=== PATIENT | female | born 1970 | race Caucasian/White ===

== ENCOUNTER 2016-09-21 16:37 | Observation (INO) ==
--- NOTE | 2016-09-21 17:10 | Emergency Department Note ---
Disposition Clinical Impression: UTI (urinary tract infection), Bilateral leg paresthesia Disposition: Admitted As Inpatient Condition: Good General Adult HPI - General Chief complaint: ED Neuro Symptoms/Deficit Stated complaint: numbness Time Seen by Provider: 09/21/16 16:40 Nursing Notes Reviewed: Yes Vital Signs Reviewed: Yes - History of Present Illness Pain Scale: 6 - Related Data Home Medications Medication Instructions Recorded Confirmed Duloxetine HCl [Cymbalta] 60 mg PO DAILY 10/15/15 09/21/16 Ergocalciferol (VITAMIN D2) 50,000 unit PO WE 10/15/15 09/21/16 [Vitamin D2 (50,000 UNIT)] Levothyroxine [Synthroid] 75 mcg PO DAILY 10/15/15 09/21/16 Oxycodone HCl [Oxaydo] 5 mg PO Q6H PRN 10/15/15 09/21/16 Apixaban [Eliquis] 5 mg PO BID 09/21/16 09/21/16 Phenol/Sodium Phenolate [[facility]vs Sore 5 spray PO Q4H PRN 09/21/16 09/21/16 Throat [place]] Pregabalin [Lyrica] 300 mg PO BID 09/21/16 09/21/16 Promethazine [Phenergan] 25 mg RC TID PRN 09/21/16 09/21/16 Previous Rx's Medication Instructions Recorded Cetirizine HCl [Zyrtec] 10 mg PO DAILY PRN #7 capsule 07/17/16 Allergies Allergy/AdvReac Type Severity Reaction Status Date / Time Erythromycin Base AdvReac Vomiting Verified 09/18/16 23:41 naproxen AdvReac Vomiting Verified 09/18/16 23:41 tramadol AdvReac Vomiting Verified 09/18/16 23:41 Past Medical History - Past Medical History Medical history: Reports: arthritis, fibromyalgia, pulmonary embolus, other Surgical history: Reports: cholecystectomy, other (The patient underwent bariatric surgery several weeks ago. 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, other - Social History Smoking Status: Current every day smoker Smokeless Tobacco Status: No Alcohol use: Reports: none Drug use: Reports: none Course Vital Signs Temperature 98.1 F 09/21/16 16:40 Pulse Rate 77 09/21/16 16:40 Respiratory Rate 16 09/21/16 16:40 Blood Pressure 130/83 09/21/16 16:40 O2 Sat by Pulse Oximetry 98 09/21/16 16:40 Temperature 98.1 F 09/21/16 20:26 Pulse Rate 76 09/21/16 19:35 Respiratory Rate 18 09/21/16 20:26 Blood Pressure 134/80 09/21/16 20:26 O2 Sat by Pulse Oximetry 99 09/21/16 19:35 Oxygen Delivery Oxygen Delivery Room Air Medical Decision Making - MDM Narrative Medical decision making narrative: I examined this patient and my medical decision-making was reviewed with the MANAGER LANGUAGE/PA/Advanced Practice Nurse/Resident Physician. I agree with the documented findings, disposition and treatment plan as described except to the extent set forth below. Evaluate this patient with Dr. Mcpherson, agree with her evaluation treatment plan suprascapular the patient's stay. Patient comes in today complaining of numbness from her breast area down to her legs. No focal deficits. Reviewed her chart when she was here before they would admit her for this they thought it was due to her medications which is Lyrica which she still on. She has no signs of serotonin syndrome perished in a normal neuro exam. We look at her evaluation here last time she has 2 urine cultures from the same day 1 showing bacteria which was sensitive to everything and the other showing clean and a repeat that. Then reassess her and determine if we need to do any further management. No other lab tests were abnormal site do not think we need to repeat that I do not think she needs any imaging done at this point. Also wanting to talk with her family who just arrived also. 1750 hrs.: She does have a UTI. We will check labs on her and started on antibiotics and most likely admit. - Lab Data Result diagrams: 09/21/16 17:51 09/21/16 17:51 Lab Results 09/21/16 09/21/16 09/21/16 Range/Units 17:13 17:51 17:51 WBC 3.7 L D (4.3-11.1) K/mcL RBC 4.30 (3.82-4.97) M/mcL Hgb 11.2 L (11.5-15.4) g/dL Hct 35.8 (35.3-44.9) % MCV 83.3 (83.0-100.0) fL MCH 26.0 L (28.0-33.3) pg MCHC 31.3 L (31.6-35.5) g/dL RDW 17.6 H (11.5-14.5) % Plt Count 301 (140-400) K/mcL MPV 10.4 (9.4-12.4) fL Immature Gran % 0.3 (0-4) % Seg Neutrophils % 47.8 % Lymphocytes % 34.9 % Monocytes % 12.1 % Eosinophils % 3.8 % Basophils % 1.1 % Neutrophils # 1.8 (1.6-8.9) K/mcL Lymphocytes # 1.3 (0.6-4.6) K/mcL Monocytes # 0.5 (0.0-1.3) K/mcL Eosinophils # 0.1 (0.0-0.6) K/mcL Basophils # 0.0 (0.0-0.2) K/mcL Sodium 139 (136-145) mEq/L Potassium 3.0 L (3.5-4.5) mEq/L Chloride 106 (98-109) mEq/L Carbon Dioxide 24 (19-29) mEq/L BUN 8 (7-20) mg/dL Creatinine 0.64 (0.57-1.11) mg/dL Est GFR ( Amer) > 60 (> 60) Est GFR (Non-Af Amer) > 60 (> 60) BUN/Creatinine Ratio 13 (6-26) Glucose 111 H (70-99) mg/dL Calculated Osmolality 287 (280-300) Calcium 8.5 L (8.6-10.8) mg/dL Serum , Qual (Negative) Urine Color Dark Yellow (Yellow) Urine Clarity Turbid A (Clear) Urine pH 6.0 (5.0-8.0) pH Units Ur Specific [place] 1.024 (1.010-1.025) Urine Protein 30 H (Neg-Trace) mg/dL Urine Glucose (UA) Normal (Normal) mg/dL Urine Ketones Negative (Negative) mg/dL Urine Blood Large H (Negative) Urine Nitrite Positive A (Negative) Urine Bilirubin Small H (Negative) Urine Urobilinogen Normal (Normal) mg/dL Ur Leukocyte Esterase Small H (Negative) Urine Microscopic RBC 5-15 H (0-3) per hpf Urine Microscopic WBC 50-100 H (0-3) per hpf Ur Squamous Epith Cells Many H (None-Few) per lpf Urine Bacteria Many H (None-Few) per hpf Hyaline Casts None Seen (None-Few) per lpf Urine Yeast Test Not Performed Ur Culture Indicated? YES A (NO) 09/21/16 Range/Units 17:51 WBC (4.3-11.1) K/mcL RBC (3.82-4.97) M/mcL Hgb (11.5-15.4) g/dL Hct (35.3-44.9) % MCV (83.0-100.0) fL MCH (28.0-33.3) pg MCHC (31.6-35.5) g/dL RDW (11.5-14.5) % Plt Count (140-400) K/mcL MPV (9.4-12.4) fL Immature Gran % (0-4) % Seg Neutrophils % % Lymphocytes % % Monocytes % % Eosinophils % % Basophils % % Neutrophils # (1.6-8.9) K/mcL Lymphocytes # (0.6-4.6) K/mcL Monocytes # (0.0-1.3) K/mcL Eosinophils # (0.0-0.6) K/mcL Basophils # (0.0-0.2) K/mcL Sodium (136-145) mEq/L Potassium (3.5-4.5) mEq/L Chloride (98-109) mEq/L Carbon Dioxide (19-29) mEq/L BUN (7-20) mg/dL Creatinine (0.57-1.11) mg/dL Est GFR ( Amer) (> 60) Est GFR (Non-Af Amer) (> 60) BUN/Creatinine Ratio (6-26) Glucose (70-99) mg/dL Calculated Osmolality (280-300) Calcium (8.6-10.8) mg/dL Serum , Qual Negative (Negative) Urine Color (Yellow) Urine Clarity (Clear) Urine pH (5.0-8.0) pH Units Ur Specific [place] (1.010-1.025) Urine Protein (Neg-Trace) mg/dL Urine Glucose (UA) (Normal) mg/dL Urine Ketones (Negative) mg/dL Urine Blood (Negative) Urine Nitrite (Negative) Urine Bilirubin (Negative) Urine Urobilinogen (Normal) mg/dL Ur Leukocyte Esterase (Negative) Urine Microscopic RBC (0-3) per hpf Urine Microscopic WBC (0-3) per hpf Ur Squamous Epith Cells (None-Few) per lpf Urine Bacteria (None-Few) per hpf Hyaline Casts (None-Few) per lpf Urine Yeast Ur Culture Indicated? (NO)
[2016-09-21 17:24] LABS: Bilirubin,Urine Small (Negative); Blood,Urine Large (Negative); Clarity,Urine Turbid (Clear); Color,Urine Dark Yellow (Yellow); Glucose,Urine (UA) Normal (Normal); Ketones,Urine Negative (Negative); Leukocyte Esterase,Urine Small (Negative); Nitrite,Urine Positive (Negative); Protein,Urine 30 mg/dL (Neg-Trace); Specific Gravity,Urine 1.024 (1.010-1.025); Urobilinogen,Urine Normal (Normal)
[2016-09-21 17:26] LABS: Bacteria,Urine Many per hpf (None-Few); Squamous Epithelial Cell,Urine Many per lpf (None-Few); WBC,Urine 50-100 per hpf (0-3)
[2016-09-21 17:39] LABS: Hyaline Casts,Urine None Seen per lpf (None-Few)
--- NOTE | 2016-09-21 17:59 | Emergency Department Note ---
Disposition Clinical Impression: Bilateral leg paresthesia UTI (urinary tract infection) Qualifiers: Urinary tract infection type: acute cystitis Hematuria presence: without hematuria Qualified Code(s): N30.00 - Acute cystitis without hematuria Disposition: Admitted As Inpatient Condition: Good Referrals: Unassigned,Provider [Non-Partnered Physician] - Forms: ED Satisfaction Letter Time of Disposition: 19:29 General Adult HPI - General Chief complaint: ED Neuro Symptoms/Deficit Stated complaint: numbness Time Seen by Provider: 09/21/16 16:40 Nursing Notes Reviewed: Yes Vital Signs Reviewed: Yes - History of Present Illness HPI Narrative: Three-day history of numbness and tingling from her nipple line down. Patient states that she cannot ambulate due to the numbness in her legs. She has been seen for this on this day with no relief. She is also reporting foul-smelling urine. Pain Scale: 6 - Related Data Home Medications Medication Instructions Recorded Confirmed Duloxetine HCl [Cymbalta] 60 mg PO DAILY 10/15/15 09/21/16 Ergocalciferol (VITAMIN D2) 50,000 unit PO WE 10/15/15 09/21/16 [Vitamin D2 (50,000 UNIT)] Levothyroxine [Synthroid] 75 mcg PO DAILY 10/15/15 09/21/16 Oxycodone HCl [Oxaydo] 5 mg PO Q6H PRN 10/15/15 09/21/16 Apixaban [Eliquis] 5 mg PO BID 09/21/16 09/21/16 Phenol/Sodium Phenolate [Cvs Sore 5 spray PO Q4H PRN 09/21/16 09/21/16 Throat [place]] Pregabalin [Lyrica] 300 mg PO BID 09/21/16 09/21/16 Promethazine [Phenergan] 25 mg RC TID PRN 09/21/16 09/21/16 Previous Rx's Medication Instructions Recorded Cetirizine HCl [Zyrtec] 10 mg PO DAILY PRN #7 capsule 07/17/16 Allergies Allergy/AdvReac Type Severity Reaction Status Date / Time Erythromycin Base AdvReac Vomiting Verified 09/18/16 23:41 naproxen AdvReac Vomiting Verified 09/18/16 23:41 tramadol AdvReac Vomiting Verified 09/18/16 23:41 Review of Systems: She denies a fever recently. Does report numbness and tingling from her nipple line down. She pinches her hip and says that she cannot feel that. She reports that she cannot feel her feet. Patient denies any shortness of breath or chest pain. She denies any syncope or visual changes. She denies a headache. She denies any nausea vomiting or diarrhea. Denies any incontinence. All systems ED: reviewed and negative except as stated. Past Medical History - Past Medical History Medical history: Reports: arthritis, fibromyalgia, pulmonary embolus, other Surgical history: Reports: cholecystectomy, other (The patient underwent bariatric surgery several weeks ago. 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 - General General appearance: obese (Morbidly) - Head Head exam: atraumatic, normocephalic, normal inspection - Eye Eye exam: Present: normal appearance, PERRL, EOMI - ENT ENT exam: normal exam, normal oropharynx, mucous membranes moist - Neck Neck exam: Present: normal inspection, full ROM, trachea midline. Absent: meningismus, lymphadenopathy - Chest Chest inspection: Present: normal inspection, symmetric chest wall rise. Absent : tenderness, rash - Respiratory Respiratory exam: Present: normal lung sounds bilaterally. Absent: respiratory distress, wheezes, stridor - Cardiovascular Cardiovascular exam: Present: regular rate, normal rhythm, normal heart sounds - Abdominal Exam Abdominal exam: Present: soft, Non-Tender, normal bowel sounds, other (Exam limited due to patient's size.). Absent: tenderness, distention, guarding, rebound, rigidity - Extremities Exam Extremities exam: Present: normal inspection, full ROM, normal capillary refill , other (Reported numbness and tingling. She withdraws to Babinski as well as any type of skin binging.). Absent: tenderness - Back Exam Back exam: Present: normal inspection, full ROM. Absent: tenderness, CVA tenderness (R), CVA tenderness (L) - Neurological Exam Neurological exam: Present: alert, oriented X3 - Psychiatric Psychiatric exam: Present: normal affect, normal mood - Skin Skin exam: Present: warm, dry, intact, normal color Course Course Narrative: Male patient brought in by EMS for numbness and tingling from her nipple line down. Also reporting an altered mentation. Was seen at this facility on for similar symptoms. It was noted at the time that she had started her Lyrica back after being off it for several days. Her dose was decreased and she was discharged. Patient reports her symptoms have not changed. EMS states that she is altered from what they are used to. Patient is alert and oriented to person place and time she does not appear to be mentating full capacity. She reports numbness and tingling from her nipple line down. She also states that she cannot ambulate. However on exam she does withdraw from pain in her lower extremities. Patient has a foul urine odor about her. We will check a urinalysis and basic labs. She does not appear to have any focal neuro deficits. She has not had a fever. - Reevaluation(s) Reevaluation #1: Patient found to have a UTI. His on antibiotics and fluids. We will admit patient due to her altered level of mentation and new history of inability to ambulate. Time: 18:36 Reevaluation #2: Patient's family here advising patient has been acting differently at home. She has had episodes where she does not remember think she is down at home. She is not able to ambulate around the house. This Has been going on since . Time: 19:05 - Consultations Consultation #1: Spoke with Dr Grant. He is admitting Pt. Time: 19:25 Vital Signs Temperature 98.1 F 09/21/16 16:40 Pulse Rate 77 09/21/16 16:40 Respiratory Rate 16 09/21/16 16:40 Blood Pressure 130/83 09/21/16 16:40 O2 Sat by Pulse Oximetry 98 09/21/16 16:40 Temperature 98.1 F 09/21/16 16:40 Pulse Rate 75 09/21/16 18:08 Respiratory Rate 16 09/21/16 18:08 Blood Pressure 130/83 09/21/16 18:08 O2 Sat by Pulse Oximetry 97 09/21/16 18:08 Oxygen Delivery Oxygen Delivery Room Air Medical Decision Making - Lab Data Result diagrams: 09/21/16 17:51 09/21/16 17:51 Lab Results 09/21/16 09/21/16 09/21/16 Range/Units 17:13 17:51 17:51 WBC 3.7 L D (4.3-11.1) K/mcL RBC 4.30 (3.82-4.97) M/mcL Hgb 11.2 L (11.5-15.4) g/dL Hct 35.8 (35.3-44.9) % MCV 83.3 (83.0-100.0) fL MCH 26.0 L (28.0-33.3) pg MCHC 31.3 L (31.6-35.5) g/dL RDW 17.6 H (11.5-14.5) % Plt Count 301 (140-400) K/mcL MPV 10.4 (9.4-12.4) fL Immature Gran % 0.3 (0-4) % Seg Neutrophils % 47.8 % Lymphocytes % 34.9 % Monocytes % 12.1 % Eosinophils % 3.8 % Basophils % 1.1 % Neutrophils # 1.8 (1.6-8.9) K/mcL Lymphocytes # 1.3 (0.6-4.6) K/mcL Monocytes # 0.5 (0.0-1.3) K/mcL Eosinophils # 0.1 (0.0-0.6) K/mcL Basophils # 0.0 (0.0-0.2) K/mcL Sodium 139 (136-145) mEq/L Potassium 3.0 L (3.5-4.5) mEq/L Chloride 106 (98-109) mEq/L Carbon Dioxide 24 (19-29) mEq/L BUN 8 (7-20) mg/dL Creatinine 0.64 (0.57-1.11) mg/dL Est GFR ( Amer) > 60 (> 60) Est GFR (Non-Af Amer) > 60 (> 60) BUN/Creatinine Ratio 13 (6-26) Glucose 111 H (70-99) mg/dL Calculated Osmolality 287 (280-300) Calcium 8.5 L (8.6-10.8) mg/dL Urine Color Dark Yellow (Yellow) Urine Clarity Turbid A (Clear) Urine pH 6.0 (5.0-8.0) pH Units Ur Specific [place] 1.024 (1.010-1.025) Urine Protein 30 H (Neg-Trace) mg/dL Urine Glucose (UA) Normal (Normal) mg/dL Urine Ketones Negative (Negative) mg/dL Urine Blood Large H (Negative) Urine Nitrite Positive A (Negative) Urine Bilirubin Small H (Negative) Urine Urobilinogen Normal (Normal) mg/dL Ur Leukocyte Esterase Small H (Negative) Urine Microscopic RBC 5-15 H (0-3) per hpf Urine Microscopic WBC 50-100 H (0-3) per hpf Ur Squamous Epith Cells Many H (None-Few) per lpf Urine Bacteria Many H (None-Few) per hpf Hyaline Casts None Seen (None-Few) per lpf Urine Yeast Test Not Performed Ur Culture Indicated? YES A (NO)
[2016-09-21 18:01] LABS: Basophils % 1.1 %; Eosinophils # 0.1 K/mcL (0.0-0.6); Eosinophils % 3.8 %; Hematocrit 35.8 % (35.3-44.9); Hemoglobin 11.2 g/dL (11.5-15.4); Immature Granulocytes % 0.3 % (0-4); Lymphocytes # 1.3 K/mcL (0.6-4.6); Lymphocytes % 34.9 %; Mean Corpuscular HGB Conc 31.3 g/dL (31.6-35.5); Mean Corpuscular Volume 83.3 fL (83.0-100.0); Mean Platelet Volume 10.4 fL (9.4-12.4); Monocytes # 0.5 K/mcL (0.0-1.3); Monocytes % 12.1 %; Neutrophils # 1.8 K/mcL (1.6-8.9); Platelet Count 301 K/mcL (140-400); Red Cell Distribution Width 17.6 % (11.5-14.5); Segmented Neutrophils % 47.8 %
[2016-09-21] MEDS ORDERED: 0.9 % Sodium Chloride 500 ML IVC ONE (18:06)
[2016-09-21 18:13] LABS: BUN/Creatinine Ratio 13 (6-26); Blood Urea Nitrogen 8 mg/dL (7-20); Calcium 8.5 mg/dL (8.6-10.8); Carbon Dioxide 24 mEq/L (19-29); Chloride 106 mEq/L (98-109); Glucose 111 mg/dL (70-99); Osmolality,Calculated 287 (280-300); Sodium 139 mEq/L (136-145); eGFR For African Americans > 60 (> 60); eGFR For Non-African Americans > 60 (> 60)
[2016-09-21] MEDS ORDERED: *HR* OxyCODONE Immed Rel 5 MG TABLET PO ONE (19:08)
[2016-09-21] MEDS ORDERED: Naloxone 0.4 MG/ML INJ IVP PRN (21:49)
--- NOTE | 2016-09-21 22:03 | Internal Med History&Physical ---
Date of Encounter: 09/22/16 Time of Encounter: 07:20 Assessment and Plan (1) Confusion caused by a drug Current visit: No Status: Acute This patient was recently seen on 09/18 for similar symptoms, during the 9 hours course of her stay in the ED the patient's mental status improved greatly. It is my belief that the patient went home following the recent ED visit and did not follow her instructions to titrate up her Lyrica starting with 50mg TID. Her presenting symptoms are the same as her previous visit. Will hold her medications tonight with consideration for restarting them in the morning in a controlled environment to be taken appropriately and observe mental status changes. The patient was given a does of ceftriaxone in the ED for UTI. The patient states that she has had foul smelling urine, but does not have urinary symptoms. UA demonstrated small leukocyte esterase WBC 50-100, but was contaminated with many squamous epithelial cells. Urine collected by straight catheterization on 09/19 did not show any growth. I feel her confusion is related more to her medications, will hold continuation of antibiotics at this time. Urine culture pending. (2) Bilateral leg paresthesia Current visit: Yes Status: Acute These symptoms only present when the patient is having her altered mental status. Considerations for psychosomatic symptoms vs. malingering. The parasthesias do not seem to follow any structural cause at this time. Paired with the confusion a central cause was considered and since the patient' s original complaint was numbness from her breasts downward. CT of the head on 09/18 demonstrated no acute intracranial abnormality. She was noted to have a low folate of 2.4, will give supplemental dosing at this time. B12 pending. (3) History of pulmonary embolism Current visit: No Status: Acute Continue the patient on her Eliquis (4) Hypothyroidism Current visit: No Status: Acute TSH was .174, which is inconsistent with hypothyroidism. Will continue with synthroid for now. Patient needs to followup with her PCP. Qualifiers: Hypothyroidism type: unspecified Qualified Code(s): E03.9 - Hypothyroidism , unspecified (5) Morbid obesity Current visit: No Status: Acute Qualifiers: Obesity type: due to excess calories Qualified Code(s): E66.01 - Morbid ( severe) obesity due to excess calories (6) Hypokalemia Current visit: Yes Status: Acute Low at 3.0, was 3.5 on 09/18. Will continue to monitor at this time. (7) DVT prophylaxis Current visit: Yes Status: Acute Patient is on eliquis. Internal Medicine - H&P: HPI Chief complaint: Numbness and Tingling Admitted From: Emergency Dept Plans for Post Hospital Care: Home History of present illness: Ms. Blackburn is a 46 year old female with past medical history significant for fibromyalgia, arthritis, pulmonary embolism, depression and gastric bypass surgery several weeks ago who presented to the [facility] department for complaints of numbness and tingling. The patient has a recent visit to the emergency department on 09/18 for the same complaints. At that time her family members states that she seemed to be slightly altered as well and kept repeating herself and seeming confused. Her presentation today is the same as previously. It was believed that her altered mental status was due to her taking her Lyrica inappropriately as she had not taken it for a week, then took a 300mg capsule with out titrating her medication back up at all. During the course of her stay in the emergency department on 09/18 she was there for approximately 9 hours and her mentation returned at that time and her symptoms of numbness and tingling resolved completely. Her does of Lyrica was changed upon discharge on 09/18 to 50mg TID. When speaking with the patient today she could not express to me how she got to the hospital, she did not remember being in the emergency department 3 days ago, and she cannot remember when she last took any of her medications. She states that she does not have anyone at home to help her with her medications. Her original complaint was numbness with tingling from her breasts down to approximately her knees, but when I spoke with her she is now complaining of pain in her lower back and numbness from her hips to her feet. She denies any chest pain, shortness of breath, fevers, recent illness, nausea and diarrhea at this time. She states that her legs will give out from her due to the numbness she is having when she walks. Past Med Surg Social Fam HX - Past Medical History Medical history: arthritis, fibromyalgia, pulmonary embolus, other Psychiatric history: depression - Past Surgical History Surgical History: cholecystectomy, other - Social History Smoking Status: Current every day smoker (one pack per day) Smokeless Tobacco Status: No Alcohol use: none Drug use: none - Family History Mother Hx Family Endocrine Disorder: Yes (diabetes) Hx Family Medical Disorders: Yes (History of blood clots) Internal Medicine - H&P: Meds Duloxetine HCl [Cymbalta] 60 mg PO DAILY 10/15/15 [History] Ergocalciferol (VITAMIN D2) [Vitamin D2 (50,000 UNIT)] 50,000 unit PO WE [History] Levothyroxine [Synthroid] 75 mcg PO DAILY 10/15/15 [History] Oxycodone HCl [Oxaydo] 5 mg PO Q6H PRN 10/15/15 [History] Cetirizine HCl [Zyrtec] 10 mg PO DAILY PRN #7 capsule 07/17/16 [Rx] Apixaban [Eliquis] 5 mg PO BID 09/21/16 [History] Phenol/Sodium Phenolate [[facility] Sore Throat [place]] 5 spray PO Q4H PRN 09/21/16 [ History] Pregabalin [Lyrica] 300 mg PO BID 09/21/16 [History] Promethazine [Phenergan] 25 mg RC TID PRN 09/21/16 [History] Allergies Erythromycin Base Adverse Reaction (Verified 09/18/16 23:41) Vomiting naproxen Adverse Reaction (Verified 09/18/16 23:41) Vomiting tramadol Adverse Reaction (Verified 09/18/16 23:41) Vomiting All Systems PM: A 10-system review of systems was performed and is negative for pertinent findings except as documented above in the HPI. - Constitutional Constitutional: falls, no chills, no fatigue - EENT Eyes: no change in vision, no discharge, no pain, no photophobia Ears: no ear discharge, no ear pain, no tinnitus Nose, mouth and throat: no dysphagia, no nasal discharge, no neck pain, no sore throat - Cardiovascular Cardiovascular ROS IM: no chest pain, no diaphoresis, no dyspnea, no lightheadedness, no palpitations, no syncope - Respiratory Respiratory: no cough, no dyspnea, no wheezing, no excessive phlegm production - Gastrointestinal Gastrointestinal: no abdominal pain, no diarrhea, no hematemesis, no hematochezia, no melena, no nausea, no vomiting - Genitourinary Genitourinary: no change in urinary stream, no dysuria, no flank pain, no hematuria Additional comments: foul smelling urine - Musculoskeletal Musculoskeletal ROS IM: numbness, tingling - Integumentary Integumentary IM: no rash, no unusual bruising - Neurological Neurological ROS: confusion, focal weakness, numbness, paresthesias, tingling, no dizziness - Psychiatric Psychiatric: confusion, memory loss - Hematologic/Lymphatic Hematologic/Lymphatic: no easy bruising - Constitutional Vitals: Temp Pulse Resp BP Pulse Ox 98.1 F 76 18 134/80 99 09/21/16 20:26 09/21/16 19:35 09/21/16 20:26 09/21/16 20:26 09/21/16 19:35 General appearance: Present: A&O X 2 (not oriented to time), no acute distress, obese, answers questions appropriately - Head Head exam: Present: atraumatic, normocephalic - Eye Eye exam: Present: EOMI, PERRL, conjuntiva pink, sclera anicteric Pupils: Present: PERRL - Neck Neck exam general surgery: Present: supple, trachea midline. Absent: lymphadenopathy - Respiratory Respiratory exam: Present: CTAB. Absent: accessory muscle use, rales, rhonchi, wheezes - Cardiovascular Cardiovascular exam: Present: RRR, +S1, +S2. Absent: diastolic murmur, gallop, rubs, systolic murmur - GI/Abdominal GI/Abdominal exam: Present: normal bowel sounds, soft, no peritoneal signs. Absent: distended, tenderness Additional comments: obese - Extremities Exam Extremities exam: Present: warm, radial pulses palpable and symetrical. Absent : calf tenderness, cyanotic, pedal edema - Neurological Exam Neurological exam: Present: CN II-XII intact, no focal deficits. Absent: facial droop, speech deficit Additional comments: Patient was able to discriminate between a sharp stick and cotton tipped applicator throughout her lower extremities - Expanded Neurological Exam Cerebellar function: finger to nose: Normal Sensory exam: lower extremity light touch: Normal, lower extremity pin prick: Normal, upper extremity light touch: Normal, upper extremity pin prick: Normal Neuro motor strength exam: LUE: 5, RUE: 5, LLE: 5, RLE: 5 - Skin Skin exam: Present: dry, intact Internal Med - H&P Results - Labs CBC & Chem 7: 09/21/16 17:51 09/21/16 17:51 - Attending Attestation I examined this patient and my medical decision-making was reviewed with the DIRECTOR OF RELIGIOUS ACTIVITIES/PA/Advanced Practice Nurse/Resident Physician. I agree with the documented findings, disposition and treatment plan as described except to the extent set forth below.
[2016-09-22] MEDS: Acetaminophen 325 MG TABLET PO PRN ×2 (01:08→09:37)
[2016-09-22] MEDS: Folic Acid 1 MG TABLET PO SCH (08:00)
[2016-09-22] MEDS: APIXABAN 5 MG TABLET PO SCH ×2 (08:00→20:47)
[2016-09-22 08:35] LABS: ABG Base Excess 3.9 mEq/L (-2.0 to 3.0); ABG HCO3 27.7 mEQ/L (21-27); ABG Oxygen Saturation 94 % (95-98); ABG PCO2 38 mmHg (35-45); ABG PH 7.47 pH Units (7.32-7.45); ABG PO2 67 mmHg (85-104); ABG TCO2 28.9 mEq/L (20-26); Blood Gas FiO2 21 %
[2016-09-22 08:41] LABS: Hemoglobin A1C 5.1 %
--- NOTE | 2016-09-22 14:32 | Electrocardiograph Report ---
[facility] Test Date: 2016-09-21 Pat Name: JIMMY MATIAS Department: 104 Room: 3A37 Gender: F Community Development Manager: DILIP : 1970 Requested By: Elijah Celaya Order Number: [id number] Reading MD: Grupo Vazquez Measurements Intervals [place] Rate: 77 P: 51 [place]: 171 QRS: 40 QRSD: 97 T: 43 QT: 398 QTc: 430 Interpretive Statements SINUS RHYTHM Electronically Signed On 09-22-16 14:29:41 EST by Grupo Vazquez
--- NOTE | 2016-09-22 14:55 | ECHO - Doppler Report ---
Echocardiogram Name: Kamla Blackburn Date of Study: 09/22/2016 Date: 1970 Ht: 67.0 in Medical Record#: [id number] Age: 46 Wt: 321.0 lb Gender: Female BSA: 2.47 Order #: [id number] Location: [facility] Room #: 3A37 Reading Physician: Artie Peña MD, [facility] [employer] Cement Sheet Supervisor: Elena Hammer RDCS, RVT Ordering Physician: Vicente Dow MD Primary Physician: Lavell Capps M.D. Indications: Probable JOSE ANGEL Impressions: Normal LV size and systolic function, LVEF 65%. Normal right ventricular structure and function. Mildly dilated left atrium. No significant valvular dysfunction. Unable to estimate RVSP due to lack of TR jet. Left Ventricular Wall Motion: Rest Echo Findings All wall segments showed normal motion. Findings: Study Quality * Technically adequate exam. ECG Findings * Normal sinus rhythm. Left Ventricle * Normal LV size and systolic function, LVEF 65%. * Normal LV wall thickness. * Indeterminate diastolic function. Right Ventricle * Normal right ventricular structure and function. Left Atrium * Mildly dilated left atrium. Right Atrium * Normal right atrial size. Aorta * Normally sized aortic root. Pericardium * There is no pericardial effusion present. IVC * The IVC is not well evaluated. Aortic Valve * Aortic valve not well visualized. Appears trileaflet. * No aortic stenosis. * No aortic regurgitation. Mitral Valve * Normal mitral valve structure. * No mitral stenosis. * Trace mitral regurgitation. Tricuspid Valve * Normal tricuspid valve structure. * No tricuspid stenosis. * No tricuspid regurgitation. * Unable to estimate RVSP due to lack of TR jet. Pulmonic Valve * Pulmonic valve not well visualized. * No pulmonic stenosis. * No pulmonic regurgitation. History History of Smoking Years 25 Packs 1 06-19-2013 a Previous Echo was performed. Measurements: BP: 135/ 78 2D Normal Values RVIDd: 3.40 cm IVSd: 1.00 cm 0.6 - 1.0 cm LVIDd: 4.70 cm 3.7 - 5.6 cm LVPWd: 1.00 cm 0.6 - 1.1 cm LVIDs: 2.90 cm 1.5 - 3.6 cm AO: 3.40 cm < 4.0 cm %FS: 38.30 cm >25 % LA volume: 90 Mitral Valve Peak E:.69 m/sec Peak A:.57 m/sec E/A Ratio:1.2 Updated by Artie Peña MD, [facility] on 09/22/2016 2:49:06 PM electronically signed on 09/22/2016 2:50:53 PM with status of Final Wall Motion [place]: 1=Normal, 2=Hypokinesis, 3=Akinesis, 4=Dyskinesis, 5=Aneurysmal, 6=Hyperkinetic, X=Not Visualized (Blank)=Missing
--- NOTE | 2016-09-22 15:49 | Internal Med Progress Note ---
Date of Encounter: 09/22/16 Time of Encounter: 10:00 - Assessment and plan (1) Bilateral leg paresthesia Current Visit: Yes Status: Acute Assessment and plan: Etiology is undetermined. Patient has severe folic acid deficiency. She had a bariatric surgery several months ago, possibly also had vitamin B12 deficiency. Will check vitamin B12 level. (2) DVT prophylaxis Current Visit: Yes Status: Acute Assessment and plan: Patient is on Eliquis. (3) Hypokalemia Current Visit: Yes Status: Acute Assessment and plan: Possibly due to bariatric surgery. Give potassium supplement already, will follow-up a potassium level. (4) UTI (urinary tract infection) Current Visit: Yes Status: Acute Assessment and plan: Continue Rocephin. Follow-up urine culture. Qualifiers: Urinary tract infection type: acute cystitis Hematuria presence: without hematuria Qualified Code(s): N30.00 - Acute cystitis without hematuria (5) History of pulmonary embolism Current Visit: No Status: Acute Assessment and plan: Pt is on eliquis (6) Hypothyroidism Current Visit: No Status: Acute Assessment and plan: Continue Synthroid. Will decrease dose to 50 g because of TSH low. Qualifiers: Hypothyroidism type: unspecified Qualified Code(s): E03.9 - Hypothyroidism , unspecified (7) Morbid obesity Current Visit: No Status: Acute Assessment and plan: S/P bariatric surgery. Qualifiers: Obesity type: due to excess calories Qualified Code(s): E66.01 - Morbid ( severe) obesity due to excess calories - Time Spent With Patient 25 - 35 minutes - Subjective Interval history: Patient is a 46-year-old female presented to emergency room for both legs numbness and tingling. Her past medical history is significant for fibromyalgia , PE, arthritis, morbid obesity s/p bariatric surgery. Patient was seen and examined. She is awake, alert, oriented 3. Still complaining of leg numbness and tingling on both legs. Strength of both legs are normal. Patient has severe folic acid deficiency, on folic acid supplement. Vitamin B12 level sent, resolved is pending. Patient had recent bariatric surgery, she may have malnutrition and electrolytes abnormalities. We will close monitoring. - Constitutional Vitals: Temp Pulse Resp BP Pulse Ox 98.5 F 82 14 156/77 93 L 09/22/16 15:05 09/22/16 15:05 09/22/16 15:05 09/22/16 15:05 09/22/16 15:05 General appearance: Present: A&O X 3, no acute distress, obese, answers questions appropriately - Head Head exam: Present: atraumatic, normocephalic - Eye Eye exam: Present: PERRL, conjuntiva pink, sclera anicteric Pupils: Present: PERRL - Neck Neck exam general surgery: Present: supple, trachea midline. Absent: lymphadenopathy - Respiratory Respiratory exam: Present: CTAB. Absent: accessory muscle use, rales, rhonchi, wheezes - Cardiovascular Cardiovascular exam: Present: RRR, +S1, +S2. Absent: diastolic murmur, gallop, rubs, systolic murmur - GI/Abdominal GI/Abdominal exam: Present: normal bowel sounds, soft, no peritoneal signs. Absent: distended, tenderness - Extremities Exam Extremities exam: Present: warm, radial pulses palpable and symetrical. Absent : calf tenderness, cyanotic, pedal edema - Neurological Exam Neurological exam: Present: CN II-XII intact, oriented X3, no focal deficits. Absent: pronater drift, facial droop, speech deficit - Skin Skin exam: Present: dry, intact Internal Medicine: Result - Labs CBC & Chem 7: 09/21/16 17:51 09/21/16 17:51 - ABG Interpretation ABG results: ABG ABG pH 7.47 pH Units (7.32-7.45) H 09/22/16 08:26 ABG pCO2 38 mmHg (35-45) 09/22/16 08:26 ABG pO2 67 mmHg (85-104) L 09/22/16 08:26 ABG O2 Saturation 94 % (95-98) L 09/22/16 08:26 Consult Discharge Plan - Plan Referrals: Lavell Capps MD [Primary Care Provider] -
--- NOTE | 2016-09-22 17:36 | Neurology - Consult Note ---
Date of Encounter: 09/22/16 Time of Encounter: 17:32 Assessment and Plan (1) Paresthesia Current Visit: No Status: Acute Unknown etiology and the symptoms are subjective and i could not identify any discrete level of sensory deficits. Neurological examination is essentially non focal and DTRs are preserved and the sensory complaints are certainly not associated with any motor deficits. She does have some urinary incontinence problems and had blood urine occuring as i spoke to her. No clear medication that she uses can cause peripheral neuropathy. I agree with check B12, may be other causes of rapid onset of peripheral neuropathy can be used. I would order MRI of T spine without contrast just to make sure that no spinal cord lesion is present. She is morbid obese and accurate examination is difficult. Has increased DTRs and combined degeneration is a concern. If having abdominal pain, peripheral neuropathy then heavy metal poisoning is rare but possible condition. History of Present Illness Chief complaint: leg numbess HPI: Ms. Blackburn is a 46 year old female with morbid obesity, arthritis, back pain, asthma, HTN, hyptyroid who presented to ER with acute onset of confusion, and neurology was consulted regarding complaints of leg paresthesia. Patient states that she has developed bilateral leg numbness up to her waist. She denies any weakness in her legs however. She was in prone position when i entered and when she tried to turn supine she has significant soreness to his legs and thigh and her back. She woke up with the symptoms. The numbness is at her waist. CT of head showed no acute intracranial abnormality. Laboratory testing showed no significant anemia. No history of DM. dose have history of abdominal pain. Past Med Surg Social Fam HX - Past Medical History Medical history: arthritis, fibromyalgia, pulmonary embolus, other Psychiatric history: depression - Past Surgical History Surgical History: cholecystectomy, other - Social History Smoking Status: Current every day smoker (one pack per day) Smokeless Tobacco Status: No Alcohol use: none Drug use: none - Family History Mother Hx Family Endocrine Disorder: Yes (diabetes) Hx Family Medical Disorders: Yes (History of blood clots) Medications and Allergies Duloxetine HCl [Cymbalta] 60 mg PO DAILY 10/15/15 [History] Ergocalciferol (VITAMIN D2) [Vitamin D2 (50,000 UNIT)] 50,000 unit PO WE [History] Levothyroxine [Synthroid] 75 mcg PO DAILY 10/15/15 [History] Oxycodone HCl [Oxaydo] 5 mg PO Q6H PRN 10/15/15 [History] Cetirizine HCl [Zyrtec] 10 mg PO DAILY PRN #7 capsule 07/17/16 [Rx] Apixaban [Eliquis] 5 mg PO BID 09/21/16 [History] Phenol/Sodium Phenolate [[facility] Sore Throat [place]] 5 spray PO Q4H PRN 09/21/16 [ History] Pregabalin [Lyrica] 300 mg PO BID 09/21/16 [History] Promethazine [Phenergan] 25 mg RC TID PRN 09/21/16 [History] Allergies Erythromycin Base Adverse Reaction (Verified 09/18/16 23:41) Vomiting naproxen Adverse Reaction (Verified 09/18/16 23:41) Vomiting tramadol Adverse Reaction (Verified 09/18/16 23:41) Vomiting All Systems: A 10-system review of systems was performed and is negative for pertinent findings except as documented above in the HPI. Physical Examination - Vital Signs Vital Signs: Initial Vital Signs Temp Pulse Resp BP Pulse Ox 98.1 F 77 16 130/83 98 09/21/16 16:40 09/21/16 16:40 09/21/16 16:40 09/21/16 16:40 09/21/16 16:40 - Constitutional General appearance: uncomfortable - Neurologic Sensorimotor examination: other (Grossly intact, patient complains of having numbness in her leg, examination not very reliable. ) Detailed motor examination: grossly full strength in all extremities Motor examination - right side: 5/5: deltoids, biceps, triceps, wrist flexion, wrist extension, talent acquisition manager, hip flexors, tibialis Anterior, quadriceps, toe extension (EHL), plantarflexion Motor examination - left side: 5/5: deltoids, biceps, triceps, wrist flexion, wrist extension, hip flexors, talent acquisition manager, quadriceps, tibialis Anterior, toe extension (EHL), plantarflexion Detailed sensory examination: other (Difficult to examine. Somewhat reduced touch and pinprick to legs and abodmin without clear level) Reflexes: Biceps: 2+, Triceps: 2+, Brachioradialis: 2+, Patella: 2+, Achilles: 2 + Mental Status Examination: awake, alert, oriented to person, oriented to place, oriented to time, follows commands appropriately, answers questions appropriately, no agnosia, no aphasia, no aproxia Cranial nerve examination: PERRL, EOMI, visual lara intact, corneal reflexes brisk symmetrically, sensory to face intact, mastication intact, no facial asymmetry is present, no dysarthria, hearing is intact symmetrically, soft palate elevates bilaterally upon phonation, gag reflex intact, flexes SCM and trapezius muscles symmetrically with full power, tongue protrudes midline, no atrophy or facial fasiculations present Cerebellar examination: no dysmetria, performs finger to nose and heel to victoria symmetrically without ataxia, no gait ataxia, no truncal ataxia, no difficulty with rapid alternating movements Results - Laboratory Findings CBC and BMP: 09/21/16 17:51 09/21/16 17:51 Abnormal lab findings: Abnormal lab results WBC 3.7 K/mcL (4.3-11.1) L D 09/21/16 17:51 Hgb 11.2 g/dL (11.5-15.4) L 09/21/16 17:51 MCH 26.0 pg (28.0-33.3) L 09/21/16 17:51 MCHC 31.3 g/dL (31.6-35.5) L 09/21/16 17:51 RDW 17.6 % (11.5-14.5) H 09/21/16 17:51 ABG pH 7.47 pH Units (7.32-7.45) H 09/22/16 08:26 ABG pO2 67 mmHg (85-104) L 09/22/16 08:26 ABG HCO3 27.7 mEQ/L (21-27) H 09/22/16 08:26 ABG Total CO2 28.9 mEq/L (20-26) H 09/22/16 08:26 ABG O2 Saturation 94 % (95-98) L 09/22/16 08:26 ABG Base Excess 3.9 mEq/L (-2.0 to 3.0) H 09/22/16 08:26 Potassium 3.0 mEq/L (3.5-4.5) L 09/21/16 17:51 Glucose 111 mg/dL (70-99) H 09/21/16 17:51 Calcium 8.5 mg/dL (8.6-10.8) L 09/21/16 17:51 C-Reactive Protein 19 mg/L (Less than 5) H 09/21/16 17:51 Folate 2.4 ng/mL (7.0-31.4) L 09/21/16 17:51 Urine Clarity Turbid (Clear) A 09/21/16 17:13 Urine Protein 30 mg/dL (Neg-Trace) H 09/21/16 17:13 Urine Blood Large (Negative) H 09/21/16 17:13 Urine Nitrite Positive (Negative) A 09/21/16 17:13 Urine Bilirubin Small (Negative) H 09/21/16 17:13 Ur Leukocyte Esterase Small (Negative) H 09/21/16 17:13 Urine Microscopic RBC 5-15 per hpf (0-3) H 09/21/16 17:13 Urine Microscopic WBC 50-100 per hpf (0-3) H 09/21/16 17:13 Ur Squamous Epith Cells Many per lpf (None-Few) H 09/21/16 17:13 Urine Bacteria Many per hpf (None-Few) H 09/21/16 17:13 Ur Culture Indicated? YES (NO) A 09/21/16 17:13 Consult Discharge Plan - Plan Referrals: Lavell Capps MD [Primary Care Provider] -
[2016-09-22] MEDS ORDERED: *HR* Promethazine 25 MG/ML VIAL IVP ONE (19:43)
[2016-09-22] MEDS ORDERED: *HR* LORazepam 2 MG/ML VIAL IVP ONE (19:43)
[2016-09-23] MEDS: 0.9 % Sodium Chloride 1,000 ML IVC SCH ×3 (00:09→22:10)
[2016-09-23 05:57] LABS: Basophils % 0.7 %; Eosinophils # 0.2 K/mcL (0.0-0.6); Eosinophils % 4.2 %; Hemoglobin 10.7 g/dL (11.5-15.4); Immature Granulocytes % 0.2 % (0-4); Immature Platelets 2.7 % (1.1-6.1); Mean Corpuscular HGB Conc 31.5 g/dL (31.6-35.5); Mean Corpuscular Hemoglobin 26.2 pg (28.0-33.3); Mean Corpuscular Volume 83.1 fL (83.0-100.0); Mean Platelet Volume 10.3 fL (9.4-12.4); Monocytes # 0.4 K/mcL (0.0-1.3); Neutrophils # 1.4 K/mcL (1.6-8.9); Platelet Count 287 K/mcL (140-400); Red Blood Count 4.09 M/mcL (3.82-4.97); Red Cell Distribution Width 17.5 % (11.5-14.5); Segmented Neutrophils % 34.9 %
[2016-09-23 06:08] LABS: % Iron Saturation 9 % (15-50); Alanine Aminotransferase 13 Units/L (0-55); Albumin 2.4 g/dL (3.5-5.0); Albumin/Globulin Ratio 0.7 (1.1-2.2); Alkaline Phosphatase 88 Units/L (38-126); Aspartate Amino Transferase 26 Units/L (5-34); BUN/Creatinine Ratio 11 (6-26); Bilirubin,Total 0.4 mg/dL (0.2-1.2); Blood Urea Nitrogen 6 mg/dL (7-20); Calcium 8.1 mg/dL (8.6-10.8); Carbon Dioxide 19 mEq/L (19-29); Chloride 110 mEq/L (98-109); Globulin 3.5 g/dL (2.4-3.5); Glucose 86 mg/dL (70-99); Iron 24 mcg/dL (50-170); Magnesium 1.7 mg/dL (1.6-2.6); Osmolality,Calculated 285 (280-300); Potassium 3.6 mEq/L (3.5-4.5); Sodium 139 mEq/L (136-145); Total Protein 5.9 g/dL (6.0-8.3); Transferrin 181 mg/dL (180-382); eGFR For African Americans > 60 (> 60); eGFR For Non-African Americans > 60 (> 60)
[2016-09-23 06:28] LABS: Ferritin 80 ng/ml (5-204)
[2016-09-23] MEDS: Cyanocobalamin (B-12) 1,000 MCG TABLET PO SCH (08:54)
[2016-09-23] MEDS: APIXABAN 5 MG TABLET PO SCH ×2 (08:54→21:14)
[2016-09-23] MEDS: Folic Acid 1 MG TABLET PO SCH (08:54)
[2016-09-23] MEDS: Acetaminophen 325 MG TABLET PO PRN (09:03)
[2016-09-23] MEDS ORDERED: *HR* LORazepam 2 MG/ML VIAL IVP ONE (13:31)
[2016-09-23] MEDS ORDERED: *HR* Promethazine 25 MG/ML VIAL IVP ONE (13:31)
--- NOTE | 2016-09-23 15:30 | Internal Med Progress Note ---
Date of Encounter: 09/23/16 Time of Encounter: 09:00 - Assessment and plan (1) Bilateral leg paresthesia Current Visit: Yes Status: Acute Assessment and plan: Etiology is undetermined. Neurology consult appreciated. Did T-spine MRI. We will follow the results. (2) DVT prophylaxis Current Visit: Yes Status: Acute Assessment and plan: Patient is on Eliquis. (3) Hypokalemia Current Visit: Yes Status: Acute Assessment and plan: Possibly due to bariatric surgery. Give potassium supplement already, will follow-up a potassium level. Potassium 3.6 today. (4) UTI (urinary tract infection) Current Visit: Yes Status: Acute Assessment and plan: Continue Rocephin. urine culture shows Escherichia coli, sensitive to Rocephin. Qualifiers: Urinary tract infection type: acute cystitis Hematuria presence: without hematuria Qualified Code(s): N30.00 - Acute cystitis without hematuria (5) History of pulmonary embolism Current Visit: No Status: Acute Assessment and plan: Pt is on eliquis (6) Hypothyroidism Current Visit: No Status: Acute Assessment and plan: Continue Synthroid. Will decrease dose to 50 g because of TSH low. Qualifiers: Hypothyroidism type: unspecified Qualified Code(s): E03.9 - Hypothyroidism , unspecified (7) Morbid obesity Current Visit: No Status: Acute Assessment and plan: S/P bariatric surgery. Qualifiers: Obesity type: due to excess calories Qualified Code(s): E66.01 - Morbid ( severe) obesity due to excess calories (8) Folic acid deficiency Current Visit: Yes Status: Acute Assessment and plan: Possible due to bariatric surgery. We will give supplement (9) Iron deficiency Current Visit: Yes Status: Acute Assessment and plan: Possible due to bariatric surgery. We will give supplemental iron pills. - Time Spent With Patient 25 - 35 minutes - Subjective Interval history: Patient is a 46-year-old female presented to emergency room for both legs numbness and tingling. Her past medical history is significant for fibromyalgia , PE, arthritis, morbid obesity s/p bariatric surgery. Patient was seen and examined. She is awake, alert, oriented 3. Still complaining of leg numbness and tingling on both legs. Neurology consult appreciated. Patient did T-spine MRI today. Result is pending. Lab results also shows patient has iron deficiency, and a vitamin B12 at lower site. Will give supplement. - Constitutional Vitals: Temp Pulse Resp BP Pulse Ox 98.1 F 92 18 124/80 91 L 09/23/16 10:49 09/23/16 10:49 09/23/16 10:49 09/23/16 10:49 09/23/16 10:49 General appearance: Present: A&O X 3, no acute distress, obese, answers questions appropriately - Head Head exam: Present: atraumatic, normocephalic - Eye Eye exam: Present: PERRL, conjuntiva pink, sclera anicteric Pupils: Present: PERRL - Neck Neck exam general surgery: Present: supple, trachea midline. Absent: lymphadenopathy - Respiratory Respiratory exam: Present: CTAB. Absent: accessory muscle use, rales, rhonchi, wheezes - Cardiovascular Cardiovascular exam: Present: RRR, +S1, +S2. Absent: diastolic murmur, gallop, rubs, systolic murmur - GI/Abdominal GI/Abdominal exam: Present: normal bowel sounds, soft, no peritoneal signs. Absent: distended, tenderness - Extremities Exam Extremities exam: Present: warm, radial pulses palpable and symetrical. Absent : calf tenderness, cyanotic, pedal edema - Neurological Exam Neurological exam: Present: CN II-XII intact, oriented X3, no focal deficits. Absent: pronater drift, facial droop, speech deficit - Skin Skin exam: Present: dry, intact Internal Medicine: Result - Labs CBC & Chem 7: 09/23/16 05:21 09/23/16 05:21 Labs: Short CBC 09/23/16 Range/Units 05:21 WBC 4.1 L (4.3-11.1) K/mcL Hgb 10.7 L (11.5-15.4) g/dL Hct 34.0 L (35.3-44.9) % Plt Count 287 (140-400) K/mcL Neutrophils # 1.4 L (1.6-8.9) K/mcL BMP 09/23/16 05:21 Sodium 139 Potassium 3.6 Chloride 110 H Carbon Dioxide 19 BUN 6 L Creatinine 0.55 L Glucose 86 Calcium 8.1 L Liver Function 09/23/16 Range/Units 05:21 Total Bilirubin 0.4 (0.2-1.2) mg/dL AST 26 (5-34) Units/L ALT 13 (0-55) Units/L Alkaline Phosphatase 88 (38-126) Units/L Albumin 2.4 L (3.5-5.0) g/dL - ABG Interpretation ABG results: ABG ABG pH 7.47 pH Units (7.32-7.45) H 09/22/16 08:26 ABG pCO2 38 mmHg (35-45) 09/22/16 08:26 ABG pO2 67 mmHg (85-104) L 09/22/16 08:26 ABG O2 Saturation 94 % (95-98) L 09/22/16 08:26 Consult Discharge Plan - Plan Referrals: Lavell Capps MD [Primary Care Provider] - 09/26/16 10:15 am
--- NOTE | 2016-09-23 15:41 | Neurology Progress Note ---
Date of Encounter: 09/23/16 Time of Encounter: 15:39 Assessment and Plan (1) Paresthesia Current Visit: No Status: Acute Etiology unclear. Patient not myelopathic. MRI of t-spine showed no significant spinal cord pathology as far i can see. Await for official review. Paresthesia in legs subjectively improved but patient is drowsy at this time. B12 level normal. No additional testing appear necessary. If symptoms persist, then an outpatient EMG/NCV may be helpful. Patient's neurological examination may not be reliable. Current chief complaints difficult to localize neurologically. Please continue medical and supportive care Subjective Principal diagnosis: bilateral leg numbness Interval history: Patient seen and examined. Came back from MRI. Very drowsy but responded that her numbness is better. MRI of Thoracic spine reviewed and i did not appreciate any significant spinal cord pathology. Waiting for official report. B12 379. Objective - Constitutional Vitals: Temp Pulse Resp BP Pulse Ox 98.1 F 92 18 124/80 91 L 09/23/16 10:49 09/23/16 10:49 09/23/16 10:49 09/23/16 10:49 09/23/16 10:49 - Neurological Exam Sensorimotor examination: Present: other (Unable to assess due to sedation) Motor Examination: Present: grossly full strength in all extremities (NO gross weakness) Motor examination - left side: 5/5: deltoids, biceps, triceps, wrist flexion, wrist extension, hip flexors, technical service representative, quadriceps, tibialis Anterior, toe extension (EHL), plantarflexion Sensation intact: Present: other (Difficult to examine. Somewhat reduced touch and pinprick to legs and abodmin without clear level) Mental Status Examination: Present: drowsy, opens eyes to voice, follows simple commands Cranial nerve examination: Present: PERRL, corneal reflexes brisk symmetrically , sensory to face intact, mastication intact, no facial asymmetry is present, no dysarthria, hearing is intact symmetrically Cerebellar examination: Present: no dysmetria, performs finger to nose and heel to victoria symmetrically without ataxia, no gait ataxia, no truncal ataxia, no difficulty with rapid alternating movements - Expanded Neurological Exam Sensory exam: UE 2 point discrimination: Normal Results - Laboratory Findings CBC and BMP: 09/23/16 05:21 09/23/16 05:21 Abnormal lab findings: Abnormal lab results WBC 4.1 K/mcL (4.3-11.1) L 09/23/16 05:21 Hgb 10.7 g/dL (11.5-15.4) L 09/23/16 05:21 Hct 34.0 % (35.3-44.9) L 09/23/16 05:21 MCH 26.2 pg (28.0-33.3) L 09/23/16 05:21 MCHC 31.5 g/dL (31.6-35.5) L 09/23/16 05:21 RDW 17.5 % (11.5-14.5) H 09/23/16 05:21 Neutrophils # 1.4 K/mcL (1.6-8.9) L 09/23/16 05:21 ABG pH 7.47 pH Units (7.32-7.45) H 09/22/16 08:26 ABG pO2 67 mmHg (85-104) L 09/22/16 08:26 ABG HCO3 27.7 mEQ/L (21-27) H 09/22/16 08:26 ABG Total CO2 28.9 mEq/L (20-26) H 09/22/16 08:26 ABG O2 Saturation 94 % (95-98) L 09/22/16 08:26 ABG Base Excess 3.9 mEq/L (-2.0 to 3.0) H 09/22/16 08:26 Chloride 110 mEq/L (98-109) H 09/23/16 05:21 BUN 6 mg/dL (7-20) L 09/23/16 05:21 Creatinine 0.55 mg/dL (0.57-1.11) L 09/23/16 05:21 Calcium 8.1 mg/dL (8.6-10.8) L 09/23/16 05:21 Iron 24 mcg/dL (50-170) L 09/23/16 05:21 % Saturation 9 % (15-50) L 09/23/16 05:21 C-Reactive Protein 19 mg/L (Less than 5) H 09/21/16 17:51 Serum Total Protein 5.9 g/dL (6.0-8.3) L 09/23/16 05:21 Albumin 2.4 g/dL (3.5-5.0) L 09/23/16 05:21 Albumin/Globulin Ratio 0.7 (1.1-2.2) L 09/23/16 05:21 Folate 2.4 ng/mL (7.0-31.4) L 09/21/16 17:51 Urine Clarity Turbid (Clear) A 09/21/16 17:13 Urine Protein 30 mg/dL (Neg-Trace) H 09/21/16 17:13 Urine Blood Large (Negative) H 09/21/16 17:13 Urine Nitrite Positive (Negative) A 09/21/16 17:13 Urine Bilirubin Small (Negative) H 09/21/16 17:13 Ur Leukocyte Esterase Small (Negative) H 09/21/16 17:13 Urine Microscopic RBC 5-15 per hpf (0-3) H 09/21/16 17:13 Urine Microscopic WBC 50-100 per hpf (0-3) H 09/21/16 17:13 Ur Squamous Epith Cells Many per lpf (None-Few) H 09/21/16 17:13 Urine Bacteria Many per hpf (None-Few) H 09/21/16 17:13 Ur Culture Indicated? YES (NO) A 09/21/16 17:13 Consult Discharge Plan - Plan Referrals: Lavell Capps MD [Primary Care Provider] - 09/26/16 10:15 am
[2016-09-24 04:39] LABS: Basophils % 0.9 %; Eosinophils # 0.1 K/mcL (0.0-0.6); Eosinophils % 3.1 %; Hematocrit 34.1 % (35.3-44.9); Hemoglobin 10.3 g/dL (11.5-15.4); Immature Granulocytes % 0.2 % (0-4); Lymphocytes % 55.6 %; Mean Corpuscular HGB Conc 30.2 g/dL (31.6-35.5); Mean Corpuscular Hemoglobin 25.6 pg (28.0-33.3); Mean Corpuscular Volume 84.6 fL (83.0-100.0); Monocytes # 0.3 K/mcL (0.0-1.3); Monocytes % 7.1 %; Neutrophils # 1.4 K/mcL (1.6-8.9); Platelet Count 250 K/mcL (140-400); Red Blood Count 4.03 M/mcL (3.82-4.97); Red Cell Distribution Width 17.2 % (11.5-14.5); Segmented Neutrophils % 33.1 %
[2016-09-24 04:41] LABS: Lymphocytes # 2.3 K/mcL (0.6-4.6)
[2016-09-24 04:51] LABS: BUN/Creatinine Ratio 9 (6-26); Calcium 7.9 mg/dL (8.6-10.8); Carbon Dioxide 19 mEq/L (19-29); Chloride 110 mEq/L (98-109); Glucose 90 mg/dL (70-99); Osmolality,Calculated 283 (280-300); Potassium 3.5 mEq/L (3.5-4.5); Sodium 138 mEq/L (136-145); eGFR For African Americans > 60 (> 60); eGFR For Non-African Americans > 60 (> 60)
[2016-09-24 04:52] LABS: Blood Urea Nitrogen 5 mg/dL (7-20)
[2016-09-24 04:57] LABS: Platelet Estimate Normal (Normal); Reactive Lymphocytes Present (Not Present)
[2016-09-24] MEDS: Acetaminophen 325 MG TABLET PO PRN (08:05)
[2016-09-24] MEDS: Vitamin B Complex/Vit C/Vit E 1 EACH TABLET PO SCH (08:05)
[2016-09-24] MEDS: APIXABAN 5 MG TABLET PO SCH ×2 (08:06→20:59)
[2016-09-24] MEDS: Folic Acid 1 MG TABLET PO SCH (08:06)
[2016-09-24] MEDS: Cyanocobalamin (B-12) 1,000 MCG TABLET PO SCH (08:06)
[2016-09-24] MEDS: 0.9 % Sodium Chloride 1,000 ML IVC SCH ×2 (10:31→20:59)
--- NOTE | 2016-09-24 14:13 | Internal Med Progress Note ---
Date of Encounter: 09/24/16 Time of Encounter: 10:00 - Assessment and plan (1) Bilateral leg paresthesia Current Visit: Yes Status: Acute Assessment and plan: Etiology is undetermined. Neurology consult appreciated. Did T-spine MRI, result unremarkable. Paresthesia possibly due to multiple vitamine/mineral insufficiency. Will give supplement, supportive therapy, physical therapy. (2) DVT prophylaxis Current Visit: Yes Status: Acute Assessment and plan: Patient is on Eliquis. (3) Hypokalemia Current Visit: Yes Status: Acute Assessment and plan: Possibly due to bariatric surgery. Give potassium supplement already, will follow-up a potassium level. (4) UTI (urinary tract infection) Current Visit: Yes Status: Acute Assessment and plan: Continue Rocephin. urine culture shows Escherichia coli, sensitive to Rocephin. Qualifiers: Urinary tract infection type: acute cystitis Hematuria presence: without hematuria Qualified Code(s): N30.00 - Acute cystitis without hematuria (5) History of pulmonary embolism Current Visit: No Status: Acute Assessment and plan: Pt is on eliquis (6) Hypothyroidism Current Visit: No Status: Acute Assessment and plan: Continue Synthroid. Will decrease dose to 50 g because of TSH low. Qualifiers: Hypothyroidism type: unspecified Qualified Code(s): E03.9 - Hypothyroidism , unspecified (7) Morbid obesity Current Visit: No Status: Acute Assessment and plan: S/P bariatric surgery. Qualifiers: Obesity type: due to excess calories Qualified Code(s): E66.01 - Morbid ( severe) obesity due to excess calories (8) Folic acid deficiency Current Visit: Yes Status: Acute Assessment and plan: Possible due to bariatric surgery. We will give supplement (9) Iron deficiency Current Visit: Yes Status: Acute Assessment and plan: Possible due to bariatric surgery. We will give supplemental iron pills. - Subjective Interval history: Patient is a 46-year-old female presented to emergency room for both legs numbness and tingling. Her past medical history is significant for fibromyalgia , PE, arthritis, morbid obesity s/p bariatric surgery. Patient was seen and examined. She is awake, alert, oriented 3. Still complaining of leg numbness and tingling on both legs. Generalized weak. MRI T spine unremarkable. Neurology consult appreciated. Pt had bariatric surgery and developped numbness/tingling/weakness, may related multiple vitamin/mineral insufficiency. Will add vit B complex. Check vit D level. Pt may need intensive PT, consult for PT/OT. Pt was reported fall in this morning. Denies loss of consciousness, denies head injury or any other part injury. I examined her, she move four limbs with full range, without pain/weakness. No further test warranted at this time, will closely monitor pt. - Constitutional Vitals: Temp Pulse Resp BP Pulse Ox 98.9 F 75 17 123/75 98 09/24/16 10:11 09/24/16 10:11 09/24/16 10:11 09/24/16 10:11 09/24/16 10:11 General appearance: Present: A&O X 3, no acute distress, obese, answers questions appropriately - Head Head exam: Present: atraumatic, normocephalic - Eye Eye exam: Present: PERRL, conjuntiva pink, sclera anicteric Pupils: Present: PERRL - Neck Neck exam general surgery: Present: supple, trachea midline. Absent: lymphadenopathy - Respiratory Respiratory exam: Present: CTAB. Absent: accessory muscle use, rales, rhonchi, wheezes - Cardiovascular Cardiovascular exam: Present: RRR, +S1, +S2. Absent: diastolic murmur, gallop, rubs, systolic murmur - GI/Abdominal GI/Abdominal exam: Present: normal bowel sounds, soft, no peritoneal signs. Absent: distended, tenderness - Extremities Exam Extremities exam: Present: warm, radial pulses palpable and symetrical. Absent : calf tenderness, cyanotic, pedal edema - Neurological Exam Neurological exam: Present: CN II-XII intact, oriented X3, no focal deficits. Absent: pronater drift, facial droop, speech deficit - Skin Skin exam: Present: dry, intact Internal Medicine: Result - Labs CBC & Chem 7: 09/24/16 04:17 09/24/16 04:17 Labs: Short CBC 09/24/16 Range/Units 04:17 WBC 4.2 L (4.3-11.1) K/mcL Hgb 10.3 L (11.5-15.4) g/dL Hct 34.1 L (35.3-44.9) % Plt Count 250 (140-400) K/mcL Neutrophils # 1.4 L (1.6-8.9) K/mcL BMP 12/31/16 04:17 Sodium 138 Potassium 3.5 Chloride 110 H Carbon Dioxide 19 BUN 5 L Creatinine 0.58 Glucose 90 Calcium 7.9 L - ABG Interpretation ABG results: ABG ABG pH 7.47 pH Units (7.32-7.45) H 09/22/16 08:26 ABG pCO2 38 mmHg (35-45) 09/22/16 08:26 ABG pO2 67 mmHg (85-104) L 09/22/16 08:26 ABG O2 Saturation 94 % (95-98) L 09/22/16 08:26 - Impressions Impressions Thoracic Spine MRI 09/23/16 13:00 IMPRESSION: 1. Focal 1 mm central disc protrusion at T6-T7 mildly efface the ventral aspect of the thecal sac. 2. Otherwise, unremarkable MRI of the thoracic spine, limited due to patient motion. D/ / Shen Pichardo MD / Shen Pichardo MD Interpreting Provider: Shen Pichardo MD Consult Discharge Plan - Plan Referrals: Lavell Capps MD [Primary Care Provider] - 09/26/16 10:15 am
[2016-09-25] MEDS: Acetaminophen 325 MG TABLET PO PRN ×2 (00:17→17:09)
[2016-09-25 03:55] LABS: Basophils # 0.1 K/mcL (0.0-0.2); Basophils % 0.8 %; Eosinophils # 0.2 K/mcL (0.0-0.6); Eosinophils % 2.9 %; Hemoglobin 10.9 g/dL (11.5-15.4); Immature Granulocytes % 0.2 % (0-4); Lymphocytes % 59.4 %; Mean Corpuscular HGB Conc 31.1 g/dL (31.6-35.5); Mean Corpuscular Hemoglobin 25.6 pg (28.0-33.3); Mean Corpuscular Volume 82.4 fL (83.0-100.0); Mean Platelet Volume 10.1 fL (9.4-12.4); Monocytes # 0.4 K/mcL (0.0-1.3); Monocytes % 6.7 %; Neutrophils # 1.8 K/mcL (1.6-8.9); Platelet Count 277 K/mcL (140-400); Red Blood Count 4.25 M/mcL (3.82-4.97); Red Cell Distribution Width 17.3 % (11.5-14.5)
[2016-09-25 04:03] LABS: Lymphocytes # 3.6 K/mcL (0.6-4.6)
[2016-09-25 04:17] LABS: BUN/Creatinine Ratio 8 (6-26); Calcium 8.2 mg/dL (8.6-10.8); Carbon Dioxide 19 mEq/L (19-29); Chloride 112 mEq/L (98-109); Glucose 91 mg/dL (70-99); Osmolality,Calculated 282 (280-300); Potassium 3.5 mEq/L (3.5-4.5); Sodium 138 mEq/L (136-145); eGFR For African Americans > 60 (> 60); eGFR For Non-African Americans > 60 (> 60)
[2016-09-25 04:22] LABS: Blood Urea Nitrogen 4 mg/dL (7-20)
[2016-09-25 04:34] LABS: Platelet Estimate Normal (Normal); Reactive Lymphocytes Present (Not Present)
[2016-09-25] MEDS: 0.9 % Sodium Chloride 1,000 ML IVC SCH (07:45)
[2016-09-25] MEDS: Folic Acid 1 MG TABLET PO SCH (08:08)
[2016-09-25] MEDS: Vitamin B Complex/Vit C/Vit E 1 EACH TABLET PO SCH (08:08)
[2016-09-25] MEDS: APIXABAN 5 MG TABLET PO SCH ×2 (08:08→21:20)
[2016-09-25] MEDS: Cyanocobalamin (B-12) 1,000 MCG TABLET PO SCH (08:08)
--- NOTE | 2016-09-25 15:08 | Internal Med Progress Note ---
Date of Encounter: 09/25/16 Time of Encounter: 09:00 - Assessment and plan (1) Bilateral leg paresthesia Current Visit: Yes Status: Acute Assessment and plan: Etiology is undetermined. Neurology consult appreciated. Did T-spine MRI, result unremarkable. Paresthesia possibly due to multiple vitamine/mineral insufficiency. Will give supplement, supportive therapy, physical therapy. (2) Hypokalemia Current Visit: Yes Status: Acute Assessment and plan: Possibly due to bariatric surgery. Give potassium supplement already, will follow-up a potassium level. (3) UTI (urinary tract infection) Current Visit: Yes Status: Acute Assessment and plan: Continue Rocephin. urine culture shows Escherichia coli, sensitive to Rocephin. Qualifiers: Urinary tract infection type: acute cystitis Hematuria presence: without hematuria Qualified Code(s): N30.00 - Acute cystitis without hematuria (4) History of pulmonary embolism Current Visit: No Status: Acute Assessment and plan: Pt is on eliquis (5) Hypothyroidism Current Visit: No Status: Acute Assessment and plan: Continue Synthroid. Will decrease dose to 50 g because of TSH low. Qualifiers: Hypothyroidism type: unspecified Qualified Code(s): E03.9 - Hypothyroidism , unspecified (6) Morbid obesity Current Visit: No Status: Acute Assessment and plan: S/P bariatric surgery. Qualifiers: Obesity type: due to excess calories Qualified Code(s): E66.01 - Morbid ( severe) obesity due to excess calories (7) Folic acid deficiency Current Visit: Yes Status: Acute Assessment and plan: Possible due to bariatric surgery. We will give supplement (8) Iron deficiency Current Visit: Yes Status: Acute Assessment and plan: Possible due to bariatric surgery. We will give supplemental iron pills. (9) DVT prophylaxis Current Visit: Yes Status: Acute Assessment and plan: Patient is on Eliquis. - Subjective Interval history: Patient is a 46-year-old female presented to emergency room for both legs numbness and tingling. Her past medical history is significant for fibromyalgia , PE, arthritis, morbid obesity s/p bariatric surgery. Patient was seen and examined. She is awake, alert, oriented 3. Still complaining of leg numbness and tingling on both legs. Generalized weak. Pt had bariatric surgery and developped numbness/tingling/weakness, may related multiple vitamin/mineral insufficiency. Will add vit B complex. Check vit D level. Pt may need intensive PT, consult for PT/OT. Pt was reported fall again in this afternoon. Denies loss of consciousness, denies head injury or any other part injury. I examined her, she move four limbs with full range, without pain/weakness. No further test warranted at this time, will closely monitor pt per protocol. - Constitutional Vitals: Temp Pulse Resp BP Pulse Ox 98.5 F 80 16 117/68 99 09/25/16 11:38 09/25/16 11:38 09/25/16 11:38 09/25/16 11:38 09/25/16 11:38 General appearance: Present: A&O X 3, morbidly obese, no acute distress, answers questions appropriately - Head Head exam: Present: atraumatic, normocephalic - Eye Eye exam: Present: PERRL, conjuntiva pink, sclera anicteric Pupils: Present: PERRL - Neck Neck exam general surgery: Present: supple, trachea midline. Absent: lymphadenopathy - Respiratory Respiratory exam: Present: CTAB. Absent: accessory muscle use, rales, rhonchi, wheezes - Cardiovascular Cardiovascular exam: Present: RRR, +S1, +S2. Absent: diastolic murmur, gallop, rubs, systolic murmur - GI/Abdominal GI/Abdominal exam: Present: normal bowel sounds, soft, no peritoneal signs. Absent: distended, tenderness - Extremities Exam Extremities exam: Present: warm, radial pulses palpable and symetrical. Absent : calf tenderness, cyanotic, pedal edema - Neurological Exam Neurological exam: Present: CN II-XII intact, oriented X3, no focal deficits. Absent: pronater drift, facial droop, speech deficit - Skin Skin exam: Present: dry, intact Internal Medicine: Result - Labs CBC & Chem 7: 09/25/16 03:40 09/25/16 03:40 Labs: Short CBC 09/25/16 Range/Units 03:40 WBC 6.0 (4.3-11.1) K/mcL Hgb 10.9 L (11.5-15.4) g/dL Hct 35.0 L (35.3-44.9) % Plt Count 277 (140-400) K/mcL Neutrophils # 1.8 (1.6-8.9) K/mcL BMP 09/25/16 03:40 Sodium 138 Potassium 3.5 Chloride 112 H Carbon Dioxide 19 BUN 4 L Creatinine 0.52 L Glucose 91 Calcium 8.2 L - ABG Interpretation ABG results: ABG ABG pH 7.47 pH Units (7.32-7.45) H 09/22/16 08:26 ABG pCO2 38 mmHg (35-45) 09/22/16 08:26 ABG pO2 67 mmHg (85-104) L 09/22/16 08:26 ABG O2 Saturation 94 % (95-98) L 09/22/16 08:26 Consult Discharge Plan - Plan Referrals: Lavell Capps MD [Primary Care Provider] - 09/26/16 10:15 am
[2016-09-26] MEDS: Acetaminophen 325 MG TABLET PO PRN ×2 (02:45→15:53)
--- NOTE | 2016-09-26 07:09 | Venous Imaging Report ---
LE Venous Duplex Patient Name:Kamla Blackburn Order Number:[id number] Procedure Date:09/25/2016 Date:1970Age:46 yrs Gender:Female Location:[facility] Room #: 3A31 Team Driver:Chasity Garcia RVT, [facility] Referring MD:Elijah Celaya MD excavator backhoe operator:Maninder Arias MD:Sage Howe MD Primary Indications:DVT R/O Secondary Indications: Risk Factors Yes/No Anticoagulants Yes Impressions: Normal left lower extremity deep and superficial venous exam. Normal contralateral common femoral vein. Findings Venous Duplex Results: Right: Venous imaging of the lower extremity reveals full patency and normal vessel compressibility of the right common femoral. Doppler signals in the evaluated veins were normal. Left: Venous imaging of the lower extremity reveals full patency and normal vessel compressibility of the left distal iliac, left common femoral, left superficial femoral, left popliteal, left posterior tibial, left peroneal, left saphenofemoral junction, left great saphenous and left lesser saphenous. Doppler signals in the evaluated veins were normal. Lower Extremity Venous Duplex Side Vein Compress Spontaneous Flow Augment Diameter (cm) Depth (cm) Left Distal Iliac Normal Yes Phasic Yes Left Common Femoral Normal Yes Phasic Yes Left Superficial Femoral Normal Yes Phasic Yes Left Popliteal Normal Yes Phasic Yes Left Posterior Tibial Normal Yes Phasic Yes Left Peroneal Normal Yes Phasic Yes Left Saphenofemoral Junction Normal Yes Phasic Yes Left Great Saphenous Normal Yes Phasic Yes Left Lesser Saphenous Normal Yes Phasic Yes Right Common Femoral Normal Yes Phasic Yes Updated by Sage Howe MD on 09/26/2016 7:05:09 AM electronically signed on 09/26/2016 7:05:20 AM with status of Final
[2016-09-26] MEDS: 0.9 % Sodium Chloride 1,000 ML IVC SCH ×4 (07:20→14:55)
[2016-09-26] MEDS: Folic Acid 1 MG TABLET PO SCH (07:42)
[2016-09-26] MEDS: APIXABAN 5 MG TABLET PO SCH ×2 (07:42→20:34)
[2016-09-26] MEDS: Vitamin B Complex/Vit C/Vit E 1 EACH TABLET PO SCH (07:42)
[2016-09-26] MEDS: Cyanocobalamin (B-12) 1,000 MCG TABLET PO SCH (07:42)
[2016-09-26] MEDS ORDERED: CefTRIAXone 1,000 MG VIAL ONE ×2 (07:48)
--- NOTE | 2016-09-26 13:13 | Consult Note ---
Date of Encounter: 09/26/16 Time of Encounter: 11:15 Assessment & Recommendation (1) Depression Current visit: Yes Status: Acute Assessment & Recommendation: Patient has a history of depression and was taking Cymbalta for chronic pain at the 60 mg dosage. This medication should not be stopped abruptly. Would recommend restarting 60 mg dosage and increased to 90 mg for potential improvement of depressive symptoms. Psychosomatic pain issues are usually a diagnosis of exclusion and this diagnosis cannot be made based on one interview. Patient is willing to consider counseling and further psychiatric care. Recommend patient follow-up with outpatient mental health at either [facility] or integrated services. Patient does not meet criteria for inpatient psychiatric stabilization but would benefit from further outpatient care. Qualifiers: Depression Type: major depressive disorder Major depression recurrence: recurrent Active/Remission status: currently active Major depression episode severity: moderate Qualified Code(s): F33.1 - Major depressive disorder, recurrent, moderate (2) Anxiety Current visit: Yes Status: Acute Assessment & Recommendation: Encourage positive coping skills to deal with stress. Encouraged increased physical activity and self-care. History of Present Illness Patient: new to practice Requesting Physician: Elijah Celaya MD Reason for consult: somatic pain History of present illness: Ms. Blackburn is a 46 year old female with a history of chronic pain and fibromyalgia who presented to the hospital with altered mental status and bilateral leg paresthesias. Today she reports that she has a lot of pain and feels very frustrated about this. Patient thinks that things have worsened since her gastric bypass surgery. She states she has not been moving around at all since her surgery and she feels very weak. She does report some depression which has worsened lately. She believes this is related to her pain. Patient reports all over and myalgias and paresthesias in her legs. She does report some stress because her oldest son is fighting leukemia. Patient reports depression but states that she would never hurt herself because she wants to get better to be there for her children. She has no history of psychiatric admissions. She does have a history of depression and anxiety as well as fibromyalgia. She denies history of auditory or visual hallucinations. She denies grandiosity, decreased need for sleep, impulsivity. She denies obsessions, delusions, paranoia. She denies illicit substance or alcohol abuse. She is not currently employed and lives with her 2 oldest children. Patient states that she does have Percocet pain pills at home but she does not use them regularly for her pain. CC: Elijah Celaya MD Past Med Surg Social Fam HX - Past Medical History Medical history: arthritis, fibromyalgia, pulmonary embolus, other - Past Psychiatric History Psychiatric history: Reports: anxiety, depression. Denies: prior suicide attempt Past psychiatric history details: Patient has been treated for chronic pain and currently takes Cymbalta for this. She has not taking medication for depression in the past. Family psychiatric history: No Family History of Suicide: None - Past Surgical History Surgical History: cholecystectomy, other - Social History Smoking Status: Current every day smoker (one pack per day) Smokeless Tobacco Status: No Alcohol use: none Drug use: none Occupational status: unemployed Current living situation: Home - Family History Mother Hx Family Endocrine Disorder: Yes (diabetes) Hx Family Medical Disorders: Yes (History of blood clots) Medications & Allergies Duloxetine HCl [Cymbalta] 60 mg PO DAILY 10/15/15 [History] Ergocalciferol (VITAMIN D2) [Vitamin D2 (50,000 UNIT)] 50,000 unit PO WE [History] Levothyroxine [Synthroid] 75 mcg PO DAILY 10/15/15 [History] Oxycodone HCl [Oxaydo] 5 mg PO Q6H PRN 10/15/15 [History] Cetirizine HCl [Zyrtec] 10 mg PO DAILY PRN #7 capsule 07/17/16 [Rx] Apixaban [Eliquis] 5 mg PO BID 09/21/16 [History] Phenol/Sodium Phenolate [[facility] Sore Throat [place]] 5 spray PO Q4H PRN 09/21/16 [ History] Pregabalin [Lyrica] 300 mg PO BID 09/21/16 [History] Promethazine [Phenergan] 25 mg RC TID PRN 09/21/16 [History] Allergies Erythromycin Base Adverse Reaction (Verified 09/18/16 23:41) Vomiting naproxen Adverse Reaction (Verified 09/18/16 23:41) Vomiting tramadol Adverse Reaction (Verified 09/18/16 23:41) Vomiting Review of Systems Constitutional: Denies: fever, chills, weakness, weight change Eyes: Denies: eye pain, vision change Ears, Nose, Throat: Denies: ear pain, throat pain, dental pain, hearing loss, congestion Cardiovascular: Denies: chest pain, palpitations, dyspnea on exertion Respiratory: Denies: cough, dyspnea, wheezes Gastrointestinal: Denies: abdominal pain, nausea, vomiting, diarrhea, constipation Genitourinary male: Denies: urgency, dysuria, frequency, genital lesions Genitourinary female: Denies: urgency, dysuria, frequency, abnormal menses, dyspareunia Musculoskeletal: Reports: joint pain, myalgia Integumentary: Denies: rash, lesions, pruritus Neurological: Reports: paresthesias, confusion, abnormal gait Psychiatric: Reports: depression, anxiety, abnormal sleep pattern, irritability , mood swings. Denies: suicidal ideation, auditory hallucinations, visual hallucinations, anhedonia, change in libido, difficulty concentrating, hopelessness, panic attacks Endocrine: Denies: fatigue, heat or cold intolerance Hematologic/Lymphatic: Denies: easy bruising, lymphadenopathy Allergic/Immunologic: Denies: urticaria, itchy eyes Mental Status Exam Patient orientation: Yes Person, Yes Time, Yes Place Level of alertness: Alert Patient appearance: Appropriate, Well Groomed Behavior: calm, cooperative Psychomotor activity: Normal Eye contact: Maintains Eye Contact Mood description: Depressed, Anxious Affect description: full range, tearful Speech pattern: Normal rate, Normal rhythm, Normal tone Speech volume: Normal Thought process: Linear, Goal Oriented Thought content: No Suicidal ideation, No Homicidal ideation, No Overt delusions Perceptual disturbances: No Auditory hallucinations, No Visual hallucinations Attention span: Capable of Focused Attention Memory description: Grossly Intact Patient reliability: Reliable Historian Intelligence estimate: Average Judgment: Fair Insight: Partial Results - Vital Signs Vital signs: Temp Pulse Resp BP Pulse Ox 97.3 F L 73 14 140/83 99 09/26/16 12:24 09/26/16 12:24 09/26/16 12:24 09/26/16 12:24 09/26/16 12:24 - Labs Labs: Laboratory Last Values WBC 6.0 K/mcL (4.3-11.1) 09/25/16 03:40 RBC 4.25 M/mcL (3.82-4.97) 09/25/16 03:40 Hgb 10.9 g/dL (11.5-15.4) L 09/25/16 03:40 Hct 35.0 % (35.3-44.9) L 09/25/16 03:40 MCV 82.4 fL (83.0-100.0) L 09/25/16 03:40 MCH 25.6 pg (28.0-33.3) L 09/25/16 03:40 MCHC 31.1 g/dL (31.6-35.5) L 09/25/16 03:40 RDW 17.3 % (11.5-14.5) H 09/25/16 03:40 Plt Count 277 K/mcL (140-400) 09/25/16 03:40 MPV 10.1 fL (9.4-12.4) 09/25/16 03:40 Immature Gran % 0.2 % (0-4) 09/25/16 03:40 Seg Neutrophils % 30.0 % 09/25/16 03:40 Lymphocytes % 59.4 % 09/25/16 03:40 Monocytes % 6.7 % 09/25/16 03:40 Eosinophils % 2.9 % 09/25/16 03:40 Basophils % 0.8 % 09/25/16 03:40 Neutrophils # 1.8 K/mcL (1.6-8.9) 09/25/16 03:40 Lymphocytes # 3.6 K/mcL (0.6-4.6) 09/25/16 03:40 Monocytes # 0.4 K/mcL (0.0-1.3) 09/25/16 03:40 Eosinophils # 0.2 K/mcL (0.0-0.6) 09/25/16 03:40 Basophils # 0.1 K/mcL (0.0-0.2) 09/25/16 03:40 Reactive Lymphocytes Present (Not Present) A 09/25/16 03:40 Platelet Estimate Normal (Normal) 09/25/16 03:40 Immature Plt Fraction 2.7 % (1.1-6.1) 09/23/16 05:21 ABG pH 7.47 pH Units (7.32-7.45) H 09/22/16 08:26 ABG pCO2 38 mmHg (35-45) 09/22/16 08:26 ABG pO2 67 mmHg (85-104) L 09/22/16 08:26 ABG HCO3 27.7 mEQ/L (21-27) H 09/22/16 08:26 ABG Total CO2 28.9 mEq/L (20-26) H 09/22/16 08:26 ABG O2 Saturation 94 % (95-98) L 09/22/16 08:26 ABG Base Excess 3.9 mEq/L (-2.0 to 3.0) H 09/22/16 08:26 Blood Gas Modality ra 09/22/16 08:26 Inspired O2 21 % 09/22/16 08:26 Sodium 138 mEq/L (136-145) 09/25/16 03:40 Potassium 3.5 mEq/L (3.5-4.5) 09/25/16 03:40 Chloride 112 mEq/L (98-109) H 09/25/16 03:40 Carbon Dioxide 19 mEq/L (19-29) 09/25/16 03:40 BUN 4 mg/dL (7-20) L 09/25/16 03:40 Creatinine 0.52 mg/dL (0.57-1.11) L 09/25/16 03:40 Est GFR ( Amer) > 60 (> 60) 09/25/16 03:40 Est GFR (Non-Af Amer) > 60 (> 60) 09/25/16 03:40 BUN/Creatinine Ratio 8 (6-26) 09/25/16 03:40 Glucose 91 mg/dL (70-99) 09/25/16 03:40 Est Mean Plasma Glucose 100 mg/dl 09/21/16 17:51 Hemoglobin A1c 5.1 % (-5.6) 09/21/16 17:51 Calculated Osmolality 282 (280-300) 09/25/16 03:40 Calcium 8.2 mg/dL (8.6-10.8) L 09/25/16 03:40 Magnesium 1.7 mg/dL (1.6-2.6) 09/23/16 05:21 Iron 24 mcg/dL (50-170) L 09/23/16 05:21 % Saturation 9 % (15-50) L 09/23/16 05:21 Transferrin 181 mg/dL (180-382) 09/23/16 05:21 Ferritin 80 ng/ml (5-204) 09/23/16 05:21 Total Bilirubin 0.4 mg/dL (0.2-1.2) 09/23/16 05:21 AST 26 Units/L (5-34) 09/23/16 05:21 ALT 13 Units/L (0-55) 09/23/16 05:21 Alkaline Phosphatase 88 Units/L (38-126) 09/23/16 05:21 C-Reactive Protein 19 mg/L (Less than 5) H 09/21/16 17:51 Serum Total Protein 5.9 g/dL (6.0-8.3) L 09/23/16 05:21 Albumin 2.4 g/dL (3.5-5.0) L 09/23/16 05:21 Globulin 3.5 g/dL (2.4-3.5) 09/23/16 05:21 Albumin/Globulin Ratio 0.7 (1.1-2.2) L 09/23/16 05:21 Vitamin B12 370 pg/mL (213-816) 09/23/16 05:21 Methylmalonic Acid 0.15 umol/L (0.00-0.40) 09/21/16 17:51 25-OH Vitamin D Total 37 ng/mL (30-80) 09/25/16 03:40 Folate 2.4 ng/mL (7.0-31.4) L 09/21/16 17:51 Serum , Qual Negative (Negative) 09/21/16 17:51 Urine Color Dark Yellow (Yellow) 09/21/16 17:13 Urine Clarity Turbid (Clear) A 09/21/16 17:13 Urine pH 6.0 pH Units (5.0-8.0) 09/21/16 17:13 Ur Specific [place] 1.024 (1.010-1.025) 09/21/16 17:13 Urine Protein 30 mg/dL (Neg-Trace) H 09/21/16 17:13 Urine Glucose (UA) Normal mg/dL (Normal) 09/21/16 17:13 Urine Ketones Negative mg/dL (Negative) 09/21/16 17:13 Urine Blood Large (Negative) H 09/21/16 17:13 Urine Nitrite Positive (Negative) A 09/21/16 17:13 Urine Bilirubin Small (Negative) H 09/21/16 17:13 Urine Urobilinogen Normal mg/dL (Normal) 09/21/16 17:13 Ur Leukocyte Esterase Small (Negative) H 09/21/16 17:13 Urine Microscopic RBC 5-15 per hpf (0-3) H 09/21/16 17:13 Urine Microscopic WBC 50-100 per hpf (0-3) H 09/21/16 17:13 Ur Squamous Epith Cells Many per lpf (None-Few) H 09/21/16 17:13 Urine Bacteria Many per hpf (None-Few) H 09/21/16 17:13 Hyaline Casts None Seen per lpf (None-Few) 09/21/16 17:13 Urine Yeast Test Not Performed 09/21/16 17:13 Ur Culture Indicated? YES (NO) A 09/21/16 17:13 Whole Blood Lead <2.0 ug/dL (0.0-4.9) 09/23/16 05:21 Consult Discharge Plan - Plan Referrals: Lavell Capps MD [Primary Care Provider] - 09/26/16 10:15 am
--- NOTE | 2016-09-26 14:43 | Internal Med Progress Note ---
Date of Encounter: 09/26/16 Time of Encounter: 09:00 - Assessment and plan (1) Bilateral leg paresthesia Current Visit: Yes Status: Acute Assessment and plan: Etiology is undetermined. Neurology consult appreciated. Did T-spine MRI, result unremarkable. Paresthesia possibly due to multiple vitamine/mineral insufficiency. Will give supplement, supportive therapy, physical therapy. Pt need intensive PT, SW on case for placement. (2) Hypokalemia Current Visit: Yes Status: Acute Assessment and plan: Possibly due to bariatric surgery. Give potassium supplement already, will follow-up a potassium level. (3) UTI (urinary tract infection) Current Visit: Yes Status: Acute Assessment and plan: Continue Rocephin. urine culture shows Escherichia coli, sensitive to Rocephin. Qualifiers: Urinary tract infection type: acute cystitis Hematuria presence: without hematuria Qualified Code(s): N30.00 - Acute cystitis without hematuria (4) History of pulmonary embolism Current Visit: No Status: Acute Assessment and plan: Pt is on eliquis (5) Hypothyroidism Current Visit: No Status: Acute Assessment and plan: Continue Synthroid. Decrease dose to 50 g because of TSH low. Qualifiers: Hypothyroidism type: unspecified Qualified Code(s): E03.9 - Hypothyroidism , unspecified (6) Morbid obesity Current Visit: No Status: Acute Assessment and plan: S/P bariatric surgery. Qualifiers: Obesity type: due to excess calories Qualified Code(s): E66.01 - Morbid ( severe) obesity due to excess calories (7) Folic acid deficiency Current Visit: Yes Status: Acute Assessment and plan: Possible due to bariatric surgery. We will give supplement (8) Iron deficiency Current Visit: Yes Status: Acute Assessment and plan: Possible due to bariatric surgery. We will give supplemental iron pills. (9) DVT prophylaxis Current Visit: Yes Status: Acute Assessment and plan: Patient is on Eliquis. (10) Depression Current Visit: Yes Status: Acute Assessment and plan: Continue Duloxetine, psych consult saw pt and appreciated. Qualifiers: Depression Type: major depressive disorder Major depression recurrence: recurrent Active/Remission status: currently active Major depression episode severity: moderate Qualified Code(s): F33.1 - Major depressive disorder, recurrent, moderate - Time Spent With Patient 25 - 35 minutes - Subjective Interval history: Patient is a 46-year-old female presented to emergency room for both legs numbness and tingling. Her past medical history is significant for fibromyalgia , PE, arthritis, morbid obesity s/p bariatric surgery. Patient was seen and examined. She is awake, alert, oriented 3. Still complaining of leg numbness and tingling on both legs, but seem better. Generalized weak. Pt had bariatric surgery and developped numbness/tingling/ weakness, may related to multiple vitamin/mineral insufficiency. Will add vit B complex. Check vit D level. Pt need intensive PT, per PT/OT consult. SW is working for placement. Psych consult appreciated. Recommendation followed. - Constitutional Vitals: Temp Pulse Resp BP Pulse Ox 97.3 F L 73 14 140/83 99 09/26/16 12:24 09/26/16 12:24 09/26/16 12:24 09/26/16 12:24 09/26/16 12:24 General appearance: Present: A&O X 3, morbidly obese, no acute distress, answers questions appropriately - Head Head exam: Present: atraumatic, normocephalic - Eye Eye exam: Present: PERRL, conjuntiva pink, sclera anicteric Pupils: Present: PERRL - Neck Neck exam general surgery: Present: supple, trachea midline. Absent: lymphadenopathy - Respiratory Respiratory exam: Present: CTAB. Absent: accessory muscle use, rales, rhonchi, wheezes - Cardiovascular Cardiovascular exam: Present: RRR, +S1, +S2. Absent: diastolic murmur, gallop, rubs, systolic murmur - GI/Abdominal GI/Abdominal exam: Present: normal bowel sounds, soft, no peritoneal signs. Absent: distended, tenderness - Extremities Exam Extremities exam: Present: warm, radial pulses palpable and symetrical. Absent : calf tenderness, cyanotic, pedal edema - Neurological Exam Neurological exam: Present: CN II-XII intact, oriented X3, no focal deficits. Absent: pronater drift, facial droop, speech deficit - Skin Skin exam: Present: dry, intact Internal Medicine: Result - Labs CBC & Chem 7: 09/25/16 03:40 09/25/16 03:40 - ABG Interpretation ABG results: ABG ABG pH 7.47 pH Units (7.32-7.45) H 09/22/16 08:26 ABG pCO2 38 mmHg (35-45) 09/22/16 08:26 ABG pO2 67 mmHg (85-104) L 09/22/16 08:26 ABG O2 Saturation 94 % (95-98) L 09/22/16 08:26 Consult Discharge Plan - Plan Referrals: Lavell Capps MD [Primary Care Provider] - 09/26/16 10:15 am
[2016-09-26] MEDS: Pregabalin 75 MG CAPSULE PO SCH (20:34)
[2016-09-26] MEDS: *HR* OxyCODONE Immed Rel 5 MG TABLET PO PRN (20:52)
[2016-09-27] MEDS: 0.9 % Sodium Chloride 1,000 ML IVC SCH ×2 (02:53→13:00)
[2016-09-27] MEDS: Acetaminophen 325 MG TABLET PO PRN (05:34)
[2016-09-27 06:16] LABS: Basophils # 0.1 K/mcL (0.0-0.2); Basophils % 1.1 %; Eosinophils # 0.2 K/mcL (0.0-0.6); Eosinophils % 4.2 %; Hematocrit 33.4 % (35.3-44.9); Hemoglobin 10.3 g/dL (11.5-15.4); Immature Granulocytes % 0.2 % (0-4); Lymphocytes # 3.3 K/mcL (0.6-4.6); Lymphocytes % 57.5 %; Mean Corpuscular HGB Conc 30.8 g/dL (31.6-35.5); Mean Corpuscular Hemoglobin 26.1 pg (28.0-33.3); Mean Corpuscular Volume 84.8 fL (83.0-100.0); Mean Platelet Volume 11.1 fL (9.4-12.4); Monocytes # 0.4 K/mcL (0.0-1.3); Monocytes % 7.2 %; Neutrophils # 1.7 K/mcL (1.6-8.9); Platelet Count 254 K/mcL (140-400); Red Blood Count 3.94 M/mcL (3.82-4.97); Red Cell Distribution Width 17.7 % (11.5-14.5); Segmented Neutrophils % 29.8 %
[2016-09-27 06:25] LABS: BUN/Creatinine Ratio 6 (6-26); Calcium 8.4 mg/dL (8.6-10.8); Carbon Dioxide 19 mEq/L (19-29); Chloride 113 mEq/L (98-109); Glucose 86 mg/dL (70-99); Osmolality,Calculated 290 (280-300); Potassium 3.3 mEq/L (3.5-4.5); Sodium 142 mEq/L (136-145); eGFR For African Americans > 60 (> 60); eGFR For Non-African Americans > 60 (> 60)
[2016-09-27 06:36] LABS: Blood Urea Nitrogen 3 mg/dL (7-20)
[2016-09-27] MEDS: Pregabalin 75 MG CAPSULE PO SCH ×2 (08:28→20:32)
[2016-09-27] MEDS: Folic Acid 1 MG TABLET PO SCH (08:28)
[2016-09-27] MEDS: Cyanocobalamin (B-12) 1,000 MCG TABLET PO SCH (08:28)
[2016-09-27] MEDS: Vitamin B Complex/Vit C/Vit E 1 EACH TABLET PO SCH (08:28)
[2016-09-27] MEDS: APIXABAN 5 MG TABLET PO SCH ×2 (08:28→20:32)
[2016-09-27] MEDS: *HR* OxyCODONE Immed Rel 5 MG TABLET PO PRN (08:28)
--- NOTE | 2016-09-27 16:26 | Internal Med Progress Note ---
Date of Encounter: 09/27/16 Time of Encounter: 10:15 - Assessment and plan (1) Bilateral leg paresthesia Current Visit: Yes Status: Acute Assessment and plan: Complaints of numbness today. However examination unreliable and findings are inconsistent. Would recommend outpatient follow-up with neurology for nerve conduction testing as outpatient. Continue vitamin replacement and supplementation. Physical therapy evaluation done. Recommend placement to correction facility. plier worker consulted. (2) Depression Current Visit: Yes Status: Acute Assessment and plan: On Cymbalta. Will increase dosage to 90 mg tomorrow. Qualifiers: Depression Type: major depressive disorder Major depression recurrence: recurrent Active/Remission status: currently active Major depression episode severity: moderate Qualified Code(s): F33.1 - Major depressive disorder, recurrent, moderate (3) Folic acid deficiency Current Visit: Yes Status: Acute Assessment and plan: continue replacement (4) Hypokalemia Current Visit: Yes Status: Acute Assessment and plan: Impression 3.3 today. We will replace orally. (5) Iron deficiency Current Visit: Yes Status: Acute Assessment and plan: Continue oral replacement (6) UTI (urinary tract infection) Current Visit: Yes Status: Acute Assessment and plan: On Rocephin. We will change to oral antibiotics. Qualifiers: Urinary tract infection type: acute cystitis Hematuria presence: without hematuria Qualified Code(s): N30.00 - Acute cystitis without hematuria (7) History of pulmonary embolism Current Visit: No Status: Acute Assessment and plan: On Eliquis (8) Hypothyroidism Current Visit: No Status: Acute Assessment and plan: On levothyroxine Qualifiers: Hypothyroidism type: unspecified Qualified Code(s): E03.9 - Hypothyroidism , unspecified (9) Morbid obesity Current Visit: No Status: Acute Qualifiers: Obesity type: due to excess calories Qualified Code(s): E66.01 - Morbid ( severe) obesity due to excess calories (10) DVT prophylaxis Current Visit: Yes Status: Acute Assessment and plan: On Eliquis - Subjective Interval history: Patient complains of numbness this morning in bilateral lower extremities. She is however able to feel her touch in some places in her lower extremities. Complains of nerve pain. Denies any incontinence. Complains of low back pain. No focal weakness in both lower extremities. - Constitutional Vitals: Temp Pulse Resp BP Pulse Ox 98.6 F 82 16 116/75 99 09/27/16 14:41 09/27/16 14:41 09/27/16 14:41 09/27/16 14:41 09/27/16 14:41 General appearance: Present: A&O X 3, morbidly obese, no acute distress, answers questions appropriately - Neck Neck exam general surgery: Present: supple, trachea midline. Absent: lymphadenopathy - Respiratory Respiratory exam: Present: CTAB. Absent: accessory muscle use, rales, rhonchi, wheezes - Cardiovascular Cardiovascular exam: Present: RRR, +S1, +S2. Absent: diastolic murmur, gallop, rubs, systolic murmur - GI/Abdominal GI/Abdominal exam: Present: normal bowel sounds, soft, no peritoneal signs. Absent: distended, tenderness - Extremities Exam Extremities exam: Present: warm, radial pulses palpable and symetrical. Absent : calf tenderness, cyanotic, pedal edema - Neurological Exam Neurological exam: Present: CN II-XII intact, oriented X3, no focal deficits, strengths equal and symetr throughout. Absent: pronater drift, facial droop, speech deficit Additional comments: Patient has decreased sensation in both lower extremities. However examination is unreliable as symptoms seemed to be exaggerated and not consistent - Skin Skin exam: Present: dry, intact Internal Medicine: Result - Labs CBC & Chem 7: 09/27/16 04:51 09/27/16 04:51 Labs: Short CBC 09/27/16 Range/Units 04:51 WBC 5.7 (4.3-11.1) K/mcL Hgb 10.3 L (11.5-15.4) g/dL Hct 33.4 L (35.3-44.9) % Plt Count 254 (140-400) K/mcL Neutrophils # 1.7 (1.6-8.9) K/mcL BMP 09/27/16 04:51 Sodium 142 Potassium 3.3 L Chloride 113 H Carbon Dioxide 19 BUN 3 L Creatinine 0.54 L Glucose 86 Calcium 8.4 L - ABG Interpretation ABG results: ABG ABG pH 7.47 pH Units (7.32-7.45) H 09/22/16 08:26 ABG pCO2 38 mmHg (35-45) 09/22/16 08:26 ABG pO2 67 mmHg (85-104) L 09/22/16 08:26 ABG O2 Saturation 94 % (95-98) L 09/22/16 08:26 Consult Discharge Plan - Plan Referrals: Lavell Capps MD [Primary Care Provider] - 09/26/16 10:15 am - Attending Attestation This document has been at least partially created by [employer] recognition technology by Dr. Montes. Errors in grammar, wording or other phrases may exist. If errors are found after the documentation is signed, they will be addressed individually in the addendum section of this document when appropriate. Medical Decision Making - MDM Narrative Medical decision making narrative: Moderate risk for complications - Medical Records Medical records reviewed: Yes I reviewed the patient's medical records. - Lab Data Lab results reviewed: Yes I reviewed the patient's lab results. Result diagrams: 09/27/16 04:51 09/27/16 04:51 Lab Results 09/22/16 09/23/16 09/23/16 Range/Units 08:26 05:21 05:21 WBC 4.1 L (4.3-11.1) K/mcL RBC 4.09 (3.82-4.97) M/mcL Hgb 10.7 L (11.5-15.4) g/dL Hct 34.0 L (35.3-44.9) % MCV 83.1 (83.0-100.0) fL MCH 26.2 L (28.0-33.3) pg MCHC 31.5 L (31.6-35.5) g/dL RDW 17.5 H (11.5-14.5) % Plt Count 287 (140-400) K/mcL MPV 10.3 (9.4-12.4) fL Immature Gran % 0.2 (0-4) % Seg Neutrophils % 34.9 % Lymphocytes % 50.0 % Monocytes % 10.0 % Eosinophils % 4.2 % Basophils % 0.7 % Neutrophils # 1.4 L (1.6-8.9) K/mcL Lymphocytes # 2.0 (0.6-4.6) K/mcL Monocytes # 0.4 (0.0-1.3) K/mcL Eosinophils # 0.2 (0.0-0.6) K/mcL Basophils # 0.0 (0.0-0.2) K/mcL Reactive Lymphocytes (Not Present) Platelet Estimate (Normal) Immature Plt Fraction 2.7 (1.1-6.1) % ABG pH 7.47 H (7.32-7.45) pH Units ABG pCO2 38 (35-45) mmHg ABG pO2 67 L (85-104) mmHg ABG HCO3 27.7 H (21-27) mEQ/L ABG Total CO2 28.9 H (20-26) mEq/L ABG O2 Saturation 94 L (95-98) % ABG Base Excess 3.9 H (-2.0 to 3.0) mEq/L Blood Gas Modality ra Inspired O2 21 % Sodium 139 (136-145) mEq/L Potassium 3.6 (3.5-4.5) mEq/L Chloride 110 H (98-109) mEq/L Carbon Dioxide 19 (19-29) mEq/L BUN 6 L (7-20) mg/dL Creatinine 0.55 L (0.57-1.11) mg/dL Est GFR ( Amer) > 60 (> 60) Est GFR (Non-Af Amer) > 60 (> 60) BUN/Creatinine Ratio 11 (6-26) Glucose 86 (70-99) mg/dL Calculated Osmolality 285 (280-300) Calcium 8.1 L (8.6-10.8) mg/dL Magnesium 1.7 (1.6-2.6) mg/dL Iron 24 L (50-170) mcg/dL % Saturation 9 L (15-50) % Transferrin 181 (180-382) mg/dL Ferritin 80 (5-204) ng/ml Total Bilirubin 0.4 (0.2-1.2) mg/dL AST 26 (5-34) Units/L ALT 13 (0-55) Units/L Alkaline Phosphatase 88 (38-126) Units/L Serum Total Protein 5.9 L (6.0-8.3) g/dL Albumin 2.4 L (3.5-5.0) g/dL Globulin 3.5 (2.4-3.5) g/dL Albumin/Globulin Ratio 0.7 L (1.1-2.2) Vitamin B12 (213-816) pg/mL 25-OH Vitamin D Total (30-80) ng/mL Whole Blood Lead (0.0-4.9) ug/dL 09/23/16 09/23/16 09/24/16 Range/Units 05:21 05:21 04:17 WBC 4.2 L (4.3-11.1) K/mcL RBC 4.03 (3.82-4.97) M/mcL Hgb 10.3 L (11.5-15.4) g/dL Hct 34.1 L (35.3-44.9) % MCV 84.6 (83.0-100.0) fL MCH 25.6 L (28.0-33.3) pg MCHC 30.2 L (31.6-35.5) g/dL RDW 17.2 H (11.5-14.5) % Plt Count 250 (140-400) K/mcL MPV 10.0 (9.4-12.4) fL Immature Gran % 0.2 (0-4) % Seg Neutrophils % 33.1 % Lymphocytes % 55.6 % Monocytes % 7.1 % Eosinophils % 3.1 % Basophils % 0.9 % Neutrophils # 1.4 L (1.6-8.9) K/mcL Lymphocytes # 2.3 (0.6-4.6) K/mcL Monocytes # 0.3 (0.0-1.3) K/mcL Eosinophils # 0.1 (0.0-0.6) K/mcL Basophils # 0.0 (0.0-0.2) K/mcL Reactive Lymphocytes Present A (Not Present) Platelet Estimate Normal (Normal) Immature Plt Fraction (1.1-6.1) % ABG pH (7.32-7.45) pH Units ABG pCO2 (35-45) mmHg ABG pO2 (85-104) mmHg ABG HCO3 (21-27) mEQ/L ABG Total CO2 (20-26) mEq/L ABG O2 Saturation (95-98) % ABG Base Excess (-2.0 to 3.0) mEq/L Blood Gas Modality Inspired O2 % Sodium (136-145) mEq/L Potassium (3.5-4.5) mEq/L Chloride (98-109) mEq/L Carbon Dioxide (19-29) mEq/L BUN (7-20) mg/dL Creatinine (0.57-1.11) mg/dL Est GFR ( Amer) (> 60) Est GFR (Non-Af Amer) (> 60) BUN/Creatinine Ratio (6-26) Glucose (70-99) mg/dL Calculated Osmolality (280-300) Calcium (8.6-10.8) mg/dL Magnesium (1.6-2.6) mg/dL Iron (50-170) mcg/dL % Saturation (15-50) % Transferrin (180-382) mg/dL Ferritin (5-204) ng/ml Total Bilirubin (0.2-1.2) mg/dL AST (5-34) Units/L ALT (0-55) Units/L Alkaline Phosphatase (38-126) Units/L Serum Total Protein (6.0-8.3) g/dL Albumin (3.5-5.0) g/dL Globulin (2.4-3.5) g/dL Albumin/Globulin Ratio (1.1-2.2) Vitamin B12 370 (213-816) pg/mL 25-OH Vitamin D Total (30-80) ng/mL Whole Blood Lead <2.0 (0.0-4.9) ug/dL 09/24/16 09/25/16 09/25/16 Range/Units 04:17 03:40 03:40 WBC 6.0 (4.3-11.1) K/mcL RBC 4.25 (3.82-4.97) M/mcL Hgb 10.9 L (11.5-15.4) g/dL Hct 35.0 L (35.3-44.9) % MCV 82.4 L (83.0-100.0) fL MCH 25.6 L (28.0-33.3) pg MCHC 31.1 L (31.6-35.5) g/dL RDW 17.3 H (11.5-14.5) % Plt Count 277 (140-400) K/mcL MPV 10.1 (9.4-12.4) fL Immature Gran % 0.2 (0-4) % Seg Neutrophils % 30.0 % Lymphocytes % 59.4 % Monocytes % 6.7 % Eosinophils % 2.9 % Basophils % 0.8 % Neutrophils # 1.8 (1.6-8.9) K/mcL Lymphocytes # 3.6 (0.6-4.6) K/mcL Monocytes # 0.4 (0.0-1.3) K/mcL Eosinophils # 0.2 (0.0-0.6) K/mcL Basophils # 0.1 (0.0-0.2) K/mcL Reactive Lymphocytes Present A (Not Present) Platelet Estimate Normal (Normal) Immature Plt Fraction (1.1-6.1) % ABG pH (7.32-7.45) pH Units ABG pCO2 (35-45) mmHg ABG pO2 (85-104) mmHg ABG HCO3 (21-27) mEQ/L ABG Total CO2 (20-26) mEq/L ABG O2 Saturation (95-98) % ABG Base Excess (-2.0 to 3.0) mEq/L Blood Gas Modality Inspired O2 % Sodium 138 (136-145) mEq/L Potassium 3.5 (3.5-4.5) mEq/L Chloride 110 H (98-109) mEq/L Carbon Dioxide 19 (19-29) mEq/L BUN 5 L (7-20) mg/dL Creatinine 0.58 (0.57-1.11) mg/dL Est GFR ( Amer) > 60 (> 60) Est GFR (Non-Af Amer) > 60 (> 60) BUN/Creatinine Ratio 9 (6-26) Glucose 90 (70-99) mg/dL Calculated Osmolality 283 (280-300) Calcium 7.9 L (8.6-10.8) mg/dL Magnesium (1.6-2.6) mg/dL Iron (50-170) mcg/dL % Saturation (15-50) % Transferrin (180-382) mg/dL Ferritin (5-204) ng/ml Total Bilirubin (0.2-1.2) mg/dL AST (5-34) Units/L ALT (0-55) Units/L Alkaline Phosphatase (38-126) Units/L Serum Total Protein (6.0-8.3) g/dL Albumin (3.5-5.0) g/dL Globulin (2.4-3.5) g/dL Albumin/Globulin Ratio (1.1-2.2) Vitamin B12 (213-816) pg/mL 25-OH Vitamin D Total 37 (30-80) ng/mL Whole Blood Lead (0.0-4.9) ug/dL 09/25/16 09/27/16 09/27/16 Range/Units 03:40 04:51 04:51 WBC 5.7 (4.3-11.1) K/mcL RBC 3.94 (3.82-4.97) M/mcL Hgb 10.3 L (11.5-15.4) g/dL Hct 33.4 L (35.3-44.9) % MCV 84.8 (83.0-100.0) fL MCH 26.1 L (28.0-33.3) pg MCHC 30.8 L (31.6-35.5) g/dL RDW 17.7 H (11.5-14.5) % Plt Count 254 (140-400) K/mcL MPV 11.1 (9.4-12.4) fL Immature Gran % 0.2 (0-4) % Seg Neutrophils % 29.8 % Lymphocytes % 57.5 % Monocytes % 7.2 % Eosinophils % 4.2 % Basophils % 1.1 % Neutrophils # 1.7 (1.6-8.9) K/mcL Lymphocytes # 3.3 (0.6-4.6) K/mcL Monocytes # 0.4 (0.0-1.3) K/mcL Eosinophils # 0.2 (0.0-0.6) K/mcL Basophils # 0.1 (0.0-0.2) K/mcL Reactive Lymphocytes (Not Present) Platelet Estimate (Normal) Immature Plt Fraction (1.1-6.1) % ABG pH (7.32-7.45) pH Units ABG pCO2 (35-45) mmHg ABG pO2 (85-104) mmHg ABG HCO3 (21-27) mEQ/L ABG Total CO2 (20-26) mEq/L ABG O2 Saturation (95-98) % ABG Base Excess (-2.0 to 3.0) mEq/L Blood Gas Modality Inspired O2 % Sodium 138 142 (136-145) mEq/L Potassium 3.5 3.3 L (3.5-4.5) mEq/L Chloride 112 H 113 H (98-109) mEq/L Carbon Dioxide 19 19 (19-29) mEq/L BUN 4 L 3 L (7-20) mg/dL Creatinine 0.52 L 0.54 L (0.57-1.11) mg/dL Est GFR ( Amer) > 60 > 60 (> 60) Est GFR (Non-Af Amer) > 60 > 60 (> 60) BUN/Creatinine Ratio 8 6 (6-26) Glucose 91 86 (70-99) mg/dL Calculated Osmolality 282 290 (280-300) Calcium 8.2 L 8.4 L (8.6-10.8) mg/dL Magnesium (1.6-2.6) mg/dL Iron (50-170) mcg/dL % Saturation (15-50) % Transferrin (180-382) mg/dL Ferritin (5-204) ng/ml Total Bilirubin (0.2-1.2) mg/dL AST (5-34) Units/L ALT (0-55) Units/L Alkaline Phosphatase (38-126) Units/L Serum Total Protein (6.0-8.3) g/dL Albumin (3.5-5.0) g/dL Globulin (2.4-3.5) g/dL Albumin/Globulin Ratio (1.1-2.2) Vitamin B12 (213-816) pg/mL 25-OH Vitamin D Total (30-80) ng/mL Whole Blood Lead (0.0-4.9) ug/dL
[2016-09-27] MEDS: cephALEXin 500 MG CAPSULE PO SCH (20:32)
[2016-09-28 07:05] LABS: BUN/Creatinine Ratio 10 (6-26); Blood Urea Nitrogen 6 mg/dL (7-20); Calcium 8.6 mg/dL (8.6-10.8); Carbon Dioxide 21 mEq/L (19-29); Chloride 113 mEq/L (98-109); Glucose 103 mg/dL (70-99); Osmolality,Calculated 290 (280-300); Sodium 141 mEq/L (136-145); eGFR For African Americans > 60 (> 60); eGFR For Non-African Americans > 60 (> 60)
[2016-09-28] MEDS: cephALEXin 500 MG CAPSULE PO SCH ×2 (07:53→20:31)
[2016-09-28] MEDS: Cyanocobalamin (B-12) 1,000 MCG TABLET PO SCH (07:53)
[2016-09-28] MEDS: Pregabalin 75 MG CAPSULE PO SCH ×2 (07:53→20:31)
[2016-09-28] MEDS: APIXABAN 5 MG TABLET PO SCH ×2 (07:54→20:31)
[2016-09-28] MEDS: Vitamin B Complex/Vit C/Vit E 1 EACH TABLET PO SCH (07:54)
[2016-09-28] MEDS: Folic Acid 1 MG TABLET PO SCH (07:54)
--- NOTE | 2016-09-28 15:52 | Internal Med Progress Note ---
Date of Encounter: 09/28/16 Time of Encounter: 11:15 - Assessment and plan (1) Bilateral leg paresthesia Current Visit: Yes Status: Acute Assessment and plan: Continue supportive care and physical therapy. Outpatient follow-up with neurology. Placement to skilled rehabilitation. (2) Depression Current Visit: Yes Status: Acute Assessment and plan: On Cymbalta. Increase dosage to 90 mg Qualifiers: Depression Type: major depressive disorder Major depression recurrence: recurrent Active/Remission status: currently active Major depression episode severity: moderate Qualified Code(s): F33.1 - Major depressive disorder, recurrent, moderate (3) Folic acid deficiency Current Visit: Yes Status: Acute (4) Hypokalemia Current Visit: Yes Status: Acute Assessment and plan: Improved with oral supplementation. Potassium 4 today (5) Iron deficiency Current Visit: Yes Status: Acute Assessment and plan: Continue iron supplements. (6) UTI (urinary tract infection) Current Visit: Yes Status: Acute Assessment and plan: On oral cephalexin. Due to Escherichia coli. Qualifiers: Urinary tract infection type: acute cystitis Hematuria presence: without hematuria Qualified Code(s): N30.00 - Acute cystitis without hematuria (7) History of pulmonary embolism Current Visit: No Status: Acute Assessment and plan: On Eliquis (8) Hypothyroidism Current Visit: No Status: Acute Assessment and plan: Continue levothyroxine Qualifiers: Hypothyroidism type: unspecified Qualified Code(s): E03.9 - Hypothyroidism , unspecified (9) Morbid obesity Current Visit: No Status: Acute Qualifiers: Obesity type: due to excess calories Qualified Code(s): E66.01 - Morbid ( severe) obesity due to excess calories (10) DVT prophylaxis Current Visit: Yes Status: Acute - Subjective Interval history: Patient continues to complain of numbness in bilateral lower extremities. Today she says her numbness begins at midabdomen level. Yesterday she said it began at her groin level. Denies any incontinence. No focal weakness. - Constitutional Vitals: Temp Pulse Resp BP Pulse Ox 98.1 F 98 18 114/72 97 09/28/16 11:05 09/28/16 11:05 09/28/16 11:05 09/28/16 11:05 09/28/16 11:05 General appearance: Present: A&O X 3, morbidly obese, no acute distress, answers questions appropriately - Neck Neck exam general surgery: Present: supple, trachea midline. Absent: lymphadenopathy - Respiratory Respiratory exam: Present: CTAB. Absent: accessory muscle use, rales, rhonchi, wheezes - Cardiovascular Cardiovascular exam: Present: RRR, +S1, +S2. Absent: diastolic murmur, gallop, rubs, systolic murmur - GI/Abdominal GI/Abdominal exam: Present: normal bowel sounds, soft, no peritoneal signs. Absent: distended, tenderness - Extremities Exam Extremities exam: Present: warm, radial pulses palpable and symetrical. Absent : calf tenderness, cyanotic, pedal edema - Neurological Exam Neurological exam: Present: CN II-XII intact, oriented X3, no focal deficits, strengths equal and symetr throughout. Absent: facial droop, speech deficit Additional comments: Sensory exam unreliable as patient has varying levels of numbness - Skin Skin exam: Present: dry, intact Internal Medicine: Result - Labs CBC & Chem 7: 09/27/16 04:51 09/28/16 06:38 Labs: BMP 09/28/16 06:38 Sodium 141 Potassium 4.0 Chloride 113 H Carbon Dioxide 21 BUN 6 L Creatinine 0.60 Glucose 103 H Calcium 8.6 - ABG Interpretation ABG results: ABG ABG pH 7.47 pH Units (7.32-7.45) H 09/22/16 08:26 ABG pCO2 38 mmHg (35-45) 09/22/16 08:26 ABG pO2 67 mmHg (85-104) L 09/22/16 08:26 ABG O2 Saturation 94 % (95-98) L 09/22/16 08:26 Consult Discharge Plan - Plan Referrals: Lavell Capps MD [Primary Care Provider] - 09/26/16 10:15 am - Attending Attestation This document has been at least partially created by [employer] recognition technology by Dr. Montes. Errors in grammar, wording or other phrases may exist. If errors are found after the documentation is signed, they will be addressed individually in the addendum section of this document when appropriate. Medical Decision Making - MDM Narrative Medical decision making narrative: Low risk for complications - Lab Data Lab results reviewed: Yes I reviewed the patient's lab results. Result diagrams: 09/27/16 04:51 01/04/17 06:38 Lab Results 09/22/16 09/23/16 09/23/16 Range/Units 08:26 05:21 05:21 WBC 4.1 L (4.3-11.1) K/mcL RBC 4.09 (3.82-4.97) M/mcL Hgb 10.7 L (11.5-15.4) g/dL Hct 34.0 L (35.3-44.9) % MCV 83.1 (83.0-100.0) fL MCH 26.2 L (28.0-33.3) pg MCHC 31.5 L (31.6-35.5) g/dL RDW 17.5 H (11.5-14.5) % Plt Count 287 (140-400) K/mcL MPV 10.3 (9.4-12.4) fL Immature Gran % 0.2 (0-4) % Seg Neutrophils % 34.9 % Lymphocytes % 50.0 % Monocytes % 10.0 % Eosinophils % 4.2 % Basophils % 0.7 % Neutrophils # 1.4 L (1.6-8.9) K/mcL Lymphocytes # 2.0 (0.6-4.6) K/mcL Monocytes # 0.4 (0.0-1.3) K/mcL Eosinophils # 0.2 (0.0-0.6) K/mcL Basophils # 0.0 (0.0-0.2) K/mcL Reactive Lymphocytes (Not Present) Platelet Estimate (Normal) Immature Plt Fraction 2.7 (1.1-6.1) % ABG pH 7.47 H (7.32-7.45) pH Units ABG pCO2 38 (35-45) mmHg ABG pO2 67 L (85-104) mmHg ABG HCO3 27.7 H (21-27) mEQ/L ABG Total CO2 28.9 H (20-26) mEq/L ABG O2 Saturation 94 L (95-98) % ABG Base Excess 3.9 H (-2.0 to 3.0) mEq/L Blood Gas Modality ra Inspired O2 21 % Sodium 139 (136-145) mEq/L Potassium 3.6 (3.5-4.5) mEq/L Chloride 110 H (98-109) mEq/L Carbon Dioxide 19 (19-29) mEq/L BUN 6 L (7-20) mg/dL Creatinine 0.55 L (0.57-1.11) mg/dL Est GFR ( Amer) > 60 (> 60) Est GFR (Non-Af Amer) > 60 (> 60) BUN/Creatinine Ratio 11 (6-26) Glucose 86 (70-99) mg/dL Calculated Osmolality 285 (280-300) Calcium 8.1 L (8.6-10.8) mg/dL Magnesium 1.7 (1.6-2.6) mg/dL Iron 24 L (50-170) mcg/dL % Saturation 9 L (15-50) % Transferrin 181 (180-382) mg/dL Ferritin 80 (5-204) ng/ml Total Bilirubin 0.4 (0.2-1.2) mg/dL AST 26 (5-34) Units/L ALT 13 (0-55) Units/L Alkaline Phosphatase 88 (38-126) Units/L Serum Total Protein 5.9 L (6.0-8.3) g/dL Albumin 2.4 L (3.5-5.0) g/dL Globulin 3.5 (2.4-3.5) g/dL Albumin/Globulin Ratio 0.7 L (1.1-2.2) Vitamin B12 (213-816) pg/mL 25-OH Vitamin D Total (30-80) ng/mL Whole Blood Lead (0.0-4.9) ug/dL 09/23/16 09/23/16 09/24/16 Range/Units 05:21 05:21 04:17 WBC 4.2 L (4.3-11.1) K/mcL RBC 4.03 (3.82-4.97) M/mcL Hgb 10.3 L (11.5-15.4) g/dL Hct 34.1 L (35.3-44.9) % MCV 84.6 (83.0-100.0) fL MCH 25.6 L (28.0-33.3) pg MCHC 30.2 L (31.6-35.5) g/dL RDW 17.2 H (11.5-14.5) % Plt Count 250 (140-400) K/mcL MPV 10.0 (9.4-12.4) fL Immature Gran % 0.2 (0-4) % Seg Neutrophils % 33.1 % Lymphocytes % 55.6 % Monocytes % 7.1 % Eosinophils % 3.1 % Basophils % 0.9 % Neutrophils # 1.4 L (1.6-8.9) K/mcL Lymphocytes # 2.3 (0.6-4.6) K/mcL Monocytes # 0.3 (0.0-1.3) K/mcL Eosinophils # 0.1 (0.0-0.6) K/mcL Basophils # 0.0 (0.0-0.2) K/mcL Reactive Lymphocytes Present A (Not Present) Platelet Estimate Normal (Normal) Immature Plt Fraction (1.1-6.1) % ABG pH (7.32-7.45) pH Units ABG pCO2 (35-45) mmHg ABG pO2 (85-104) mmHg ABG HCO3 (21-27) mEQ/L ABG Total CO2 (20-26) mEq/L ABG O2 Saturation (95-98) % ABG Base Excess (-2.0 to 3.0) mEq/L Blood Gas Modality Inspired O2 % Sodium (136-145) mEq/L Potassium (3.5-4.5) mEq/L Chloride (98-109) mEq/L Carbon Dioxide (19-29) mEq/L BUN (7-20) mg/dL Creatinine (0.57-1.11) mg/dL Est GFR ( Amer) (> 60) Est GFR (Non-Af Amer) (> 60) BUN/Creatinine Ratio (6-26) Glucose (70-99) mg/dL Calculated Osmolality (280-300) Calcium (8.6-10.8) mg/dL Magnesium (1.6-2.6) mg/dL Iron (50-170) mcg/dL % Saturation (15-50) % Transferrin (180-382) mg/dL Ferritin (5-204) ng/ml Total Bilirubin (0.2-1.2) mg/dL AST (5-34) Units/L ALT (0-55) Units/L Alkaline Phosphatase (38-126) Units/L Serum Total Protein (6.0-8.3) g/dL Albumin (3.5-5.0) g/dL Globulin (2.4-3.5) g/dL Albumin/Globulin Ratio (1.1-2.2) Vitamin B12 370 (213-816) pg/mL 25-OH Vitamin D Total (30-80) ng/mL Whole Blood Lead <2.0 (0.0-4.9) ug/dL 09/24/16 09/25/16 09/25/16 Range/Units 04:17 03:40 03:40 WBC 6.0 (4.3-11.1) K/mcL RBC 4.25 (3.82-4.97) M/mcL Hgb 10.9 L (11.5-15.4) g/dL Hct 35.0 L (35.3-44.9) % MCV 82.4 L (83.0-100.0) fL MCH 25.6 L (28.0-33.3) pg MCHC 31.1 L (31.6-35.5) g/dL RDW 17.3 H (11.5-14.5) % Plt Count 277 (140-400) K/mcL MPV 10.1 (9.4-12.4) fL Immature Gran % 0.2 (0-4) % Seg Neutrophils % 30.0 % Lymphocytes % 59.4 % Monocytes % 6.7 % Eosinophils % 2.9 % Basophils % 0.8 % Neutrophils # 1.8 (1.6-8.9) K/mcL Lymphocytes # 3.6 (0.6-4.6) K/mcL Monocytes # 0.4 (0.0-1.3) K/mcL Eosinophils # 0.2 (0.0-0.6) K/mcL Basophils # 0.1 (0.0-0.2) K/mcL Reactive Lymphocytes Present A (Not Present) Platelet Estimate Normal (Normal) Immature Plt Fraction (1.1-6.1) % ABG pH (7.32-7.45) pH Units ABG pCO2 (35-45) mmHg ABG pO2 (85-104) mmHg ABG HCO3 (21-27) mEQ/L ABG Total CO2 (20-26) mEq/L ABG O2 Saturation (95-98) % ABG Base Excess (-2.0 to 3.0) mEq/L Blood Gas Modality Inspired O2 % Sodium 138 (136-145) mEq/L Potassium 3.5 (3.5-4.5) mEq/L Chloride 110 H (98-109) mEq/L Carbon Dioxide 19 (19-29) mEq/L BUN 5 L (7-20) mg/dL Creatinine 0.58 (0.57-1.11) mg/dL Est GFR ( Amer) > 60 (> 60) Est GFR (Non-Af Amer) > 60 (> 60) BUN/Creatinine Ratio 9 (6-26) Glucose 90 (70-99) mg/dL Calculated Osmolality 283 (280-300) Calcium 7.9 L (8.6-10.8) mg/dL Magnesium (1.6-2.6) mg/dL Iron (50-170) mcg/dL % Saturation (15-50) % Transferrin (180-382) mg/dL Ferritin (5-204) ng/ml Total Bilirubin (0.2-1.2) mg/dL AST (5-34) Units/L ALT (0-55) Units/L Alkaline Phosphatase (38-126) Units/L Serum Total Protein (6.0-8.3) g/dL Albumin (3.5-5.0) g/dL Globulin (2.4-3.5) g/dL Albumin/Globulin Ratio (1.1-2.2) Vitamin B12 (213-816) pg/mL 25-OH Vitamin D Total 37 (30-80) ng/mL Whole Blood Lead (0.0-4.9) ug/dL 09/25/16 09/27/16 09/27/16 Range/Units 03:40 04:51 04:51 WBC 5.7 (4.3-11.1) K/mcL RBC 3.94 (3.82-4.97) M/mcL Hgb 10.3 L (11.5-15.4) g/dL Hct 33.4 L (35.3-44.9) % MCV 84.8 (83.0-100.0) fL MCH 26.1 L (28.0-33.3) pg MCHC 30.8 L (31.6-35.5) g/dL RDW 17.7 H (11.5-14.5) % Plt Count 254 (140-400) K/mcL MPV 11.1 (9.4-12.4) fL Immature Gran % 0.2 (0-4) % Seg Neutrophils % 29.8 % Lymphocytes % 57.5 % Monocytes % 7.2 % Eosinophils % 4.2 % Basophils % 1.1 % Neutrophils # 1.7 (1.6-8.9) K/mcL Lymphocytes # 3.3 (0.6-4.6) K/mcL Monocytes # 0.4 (0.0-1.3) K/mcL Eosinophils # 0.2 (0.0-0.6) K/mcL Basophils # 0.1 (0.0-0.2) K/mcL Reactive Lymphocytes (Not Present) Platelet Estimate (Normal) Immature Plt Fraction (1.1-6.1) % ABG pH (7.32-7.45) pH Units ABG pCO2 (35-45) mmHg ABG pO2 (85-104) mmHg ABG HCO3 (21-27) mEQ/L ABG Total CO2 (20-26) mEq/L ABG O2 Saturation (95-98) % ABG Base Excess (-2.0 to 3.0) mEq/L Blood Gas Modality Inspired O2 % Sodium 138 142 (136-145) mEq/L Potassium 3.5 3.3 L (3.5-4.5) mEq/L Chloride 112 H 113 H (98-109) mEq/L Carbon Dioxide 19 19 (19-29) mEq/L BUN 4 L 3 L (7-20) mg/dL Creatinine 0.52 L 0.54 L (0.57-1.11) mg/dL Est GFR ( Amer) > 60 > 60 (> 60) Est GFR (Non-Af Amer) > 60 > 60 (> 60) BUN/Creatinine Ratio 8 6 (6-26) Glucose 91 86 (70-99) mg/dL Calculated Osmolality 282 290 (280-300) Calcium 8.2 L 8.4 L (8.6-10.8) mg/dL Magnesium (1.6-2.6) mg/dL Iron (50-170) mcg/dL % Saturation (15-50) % Transferrin (180-382) mg/dL Ferritin (5-204) ng/ml Total Bilirubin (0.2-1.2) mg/dL AST (5-34) Units/L ALT (0-55) Units/L Alkaline Phosphatase (38-126) Units/L Serum Total Protein (6.0-8.3) g/dL Albumin (3.5-5.0) g/dL Globulin (2.4-3.5) g/dL Albumin/Globulin Ratio (1.1-2.2) Vitamin B12 (213-816) pg/mL 25-OH Vitamin D Total (30-80) ng/mL Whole Blood Lead (0.0-4.9) ug/dL 09/28/16 Range/Units 06:38 WBC (4.3-11.1) K/mcL RBC (3.82-4.97) M/mcL Hgb (11.5-15.4) g/dL Hct (35.3-44.9) % MCV (83.0-100.0) fL MCH (28.0-33.3) pg MCHC (31.6-35.5) g/dL RDW (11.5-14.5) % Plt Count (140-400) K/mcL MPV (9.4-12.4) fL Immature Gran % (0-4) % Seg Neutrophils % % Lymphocytes % % Monocytes % % Eosinophils % % Basophils % % Neutrophils # (1.6-8.9) K/mcL Lymphocytes # (0.6-4.6) K/mcL Monocytes # (0.0-1.3) K/mcL Eosinophils # (0.0-0.6) K/mcL Basophils # (0.0-0.2) K/mcL Reactive Lymphocytes (Not Present) Platelet Estimate (Normal) Immature Plt Fraction (1.1-6.1) % ABG pH (7.32-7.45) pH Units ABG pCO2 (35-45) mmHg ABG pO2 (85-104) mmHg ABG HCO3 (21-27) mEQ/L ABG Total CO2 (20-26) mEq/L ABG O2 Saturation (95-98) % ABG Base Excess (-2.0 to 3.0) mEq/L Blood Gas Modality Inspired O2 % Sodium 141 (136-145) mEq/L Potassium 4.0 (3.5-4.5) mEq/L Chloride 113 H (98-109) mEq/L Carbon Dioxide 21 (19-29) mEq/L BUN 6 L (7-20) mg/dL Creatinine 0.60 (0.57-1.11) mg/dL Est GFR ( Amer) > 60 (> 60) Est GFR (Non-Af Amer) > 60 (> 60) BUN/Creatinine Ratio 10 (6-26) Glucose 103 H (70-99) mg/dL Calculated Osmolality 290 (280-300) Calcium 8.6 (8.6-10.8) mg/dL Magnesium (1.6-2.6) mg/dL Iron (50-170) mcg/dL % Saturation (15-50) % Transferrin (180-382) mg/dL Ferritin (5-204) ng/ml Total Bilirubin (0.2-1.2) mg/dL AST (5-34) Units/L ALT (0-55) Units/L Alkaline Phosphatase (38-126) Units/L Serum Total Protein (6.0-8.3) g/dL Albumin (3.5-5.0) g/dL Globulin (2.4-3.5) g/dL Albumin/Globulin Ratio (1.1-2.2) Vitamin B12 (213-816) pg/mL 25-OH Vitamin D Total (30-80) ng/mL Whole Blood Lead (0.0-4.9) ug/dL
[2016-09-29] MEDS: *HR* OxyCODONE Immed Rel 5 MG TABLET PO PRN ×2 (03:37→12:50)
[2016-09-29] MEDS: Vitamin B Complex/Vit C/Vit E 1 EACH TABLET PO SCH (07:34)
[2016-09-29] MEDS: Pregabalin 75 MG CAPSULE PO SCH ×2 (07:34→20:58)
[2016-09-29] MEDS: APIXABAN 5 MG TABLET PO SCH ×2 (07:35→20:59)
[2016-09-29] MEDS: cephALEXin 500 MG CAPSULE PO SCH ×2 (07:35→20:59)
[2016-09-29] MEDS: Cyanocobalamin (B-12) 1,000 MCG TABLET PO SCH (07:35)
[2016-09-29] MEDS: Folic Acid 1 MG TABLET PO SCH (07:35)
--- NOTE | 2016-09-29 16:24 | Internal Med Progress Note ---
Date of Encounter: 09/29/16 Time of Encounter: 09:15 - Assessment and plan (1) Bilateral leg paresthesia Current Visit: Yes Status: Acute Assessment and plan: Outpatient follow-up with neurology. Continue oral vitamin supplementation. Continue physical therapy. Placement to skilled rehabilitation when bed available and patient accepted. (2) Depression Current Visit: Yes Status: Acute Assessment and plan: On Cymbalta 90 mg by mouth daily Qualifiers: Depression Type: major depressive disorder Major depression recurrence: recurrent Active/Remission status: currently active Major depression episode severity: moderate Qualified Code(s): F33.1 - Major depressive disorder, recurrent, moderate (3) Folic acid deficiency Current Visit: Yes Status: Acute (4) Hypokalemia Current Visit: Yes Status: Acute (5) Iron deficiency Current Visit: Yes Status: Acute (6) UTI (urinary tract infection) Current Visit: Yes Status: Acute Assessment and plan: Patient will complete 8 days of antibiotic therapy today. Continue for 6 more days. Qualifiers: Urinary tract infection type: acute cystitis Hematuria presence: without hematuria Qualified Code(s): N30.00 - Acute cystitis without hematuria (7) History of pulmonary embolism Current Visit: No Status: Acute Assessment and plan: Continue Eliquis (8) Hypothyroidism Current Visit: No Status: Acute Assessment and plan: Continued Synthroid Qualifiers: Hypothyroidism type: unspecified Qualified Code(s): E03.9 - Hypothyroidism , unspecified (9) Morbid obesity Current Visit: No Status: Acute Qualifiers: Obesity type: due to excess calories Qualified Code(s): E66.01 - Morbid ( severe) obesity due to excess calories (10) DVT prophylaxis Current Visit: Yes Status: Acute - Subjective Interval history: No new complaints. Patient continues to have numbness in her lower extremities but no weakness. No incontinence. - Constitutional Vitals: Temp Pulse Resp BP Pulse Ox 97.8 F 79 18 122/7 99 09/29/16 08:21 09/29/16 08:21 09/29/16 08:21 09/29/16 08:21 09/29/16 08:21 General appearance: Present: A&O X 3, morbidly obese, no acute distress, answers questions appropriately - Respiratory Respiratory exam: Present: CTAB. Absent: accessory muscle use, rales, rhonchi, wheezes - Cardiovascular Cardiovascular exam: Present: RRR, +S1, +S2. Absent: diastolic murmur, gallop, rubs, systolic murmur - Extremities Exam Extremities exam: Present: full ROM, warm, radial pulses palpable and symetrical. Absent: calf tenderness, cyanotic, pedal edema - Neurological Exam Neurological exam: Present: CN II-XII intact, oriented X3, strengths equal and symetr throughout. Absent: facial droop, speech deficit Additional comments: Complaints of numbness in both lower extremities extending up to the groin. - Skin Skin exam: Present: dry, intact Internal Medicine: Result - Labs CBC & Chem 7: 09/27/16 04:51 09/28/16 06:38 - ABG Interpretation ABG results: ABG ABG pH 7.47 pH Units (7.32-7.45) H 09/22/16 08:26 ABG pCO2 38 mmHg (35-45) 09/22/16 08:26 ABG pO2 67 mmHg (85-104) L 09/22/16 08:26 ABG O2 Saturation 94 % (95-98) L 09/22/16 08:26 Consult Discharge Plan - Plan Referrals: Lavell Capps MD [Primary Care Provider] - - Attending Attestation This document has been at least partially created by [employer] recognition technology by Dr. Montes. Errors in grammar, wording or other phrases may exist. If errors are found after the documentation is signed, they will be addressed individually in the addendum section of this document when appropriate. Medical Decision Making - MDM Narrative Medical decision making narrative: Low Risk for complications - Lab Data Result diagrams: 09/27/16 04:51 09/28/16 06:38 Lab Results 09/22/16 09/23/16 09/23/16 Range/Units 08:26 05:21 05:21 WBC 4.1 L (4.3-11.1) K/mcL RBC 4.09 (3.82-4.97) M/mcL Hgb 10.7 L (11.5-15.4) g/dL Hct 34.0 L (35.3-44.9) % MCV 83.1 (83.0-100.0) fL MCH 26.2 L (28.0-33.3) pg MCHC 31.5 L (31.6-35.5) g/dL RDW 17.5 H (11.5-14.5) % Plt Count 287 (140-400) K/mcL MPV 10.3 (9.4-12.4) fL Immature Gran % 0.2 (0-4) % Seg Neutrophils % 34.9 % Lymphocytes % 50.0 % Monocytes % 10.0 % Eosinophils % 4.2 % Basophils % 0.7 % Neutrophils # 1.4 L (1.6-8.9) K/mcL Lymphocytes # 2.0 (0.6-4.6) K/mcL Monocytes # 0.4 (0.0-1.3) K/mcL Eosinophils # 0.2 (0.0-0.6) K/mcL Basophils # 0.0 (0.0-0.2) K/mcL Reactive Lymphocytes (Not Present) Platelet Estimate (Normal) Immature Plt Fraction 2.7 (1.1-6.1) % ABG pH 7.47 H (7.32-7.45) pH Units ABG pCO2 38 (35-45) mmHg ABG pO2 67 L (85-104) mmHg ABG HCO3 27.7 H (21-27) mEQ/L ABG Total CO2 28.9 H (20-26) mEq/L ABG O2 Saturation 94 L (95-98) % ABG Base Excess 3.9 H (-2.0 to 3.0) mEq/L Blood Gas Modality ra Inspired O2 21 % Sodium 139 (136-145) mEq/L Potassium 3.6 (3.5-4.5) mEq/L Chloride 110 H (98-109) mEq/L Carbon Dioxide 19 (19-29) mEq/L BUN 6 L (7-20) mg/dL Creatinine 0.55 L (0.57-1.11) mg/dL Est GFR ( Amer) > 60 (> 60) Est GFR (Non-Af Amer) > 60 (> 60) BUN/Creatinine Ratio 11 (6-26) Glucose 86 (70-99) mg/dL Calculated Osmolality 285 (280-300) Calcium 8.1 L (8.6-10.8) mg/dL Magnesium 1.7 (1.6-2.6) mg/dL Iron 24 L (50-170) mcg/dL % Saturation 9 L (15-50) % Transferrin 181 (180-382) mg/dL Ferritin 80 (5-204) ng/ml Total Bilirubin 0.4 (0.2-1.2) mg/dL AST 26 (5-34) Units/L ALT 13 (0-55) Units/L Alkaline Phosphatase 88 (38-126) Units/L Serum Total Protein 5.9 L (6.0-8.3) g/dL Albumin 2.4 L (3.5-5.0) g/dL Globulin 3.5 (2.4-3.5) g/dL Albumin/Globulin Ratio 0.7 L (1.1-2.2) Vitamin B12 (213-816) pg/mL 25-OH Vitamin D Total (30-80) ng/mL Whole Blood Lead (0.0-4.9) ug/dL 09/23/16 09/23/16 09/24/16 Range/Units 05:21 05:21 04:17 WBC 4.2 L (4.3-11.1) K/mcL RBC 4.03 (3.82-4.97) M/mcL Hgb 10.3 L (11.5-15.4) g/dL Hct 34.1 L (35.3-44.9) % MCV 84.6 (83.0-100.0) fL MCH 25.6 L (28.0-33.3) pg MCHC 30.2 L (31.6-35.5) g/dL RDW 17.2 H (11.5-14.5) % Plt Count 250 (140-400) K/mcL MPV 10.0 (9.4-12.4) fL Immature Gran % 0.2 (0-4) % Seg Neutrophils % 33.1 % Lymphocytes % 55.6 % Monocytes % 7.1 % Eosinophils % 3.1 % Basophils % 0.9 % Neutrophils # 1.4 L (1.6-8.9) K/mcL Lymphocytes # 2.3 (0.6-4.6) K/mcL Monocytes # 0.3 (0.0-1.3) K/mcL Eosinophils # 0.1 (0.0-0.6) K/mcL Basophils # 0.0 (0.0-0.2) K/mcL Reactive Lymphocytes Present A (Not Present) Platelet Estimate Normal (Normal) Immature Plt Fraction (1.1-6.1) % ABG pH (7.32-7.45) pH Units ABG pCO2 (35-45) mmHg ABG pO2 (85-104) mmHg ABG HCO3 (21-27) mEQ/L ABG Total CO2 (20-26) mEq/L ABG O2 Saturation (95-98) % ABG Base Excess (-2.0 to 3.0) mEq/L Blood Gas Modality Inspired O2 % Sodium (136-145) mEq/L Potassium (3.5-4.5) mEq/L Chloride (98-109) mEq/L Carbon Dioxide (19-29) mEq/L BUN (7-20) mg/dL Creatinine (0.57-1.11) mg/dL Est GFR ( Amer) (> 60) Est GFR (Non-Af Amer) (> 60) BUN/Creatinine Ratio (6-26) Glucose (70-99) mg/dL Calculated Osmolality (280-300) Calcium (8.6-10.8) mg/dL Magnesium (1.6-2.6) mg/dL Iron (50-170) mcg/dL % Saturation (15-50) % Transferrin (180-382) mg/dL Ferritin (5-204) ng/ml Total Bilirubin (0.2-1.2) mg/dL AST (5-34) Units/L ALT (0-55) Units/L Alkaline Phosphatase (38-126) Units/L Serum Total Protein (6.0-8.3) g/dL Albumin (3.5-5.0) g/dL Globulin (2.4-3.5) g/dL Albumin/Globulin Ratio (1.1-2.2) Vitamin B12 370 (213-816) pg/mL 25-OH Vitamin D Total (30-80) ng/mL Whole Blood Lead <2.0 (0.0-4.9) ug/dL 09/24/16 09/25/16 09/25/16 Range/Units 04:17 03:40 03:40 WBC 6.0 (4.3-11.1) K/mcL RBC 4.25 (3.82-4.97) M/mcL Hgb 10.9 L (11.5-15.4) g/dL Hct 35.0 L (35.3-44.9) % MCV 82.4 L (83.0-100.0) fL MCH 25.6 L (28.0-33.3) pg MCHC 31.1 L (31.6-35.5) g/dL RDW 17.3 H (11.5-14.5) % Plt Count 277 (140-400) K/mcL MPV 10.1 (9.4-12.4) fL Immature Gran % 0.2 (0-4) % Seg Neutrophils % 30.0 % Lymphocytes % 59.4 % Monocytes % 6.7 % Eosinophils % 2.9 % Basophils % 0.8 % Neutrophils # 1.8 (1.6-8.9) K/mcL Lymphocytes # 3.6 (0.6-4.6) K/mcL Monocytes # 0.4 (0.0-1.3) K/mcL Eosinophils # 0.2 (0.0-0.6) K/mcL Basophils # 0.1 (0.0-0.2) K/mcL Reactive Lymphocytes Present A (Not Present) Platelet Estimate Normal (Normal) Immature Plt Fraction (1.1-6.1) % ABG pH (7.32-7.45) pH Units ABG pCO2 (35-45) mmHg ABG pO2 (85-104) mmHg ABG HCO3 (21-27) mEQ/L ABG Total CO2 (20-26) mEq/L ABG O2 Saturation (95-98) % ABG Base Excess (-2.0 to 3.0) mEq/L Blood Gas Modality Inspired O2 % Sodium 138 (136-145) mEq/L Potassium 3.5 (3.5-4.5) mEq/L Chloride 110 H (98-109) mEq/L Carbon Dioxide 19 (19-29) mEq/L BUN 5 L (7-20) mg/dL Creatinine 0.58 (0.57-1.11) mg/dL Est GFR ( Amer) > 60 (> 60) Est GFR (Non-Af Amer) > 60 (> 60) BUN/Creatinine Ratio 9 (6-26) Glucose 90 (70-99) mg/dL Calculated Osmolality 283 (280-300) Calcium 7.9 L (8.6-10.8) mg/dL Magnesium (1.6-2.6) mg/dL Iron (50-170) mcg/dL % Saturation (15-50) % Transferrin (180-382) mg/dL Ferritin (5-204) ng/ml Total Bilirubin (0.2-1.2) mg/dL AST (5-34) Units/L ALT (0-55) Units/L Alkaline Phosphatase (38-126) Units/L Serum Total Protein (6.0-8.3) g/dL Albumin (3.5-5.0) g/dL Globulin (2.4-3.5) g/dL Albumin/Globulin Ratio (1.1-2.2) Vitamin B12 (213-816) pg/mL 25-OH Vitamin D Total 37 (30-80) ng/mL Whole Blood Lead (0.0-4.9) ug/dL 09/25/16 09/27/16 09/27/16 Range/Units 03:40 04:51 04:51 WBC 5.7 (4.3-11.1) K/mcL RBC 3.94 (3.82-4.97) M/mcL Hgb 10.3 L (11.5-15.4) g/dL Hct 33.4 L (35.3-44.9) % MCV 84.8 (83.0-100.0) fL MCH 26.1 L (28.0-33.3) pg MCHC 30.8 L (31.6-35.5) g/dL RDW 17.7 H (11.5-14.5) % Plt Count 254 (140-400) K/mcL MPV 11.1 (9.4-12.4) fL Immature Gran % 0.2 (0-4) % Seg Neutrophils % 29.8 % Lymphocytes % 57.5 % Monocytes % 7.2 % Eosinophils % 4.2 % Basophils % 1.1 % Neutrophils # 1.7 (1.6-8.9) K/mcL Lymphocytes # 3.3 (0.6-4.6) K/mcL Monocytes # 0.4 (0.0-1.3) K/mcL Eosinophils # 0.2 (0.0-0.6) K/mcL Basophils # 0.1 (0.0-0.2) K/mcL Reactive Lymphocytes (Not Present) Platelet Estimate (Normal) Immature Plt Fraction (1.1-6.1) % ABG pH (7.32-7.45) pH Units ABG pCO2 (35-45) mmHg ABG pO2 (85-104) mmHg ABG HCO3 (21-27) mEQ/L ABG Total CO2 (20-26) mEq/L ABG O2 Saturation (95-98) % ABG Base Excess (-2.0 to 3.0) mEq/L Blood Gas Modality Inspired O2 % Sodium 138 142 (136-145) mEq/L Potassium 3.5 3.3 L (3.5-4.5) mEq/L Chloride 112 H 113 H (98-109) mEq/L Carbon Dioxide 19 19 (19-29) mEq/L BUN 4 L 3 L (7-20) mg/dL Creatinine 0.52 L 0.54 L (0.57-1.11) mg/dL Est GFR ( Amer) > 60 > 60 (> 60) Est GFR (Non-Af Amer) > 60 > 60 (> 60) BUN/Creatinine Ratio 8 6 (6-26) Glucose 91 86 (70-99) mg/dL Calculated Osmolality 282 290 (280-300) Calcium 8.2 L 8.4 L (8.6-10.8) mg/dL Magnesium (1.6-2.6) mg/dL Iron (50-170) mcg/dL % Saturation (15-50) % Transferrin (180-382) mg/dL Ferritin (5-204) ng/ml Total Bilirubin (0.2-1.2) mg/dL AST (5-34) Units/L ALT (0-55) Units/L Alkaline Phosphatase (38-126) Units/L Serum Total Protein (6.0-8.3) g/dL Albumin (3.5-5.0) g/dL Globulin (2.4-3.5) g/dL Albumin/Globulin Ratio (1.1-2.2) Vitamin B12 (213-816) pg/mL 25-OH Vitamin D Total (30-80) ng/mL Whole Blood Lead (0.0-4.9) ug/dL 09/28/16 Range/Units 06:38 WBC (4.3-11.1) K/mcL RBC (3.82-4.97) M/mcL Hgb (11.5-15.4) g/dL Hct (35.3-44.9) % MCV (83.0-100.0) fL MCH (28.0-33.3) pg MCHC (31.6-35.5) g/dL RDW (11.5-14.5) % Plt Count (140-400) K/mcL MPV (9.4-12.4) fL Immature Gran % (0-4) % Seg Neutrophils % % Lymphocytes % % Monocytes % % Eosinophils % % Basophils % % Neutrophils # (1.6-8.9) K/mcL Lymphocytes # (0.6-4.6) K/mcL Monocytes # (0.0-1.3) K/mcL Eosinophils # (0.0-0.6) K/mcL Basophils # (0.0-0.2) K/mcL Reactive Lymphocytes (Not Present) Platelet Estimate (Normal) Immature Plt Fraction (1.1-6.1) % ABG pH (7.32-7.45) pH Units ABG pCO2 (35-45) mmHg ABG pO2 (85-104) mmHg ABG HCO3 (21-27) mEQ/L ABG Total CO2 (20-26) mEq/L ABG O2 Saturation (95-98) % ABG Base Excess (-2.0 to 3.0) mEq/L Blood Gas Modality Inspired O2 % Sodium 141 (136-145) mEq/L Potassium 4.0 (3.5-4.5) mEq/L Chloride 113 H (98-109) mEq/L Carbon Dioxide 21 (19-29) mEq/L BUN 6 L (7-20) mg/dL Creatinine 0.60 (0.57-1.11) mg/dL Est GFR ( Amer) > 60 (> 60) Est GFR (Non-Af Amer) > 60 (> 60) BUN/Creatinine Ratio 10 (6-26) Glucose 103 H (70-99) mg/dL Calculated Osmolality 290 (280-300) Calcium 8.6 (8.6-10.8) mg/dL Magnesium (1.6-2.6) mg/dL Iron (50-170) mcg/dL % Saturation (15-50) % Transferrin (180-382) mg/dL Ferritin (5-204) ng/ml Total Bilirubin (0.2-1.2) mg/dL AST (5-34) Units/L ALT (0-55) Units/L Alkaline Phosphatase (38-126) Units/L Serum Total Protein (6.0-8.3) g/dL Albumin (3.5-5.0) g/dL Globulin (2.4-3.5) g/dL Albumin/Globulin Ratio (1.1-2.2) Vitamin B12 (213-816) pg/mL 25-OH Vitamin D Total (30-80) ng/mL Whole Blood Lead (0.0-4.9) ug/dL
[2016-09-30] MEDS: cephALEXin 500 MG CAPSULE PO SCH ×2 (08:25→21:27)
[2016-09-30] MEDS: Folic Acid 1 MG TABLET PO SCH (08:25)
[2016-09-30] MEDS: APIXABAN 5 MG TABLET PO SCH ×2 (08:25→21:27)
[2016-09-30] MEDS: Pregabalin 75 MG CAPSULE PO SCH ×2 (08:25→21:27)
[2016-09-30] MEDS: Cyanocobalamin (B-12) 1,000 MCG TABLET PO SCH (08:26)
[2016-09-30] MEDS: Vitamin B Complex/Vit C/Vit E 1 EACH TABLET PO SCH (08:26)
--- NOTE | 2016-09-30 16:16 | Internal Med Progress Note ---
Date of Encounter: 09/30/16 Time of Encounter: 15:15 - Assessment and plan (1) Bilateral leg paresthesia Current Visit: Yes Status: Acute Assessment and plan: Awaiting placement to skilled rehabilitation for physical therapy. Outpatient follow-up with neurology. (2) Depression Current Visit: Yes Status: Acute Assessment and plan: Continues Cymbalta Qualifiers: Depression Type: major depressive disorder Major depression recurrence: recurrent Active/Remission status: currently active Major depression episode severity: moderate Qualified Code(s): F33.1 - Major depressive disorder, recurrent, moderate (3) Folic acid deficiency Current Visit: Yes Status: Acute (4) Hypokalemia Current Visit: Yes Status: Resolved (5) Iron deficiency Current Visit: Yes Status: Acute (6) UTI (urinary tract infection) Current Visit: Yes Status: Acute Assessment and plan: Continue cephalexin for 5 more days. Qualifiers: Urinary tract infection type: acute cystitis Hematuria presence: without hematuria Qualified Code(s): N30.00 - Acute cystitis without hematuria (7) History of pulmonary embolism Current Visit: No Status: Acute Assessment and plan: On Eliquis (8) Hypothyroidism Current Visit: No Status: Acute Assessment and plan: Continue levothyroxin Qualifiers: Hypothyroidism type: unspecified Qualified Code(s): E03.9 - Hypothyroidism , unspecified (9) Morbid obesity Current Visit: No Status: Acute Qualifiers: Obesity type: due to excess calories Qualified Code(s): E66.01 - Morbid ( severe) obesity due to excess calories (10) DVT prophylaxis Current Visit: Yes Status: Acute - Subjective Interval history: Patient lying in bed. Denies any new complaints at this time. Continues to have numbness in her legs. - Constitutional Vitals: Temp Pulse Resp BP Pulse Ox 98.4 F 102 18 111/64 95 09/30/16 15:12 09/30/16 15:12 09/30/16 15:12 09/30/16 15:12 09/30/16 15:12 General appearance: Present: A&O X 3, morbidly obese, no acute distress, answers questions appropriately - Neck Neck exam general surgery: Present: supple, trachea midline. Absent: lymphadenopathy - Respiratory Respiratory exam: Present: CTAB. Absent: accessory muscle use, rales, rhonchi, wheezes - Cardiovascular Cardiovascular exam: Present: RRR, +S1, +S2. Absent: diastolic murmur, gallop, rubs, systolic murmur - GI/Abdominal GI/Abdominal exam: Present: normal bowel sounds, soft, no peritoneal signs. Absent: distended, tenderness - Extremities Exam Extremities exam: Present: warm, radial pulses palpable and symetrical. Absent : calf tenderness, cyanotic, pedal edema - Neurological Exam Neurological exam: Present: CN II-XII intact, oriented X3, no focal deficits, strengths equal and symetr throughout (Patient has normal sensation in her left lower extremity but says it has decreased in her right lower extremity on examination.). Absent: facial droop, speech deficit Internal Medicine: Result - Labs CBC & Chem 7: 09/27/16 04:51 09/28/16 06:38 - ABG Interpretation ABG results: ABG ABG pH 7.47 pH Units (7.32-7.45) H 09/22/16 08:26 ABG pCO2 38 mmHg (35-45) 09/22/16 08:26 ABG pO2 67 mmHg (85-104) L 09/22/16 08:26 ABG O2 Saturation 94 % (95-98) L 09/22/16 08:26 Consult Discharge Plan - Plan Referrals: Lavell Capps MD [Primary Care Provider] - - Attending Attestation This document has been at least partially created by [employer] recognition technology by Dr. Montes. Errors in grammar, wording or other phrases may exist. If errors are found after the documentation is signed, they will be addressed individually in the addendum section of this document when appropriate. Medical Decision Making - [facility] Narrative Medical decision making narrative: Low risk for complications - Lab Data Result diagrams: 09/27/16 04:51 09/28/16 06:38 Lab Results 09/22/16 09/23/16 09/23/16 Range/Units 08:26 05:21 05:21 WBC 4.1 L (4.3-11.1) K/mcL RBC 4.09 (3.82-4.97) M/mcL Hgb 10.7 L (11.5-15.4) g/dL Hct 34.0 L (35.3-44.9) % MCV 83.1 (83.0-100.0) fL MCH 26.2 L (28.0-33.3) pg MCHC 31.5 L (31.6-35.5) g/dL RDW 17.5 H (11.5-14.5) % Plt Count 287 (140-400) K/mcL MPV 10.3 (9.4-12.4) fL Immature Gran % 0.2 (0-4) % Seg Neutrophils % 34.9 % Lymphocytes % 50.0 % Monocytes % 10.0 % Eosinophils % 4.2 % Basophils % 0.7 % Neutrophils # 1.4 L (1.6-8.9) K/mcL Lymphocytes # 2.0 (0.6-4.6) K/mcL Monocytes # 0.4 (0.0-1.3) K/mcL Eosinophils # 0.2 (0.0-0.6) K/mcL Basophils # 0.0 (0.0-0.2) K/mcL Reactive Lymphocytes (Not Present) Platelet Estimate (Normal) Immature Plt Fraction 2.7 (1.1-6.1) % ABG pH 7.47 H (7.32-7.45) pH Units ABG pCO2 38 (35-45) mmHg ABG pO2 67 L (85-104) mmHg ABG HCO3 27.7 H (21-27) mEQ/L ABG Total CO2 28.9 H (20-26) mEq/L ABG O2 Saturation 94 L (95-98) % ABG Base Excess 3.9 H (-2.0 to 3.0) mEq/L Blood Gas Modality ra Inspired O2 21 % Sodium 139 (136-145) mEq/L Potassium 3.6 (3.5-4.5) mEq/L Chloride 110 H (98-109) mEq/L Carbon Dioxide 19 (19-29) mEq/L BUN 6 L (7-20) mg/dL Creatinine 0.55 L (0.57-1.11) mg/dL Est GFR ( Amer) > 60 (> 60) Est GFR (Non-Af Amer) > 60 (> 60) BUN/Creatinine Ratio 11 (6-26) Glucose 86 (70-99) mg/dL Calculated Osmolality 285 (280-300) Calcium 8.1 L (8.6-10.8) mg/dL Magnesium 1.7 (1.6-2.6) mg/dL Iron 24 L (50-170) mcg/dL % Saturation 9 L (15-50) % Transferrin 181 (180-382) mg/dL Ferritin 80 (5-204) ng/ml Total Bilirubin 0.4 (0.2-1.2) mg/dL AST 26 (5-34) Units/L ALT 13 (0-55) Units/L Alkaline Phosphatase 88 (38-126) Units/L Serum Total Protein 5.9 L (6.0-8.3) g/dL Albumin 2.4 L (3.5-5.0) g/dL Globulin 3.5 (2.4-3.5) g/dL Albumin/Globulin Ratio 0.7 L (1.1-2.2) Vitamin B12 (213-816) pg/mL 25-OH Vitamin D Total (30-80) ng/mL Whole Blood Lead (0.0-4.9) ug/dL 09/23/16 09/23/16 09/24/16 Range/Units 05:21 05:21 04:17 WBC 4.2 L (4.3-11.1) K/mcL RBC 4.03 (3.82-4.97) M/mcL Hgb 10.3 L (11.5-15.4) g/dL Hct 34.1 L (35.3-44.9) % MCV 84.6 (83.0-100.0) fL MCH 25.6 L (28.0-33.3) pg MCHC 30.2 L (31.6-35.5) g/dL RDW 17.2 H (11.5-14.5) % Plt Count 250 (140-400) K/mcL MPV 10.0 (9.4-12.4) fL Immature Gran % 0.2 (0-4) % Seg Neutrophils % 33.1 % Lymphocytes % 55.6 % Monocytes % 7.1 % Eosinophils % 3.1 % Basophils % 0.9 % Neutrophils # 1.4 L (1.6-8.9) K/mcL Lymphocytes # 2.3 (0.6-4.6) K/mcL Monocytes # 0.3 (0.0-1.3) K/mcL Eosinophils # 0.1 (0.0-0.6) K/mcL Basophils # 0.0 (0.0-0.2) K/mcL Reactive Lymphocytes Present A (Not Present) Platelet Estimate Normal (Normal) Immature Plt Fraction (1.1-6.1) % ABG pH (7.32-7.45) pH Units ABG pCO2 (35-45) mmHg ABG pO2 (85-104) mmHg ABG HCO3 (21-27) mEQ/L ABG Total CO2 (20-26) mEq/L ABG O2 Saturation (95-98) % ABG Base Excess (-2.0 to 3.0) mEq/L Blood Gas Modality Inspired O2 % Sodium (136-145) mEq/L Potassium (3.5-4.5) mEq/L Chloride (98-109) mEq/L Carbon Dioxide (19-29) mEq/L BUN (7-20) mg/dL Creatinine (0.57-1.11) mg/dL Est GFR ( Amer) (> 60) Est GFR (Non-Af Amer) (> 60) BUN/Creatinine Ratio (6-26) Glucose (70-99) mg/dL Calculated Osmolality (280-300) Calcium (8.6-10.8) mg/dL Magnesium (1.6-2.6) mg/dL Iron (50-170) mcg/dL % Saturation (15-50) % Transferrin (180-382) mg/dL Ferritin (5-204) ng/ml Total Bilirubin (0.2-1.2) mg/dL AST (5-34) Units/L ALT (0-55) Units/L Alkaline Phosphatase (38-126) Units/L Serum Total Protein (6.0-8.3) g/dL Albumin (3.5-5.0) g/dL Globulin (2.4-3.5) g/dL Albumin/Globulin Ratio (1.1-2.2) Vitamin B12 370 (213-816) pg/mL 25-OH Vitamin D Total (30-80) ng/mL Whole Blood Lead <2.0 (0.0-4.9) ug/dL 09/24/16 09/25/16 09/25/16 Range/Units 04:17 03:40 03:40 WBC 6.0 (4.3-11.1) K/mcL RBC 4.25 (3.82-4.97) M/mcL Hgb 10.9 L (11.5-15.4) g/dL Hct 35.0 L (35.3-44.9) % MCV 82.4 L (83.0-100.0) fL MCH 25.6 L (28.0-33.3) pg MCHC 31.1 L (31.6-35.5) g/dL RDW 17.3 H (11.5-14.5) % Plt Count 277 (140-400) K/mcL MPV 10.1 (9.4-12.4) fL Immature Gran % 0.2 (0-4) % Seg Neutrophils % 30.0 % Lymphocytes % 59.4 % Monocytes % 6.7 % Eosinophils % 2.9 % Basophils % 0.8 % Neutrophils # 1.8 (1.6-8.9) K/mcL Lymphocytes # 3.6 (0.6-4.6) K/mcL Monocytes # 0.4 (0.0-1.3) K/mcL Eosinophils # 0.2 (0.0-0.6) K/mcL Basophils # 0.1 (0.0-0.2) K/mcL Reactive Lymphocytes Present A (Not Present) Platelet Estimate Normal (Normal) Immature Plt Fraction (1.1-6.1) % ABG pH (7.32-7.45) pH Units ABG pCO2 (35-45) mmHg ABG pO2 (85-104) mmHg ABG HCO3 (21-27) mEQ/L ABG Total CO2 (20-26) mEq/L ABG O2 Saturation (95-98) % ABG Base Excess (-2.0 to 3.0) mEq/L Blood Gas Modality Inspired O2 % Sodium 138 (136-145) mEq/L Potassium 3.5 (3.5-4.5) mEq/L Chloride 110 H (98-109) mEq/L Carbon Dioxide 19 (19-29) mEq/L BUN 5 L (7-20) mg/dL Creatinine 0.58 (0.57-1.11) mg/dL Est GFR ( Amer) > 60 (> 60) Est GFR (Non-Af Amer) > 60 (> 60) BUN/Creatinine Ratio 9 (6-26) Glucose 90 (70-99) mg/dL Calculated Osmolality 283 (280-300) Calcium 7.9 L (8.6-10.8) mg/dL Magnesium (1.6-2.6) mg/dL Iron (50-170) mcg/dL % Saturation (15-50) % Transferrin (180-382) mg/dL Ferritin (5-204) ng/ml Total Bilirubin (0.2-1.2) mg/dL AST (5-34) Units/L ALT (0-55) Units/L Alkaline Phosphatase (38-126) Units/L Serum Total Protein (6.0-8.3) g/dL Albumin (3.5-5.0) g/dL Globulin (2.4-3.5) g/dL Albumin/Globulin Ratio (1.1-2.2) Vitamin B12 (213-816) pg/mL 25-OH Vitamin D Total 37 (30-80) ng/mL Whole Blood Lead (0.0-4.9) ug/dL 09/25/16 09/27/16 09/27/16 Range/Units 03:40 04:51 04:51 WBC 5.7 (4.3-11.1) K/mcL RBC 3.94 (3.82-4.97) M/mcL Hgb 10.3 L (11.5-15.4) g/dL Hct 33.4 L (35.3-44.9) % MCV 84.8 (83.0-100.0) fL MCH 26.1 L (28.0-33.3) pg MCHC 30.8 L (31.6-35.5) g/dL RDW 17.7 H (11.5-14.5) % Plt Count 254 (140-400) K/mcL MPV 11.1 (9.4-12.4) fL Immature Gran % 0.2 (0-4) % Seg Neutrophils % 29.8 % Lymphocytes % 57.5 % Monocytes % 7.2 % Eosinophils % 4.2 % Basophils % 1.1 % Neutrophils # 1.7 (1.6-8.9) K/mcL Lymphocytes # 3.3 (0.6-4.6) K/mcL Monocytes # 0.4 (0.0-1.3) K/mcL Eosinophils # 0.2 (0.0-0.6) K/mcL Basophils # 0.1 (0.0-0.2) K/mcL Reactive Lymphocytes (Not Present) Platelet Estimate (Normal) Immature Plt Fraction (1.1-6.1) % ABG pH (7.32-7.45) pH Units ABG pCO2 (35-45) mmHg ABG pO2 (85-104) mmHg ABG HCO3 (21-27) mEQ/L ABG Total CO2 (20-26) mEq/L ABG O2 Saturation (95-98) % ABG Base Excess (-2.0 to 3.0) mEq/L Blood Gas Modality Inspired O2 % Sodium 138 142 (136-145) mEq/L Potassium 3.5 3.3 L (3.5-4.5) mEq/L Chloride 112 H 113 H (98-109) mEq/L Carbon Dioxide 19 19 (19-29) mEq/L BUN 4 L 3 L (7-20) mg/dL Creatinine 0.52 L 0.54 L (0.57-1.11) mg/dL Est GFR ( Amer) > 60 > 60 (> 60) Est GFR (Non-Af Amer) > 60 > 60 (> 60) BUN/Creatinine Ratio 8 6 (6-26) Glucose 91 86 (70-99) mg/dL Calculated Osmolality 282 290 (280-300) Calcium 8.2 L 8.4 L (8.6-10.8) mg/dL Magnesium (1.6-2.6) mg/dL Iron (50-170) mcg/dL % Saturation (15-50) % Transferrin (180-382) mg/dL Ferritin (5-204) ng/ml Total Bilirubin (0.2-1.2) mg/dL AST (5-34) Units/L ALT (0-55) Units/L Alkaline Phosphatase (38-126) Units/L Serum Total Protein (6.0-8.3) g/dL Albumin (3.5-5.0) g/dL Globulin (2.4-3.5) g/dL Albumin/Globulin Ratio (1.1-2.2) Vitamin B12 (213-816) pg/mL 25-OH Vitamin D Total (30-80) ng/mL Whole Blood Lead (0.0-4.9) ug/dL 09/28/16 Range/Units 06:38 WBC (4.3-11.1) K/mcL RBC (3.82-4.97) M/mcL Hgb (11.5-15.4) g/dL Hct (35.3-44.9) % MCV (83.0-100.0) fL MCH (28.0-33.3) pg MCHC (31.6-35.5) g/dL RDW (11.5-14.5) % Plt Count (140-400) K/mcL MPV (9.4-12.4) fL Immature Gran % (0-4) % Seg Neutrophils % % Lymphocytes % % Monocytes % % Eosinophils % % Basophils % % Neutrophils # (1.6-8.9) K/mcL Lymphocytes # (0.6-4.6) K/mcL Monocytes # (0.0-1.3) K/mcL Eosinophils # (0.0-0.6) K/mcL Basophils # (0.0-0.2) K/mcL Reactive Lymphocytes (Not Present) Platelet Estimate (Normal) Immature Plt Fraction (1.1-6.1) % ABG pH (7.32-7.45) pH Units ABG pCO2 (35-45) mmHg ABG pO2 (85-104) mmHg ABG HCO3 (21-27) mEQ/L ABG Total CO2 (20-26) mEq/L ABG O2 Saturation (95-98) % ABG Base Excess (-2.0 to 3.0) mEq/L Blood Gas Modality Inspired O2 % Sodium 141 (136-145) mEq/L Potassium 4.0 (3.5-4.5) mEq/L Chloride 113 H (98-109) mEq/L Carbon Dioxide 21 (19-29) mEq/L BUN 6 L (7-20) mg/dL Creatinine 0.60 (0.57-1.11) mg/dL Est GFR ( Amer) > 60 (> 60) Est GFR (Non-Af Amer) > 60 (> 60) BUN/Creatinine Ratio 10 (6-26) Glucose 103 H (70-99) mg/dL Calculated Osmolality 290 (280-300) Calcium 8.6 (8.6-10.8) mg/dL Magnesium (1.6-2.6) mg/dL Iron (50-170) mcg/dL % Saturation (15-50) % Transferrin (180-382) mg/dL Ferritin (5-204) ng/ml Total Bilirubin (0.2-1.2) mg/dL AST (5-34) Units/L ALT (0-55) Units/L Alkaline Phosphatase (38-126) Units/L Serum Total Protein (6.0-8.3) g/dL Albumin (3.5-5.0) g/dL Globulin (2.4-3.5) g/dL Albumin/Globulin Ratio (1.1-2.2) Vitamin B12 (213-816) pg/mL 25-OH Vitamin D Total (30-80) ng/mL Whole Blood Lead (0.0-4.9) ug/dL
[2016-10-01] MEDS: Cyanocobalamin (B-12) 1,000 MCG TABLET PO SCH (10:01)
[2016-10-01] MEDS: APIXABAN 5 MG TABLET PO SCH ×2 (10:01→20:24)
[2016-10-01] MEDS: Vitamin B Complex/Vit C/Vit E 1 EACH TABLET PO SCH (10:01)
[2016-10-01] MEDS: Folic Acid 1 MG TABLET PO SCH (10:01)
[2016-10-01] MEDS: Pregabalin 75 MG CAPSULE PO SCH ×2 (10:01→20:24)
[2016-10-01] MEDS: cephALEXin 500 MG CAPSULE PO SCH ×2 (10:01→20:24)
--- NOTE | 2016-10-01 13:35 | Internal Med Progress Note ---
Date of Encounter: 10/01/16 Time of Encounter: 13:35 - Assessment and plan (1) Bilateral leg paresthesia Current Visit: Yes Status: Acute Assessment and plan: No changes at this time. Continue PTOT. Awaiting placement to skilled rehabilitation. Continue vitamin supplementation. (2) Depression Current Visit: Yes Status: Acute Assessment and plan: On Cymbalta 90 mg. Qualifiers: Depression Type: major depressive disorder Major depression recurrence: recurrent Active/Remission status: currently active Major depression episode severity: moderate Qualified Code(s): F33.1 - Major depressive disorder, recurrent, moderate (3) Folic acid deficiency Current Visit: Yes Status: Acute (4) Hypokalemia Current Visit: Yes Status: Resolved (5) Iron deficiency Current Visit: Yes Status: Acute (6) UTI (urinary tract infection) Current Visit: Yes Status: Resolved Assessment and plan: Stop antibiotics. Completed treatment course. Qualifiers: Urinary tract infection type: acute cystitis Hematuria presence: without hematuria Qualified Code(s): N30.00 - Acute cystitis without hematuria (7) History of pulmonary embolism Current Visit: No Status: Acute Assessment and plan: On Eliquis (8) Hypothyroidism Current Visit: No Status: Acute Qualifiers: Hypothyroidism type: unspecified Qualified Code(s): E03.9 - Hypothyroidism , unspecified (9) Morbid obesity Current Visit: No Status: Acute Qualifiers: Obesity type: due to excess calories Qualified Code(s): E66.01 - Morbid ( severe) obesity due to excess calories (10) DVT prophylaxis Current Visit: Yes Status: Acute - Subjective Interval history: No new complaints. Continues to have numbness in her lower extremities but feels that this is getting better. No focal weakness. - Constitutional Vitals: Temp Pulse Resp BP Pulse Ox 98.8 F 98 15 108/69 95 10/01/16 11:10 10/01/16 11:10 10/01/16 11:10 10/01/16 11:10 10/01/16 11:10 General appearance: Present: A&O X 3, morbidly obese, no acute distress, answers questions appropriately - Respiratory Respiratory exam: Present: CTAB. Absent: accessory muscle use, rales, rhonchi, wheezes - Cardiovascular Cardiovascular exam: Present: RRR, +S1, +S2. Absent: diastolic murmur, gallop, rubs, systolic murmur - GI/Abdominal GI/Abdominal exam: Present: normal bowel sounds, soft, no peritoneal signs. Absent: distended, tenderness - Extremities Exam Extremities exam: Present: warm, radial pulses palpable and symetrical. Absent : calf tenderness, cyanotic, pedal edema - Neurological Exam Neurological exam: Present: oriented X3, no focal deficits, strengths equal and symetr throughout. Absent: facial droop, speech deficit Additional comments: Decreased sensation in both lower extremities. Internal Medicine: Result - Labs CBC & Chem 7: 09/27/16 04:51 09/28/16 06:38 - ABG Interpretation ABG results: ABG ABG pH 7.47 pH Units (7.32-7.45) H 09/22/16 08:26 ABG pCO2 38 mmHg (35-45) 09/22/16 08:26 ABG pO2 67 mmHg (85-104) L 09/22/16 08:26 ABG O2 Saturation 94 % (95-98) L 09/22/16 08:26 Consult Discharge Plan - Plan Referrals: Lavell Capps MD [Primary Care Provider] - - Attending Attestation This document has been at least partially created by [email or web address] recognition technology by Dr. Montes. Errors in grammar, wording or other phrases may exist. If errors are found after the documentation is signed, they will be addressed individually in the addendum section of this document when appropriate. Medical Decision Making - MDM Narrative Medical decision making narrative: Low risk of complications - Lab Data Result diagrams: 09/27/16 04:51 09/28/16 06:38 Lab Results 09/22/16 09/23/16 09/23/16 Range/Units 08:26 05:21 05:21 WBC 4.1 L (4.3-11.1) K/mcL RBC 4.09 (3.82-4.97) M/mcL Hgb 10.7 L (11.5-15.4) g/dL Hct 34.0 L (35.3-44.9) % MCV 83.1 (83.0-100.0) fL MCH 26.2 L (28.0-33.3) pg MCHC 31.5 L (31.6-35.5) g/dL RDW 17.5 H (11.5-14.5) % Plt Count 287 (140-400) K/mcL MPV 10.3 (9.4-12.4) fL Immature Gran % 0.2 (0-4) % Seg Neutrophils % 34.9 % Lymphocytes % 50.0 % Monocytes % 10.0 % Eosinophils % 4.2 % Basophils % 0.7 % Neutrophils # 1.4 L (1.6-8.9) K/mcL Lymphocytes # 2.0 (0.6-4.6) K/mcL Monocytes # 0.4 (0.0-1.3) K/mcL Eosinophils # 0.2 (0.0-0.6) K/mcL Basophils # 0.0 (0.0-0.2) K/mcL Reactive Lymphocytes (Not Present) Platelet Estimate (Normal) Immature Plt Fraction 2.7 (1.1-6.1) % ABG pH 7.47 H (7.32-7.45) pH Units ABG pCO2 38 (35-45) mmHg ABG pO2 67 L (85-104) mmHg ABG HCO3 27.7 H (21-27) mEQ/L ABG Total CO2 28.9 H (20-26) mEq/L ABG O2 Saturation 94 L (95-98) % ABG Base Excess 3.9 H (-2.0 to 3.0) mEq/L Blood Gas Modality ra Inspired O2 21 % Sodium 139 (136-145) mEq/L Potassium 3.6 (3.5-4.5) mEq/L Chloride 110 H (98-109) mEq/L Carbon Dioxide 19 (19-29) mEq/L BUN 6 L (7-20) mg/dL Creatinine 0.55 L (0.57-1.11) mg/dL Est GFR ( Amer) > 60 (> 60) Est GFR (Non-Af Amer) > 60 (> 60) BUN/Creatinine Ratio 11 (6-26) Glucose 86 (70-99) mg/dL Calculated Osmolality 285 (280-300) Calcium 8.1 L (8.6-10.8) mg/dL Magnesium 1.7 (1.6-2.6) mg/dL Iron 24 L (50-170) mcg/dL % Saturation 9 L (15-50) % Transferrin 181 (180-382) mg/dL Ferritin 80 (5-204) ng/ml Total Bilirubin 0.4 (0.2-1.2) mg/dL AST 26 (5-34) Units/L ALT 13 (0-55) Units/L Alkaline Phosphatase 88 (38-126) Units/L Serum Total Protein 5.9 L (6.0-8.3) g/dL Albumin 2.4 L (3.5-5.0) g/dL Globulin 3.5 (2.4-3.5) g/dL Albumin/Globulin Ratio 0.7 L (1.1-2.2) Vitamin B12 (213-816) pg/mL 25-OH Vitamin D Total (30-80) ng/mL Whole Blood Lead (0.0-4.9) ug/dL 09/23/16 09/23/16 09/24/16 Range/Units 05:21 05:21 04:17 WBC 4.2 L (4.3-11.1) K/mcL RBC 4.03 (3.82-4.97) M/mcL Hgb 10.3 L (11.5-15.4) g/dL Hct 34.1 L (35.3-44.9) % MCV 84.6 (83.0-100.0) fL MCH 25.6 L (28.0-33.3) pg MCHC 30.2 L (31.6-35.5) g/dL RDW 17.2 H (11.5-14.5) % Plt Count 250 (140-400) K/mcL MPV 10.0 (9.4-12.4) fL Immature Gran % 0.2 (0-4) % Seg Neutrophils % 33.1 % Lymphocytes % 55.6 % Monocytes % 7.1 % Eosinophils % 3.1 % Basophils % 0.9 % Neutrophils # 1.4 L (1.6-8.9) K/mcL Lymphocytes # 2.3 (0.6-4.6) K/mcL Monocytes # 0.3 (0.0-1.3) K/mcL Eosinophils # 0.1 (0.0-0.6) K/mcL Basophils # 0.0 (0.0-0.2) K/mcL Reactive Lymphocytes Present A (Not Present) Platelet Estimate Normal (Normal) Immature Plt Fraction (1.1-6.1) % ABG pH (7.32-7.45) pH Units ABG pCO2 (35-45) mmHg ABG pO2 (85-104) mmHg ABG HCO3 (21-27) mEQ/L ABG Total CO2 (20-26) mEq/L ABG O2 Saturation (95-98) % ABG Base Excess (-2.0 to 3.0) mEq/L Blood Gas Modality Inspired O2 % Sodium (136-145) mEq/L Potassium (3.5-4.5) mEq/L Chloride (98-109) mEq/L Carbon Dioxide (19-29) mEq/L BUN (7-20) mg/dL Creatinine (0.57-1.11) mg/dL Est GFR ( Amer) (> 60) Est GFR (Non-Af Amer) (> 60) BUN/Creatinine Ratio (6-26) Glucose (70-99) mg/dL Calculated Osmolality (280-300) Calcium (8.6-10.8) mg/dL Magnesium (1.6-2.6) mg/dL Iron (50-170) mcg/dL % Saturation (15-50) % Transferrin (180-382) mg/dL Ferritin (5-204) ng/ml Total Bilirubin (0.2-1.2) mg/dL AST (5-34) Units/L ALT (0-55) Units/L Alkaline Phosphatase (38-126) Units/L Serum Total Protein (6.0-8.3) g/dL Albumin (3.5-5.0) g/dL Globulin (2.4-3.5) g/dL Albumin/Globulin Ratio (1.1-2.2) Vitamin B12 370 (213-816) pg/mL 25-OH Vitamin D Total (30-80) ng/mL Whole Blood Lead <2.0 (0.0-4.9) ug/dL 09/24/16 09/25/16 09/25/16 Range/Units 04:17 03:40 03:40 WBC 6.0 (4.3-11.1) K/mcL RBC 4.25 (3.82-4.97) M/mcL Hgb 10.9 L (11.5-15.4) g/dL Hct 35.0 L (35.3-44.9) % MCV 82.4 L (83.0-100.0) fL MCH 25.6 L (28.0-33.3) pg MCHC 31.1 L (31.6-35.5) g/dL RDW 17.3 H (11.5-14.5) % Plt Count 277 (140-400) K/mcL MPV 10.1 (9.4-12.4) fL Immature Gran % 0.2 (0-4) % Seg Neutrophils % 30.0 % Lymphocytes % 59.4 % Monocytes % 6.7 % Eosinophils % 2.9 % Basophils % 0.8 % Neutrophils # 1.8 (1.6-8.9) K/mcL Lymphocytes # 3.6 (0.6-4.6) K/mcL Monocytes # 0.4 (0.0-1.3) K/mcL Eosinophils # 0.2 (0.0-0.6) K/mcL Basophils # 0.1 (0.0-0.2) K/mcL Reactive Lymphocytes Present A (Not Present) Platelet Estimate Normal (Normal) Immature Plt Fraction (1.1-6.1) % ABG pH (7.32-7.45) pH Units ABG pCO2 (35-45) mmHg ABG pO2 (85-104) mmHg ABG HCO3 (21-27) mEQ/L ABG Total CO2 (20-26) mEq/L ABG O2 Saturation (95-98) % ABG Base Excess (-2.0 to 3.0) mEq/L Blood Gas Modality Inspired O2 % Sodium 138 (136-145) mEq/L Potassium 3.5 (3.5-4.5) mEq/L Chloride 110 H (98-109) mEq/L Carbon Dioxide 19 (19-29) mEq/L BUN 5 L (7-20) mg/dL Creatinine 0.58 (0.57-1.11) mg/dL Est GFR ( Amer) > 60 (> 60) Est GFR (Non-Af Amer) > 60 (> 60) BUN/Creatinine Ratio 9 (6-26) Glucose 90 (70-99) mg/dL Calculated Osmolality 283 (280-300) Calcium 7.9 L (8.6-10.8) mg/dL Magnesium (1.6-2.6) mg/dL Iron (50-170) mcg/dL % Saturation (15-50) % Transferrin (180-382) mg/dL Ferritin (5-204) ng/ml Total Bilirubin (0.2-1.2) mg/dL AST (5-34) Units/L ALT (0-55) Units/L Alkaline Phosphatase (38-126) Units/L Serum Total Protein (6.0-8.3) g/dL Albumin (3.5-5.0) g/dL Globulin (2.4-3.5) g/dL Albumin/Globulin Ratio (1.1-2.2) Vitamin B12 (213-816) pg/mL 25-OH Vitamin D Total 37 (30-80) ng/mL Whole Blood Lead (0.0-4.9) ug/dL 09/25/16 09/27/16 09/27/16 Range/Units 03:40 04:51 04:51 WBC 5.7 (4.3-11.1) K/mcL RBC 3.94 (3.82-4.97) M/mcL Hgb 10.3 L (11.5-15.4) g/dL Hct 33.4 L (35.3-44.9) % MCV 84.8 (83.0-100.0) fL MCH 26.1 L (28.0-33.3) pg MCHC 30.8 L (31.6-35.5) g/dL RDW 17.7 H (11.5-14.5) % Plt Count 254 (140-400) K/mcL MPV 11.1 (9.4-12.4) fL Immature Gran % 0.2 (0-4) % Seg Neutrophils % 29.8 % Lymphocytes % 57.5 % Monocytes % 7.2 % Eosinophils % 4.2 % Basophils % 1.1 % Neutrophils # 1.7 (1.6-8.9) K/mcL Lymphocytes # 3.3 (0.6-4.6) K/mcL Monocytes # 0.4 (0.0-1.3) K/mcL Eosinophils # 0.2 (0.0-0.6) K/mcL Basophils # 0.1 (0.0-0.2) K/mcL Reactive Lymphocytes (Not Present) Platelet Estimate (Normal) Immature Plt Fraction (1.1-6.1) % ABG pH (7.32-7.45) pH Units ABG pCO2 (35-45) mmHg ABG pO2 (85-104) mmHg ABG HCO3 (21-27) mEQ/L ABG Total CO2 (20-26) mEq/L ABG O2 Saturation (95-98) % ABG Base Excess (-2.0 to 3.0) mEq/L Blood Gas Modality Inspired O2 % Sodium 138 142 (136-145) mEq/L Potassium 3.5 3.3 L (3.5-4.5) mEq/L Chloride 112 H 113 H (98-109) mEq/L Carbon Dioxide 19 19 (19-29) mEq/L BUN 4 L 3 L (7-20) mg/dL Creatinine 0.52 L 0.54 L (0.57-1.11) mg/dL Est GFR ( Amer) > 60 > 60 (> 60) Est GFR (Non-Af Amer) > 60 > 60 (> 60) BUN/Creatinine Ratio 8 6 (6-26) Glucose 91 86 (70-99) mg/dL Calculated Osmolality 282 290 (280-300) Calcium 8.2 L 8.4 L (8.6-10.8) mg/dL Magnesium (1.6-2.6) mg/dL Iron (50-170) mcg/dL % Saturation (15-50) % Transferrin (180-382) mg/dL Ferritin (5-204) ng/ml Total Bilirubin (0.2-1.2) mg/dL AST (5-34) Units/L ALT (0-55) Units/L Alkaline Phosphatase (38-126) Units/L Serum Total Protein (6.0-8.3) g/dL Albumin (3.5-5.0) g/dL Globulin (2.4-3.5) g/dL Albumin/Globulin Ratio (1.1-2.2) Vitamin B12 (213-816) pg/mL 25-OH Vitamin D Total (30-80) ng/mL Whole Blood Lead (0.0-4.9) ug/dL 09/28/16 Range/Units 06:38 WBC (4.3-11.1) K/mcL RBC (3.82-4.97) M/mcL Hgb (11.5-15.4) g/dL Hct (35.3-44.9) % MCV (83.0-100.0) fL MCH (28.0-33.3) pg MCHC (31.6-35.5) g/dL RDW (11.5-14.5) % Plt Count (140-400) K/mcL MPV (9.4-12.4) fL Immature Gran % (0-4) % Seg Neutrophils % % Lymphocytes % % Monocytes % % Eosinophils % % Basophils % % Neutrophils # (1.6-8.9) K/mcL Lymphocytes # (0.6-4.6) K/mcL Monocytes # (0.0-1.3) K/mcL Eosinophils # (0.0-0.6) K/mcL Basophils # (0.0-0.2) K/mcL Reactive Lymphocytes (Not Present) Platelet Estimate (Normal) Immature Plt Fraction (1.1-6.1) % ABG pH (7.32-7.45) pH Units ABG pCO2 (35-45) mmHg ABG pO2 (85-104) mmHg ABG HCO3 (21-27) mEQ/L ABG Total CO2 (20-26) mEq/L ABG O2 Saturation (95-98) % ABG Base Excess (-2.0 to 3.0) mEq/L Blood Gas Modality Inspired O2 % Sodium 141 (136-145) mEq/L Potassium 4.0 (3.5-4.5) mEq/L Chloride 113 H (98-109) mEq/L Carbon Dioxide 21 (19-29) mEq/L BUN 6 L (7-20) mg/dL Creatinine 0.60 (0.57-1.11) mg/dL Est GFR ( Amer) > 60 (> 60) Est GFR (Non-Af Amer) > 60 (> 60) BUN/Creatinine Ratio 10 (6-26) Glucose 103 H (70-99) mg/dL Calculated Osmolality 290 (280-300) Calcium 8.6 (8.6-10.8) mg/dL Magnesium (1.6-2.6) mg/dL Iron (50-170) mcg/dL % Saturation (15-50) % Transferrin (180-382) mg/dL Ferritin (5-204) ng/ml Total Bilirubin (0.2-1.2) mg/dL AST (5-34) Units/L ALT (0-55) Units/L Alkaline Phosphatase (38-126) Units/L Serum Total Protein (6.0-8.3) g/dL Albumin (3.5-5.0) g/dL Globulin (2.4-3.5) g/dL Albumin/Globulin Ratio (1.1-2.2) Vitamin B12 (213-816) pg/mL 25-OH Vitamin D Total (30-80) ng/mL Whole Blood Lead (0.0-4.9) ug/dL
[2016-10-02] MEDS: *HR* OxyCODONE Immed Rel 5 MG TABLET PO PRN (05:29)
[2016-10-02] MEDS: Pregabalin 75 MG CAPSULE PO SCH ×2 (08:10→21:07)
[2016-10-02] MEDS: cephALEXin 500 MG CAPSULE PO SCH (08:10)
[2016-10-02] MEDS: Cyanocobalamin (B-12) 1,000 MCG TABLET PO SCH (08:11)
[2016-10-02] MEDS: APIXABAN 5 MG TABLET PO SCH ×2 (08:11→21:07)
[2016-10-02] MEDS: Vitamin B Complex/Vit C/Vit E 1 EACH TABLET PO SCH (08:11)
[2016-10-02] MEDS: Folic Acid 1 MG TABLET PO SCH (08:11)
--- NOTE | 2016-10-02 15:57 | Internal Med Progress Note ---
Date of Encounter: 10/02/16 Time of Encounter: 14:30 - Assessment and plan (1) Bilateral leg paresthesia Current Visit: Yes Status: Acute Assessment and plan: Improving. (2) Depression Current Visit: Yes Status: Acute Assessment and plan: Continue duloxetine Qualifiers: Depression Type: major depressive disorder Major depression recurrence: recurrent Active/Remission status: currently active Major depression episode severity: moderate Qualified Code(s): F33.1 - Major depressive disorder, recurrent, moderate (3) Folic acid deficiency Current Visit: Yes Status: Acute (4) Hypokalemia Current Visit: Yes Status: Resolved (5) Iron deficiency Current Visit: Yes Status: Acute (6) UTI (urinary tract infection) Current Visit: Yes Status: Resolved Assessment and plan: Completed treatment course. Qualifiers: Urinary tract infection type: acute cystitis Hematuria presence: without hematuria Qualified Code(s): N30.00 - Acute cystitis without hematuria (7) History of pulmonary embolism Current Visit: No Status: Acute (8) Hypothyroidism Current Visit: No Status: Acute Qualifiers: Hypothyroidism type: unspecified Qualified Code(s): E03.9 - Hypothyroidism , unspecified (9) Morbid obesity Current Visit: No Status: Acute Qualifiers: Obesity type: due to excess calories Qualified Code(s): E66.01 - Morbid ( severe) obesity due to excess calories (10) DVT prophylaxis Current Visit: Yes Status: Acute - Subjective Interval history: New complaints. Improving sensation in her lower extremities. - Constitutional Vitals: Temp Pulse Resp BP Pulse Ox 98.6 F 99 14 116/75 95 10/02/16 14:42 10/02/16 14:42 10/02/16 14:42 10/02/16 14:42 10/02/16 14:42 General appearance: Present: A&O X 3, morbidly obese, no acute distress, answers questions appropriately - Respiratory Respiratory exam: Present: CTAB. Absent: accessory muscle use, rales, rhonchi, wheezes - GI/Abdominal GI/Abdominal exam: Present: normal bowel sounds, soft, no peritoneal signs. Absent: distended, tenderness - Neurological Exam Neurological exam: Present: CN II-XII intact, oriented X3, no focal deficits. Absent: facial droop, speech deficit Additional comments: Improving sensation in bilateral lower extremities. Internal Medicine: Result - Labs CBC & Chem 7: 09/27/16 04:51 09/28/16 06:38 - ABG Interpretation ABG results: ABG ABG pH 7.47 pH Units (7.32-7.45) H 09/22/16 08:26 ABG pCO2 38 mmHg (35-45) 09/22/16 08:26 ABG pO2 67 mmHg (85-104) L 09/22/16 08:26 ABG O2 Saturation 94 % (95-98) L 09/22/16 08:26 Consult Discharge Plan - Plan Referrals: Lavell Capps MD [Primary Care Provider] - - Attending Attestation This document has been at least partially created by [employer] recognition technology by Dr. Montes. Errors in grammar, wording or other phrases may exist. If errors are found after the documentation is signed, they will be addressed individually in the addendum section of this document when appropriate. Medical Decision Making - MDM Narrative Medical decision making narrative: Low risk for complications - Lab Data Result diagrams: 09/27/16 04:51 09/28/16 06:38 Lab Results 09/22/16 09/23/16 09/23/16 Range/Units 08:26 05:21 05:21 WBC 4.1 L (4.3-11.1) K/mcL RBC 4.09 (3.82-4.97) M/mcL Hgb 10.7 L (11.5-15.4) g/dL Hct 34.0 L (35.3-44.9) % MCV 83.1 (83.0-100.0) fL MCH 26.2 L (28.0-33.3) pg MCHC 31.5 L (31.6-35.5) g/dL RDW 17.5 H (11.5-14.5) % Plt Count 287 (140-400) K/mcL MPV 10.3 (9.4-12.4) fL Immature Gran % 0.2 (0-4) % Seg Neutrophils % 34.9 % Lymphocytes % 50.0 % Monocytes % 10.0 % Eosinophils % 4.2 % Basophils % 0.7 % Neutrophils # 1.4 L (1.6-8.9) K/mcL Lymphocytes # 2.0 (0.6-4.6) K/mcL Monocytes # 0.4 (0.0-1.3) K/mcL Eosinophils # 0.2 (0.0-0.6) K/mcL Basophils # 0.0 (0.0-0.2) K/mcL Reactive Lymphocytes (Not Present) Platelet Estimate (Normal) Immature Plt Fraction 2.7 (1.1-6.1) % ABG pH 7.47 H (7.32-7.45) pH Units ABG pCO2 38 (35-45) mmHg ABG pO2 67 L (85-104) mmHg ABG HCO3 27.7 H (21-27) mEQ/L ABG Total CO2 28.9 H (20-26) mEq/L ABG O2 Saturation 94 L (95-98) % ABG Base Excess 3.9 H (-2.0 to 3.0) mEq/L Blood Gas Modality ra Inspired O2 21 % Sodium 139 (136-145) mEq/L Potassium 3.6 (3.5-4.5) mEq/L Chloride 110 H (98-109) mEq/L Carbon Dioxide 19 (19-29) mEq/L BUN 6 L (7-20) mg/dL Creatinine 0.55 L (0.57-1.11) mg/dL Est GFR ( Amer) > 60 (> 60) Est GFR (Non-Af Amer) > 60 (> 60) BUN/Creatinine Ratio 11 (6-26) Glucose 86 (70-99) mg/dL Calculated Osmolality 285 (280-300) Calcium 8.1 L (8.6-10.8) mg/dL Magnesium 1.7 (1.6-2.6) mg/dL Iron 24 L (50-170) mcg/dL % Saturation 9 L (15-50) % Transferrin 181 (180-382) mg/dL Ferritin 80 (5-204) ng/ml Total Bilirubin 0.4 (0.2-1.2) mg/dL AST 26 (5-34) Units/L ALT 13 (0-55) Units/L Alkaline Phosphatase 88 (38-126) Units/L Serum Total Protein 5.9 L (6.0-8.3) g/dL Albumin 2.4 L (3.5-5.0) g/dL Globulin 3.5 (2.4-3.5) g/dL Albumin/Globulin Ratio 0.7 L (1.1-2.2) Vitamin B12 (213-816) pg/mL 25-OH Vitamin D Total (30-80) ng/mL Whole Blood Lead (0.0-4.9) ug/dL 09/23/16 09/23/16 09/24/16 Range/Units 05:21 05:21 04:17 WBC 4.2 L (4.3-11.1) K/mcL RBC 4.03 (3.82-4.97) M/mcL Hgb 10.3 L (11.5-15.4) g/dL Hct 34.1 L (35.3-44.9) % MCV 84.6 (83.0-100.0) fL MCH 25.6 L (28.0-33.3) pg MCHC 30.2 L (31.6-35.5) g/dL RDW 17.2 H (11.5-14.5) % Plt Count 250 (140-400) K/mcL MPV 10.0 (9.4-12.4) fL Immature Gran % 0.2 (0-4) % Seg Neutrophils % 33.1 % Lymphocytes % 55.6 % Monocytes % 7.1 % Eosinophils % 3.1 % Basophils % 0.9 % Neutrophils # 1.4 L (1.6-8.9) K/mcL Lymphocytes # 2.3 (0.6-4.6) K/mcL Monocytes # 0.3 (0.0-1.3) K/mcL Eosinophils # 0.1 (0.0-0.6) K/mcL Basophils # 0.0 (0.0-0.2) K/mcL Reactive Lymphocytes Present A (Not Present) Platelet Estimate Normal (Normal) Immature Plt Fraction (1.1-6.1) % ABG pH (7.32-7.45) pH Units ABG pCO2 (35-45) mmHg ABG pO2 (85-104) mmHg ABG HCO3 (21-27) mEQ/L ABG Total CO2 (20-26) mEq/L ABG O2 Saturation (95-98) % ABG Base Excess (-2.0 to 3.0) mEq/L Blood Gas Modality Inspired O2 % Sodium (136-145) mEq/L Potassium (3.5-4.5) mEq/L Chloride (98-109) mEq/L Carbon Dioxide (19-29) mEq/L BUN (7-20) mg/dL Creatinine (0.57-1.11) mg/dL Est GFR ( Amer) (> 60) Est GFR (Non-Af Amer) (> 60) BUN/Creatinine Ratio (6-26) Glucose (70-99) mg/dL Calculated Osmolality (280-300) Calcium (8.6-10.8) mg/dL Magnesium (1.6-2.6) mg/dL Iron (50-170) mcg/dL % Saturation (15-50) % Transferrin (180-382) mg/dL Ferritin (5-204) ng/ml Total Bilirubin (0.2-1.2) mg/dL AST (5-34) Units/L ALT (0-55) Units/L Alkaline Phosphatase (38-126) Units/L Serum Total Protein (6.0-8.3) g/dL Albumin (3.5-5.0) g/dL Globulin (2.4-3.5) g/dL Albumin/Globulin Ratio (1.1-2.2) Vitamin B12 370 (213-816) pg/mL 25-OH Vitamin D Total (30-80) ng/mL Whole Blood Lead <2.0 (0.0-4.9) ug/dL 09/24/16 09/25/16 09/25/16 Range/Units 04:17 03:40 03:40 WBC 6.0 (4.3-11.1) K/mcL RBC 4.25 (3.82-4.97) M/mcL Hgb 10.9 L (11.5-15.4) g/dL Hct 35.0 L (35.3-44.9) % MCV 82.4 L (83.0-100.0) fL MCH 25.6 L (28.0-33.3) pg MCHC 31.1 L (31.6-35.5) g/dL RDW 17.3 H (11.5-14.5) % Plt Count 277 (140-400) K/mcL MPV 10.1 (9.4-12.4) fL Immature Gran % 0.2 (0-4) % Seg Neutrophils % 30.0 % Lymphocytes % 59.4 % Monocytes % 6.7 % Eosinophils % 2.9 % Basophils % 0.8 % Neutrophils # 1.8 (1.6-8.9) K/mcL Lymphocytes # 3.6 (0.6-4.6) K/mcL Monocytes # 0.4 (0.0-1.3) K/mcL Eosinophils # 0.2 (0.0-0.6) K/mcL Basophils # 0.1 (0.0-0.2) K/mcL Reactive Lymphocytes Present A (Not Present) Platelet Estimate Normal (Normal) Immature Plt Fraction (1.1-6.1) % ABG pH (7.32-7.45) pH Units ABG pCO2 (35-45) mmHg ABG pO2 (85-104) mmHg ABG HCO3 (21-27) mEQ/L ABG Total CO2 (20-26) mEq/L ABG O2 Saturation (95-98) % ABG Base Excess (-2.0 to 3.0) mEq/L Blood Gas Modality Inspired O2 % Sodium 138 (136-145) mEq/L Potassium 3.5 (3.5-4.5) mEq/L Chloride 110 H (98-109) mEq/L Carbon Dioxide 19 (19-29) mEq/L BUN 5 L (7-20) mg/dL Creatinine 0.58 (0.57-1.11) mg/dL Est GFR ( Amer) > 60 (> 60) Est GFR (Non-Af Amer) > 60 (> 60) BUN/Creatinine Ratio 9 (6-26) Glucose 90 (70-99) mg/dL Calculated Osmolality 283 (280-300) Calcium 7.9 L (8.6-10.8) mg/dL Magnesium (1.6-2.6) mg/dL Iron (50-170) mcg/dL % Saturation (15-50) % Transferrin (180-382) mg/dL Ferritin (5-204) ng/ml Total Bilirubin (0.2-1.2) mg/dL AST (5-34) Units/L ALT (0-55) Units/L Alkaline Phosphatase (38-126) Units/L Serum Total Protein (6.0-8.3) g/dL Albumin (3.5-5.0) g/dL Globulin (2.4-3.5) g/dL Albumin/Globulin Ratio (1.1-2.2) Vitamin B12 (213-816) pg/mL 25-OH Vitamin D Total 37 (30-80) ng/mL Whole Blood Lead (0.0-4.9) ug/dL 09/25/16 09/27/16 09/27/16 Range/Units 03:40 04:51 04:51 WBC 5.7 (4.3-11.1) K/mcL RBC 3.94 (3.82-4.97) M/mcL Hgb 10.3 L (11.5-15.4) g/dL Hct 33.4 L (35.3-44.9) % MCV 84.8 (83.0-100.0) fL MCH 26.1 L (28.0-33.3) pg MCHC 30.8 L (31.6-35.5) g/dL RDW 17.7 H (11.5-14.5) % Plt Count 254 (140-400) K/mcL MPV 11.1 (9.4-12.4) fL Immature Gran % 0.2 (0-4) % Seg Neutrophils % 29.8 % Lymphocytes % 57.5 % Monocytes % 7.2 % Eosinophils % 4.2 % Basophils % 1.1 % Neutrophils # 1.7 (1.6-8.9) K/mcL Lymphocytes # 3.3 (0.6-4.6) K/mcL Monocytes # 0.4 (0.0-1.3) K/mcL Eosinophils # 0.2 (0.0-0.6) K/mcL Basophils # 0.1 (0.0-0.2) K/mcL Reactive Lymphocytes (Not Present) Platelet Estimate (Normal) Immature Plt Fraction (1.1-6.1) % ABG pH (7.32-7.45) pH Units ABG pCO2 (35-45) mmHg ABG pO2 (85-104) mmHg ABG HCO3 (21-27) mEQ/L ABG Total CO2 (20-26) mEq/L ABG O2 Saturation (95-98) % ABG Base Excess (-2.0 to 3.0) mEq/L Blood Gas Modality Inspired O2 % Sodium 138 142 (136-145) mEq/L Potassium 3.5 3.3 L (3.5-4.5) mEq/L Chloride 112 H 113 H (98-109) mEq/L Carbon Dioxide 19 19 (19-29) mEq/L BUN 4 L 3 L (7-20) mg/dL Creatinine 0.52 L 0.54 L (0.57-1.11) mg/dL Est GFR ( Amer) > 60 > 60 (> 60) Est GFR (Non-Af Amer) > 60 > 60 (> 60) BUN/Creatinine Ratio 8 6 (6-26) Glucose 91 86 (70-99) mg/dL Calculated Osmolality 282 290 (280-300) Calcium 8.2 L 8.4 L (8.6-10.8) mg/dL Magnesium (1.6-2.6) mg/dL Iron (50-170) mcg/dL % Saturation (15-50) % Transferrin (180-382) mg/dL Ferritin (5-204) ng/ml Total Bilirubin (0.2-1.2) mg/dL AST (5-34) Units/L ALT (0-55) Units/L Alkaline Phosphatase (38-126) Units/L Serum Total Protein (6.0-8.3) g/dL Albumin (3.5-5.0) g/dL Globulin (2.4-3.5) g/dL Albumin/Globulin Ratio (1.1-2.2) Vitamin B12 (213-816) pg/mL 25-OH Vitamin D Total (30-80) ng/mL Whole Blood Lead (0.0-4.9) ug/dL 09/28/16 Range/Units 06:38 WBC (4.3-11.1) K/mcL RBC (3.82-4.97) M/mcL Hgb (11.5-15.4) g/dL Hct (35.3-44.9) % MCV (83.0-100.0) fL MCH (28.0-33.3) pg MCHC (31.6-35.5) g/dL RDW (11.5-14.5) % Plt Count (140-400) K/mcL MPV (9.4-12.4) fL Immature Gran % (0-4) % Seg Neutrophils % % Lymphocytes % % Monocytes % % Eosinophils % % Basophils % % Neutrophils # (1.6-8.9) K/mcL Lymphocytes # (0.6-4.6) K/mcL Monocytes # (0.0-1.3) K/mcL Eosinophils # (0.0-0.6) K/mcL Basophils # (0.0-0.2) K/mcL Reactive Lymphocytes (Not Present) Platelet Estimate (Normal) Immature Plt Fraction (1.1-6.1) % ABG pH (7.32-7.45) pH Units ABG pCO2 (35-45) mmHg ABG pO2 (85-104) mmHg ABG HCO3 (21-27) mEQ/L ABG Total CO2 (20-26) mEq/L ABG O2 Saturation (95-98) % ABG Base Excess (-2.0 to 3.0) mEq/L Blood Gas Modality Inspired O2 % Sodium 141 (136-145) mEq/L Potassium 4.0 (3.5-4.5) mEq/L Chloride 113 H (98-109) mEq/L Carbon Dioxide 21 (19-29) mEq/L BUN 6 L (7-20) mg/dL Creatinine 0.60 (0.57-1.11) mg/dL Est GFR ( Amer) > 60 (> 60) Est GFR (Non-Af Amer) > 60 (> 60) BUN/Creatinine Ratio 10 (6-26) Glucose 103 H (70-99) mg/dL Calculated Osmolality 290 (280-300) Calcium 8.6 (8.6-10.8) mg/dL Magnesium (1.6-2.6) mg/dL Iron (50-170) mcg/dL % Saturation (15-50) % Transferrin (180-382) mg/dL Ferritin (5-204) ng/ml Total Bilirubin (0.2-1.2) mg/dL AST (5-34) Units/L ALT (0-55) Units/L Alkaline Phosphatase (38-126) Units/L Serum Total Protein (6.0-8.3) g/dL Albumin (3.5-5.0) g/dL Globulin (2.4-3.5) g/dL Albumin/Globulin Ratio (1.1-2.2) Vitamin B12 (213-816) pg/mL 25-OH Vitamin D Total (30-80) ng/mL Whole Blood Lead (0.0-4.9) ug/dL
--- NOTE | 2016-10-03 07:52 | Discharge Summary ---
Date of Encounter: 10/03/16 Time of Encounter: 13:42 - Discharge Diagnosis (1) Bilateral leg paresthesia Priority: Primary Status: Acute (2) Depression Priority: Secondary Status: Acute Qualifiers: Depression Type: major depressive disorder Major depression recurrence: recurrent Active/Remission status: currently active Major depression episode severity: moderate Qualified Code(s): F33.1 - Major depressive disorder, recurrent, moderate (3) Folic acid deficiency Priority: Secondary Status: Acute (4) Hypokalemia Priority: Secondary Status: Resolved (5) Iron deficiency Priority: Secondary Status: Acute (6) UTI (urinary tract infection) Priority: Secondary Status: Resolved Qualifiers: Urinary tract infection type: acute cystitis Hematuria presence: without hematuria Qualified Code(s): N30.00 - Acute cystitis without hematuria (7) History of pulmonary embolism Priority: Secondary Status: Acute (8) Hypothyroidism Priority: Secondary Status: Acute Qualifiers: Hypothyroidism type: unspecified Qualified Code(s): E03.9 - Hypothyroidism , unspecified (9) Morbid obesity Priority: Secondary Status: Acute Qualifiers: Obesity type: due to excess calories Qualified Code(s): E66.01 - Morbid ( severe) obesity due to excess calories (10) DVT prophylaxis Priority: Secondary Status: Acute - Discharge Medications Prescriptions: Duloxetine [Cymbalta] 90 mg PO DAILY #30 capsule. Folic Acid 1 mg PO DAILY #30 tablet Oxycodone HCl [Oxaydo] 5 mg PO Q6H PRN #14 tablet.orl PRN Reason: Moderate Pain Vitamin B Complex/Vit C/Vit E [Stresstab] 1 each PO DAILY #30 tablet Home Medications: Ergocalciferol (VITAMIN D2) [Vitamin D2 (50,000 UNIT)] 50,000 unit PO WE [History] Levothyroxine [Synthroid] 75 mcg PO DAILY 10/15/15 [History] Cetirizine HCl [Zyrtec] 10 mg PO DAILY PRN #7 capsule 07/17/16 [Rx] Apixaban [Eliquis] 5 mg PO BID 09/21/16 [History] Phenol/Sodium Phenolate [[facility] [place]] 5 spray PO Q4H PRN 09/21/16 [ History] Pregabalin [Lyrica] 300 mg PO BID 09/21/16 [History] Promethazine [Phenergan] 25 mg RC TID PRN 09/21/16 [History] Duloxetine [Cymbalta] 90 mg PO DAILY #30 capsule. 10/03/16 [Rx] Folic Acid 1 mg PO DAILY #30 tablet 10/03/16 [Rx] Oxycodone HCl [Oxaydo] 5 mg PO Q6H PRN #14 tablet.orl 10/03/16 [Rx] Vitamin B Complex/Vit C/Vit E [Stresstab] 1 each PO DAILY #30 tablet 10/03/16 [ Rx] Allergies/Adverse Reactions: Allergies Erythromycin Base Adverse Reaction (Verified 09/18/16 23:41) Vomiting naproxen Adverse Reaction (Verified 09/18/16 23:41) Vomiting tramadol Adverse Reaction (Verified 09/18/16 23:41) Vomiting Date of admission: 09/21/16 19:35 Primary care physician: Lavell Capps MD Consults: 09/21/16 21:51 Consult to Neurology [CONS] Routine Consulting Provider: [facility] Reason for Consult: numbness, parasthesias Call Completed: No Consult to Psychiatry [CONS] Routine Consulting Provider: Psychiatry [facility] Reason for Consult: possible psychosomatic symptoms Call Completed: No 09/21/16 21:54 Consult to Tenderizer Tender [CONS] Routine Reason for SW Consult: Patient seems to have difficulty with her medications and nobody to help her at home. She does not seem fit for dosing of her own medications. 09/23/16 17:05 Consult to Occupational Therapy [CONS] Routine Comment: Evaluate, develop and implement POC Consult to Physical Therapy [CONS] Routine Comment: Evaluate, develop and implement POC Discharging clinician: Patt Montes Anticipated date of discharge: 10/03/16 - Patient Status Disposition: Transfer SNF Condition: Good Functional capacity at discharge: uses cane/walker Overall status at discharge: patient is progressing back to baseline - Discharge Instructions Instructions: Depression (DC), Anxiety (DC) Follow Up With: Lavell Capps MD [Primary Care Provider] - (In 1-2 weeks) Dinora Casillas MD [Partnered Physician] - (In one week) - Diet and Activity Activity: as per physical therapy Diet: low fat, low cholesterol, low salt diet Hospital course: Ms. Blackburn is a 46 year old female with history of morbid obesity who recently underwent gastric bypass surgery presented to the ER with complaints of bilateral lower extremity numbness. She did not have any focal weakness. She was observed in hospital and evaluated by neurology. Her physical examination was unreliable due to on consistent symptoms. MRI of the thoracic spine was done as the patient was complaining of pain there and the patient was found to have a 1 mL central disc protrusion T6-T7 and mildly effaced the ventral aspect of the thecal sac. No other abnormalities were identified. Neurology recommended outpatient follow-up with neurology for nerve conduction and EMG studies. She also has a history of depression and anxiety and was seen by psychiatry. Recommended increase of duloxetine to 90 mg daily. The patient was also treated with vitamin supplements given her recent history of gastric bypass surgery. The patient also received physical therapy. There has been improvement in the patient's symptoms some return of sensation to her feet and lower leg. She continues to have no focal weakness. No other sites of her body have any numbness. She has been recommended discharge to care home facility and will be discharged once she has a bed available. - Time Spent with Patient Total time spent providing and/or coordinating discharge services: Less than 30 minutes (25 min) - Constitutional Vitals: Temp Pulse Resp BP Pulse Ox 97.4 F L 78 18 118/70 95 10/03/16 07:05 10/03/16 07:05 10/03/16 07:05 10/03/16 07:05 10/03/16 07:05 General appearance: Present: A&O X 3, morbidly obese, no acute distress, answers questions appropriately - Respiratory Respiratory exam: Present: CTAB. Absent: accessory muscle use, rales, rhonchi, wheezes - Cardiovascular Cardiovascular exam: Present: RRR, +S1, +S2. Absent: diastolic murmur, gallop, rubs, systolic murmur - GI/Abdominal GI/Abdominal exam: Present: normal bowel sounds, soft, no peritoneal signs. Absent: distended, tenderness - Extremities Exam Extremities exam: Present: full ROM, warm, radial pulses palpable and symetrical. Absent: calf tenderness, cyanotic, pedal edema - Neurological Exam Neurological exam: Present: CN II-XII intact, oriented X3, no focal deficits, strengths equal and symetr throughout. Absent: facial droop, speech deficit Additional comments: Decreased sensation in lower extremities but improving compared to initial presentation. - Skin Skin exam: Present: dry, intact - Attending Attestation This document has been at least partially created by [employer] recognition technology by Dr. Montes. Errors in grammar, wording or other phrases may exist. If errors are found after the documentation is signed, they will be addressed individually in the addendum section of this document when appropriate.
[2016-10-03] MEDS: Folic Acid 1 MG TABLET PO SCH (07:55)
[2016-10-03] MEDS: Cyanocobalamin (B-12) 1,000 MCG TABLET PO SCH (07:55)
[2016-10-03] MEDS: Pregabalin 75 MG CAPSULE PO SCH ×2 (07:55→21:10)
[2016-10-03] MEDS: Vitamin B Complex/Vit C/Vit E 1 EACH TABLET PO SCH (07:55)
[2016-10-03] MEDS: APIXABAN 5 MG TABLET PO SCH ×2 (07:55→21:10)
--- NOTE | 2016-10-03 08:00 | Physician Discharge Referral ---
ExtendedCare Referral Info Transfer To: SNF Provider in Charge after Transfer: PCP Institutional Level of Care: Skilled - Diagnosis (1) Bilateral leg paresthesia Priority: Primary Status: Acute (2) Depression Priority: Secondary Status: Acute (3) Folic acid deficiency Priority: Secondary Status: Acute (4) Hypokalemia Priority: Secondary Status: Resolved (5) Iron deficiency Priority: Secondary Status: Acute (6) UTI (urinary tract infection) Priority: Secondary Status: Resolved (7) History of pulmonary embolism Priority: Secondary Status: Acute (8) Hypothyroidism Priority: Secondary Status: Acute (9) Morbid obesity Priority: Secondary Status: Acute (10) DVT prophylaxis Priority: Secondary Status: Acute Prognosis: Good Aware of Diagnosis: Patient Aware of Prognosis: Patient - Transfer Medications Prescriptions: Duloxetine [Cymbalta] 90 mg PO DAILY #30 capsule. Folic Acid 1 mg PO DAILY #30 tablet Oxycodone HCl [Oxaydo] 5 mg PO Q6H PRN #14 tablet.orl PRN Reason: Moderate Pain Vitamin B Complex/Vit C/Vit E [Stresstab] 1 each PO DAILY #30 tablet Home Medications: Ergocalciferol (VITAMIN D2) [Vitamin D2 (50,000 UNIT)] 50,000 unit PO WE [History] Levothyroxine [Synthroid] 75 mcg PO DAILY 10/15/15 [History] Cetirizine HCl [Zyrtec] 10 mg PO DAILY PRN #7 capsule 07/17/16 [Rx] Apixaban [Eliquis] 5 mg PO BID 09/21/16 [History] Phenol/Sodium Phenolate [[facility] [place]] 5 spray PO Q4H PRN 09/21/16 [ History] Pregabalin [Lyrica] 300 mg PO BID 09/21/16 [History] Promethazine [Phenergan] 25 mg RC TID PRN 09/21/16 [History] Duloxetine [Cymbalta] 90 mg PO DAILY #30 capsule. 10/03/16 [Rx] Folic Acid 1 mg PO DAILY #30 tablet 10/03/16 [Rx] Oxycodone HCl [Oxaydo] 5 mg PO Q6H PRN #14 tablet.orl 10/03/16 [Rx] Vitamin B Complex/Vit C/Vit E [Stresstab] 1 each PO DAILY #30 tablet 10/03/16 [ Rx] Allergies/Adverse Reactions: Allergies Erythromycin Base Adverse Reaction (Verified 09/18/16 23:41) Vomiting naproxen Adverse Reaction (Verified 09/18/16 23:41) Vomiting tramadol Adverse Reaction (Verified 09/18/16 23:41) Vomiting - Respiratory Orders Smoking Cessation: Smoking cessation has been advised. For more information, call the [place] Tobacco Quit Line at 8-149-YKZU-NOW. - Advance Directives Code Status: Full Code - Mobility Orders Ambulate (Preventative physical therapy evaluation) - Rehabiliation Orders Rehab Orders: Evaluation for Physical Therapy, Evaluation for Occupational Therapy - Treatments Skin tear care topically daily PRN per policy - Diet Orders No Added Salt (EMELY), Cardiac CERTIFICATION: I certify that the transfer of the above named patient to an Extended Care Facility is necessary for the continuing treatment of the diagnosis listed. The above information is true and accurate reflection of patient's current condition. Confidential - Redisclosure prohibited without a patient's written consent.
[2016-10-03] MEDS: *HR* OxyCODONE Immed Rel 5 MG TABLET PO PRN (11:40)
--- NOTE | 2016-10-03 16:24 | Event Note ---
Date of Encounter: 10/03/16 Time of Encounter: 16:22 Was asked by the director of social work to call for peer to peer review for insurance approval. Called the number provided and left voicemail to call back. Patient requiring a different facility for rehabilitation due to the need for psychiatric care for her depression.
[2016-10-04] MEDS: *HR* OxyCODONE Immed Rel 5 MG TABLET PO PRN ×2 (06:30→12:47)
[2016-10-04] MEDS: APIXABAN 5 MG TABLET PO SCH ×2 (08:10→20:34)
[2016-10-04] MEDS: Folic Acid 1 MG TABLET PO SCH (08:10)
[2016-10-04] MEDS: Vitamin B Complex/Vit C/Vit E 1 EACH TABLET PO SCH (08:10)
[2016-10-04] MEDS: Pregabalin 75 MG CAPSULE PO SCH ×2 (08:10→20:34)
[2016-10-04] MEDS: Cyanocobalamin (B-12) 1,000 MCG TABLET PO SCH (08:11)
--- NOTE | 2016-10-04 14:36 | Internal Med Progress Note ---
Date of Encounter: 10/04/16 Time of Encounter: 09:00 - Assessment and plan (1) Bilateral leg paresthesia Current Visit: Yes Status: Acute Assessment and plan: Improving. (2) Hypokalemia Current Visit: Yes Status: Resolved Assessment and plan: Improved with oral supplementation. (3) UTI (urinary tract infection) Current Visit: Yes Status: Resolved Assessment and plan: Completed treatment course. Qualifiers: Urinary tract infection type: acute cystitis Hematuria presence: without hematuria Qualified Code(s): N30.00 - Acute cystitis without hematuria (4) History of pulmonary embolism Current Visit: No Status: Acute Assessment and plan: On Eliquis (5) Hypothyroidism Current Visit: No Status: Acute Assessment and plan: Continue levothyroxin Qualifiers: Hypothyroidism type: unspecified Qualified Code(s): E03.9 - Hypothyroidism , unspecified (6) Morbid obesity Current Visit: No Status: Acute Assessment and plan: S/P bariatric surgery. Qualifiers: Obesity type: due to excess calories Qualified Code(s): E66.01 - Morbid ( severe) obesity due to excess calories (7) Folic acid deficiency Current Visit: Yes Status: Acute Assessment and plan: continue replacement (8) Iron deficiency Current Visit: Yes Status: Acute Assessment and plan: Continue iron supplements. (9) DVT prophylaxis Current Visit: Yes Status: Acute Assessment and plan: On Eliquis (10) Depression Current Visit: Yes Status: Acute Assessment and plan: Continue duloxetine Qualifiers: Depression Type: major depressive disorder Major depression recurrence: recurrent Active/Remission status: currently active Major depression episode severity: moderate Qualified Code(s): F33.1 - Major depressive disorder, recurrent, moderate - Time Spent With Patient 25 - 35 minutes - Subjective Interval history: Patient is a 46-year-old female presented to emergency room for both legs numbness and tingling. Her past medical history is significant for fibromyalgia , PE, arthritis, morbid obesity s/p bariatric surgery. Patient was seen and examined. She is awake, alert, oriented 3. Still complaining of leg numbness and tingling on both legs, but feels better. Generalized weak. Pt had bariatric surgery and developped numbness/tingling/ weakness, may related to multiple vitamin/mineral insufficiency. SW is working for placement. - Constitutional Vitals: Temp Pulse Resp BP Pulse Ox 98.2 F 87 16 109/67 94 L 01/10/17 12:02 10/04/16 12:02 10/04/16 12:02 10/04/16 12:02 10/04/16 12:02 General appearance: Present: A&O X 3, morbidly obese, no acute distress, answers questions appropriately - Head Head exam: Present: atraumatic, normocephalic - Eye Eye exam: Present: PERRL, conjuntiva pink, sclera anicteric Pupils: Present: PERRL - Neck Neck exam general surgery: Present: supple, trachea midline. Absent: lymphadenopathy - Respiratory Respiratory exam: Present: CTAB. Absent: accessory muscle use, rales, rhonchi, wheezes - Cardiovascular Cardiovascular exam: Present: RRR, +S1, +S2. Absent: diastolic murmur, gallop, rubs, systolic murmur - GI/Abdominal GI/Abdominal exam: Present: normal bowel sounds, soft, no peritoneal signs. Absent: distended, tenderness - Extremities Exam Extremities exam: Present: warm, radial pulses palpable and symetrical. Absent : calf tenderness, cyanotic, pedal edema - Neurological Exam Neurological exam: Present: CN II-XII intact, oriented X3, no focal deficits. Absent: pronater drift, facial droop, speech deficit - Skin Skin exam: Present: dry, intact Internal Medicine: Result - Labs CBC & Chem 7: 09/27/16 04:51 09/28/16 06:38 - ABG Interpretation ABG results: ABG ABG pH 7.47 pH Units (7.32-7.45) H 09/22/16 08:26 ABG pCO2 38 mmHg (35-45) 09/22/16 08:26 ABG pO2 67 mmHg (85-104) L 09/22/16 08:26 ABG O2 Saturation 94 % (95-98) L 09/22/16 08:26 Consult Discharge Plan - Plan Instructions: Depression (DC), Anxiety (DC) Referrals: Lavell Capps MD [Primary Care Provider] - (In 1-2 weeks) Dinora Casillas MD [Partnered Physician] - (In one week) Prescriptions: Duloxetine [Cymbalta] 90 mg PO DAILY #30 capsule. Folic Acid 1 mg PO DAILY #30 tablet Oxycodone HCl [Oxaydo] 5 mg PO Q6H PRN #14 tablet.orl PRN Reason: Moderate Pain Vitamin B Complex/Vit C/Vit E [Stresstab] 1 each PO DAILY #30 tablet
[2016-10-05] MEDS: *HR* OxyCODONE Immed Rel 5 MG TABLET PO PRN ×2 (05:21→21:45)
[2016-10-05 05:42] LABS: Basophils # 0.1 K/mcL (0.0-0.2); Eosinophils # 0.3 K/mcL (0.0-0.6); Eosinophils % 3.7 %; Hematocrit 34.1 % (35.3-44.9); Hemoglobin 10.5 g/dL (11.5-15.4); Immature Granulocytes % 0.3 % (0-4); Lymphocytes # 2.4 K/mcL (0.6-4.6); Lymphocytes % 35.2 %; Mean Corpuscular HGB Conc 30.8 g/dL (31.6-35.5); Mean Corpuscular Hemoglobin 25.9 pg (28.0-33.3); Mean Corpuscular Volume 84.2 fL (83.0-100.0); Monocytes # 0.7 K/mcL (0.0-1.3); Monocytes % 10.4 %; Neutrophils # 3.3 K/mcL (1.6-8.9); Platelet Count 274 K/mcL (140-400); Red Blood Count 4.05 M/mcL (3.82-4.97); Red Cell Distribution Width 18.6 % (11.5-14.5); Segmented Neutrophils % 49.4 %
[2016-10-05 06:00] LABS: BUN/Creatinine Ratio 16 (6-26); Blood Urea Nitrogen 9 mg/dL (7-20); Carbon Dioxide 21 mEq/L (19-29); Chloride 110 mEq/L (98-109); Glucose 106 mg/dL (70-99); Osmolality,Calculated 291 (280-300); Potassium 3.7 mEq/L (3.5-4.5); Sodium 141 mEq/L (136-145); eGFR For African Americans > 60 (> 60); eGFR For Non-African Americans > 60 (> 60)
[2016-10-05] MEDS: Pregabalin 75 MG CAPSULE PO SCH ×2 (08:44→21:41)
[2016-10-05] MEDS: Cyanocobalamin (B-12) 1,000 MCG TABLET PO SCH (08:45)
[2016-10-05] MEDS: Vitamin B Complex/Vit C/Vit E 1 EACH TABLET PO SCH (08:45)
[2016-10-05] MEDS: Folic Acid 1 MG TABLET PO SCH (08:45)
[2016-10-05] MEDS: APIXABAN 5 MG TABLET PO SCH ×2 (08:45→21:41)
[2016-10-06] MEDS: *HR* OxyCODONE Immed Rel 5 MG TABLET PO PRN (07:47)
[2016-10-06] MEDS: Vitamin B Complex/Vit C/Vit E 1 EACH TABLET PO SCH (09:08)
[2016-10-06] MEDS: APIXABAN 5 MG TABLET PO SCH ×2 (09:08→21:13)
[2016-10-06] MEDS: Cyanocobalamin (B-12) 1,000 MCG TABLET PO SCH (09:08)
[2016-10-06] MEDS: Pregabalin 75 MG CAPSULE PO SCH ×2 (09:08→21:13)
[2016-10-06] MEDS: Folic Acid 1 MG TABLET PO SCH (09:08)
--- NOTE | 2016-10-06 13:47 | Event Note ---
Date of Encounter: 10/05/16 Time of Encounter: 09:00 This is a late documentation for yesterday's encounter. I saw and examined the patient. She has no further complaint. Still mild numbness and tingling on both lower extremities. Continue current management and waiting for placement. I did peer to peer with insurance company and the patient is approved for ECF discharge. On exam: She is awake alert, oriented 3. Lungs clear, heart rate 80, regular rhythm, abdominal soft, nontender, bowel sound is normal. There is no pedal edema bilaterally. No focal neuro deficit. Management plan has no change.
--- NOTE | 2016-10-06 13:50 | Internal Med Progress Note ---
Date of Encounter: 10/06/16 Time of Encounter: 09:00 - Assessment and plan (1) Bilateral leg paresthesia Current Visit: Yes Status: Acute Assessment and plan: Improving. (2) Hypokalemia Current Visit: Yes Status: Resolved Assessment and plan: Improved with oral supplementation. (3) UTI (urinary tract infection) Current Visit: Yes Status: Resolved Assessment and plan: Completed treatment course. Qualifiers: Urinary tract infection type: acute cystitis Hematuria presence: without hematuria Qualified Code(s): N30.00 - Acute cystitis without hematuria (4) History of pulmonary embolism Current Visit: No Status: Acute Assessment and plan: On Eliquis (5) Hypothyroidism Current Visit: No Status: Acute Assessment and plan: Continue levothyroxin Qualifiers: Hypothyroidism type: unspecified Qualified Code(s): E03.9 - Hypothyroidism , unspecified (6) Morbid obesity Current Visit: No Status: Acute Assessment and plan: S/P bariatric surgery. Qualifiers: Obesity type: due to excess calories Qualified Code(s): E66.01 - Morbid ( severe) obesity due to excess calories (7) Folic acid deficiency Current Visit: Yes Status: Acute Assessment and plan: continue replacement (8) Iron deficiency Current Visit: Yes Status: Acute Assessment and plan: Continue iron supplements. (9) DVT prophylaxis Current Visit: Yes Status: Acute Assessment and plan: On Eliquis (10) Depression Current Visit: Yes Status: Acute Assessment and plan: Continue duloxetine Qualifiers: Depression Type: major depressive disorder Major depression recurrence: recurrent Active/Remission status: currently active Major depression episode severity: moderate Qualified Code(s): F33.1 - Major depressive disorder, recurrent, moderate - Time Spent With Patient 25 - 35 minutes - Subjective Interval history: Patient is a 46-year-old female presented to emergency room for both legs numbness and tingling. Her past medical history is significant for fibromyalgia , PE, arthritis, morbid obesity s/p bariatric surgery. Patient was seen and examined. She is awake, alert, oriented 3. Still complaining of leg numbness and tingling on both legs, but feels better than previously. Generalized weak. SW is working for placement. Probably patient can be discharged tomorrow as the [facility] had bed available. - Constitutional Vitals: Temp Pulse Resp BP Pulse Ox 98.1 F 91 14 126/80 95 10/06/16 12:26 01/12/17 12:26 10/06/16 12:26 10/06/16 12:26 10/06/16 12:26 General appearance: Present: A&O X 3, morbidly obese, no acute distress, answers questions appropriately - Head Head exam: Present: atraumatic, normocephalic - Eye Eye exam: Present: PERRL, conjuntiva pink, sclera anicteric Pupils: Present: PERRL - Neck Neck exam general surgery: Present: supple, trachea midline. Absent: lymphadenopathy - Respiratory Respiratory exam: Present: CTAB. Absent: accessory muscle use, rales, rhonchi, wheezes - Cardiovascular Cardiovascular exam: Present: RRR, +S1, +S2. Absent: diastolic murmur, gallop, rubs, systolic murmur - GI/Abdominal GI/Abdominal exam: Present: normal bowel sounds, soft, no peritoneal signs. Absent: distended, tenderness - Extremities Exam Extremities exam: Present: warm, radial pulses palpable and symetrical. Absent : calf tenderness, cyanotic, pedal edema - Neurological Exam Neurological exam: Present: CN II-XII intact, oriented X3, no focal deficits. Absent: pronater drift, facial droop, speech deficit - Skin Skin exam: Present: dry, intact Internal Medicine: Result - Labs CBC & Chem 7: 10/05/16 05:17 10/05/16 05:17 - ABG Interpretation ABG results: ABG ABG pH 7.47 pH Units (7.32-7.45) H 09/22/16 08:26 ABG pCO2 38 mmHg (35-45) 09/22/16 08:26 ABG pO2 67 mmHg (85-104) L 09/22/16 08:26 ABG O2 Saturation 94 % (95-98) L 09/22/16 08:26 Consult Discharge Plan - Plan Instructions: Depression (DC), Anxiety (DC) Referrals: Lavell Capps MD [Primary Care Provider] - (In 1-2 weeks) Dinora Casillas MD [Partnered Physician] - (In one week) Prescriptions: Duloxetine [Cymbalta] 90 mg PO DAILY #30 capsule. Folic Acid 1 mg PO DAILY #30 tablet Oxycodone HCl [Oxaydo] 5 mg PO Q6H PRN #14 tablet.orl PRN Reason: Moderate Pain Vitamin B Complex/Vit C/Vit E [Stresstab] 1 each PO DAILY #30 tablet
[2016-10-07] MEDS: *HR* OxyCODONE Immed Rel 5 MG TABLET PO PRN ×2 (09:49→15:50)
[2016-10-07] MEDS: APIXABAN 5 MG TABLET PO SCH ×2 (09:50→22:06)
[2016-10-07] MEDS: Pregabalin 75 MG CAPSULE PO SCH ×2 (09:50→22:06)
[2016-10-07] MEDS: Folic Acid 1 MG TABLET PO SCH (09:50)
[2016-10-07] MEDS: Cyanocobalamin (B-12) 1,000 MCG TABLET PO SCH (09:51)
[2016-10-07] MEDS: Vitamin B Complex/Vit C/Vit E 1 EACH TABLET PO SCH (09:51)
--- NOTE | 2016-10-07 12:12 | Internal Med Progress Note ---
Date of Encounter: 10/07/16 Time of Encounter: 09:00 - Assessment and plan (1) Bilateral leg paresthesia Current Visit: Yes Status: Acute Assessment and plan: Improving. (2) Hypokalemia Current Visit: Yes Status: Resolved Assessment and plan: Improved with oral supplementation. (3) UTI (urinary tract infection) Current Visit: Yes Status: Resolved Assessment and plan: Completed treatment course. Qualifiers: Urinary tract infection type: acute cystitis Hematuria presence: without hematuria Qualified Code(s): N30.00 - Acute cystitis without hematuria (4) History of pulmonary embolism Current Visit: No Status: Acute Assessment and plan: On Eliquis (5) Hypothyroidism Current Visit: No Status: Acute Assessment and plan: Continue levothyroxin Qualifiers: Hypothyroidism type: unspecified Qualified Code(s): E03.9 - Hypothyroidism , unspecified (6) Morbid obesity Current Visit: No Status: Acute Assessment and plan: S/P bariatric surgery. Qualifiers: Obesity type: due to excess calories Qualified Code(s): E66.01 - Morbid ( severe) obesity due to excess calories (7) Folic acid deficiency Current Visit: Yes Status: Acute Assessment and plan: continue replacement (8) Iron deficiency Current Visit: Yes Status: Acute Assessment and plan: Continue iron supplements. (9) DVT prophylaxis Current Visit: Yes Status: Acute Assessment and plan: On Eliquis (10) Depression Current Visit: Yes Status: Acute Assessment and plan: Continue duloxetine Qualifiers: Depression Type: major depressive disorder Major depression recurrence: recurrent Active/Remission status: currently active Major depression episode severity: moderate Qualified Code(s): F33.1 - Major depressive disorder, recurrent, moderate - Time Spent With Patient 25 - 35 minutes - Subjective Interval history: Patient is a 46-year-old female presented to emergency room for both legs numbness and tingling. Her past medical history is significant for fibromyalgia , PE, arthritis, morbid obesity s/p bariatric surgery. Patient was seen and examined. She is awake, alert, oriented 3. Still complaining of leg numbness and tingling on both legs, but feels better than previously. Generalized weak. SW is working for placement. Probably patient can be discharged today as the [facility] had bed available. - Constitutional Vitals: Temp Pulse Resp BP Pulse Ox 98.2 F 82 16 125/82 95 10/07/16 10:58 10/07/16 10:58 10/07/16 10:58 10/07/16 10:58 10/07/16 10:58 General appearance: Present: A&O X 3, morbidly obese, no acute distress, answers questions appropriately - Head Head exam: Present: atraumatic, normocephalic - Eye Eye exam: Present: PERRL, conjuntiva pink, sclera anicteric Pupils: Present: PERRL - Neck Neck exam general surgery: Present: supple, trachea midline. Absent: lymphadenopathy - Respiratory Respiratory exam: Present: CTAB. Absent: accessory muscle use, rales, rhonchi, wheezes - Cardiovascular Cardiovascular exam: Present: RRR, +S1, +S2. Absent: diastolic murmur, gallop, rubs, systolic murmur - GI/Abdominal GI/Abdominal exam: Present: normal bowel sounds, soft, no peritoneal signs. Absent: distended, tenderness - Extremities Exam Extremities exam: Present: warm, radial pulses palpable and symetrical. Absent : calf tenderness, cyanotic, pedal edema - Neurological Exam Neurological exam: Present: CN II-XII intact, oriented X3, no focal deficits. Absent: pronater drift, facial droop, speech deficit - Skin Skin exam: Present: dry, intact Internal Medicine: Result - Labs CBC & Chem 7: 10/05/16 05:17 10/05/16 05:17 - ABG Interpretation ABG results: ABG ABG pH 7.47 pH Units (7.32-7.45) H 09/22/16 08:26 ABG pCO2 38 mmHg (35-45) 09/22/16 08:26 ABG pO2 67 mmHg (85-104) L 09/22/16 08:26 ABG O2 Saturation 94 % (95-98) L 09/22/16 08:26 Consult Discharge Plan - Plan Instructions: Depression (DC), Anxiety (DC) Referrals: Lavell Capps MD [Primary Care Provider] - (In 1-2 weeks) Dinora Casillas MD [Partnered Physician] - (In one week) Prescriptions: Duloxetine [Cymbalta] 90 mg PO DAILY #30 capsule.dr Folic Acid 1 mg PO DAILY #30 tablet Oxycodone HCl [Oxaydo] 5 mg PO Q6H PRN #14 tablet.orl PRN Reason: Moderate Pain Vitamin B Complex/Vit C/Vit E [Stresstab] 1 each PO DAILY #30 tablet
[2016-10-08] MEDS: Cyanocobalamin (B-12) 1,000 MCG TABLET PO SCH (08:29)
[2016-10-08] MEDS: Pregabalin 75 MG CAPSULE PO SCH ×2 (08:29→20:44)
[2016-10-08] MEDS: Vitamin B Complex/Vit C/Vit E 1 EACH TABLET PO SCH (08:29)
[2016-10-08] MEDS: Folic Acid 1 MG TABLET PO SCH (08:30)
[2016-10-08] MEDS: APIXABAN 5 MG TABLET PO SCH ×2 (08:30→20:45)
--- NOTE | 2016-10-08 11:38 | Internal Med Progress Note ---
Date of Encounter: 10/08/16 Time of Encounter: 09:00 - Assessment and plan (1) Bilateral leg paresthesia Current Visit: Yes Status: Acute Assessment and plan: Improving. (2) Hypokalemia Current Visit: Yes Status: Resolved Assessment and plan: Improved with oral supplementation. (3) UTI (urinary tract infection) Current Visit: Yes Status: Resolved Assessment and plan: Completed treatment course. Qualifiers: Urinary tract infection type: acute cystitis Hematuria presence: without hematuria Qualified Code(s): N30.00 - Acute cystitis without hematuria (4) History of pulmonary embolism Current Visit: No Status: Acute Assessment and plan: On Eliquis (5) Hypothyroidism Current Visit: No Status: Acute Assessment and plan: Continue levothyroxin Qualifiers: Hypothyroidism type: unspecified Qualified Code(s): E03.9 - Hypothyroidism , unspecified (6) Morbid obesity Current Visit: No Status: Acute Assessment and plan: S/P bariatric surgery. Qualifiers: Obesity type: due to excess calories Qualified Code(s): E66.01 - Morbid ( severe) obesity due to excess calories (7) Folic acid deficiency Current Visit: Yes Status: Acute Assessment and plan: continue replacement (8) Iron deficiency Current Visit: Yes Status: Acute Assessment and plan: Continue iron supplements. (9) DVT prophylaxis Current Visit: Yes Status: Acute Assessment and plan: On Eliquis (10) Depression Current Visit: Yes Status: Acute Assessment and plan: Continue duloxetine Qualifiers: Depression Type: major depressive disorder Major depression recurrence: recurrent Active/Remission status: currently active Major depression episode severity: moderate Qualified Code(s): F33.1 - Major depressive disorder, recurrent, moderate - Time Spent With Patient 25 - 35 minutes - Subjective Interval history: Patient is a 46-year-old female presented to emergency room for both legs numbness and tingling. Her past medical history is significant for fibromyalgia , PE, arthritis, morbid obesity s/p bariatric surgery. Patient was seen and examined. She is awake, alert, oriented 3. Still complaining of leg numbness and tingling on both legs, but feels better than previously. Generalized weak. SW is working for placement. Probably patient can be discharged soon as the [facility] had bed available. - Constitutional Vitals: Temp Pulse Resp BP Pulse Ox 98.3 F 89 16 104/61 96 10/08/16 10:41 10/08/16 10:41 10/08/16 10:41 10/08/16 10:41 10/08/16 10:41 General appearance: Present: A&O X 3, morbidly obese, no acute distress, answers questions appropriately - Head Head exam: Present: atraumatic, normocephalic - Eye Eye exam: Present: PERRL, conjuntiva pink, sclera anicteric Pupils: Present: PERRL - Neck Neck exam general surgery: Present: supple, trachea midline. Absent: lymphadenopathy - Respiratory Respiratory exam: Present: CTAB. Absent: accessory muscle use, rales, rhonchi, wheezes - Cardiovascular Cardiovascular exam: Present: RRR, +S1, +S2. Absent: diastolic murmur, gallop, rubs, systolic murmur - GI/Abdominal GI/Abdominal exam: Present: normal bowel sounds, soft, no peritoneal signs. Absent: distended, tenderness - Extremities Exam Extremities exam: Present: warm, radial pulses palpable and symetrical. Absent : calf tenderness, cyanotic, pedal edema - Neurological Exam Neurological exam: Present: CN II-XII intact, oriented X3, no focal deficits. Absent: pronater drift, facial droop, speech deficit - Skin Skin exam: Present: dry, intact Internal Medicine: Result - Labs CBC & Chem 7: 10/05/16 05:17 10/05/16 05:17 - ABG Interpretation ABG results: ABG ABG pH 7.47 pH Units (7.32-7.45) H 09/22/16 08:26 ABG pCO2 38 mmHg (35-45) 09/22/16 08:26 ABG pO2 67 mmHg (85-104) L 09/22/16 08:26 ABG O2 Saturation 94 % (95-98) L 09/22/16 08:26 Consult Discharge Plan - Plan Instructions: Depression (DC), Anxiety (DC) Referrals: Lavell Capps MD [Primary Care Provider] - (In 1-2 weeks) Dinora Casillas MD [Partnered Physician] - (In one week) Prescriptions: Duloxetine [Cymbalta] 90 mg PO DAILY #30 capsule. Ferrous Sulfate 325 mg PO DAILY #30 tablet Folic Acid 1 mg PO DAILY #30 tablet Oxycodone HCl [Oxaydo] 5 mg PO Q6H PRN #14 tablet.orl PRN Reason: Moderate Pain Vitamin B Complex/Vit C/Vit E [Stresstab] 1 each PO DAILY #30 tablet
[2016-10-09] MEDS: Vitamin B Complex/Vit C/Vit E 1 EACH TABLET PO SCH (07:59)
[2016-10-09] MEDS: Pregabalin 75 MG CAPSULE PO SCH ×2 (08:00→20:55)
[2016-10-09] MEDS: Folic Acid 1 MG TABLET PO SCH (08:00)
[2016-10-09] MEDS: APIXABAN 5 MG TABLET PO SCH ×2 (08:00→20:55)
[2016-10-09] MEDS: Cyanocobalamin (B-12) 1,000 MCG TABLET PO SCH (08:00)
[2016-10-09] MEDS: *HR* OxyCODONE Immed Rel 5 MG TABLET PO PRN (08:20)
--- NOTE | 2016-10-09 11:10 | Internal Med Progress Note ---
Date of Encounter: 10/09/16 Time of Encounter: 09:00 - Assessment and plan (1) Bilateral leg paresthesia Current Visit: Yes Status: Acute Assessment and plan: Improving. (2) Hypokalemia Current Visit: Yes Status: Resolved Assessment and plan: Improved with oral supplementation. (3) UTI (urinary tract infection) Current Visit: Yes Status: Resolved Assessment and plan: Completed treatment course. Qualifiers: Urinary tract infection type: acute cystitis Hematuria presence: without hematuria Qualified Code(s): N30.00 - Acute cystitis without hematuria (4) History of pulmonary embolism Current Visit: No Status: Acute Assessment and plan: On Eliquis (5) Hypothyroidism Current Visit: No Status: Acute Assessment and plan: Continue levothyroxin Qualifiers: Hypothyroidism type: unspecified Qualified Code(s): E03.9 - Hypothyroidism , unspecified (6) Morbid obesity Current Visit: No Status: Acute Assessment and plan: S/P bariatric surgery. Qualifiers: Obesity type: due to excess calories Qualified Code(s): E66.01 - Morbid ( severe) obesity due to excess calories (7) Folic acid deficiency Current Visit: Yes Status: Acute Assessment and plan: continue replacement (8) Iron deficiency Current Visit: Yes Status: Acute Assessment and plan: Continue iron supplements. (9) DVT prophylaxis Current Visit: Yes Status: Acute Assessment and plan: On Eliquis (10) Depression Current Visit: Yes Status: Acute Assessment and plan: Continue duloxetine Qualifiers: Depression Type: major depressive disorder Major depression recurrence: recurrent Active/Remission status: currently active Major depression episode severity: moderate Qualified Code(s): F33.1 - Major depressive disorder, recurrent, moderate - Time Spent With Patient 25 - 35 minutes - Subjective Interval history: Patient is a 46-year-old female presented to emergency room for both legs numbness and tingling. Her past medical history is significant for fibromyalgia , PE, arthritis, morbid obesity s/p bariatric surgery. Patient was seen and examined. She is awake, alert, oriented 3. Still complaining of leg numbness and tingling on both legs, but states better than before. Generalized weak. SW is working for placement. Probably patient can be discharged soon as the [facility] had bed available. - Constitutional Vitals: Temp Pulse Resp BP Pulse Ox 97.8 F 69 16 131/82 93 L 10/09/16 06:56 10/09/16 06:56 10/09/16 06:56 10/09/16 06:56 10/09/16 06:56 General appearance: Present: A&O X 3, morbidly obese, no acute distress, answers questions appropriately - Head Head exam: Present: atraumatic, normocephalic - Eye Eye exam: Present: PERRL, conjuntiva pink, sclera anicteric Pupils: Present: PERRL - Neck Neck exam general surgery: Present: supple, trachea midline. Absent: lymphadenopathy - Respiratory Respiratory exam: Present: CTAB. Absent: accessory muscle use, rales, rhonchi, wheezes - Cardiovascular Cardiovascular exam: Present: RRR, +S1, +S2. Absent: diastolic murmur, gallop, rubs, systolic murmur - GI/Abdominal GI/Abdominal exam: Present: normal bowel sounds, soft, no peritoneal signs. Absent: distended, tenderness - Extremities Exam Extremities exam: Present: warm, radial pulses palpable and symetrical. Absent : calf tenderness, cyanotic, pedal edema - Neurological Exam Neurological exam: Present: CN II-XII intact, oriented X3, no focal deficits. Absent: pronater drift, facial droop, speech deficit - Skin Skin exam: Present: dry, intact Internal Medicine: Result - Labs CBC & Chem 7: 10/05/16 05:17 10/05/16 05:17 - ABG Interpretation ABG results: ABG ABG pH 7.47 pH Units (7.32-7.45) H 09/22/16 08:26 ABG pCO2 38 mmHg (35-45) 09/22/16 08:26 ABG pO2 67 mmHg (85-104) L 09/22/16 08:26 ABG O2 Saturation 94 % (95-98) L 09/22/16 08:26 Consult Discharge Plan - Plan Instructions: Depression (DC), Anxiety (DC) Referrals: Lavell Capps MD [Primary Care Provider] - (In 1-2 weeks) Dinora Casillas MD [Partnered Physician] - (In one week) Prescriptions: Duloxetine [Cymbalta] 90 mg PO DAILY #30 capsule. Ferrous Sulfate 325 mg PO DAILY #30 tablet Folic Acid 1 mg PO DAILY #30 tablet Oxycodone HCl [Oxaydo] 5 mg PO Q6H PRN #14 tablet.orl PRN Reason: Moderate Pain Vitamin B Complex/Vit C/Vit E [Stresstab] 1 each PO DAILY #30 tablet
[2016-10-10] MEDS: Pregabalin 75 MG CAPSULE PO SCH ×2 (07:34→20:35)
[2016-10-10] MEDS: Vitamin B Complex/Vit C/Vit E 1 EACH TABLET PO SCH (07:35)
[2016-10-10] MEDS: Folic Acid 1 MG TABLET PO SCH (07:35)
[2016-10-10] MEDS: APIXABAN 5 MG TABLET PO SCH ×2 (07:35→20:35)
[2016-10-10] MEDS: Cyanocobalamin (B-12) 1,000 MCG TABLET PO SCH (07:35)
--- NOTE | 2016-10-10 15:30 | Internal Med Progress Note ---
Date of Encounter: 10/10/16 Time of Encounter: 09:00 - Assessment and plan (1) Bilateral leg paresthesia Current Visit: Yes Status: Acute Assessment and plan: Improving. (2) Hypokalemia Current Visit: Yes Status: Resolved Assessment and plan: Improved with oral supplementation. (3) UTI (urinary tract infection) Current Visit: Yes Status: Resolved Assessment and plan: Completed treatment course. Qualifiers: Urinary tract infection type: acute cystitis Hematuria presence: without hematuria Qualified Code(s): N30.00 - Acute cystitis without hematuria (4) History of pulmonary embolism Current Visit: No Status: Acute Assessment and plan: On Eliquis (5) Hypothyroidism Current Visit: No Status: Acute Assessment and plan: Continue levothyroxin Qualifiers: Hypothyroidism type: unspecified Qualified Code(s): E03.9 - Hypothyroidism , unspecified (6) Morbid obesity Current Visit: No Status: Acute Assessment and plan: S/P bariatric surgery. Qualifiers: Obesity type: due to excess calories Qualified Code(s): E66.01 - Morbid ( severe) obesity due to excess calories (7) Folic acid deficiency Current Visit: Yes Status: Acute Assessment and plan: continue replacement (8) Iron deficiency Current Visit: Yes Status: Acute Assessment and plan: Continue iron supplements. (9) DVT prophylaxis Current Visit: Yes Status: Acute Assessment and plan: On Eliquis (10) Depression Current Visit: Yes Status: Acute Assessment and plan: Continue duloxetine Qualifiers: Depression Type: major depressive disorder Major depression recurrence: recurrent Active/Remission status: currently active Major depression episode severity: moderate Qualified Code(s): F33.1 - Major depressive disorder, recurrent, moderate - Time Spent With Patient 25 - 35 minutes - Subjective Interval history: Patient is a 46-year-old female presented to emergency room for both legs numbness and tingling. Her past medical history is significant for fibromyalgia , PE, arthritis, morbid obesity s/p bariatric surgery. Patient was seen and examined. She is awake, alert, oriented 3. Still complaining of leg numbness and tingling on both legs, but states better than before. Generalized weak. SW is working for placement. Probably patient can be discharged soon as the ECF accept her. - Constitutional Vitals: Temp Pulse Resp BP Pulse Ox 98.4 F 92 16 114/69 94 L 10/10/16 14:00 10/10/16 14:00 10/10/16 14:00 10/10/16 14:00 10/10/16 14:00 General appearance: Present: A&O X 3, morbidly obese, no acute distress, answers questions appropriately - Head Head exam: Present: atraumatic, normocephalic - Eye Eye exam: Present: PERRL, conjuntiva pink, sclera anicteric Pupils: Present: PERRL - Neck Neck exam general surgery: Present: supple, trachea midline. Absent: lymphadenopathy - Respiratory Respiratory exam: Present: CTAB. Absent: accessory muscle use, rales, rhonchi, wheezes - Cardiovascular Cardiovascular exam: Present: RRR, +S1, +S2. Absent: diastolic murmur, gallop, rubs, systolic murmur - GI/Abdominal GI/Abdominal exam: Present: normal bowel sounds, soft, no peritoneal signs. Absent: distended, tenderness - Extremities Exam Extremities exam: Present: warm, radial pulses palpable and symetrical. Absent : calf tenderness, cyanotic, pedal edema - Neurological Exam Neurological exam: Present: CN II-XII intact, oriented X3, no focal deficits. Absent: pronater drift, facial droop, speech deficit - Skin Skin exam: Present: dry, intact Internal Medicine: Result - Labs CBC & Chem 7: 10/05/16 05:17 10/05/16 05:17 - ABG Interpretation ABG results: ABG ABG pH 7.47 pH Units (7.32-7.45) H 09/22/16 08:26 ABG pCO2 38 mmHg (35-45) 09/22/16 08:26 ABG pO2 67 mmHg (85-104) L 09/22/16 08:26 ABG O2 Saturation 94 % (95-98) L 09/22/16 08:26 Consult Discharge Plan - Plan Instructions: Depression (DC), Anxiety (DC) Referrals: Lavell Capps MD [Primary Care Provider] - (In 1-2 weeks) Dinora Casillas MD [Partnered Physician] - (In one week) Prescriptions: Duloxetine [Cymbalta] 90 mg PO DAILY #30 capsule. Ferrous Sulfate 325 mg PO DAILY #30 tablet Folic Acid 1 mg PO DAILY #30 tablet Oxycodone HCl [Oxaydo] 5 mg PO Q6H PRN #14 tablet.orl PRN Reason: Moderate Pain Vitamin B Complex/Vit C/Vit E [Stresstab] 1 each PO DAILY #30 tablet
[2016-10-11] MEDS: Cyanocobalamin (B-12) 1,000 MCG TABLET PO SCH (07:37)
[2016-10-11] MEDS: Vitamin B Complex/Vit C/Vit E 1 EACH TABLET PO SCH (07:37)
[2016-10-11] MEDS: Folic Acid 1 MG TABLET PO SCH (07:38)
[2016-10-11] MEDS: APIXABAN 5 MG TABLET PO SCH ×2 (07:38→20:03)
--- NOTE | 2016-10-11 11:38 | Internal Med Progress Note ---
Date of Encounter: 10/11/16 Time of Encounter: 08:00 - Assessment and plan (1) Bilateral leg paresthesia Current Visit: Yes Status: Acute Assessment and plan: Improving. (2) Hypokalemia Current Visit: Yes Status: Resolved Assessment and plan: Improved with oral supplementation. (3) UTI (urinary tract infection) Current Visit: Yes Status: Resolved Assessment and plan: Completed treatment course. Qualifiers: Urinary tract infection type: acute cystitis Hematuria presence: without hematuria Qualified Code(s): N30.00 - Acute cystitis without hematuria (4) History of pulmonary embolism Current Visit: No Status: Acute Assessment and plan: On Eliquis (5) Hypothyroidism Current Visit: No Status: Acute Assessment and plan: Continue levothyroxin Qualifiers: Hypothyroidism type: unspecified Qualified Code(s): E03.9 - Hypothyroidism , unspecified (6) Morbid obesity Current Visit: No Status: Acute Assessment and plan: S/P bariatric surgery. Qualifiers: Obesity type: due to excess calories Qualified Code(s): E66.01 - Morbid ( severe) obesity due to excess calories (7) Folic acid deficiency Current Visit: Yes Status: Acute Assessment and plan: continue replacement (8) Iron deficiency Current Visit: Yes Status: Acute Assessment and plan: Continue iron supplements. (9) DVT prophylaxis Current Visit: Yes Status: Acute Assessment and plan: On Eliquis (10) Depression Current Visit: Yes Status: Acute Assessment and plan: Continue duloxetine Qualifiers: Depression Type: major depressive disorder Major depression recurrence: recurrent Active/Remission status: currently active Major depression episode severity: moderate Qualified Code(s): F33.1 - Major depressive disorder, recurrent, moderate - Time Spent With Patient 25 - 35 minutes - Subjective Interval history: Patient is a 46-year-old female presented to emergency room for both legs numbness and tingling. Her past medical history is significant for fibromyalgia , PE, arthritis, morbid obesity s/p bariatric surgery. Patient was seen and examined. She is awake, alert, oriented 3. Still complaining of leg numbness and tingling on both legs, but states slowly improving. Generalized weak. SW is working for placement. Probably patient can be discharged soon as the ECF accept her. - Constitutional Vitals: Temp Pulse Resp BP Pulse Ox 98.5 F 85 16 127/82 95 10/11/16 10:58 10/11/16 10:58 10/11/16 10:58 10/11/16 10:58 10/11/16 10:58 General appearance: Present: A&O X 3, morbidly obese, no acute distress, answers questions appropriately - Head Head exam: Present: atraumatic, normocephalic - Eye Eye exam: Present: PERRL, conjuntiva pink, sclera anicteric Pupils: Present: PERRL - Neck Neck exam general surgery: Present: supple, trachea midline. Absent: lymphadenopathy - Respiratory Respiratory exam: Present: CTAB. Absent: accessory muscle use, rales, rhonchi, wheezes - Cardiovascular Cardiovascular exam: Present: RRR, +S1, +S2. Absent: diastolic murmur, gallop, rubs, systolic murmur - GI/Abdominal GI/Abdominal exam: Present: normal bowel sounds, soft, no peritoneal signs. Absent: distended, tenderness - Extremities Exam Extremities exam: Present: warm, radial pulses palpable and symetrical. Absent : calf tenderness, cyanotic, pedal edema - Neurological Exam Neurological exam: Present: CN II-XII intact, oriented X3, no focal deficits. Absent: pronater drift, facial droop, speech deficit - Skin Skin exam: Present: dry, intact Internal Medicine: Result - Labs CBC & Chem 7: 10/05/16 05:17 10/05/16 05:17 - ABG Interpretation ABG results: ABG ABG pH 7.47 pH Units (7.32-7.45) H 09/22/16 08:26 ABG pCO2 38 mmHg (35-45) 09/22/16 08:26 ABG pO2 67 mmHg (85-104) L 09/22/16 08:26 ABG O2 Saturation 94 % (95-98) L 09/22/16 08:26 Consult Discharge Plan - Plan Instructions: Depression (DC), Anxiety (DC) Referrals: Lavell Capps MD [Primary Care Provider] - (In 1-2 weeks) iDnora Casillas MD [Partnered Physician] - (In one week) Prescriptions: Duloxetine [Cymbalta] 90 mg PO DAILY #30 capsule. Ferrous Sulfate 325 mg PO DAILY #30 tablet Folic Acid 1 mg PO DAILY #30 tablet Oxycodone HCl [Oxaydo] 5 mg PO Q6H PRN #14 tablet.orl PRN Reason: Moderate Pain Vitamin B Complex/Vit C/Vit E [Stresstab] 1 each PO DAILY #30 tablet
[2016-10-12 06:32] LABS: Basophils % 0.4 %; Eosinophils # 0.3 K/mcL (0.0-0.6); Eosinophils % 3.4 %; Hematocrit 36.5 % (35.3-44.9); Hemoglobin 11.3 g/dL (11.5-15.4); Immature Granulocytes % 0.3 % (0-4); Lymphocytes # 2.7 K/mcL (0.6-4.6); Lymphocytes % 36.4 %; Mean Corpuscular Volume 83.9 fL (83.0-100.0); Monocytes # 0.6 K/mcL (0.0-1.3); Monocytes % 8.7 %; Neutrophils # 3.8 K/mcL (1.6-8.9); Platelet Count 302 K/mcL (140-400); Red Blood Count 4.35 M/mcL (3.82-4.97); Red Cell Distribution Width 18.2 % (11.5-14.5); Segmented Neutrophils % 50.8 %
[2016-10-12 06:47] LABS: BUN/Creatinine Ratio 13 (6-26); Blood Urea Nitrogen 7 mg/dL (7-20); Calcium 9.2 mg/dL (8.6-10.8); Carbon Dioxide 21 mEq/L (19-29); Chloride 110 mEq/L (98-109); Glucose 115 mg/dL (70-99); Magnesium 1.6 mg/dL (1.6-2.6); Osmolality,Calculated 289 (280-300); Potassium 3.5 mEq/L (3.5-4.5); Sodium 140 mEq/L (136-145); eGFR For African Americans > 60 (> 60); eGFR For Non-African Americans > 60 (> 60)
[2016-10-12 07:52] VITALS: BP 127/90
[2016-10-12] MEDS: Vitamin B Complex/Vit C/Vit E 1 EACH TABLET PO SCH (08:36)
[2016-10-12] MEDS: APIXABAN 5 MG TABLET PO SCH (08:37)
[2016-10-12] MEDS: Cyanocobalamin (B-12) 1,000 MCG TABLET PO SCH (08:37)
[2016-10-12] MEDS: Folic Acid 1 MG TABLET PO SCH (08:37)
--- NOTE | 2016-10-12 11:15 | Discharge Summary ---
Date of Encounter: 10/12/16 Time of Encounter: 09:00 - Discharge Diagnosis (1) Bilateral leg paresthesia Priority: Primary Status: Acute (2) Hypokalemia Priority: Primary Status: Resolved (3) UTI (urinary tract infection) Priority: Primary Status: Resolved Qualifiers: Urinary tract infection type: acute cystitis Hematuria presence: without hematuria Qualified Code(s): N30.00 - Acute cystitis without hematuria (4) History of pulmonary embolism Priority: Secondary Status: Acute (5) Hypothyroidism Priority: Secondary Status: Acute Qualifiers: Hypothyroidism type: unspecified Qualified Code(s): E03.9 - Hypothyroidism , unspecified (6) Morbid obesity Priority: Secondary Status: Acute Qualifiers: Obesity type: due to excess calories Qualified Code(s): E66.01 - Morbid ( severe) obesity due to excess calories (7) Folic acid deficiency Priority: Primary Status: Acute (8) Iron deficiency Priority: Primary Status: Acute (9) DVT prophylaxis Priority: Secondary Status: Acute (10) Depression Priority: Primary Status: Acute Qualifiers: Depression Type: major depressive disorder Major depression recurrence: recurrent Active/Remission status: currently active Major depression episode severity: moderate Qualified Code(s): F33.1 - Major depressive disorder, recurrent, moderate - Discharge Medications Prescriptions: Duloxetine [Cymbalta] 90 mg PO DAILY #30 capsule. Ferrous Sulfate 325 mg PO DAILY #30 tablet Folic Acid 1 mg PO DAILY #30 tablet Oxycodone HCl [Oxaydo] 5 mg PO Q6H PRN #14 tablet.orl PRN Reason: Moderate Pain Vitamin B Complex/Vit C/Vit E [Stresstab] 1 each PO DAILY #30 tablet Home Medications: Ergocalciferol (VITAMIN D2) [Vitamin D2 (50,000 UNIT)] 50,000 unit PO WE [History] Levothyroxine [Synthroid] 75 mcg PO DAILY 10/15/15 [History] Cetirizine HCl [Zyrtec] 10 mg PO DAILY PRN #7 capsule 07/17/16 [Rx] Apixaban [Eliquis] 5 mg PO BID 09/21/16 [History] Phenol/Sodium Phenolate [[facility]ore Thro[facility] [place]] 5 spray PO Q4H PRN 09/21/16 [ History] Pregabalin [Lyrica] 300 mg PO BID 09/21/16 [History] Promethazine [Phenergan] 25 mg RC TID PRN 09/21/16 [History] Duloxetine [Cymbalta] 90 mg PO DAILY #30 capsule. 10/03/16 [Rx] Folic Acid 1 mg PO DAILY #30 tablet 10/03/16 [Rx] Oxycodone HCl [Oxaydo] 5 mg PO Q6H PRN #14 tablet.orl 10/03/16 [Rx] Vitamin B Complex/Vit C/Vit E [Stresstab] 1 each PO DAILY #30 tablet 10/03/16 [ Rx] Ferrous Sulfate 325 mg PO DAILY #30 tablet 10/07/16 [Rx] Allergies/Adverse Reactions: Allergies Erythromycin Base Adverse Reaction (Verified 09/18/16 23:41) Vomiting naproxen Adverse Reaction (Verified 09/18/16 23:41) Vomiting tramadol Adverse Reaction (Verified 09/18/16 23:41) Vomiting - Notes to Outpatient Provider 1. If the numbness/tingling do not improve, neurology recommended to have EMG/ NCV as outpatient. 2. Patient has hypothyroidism, her level of thyroxine has been adjusted based on her TSH level. Please repeat TSH in 6 weeks. Date of admission: 09/21/16 19:35 Primary care physician: Lavell Capps MD Consults: 09/21/16 21:51 Consult to Neurology [CONS] Routine Consulting Provider: Neurology [facility] Reason for Consult: numbness, parasthesias Call Completed: No Consult to Psychiatry [CONS] Routine Consulting Provider: Psychiatry [place] Reason for Consult: possible psychosomatic symptoms Call Completed: No 09/21/16 21:54 Consult to [employer] Office [employer]r Supervisor [CONS] Routine Reason for SW Consult: Patient seems to have difficulty with her medications and nobody to help her at home. She does not seem fit for dosing of her own medications. 09/23/16 17:05 Consult to Occupational Therapy [CONS] Routine Comment: Evaluate, develop and implement POC Consult to Physical Therapy [CONS] Routine Comment: Evaluate, develop and implement POC Discharging clinician: Elijah Celaya Anticipated date of discharge: 10/12/16 - Patient Status Disposition: Transfer SNF Condition: Good - Discharge Instructions Instructions: Depression (DC), Anxiety (DC) Follow Up With: Lavell Capps MD [Primary Care Provider] - (In 1-2 weeks) Dinora Casillas MD [Partnered Physician] - (In one week) - Diet and Activity Diet: low fat, low cholesterol Interval History: Ms. Blackburn is a 46 year old female with past medical history significant for fibromyalgia, arthritis, pulmonary embolism, depression and gastric bypass surgery several weeks ago who presented to the [place] [facility] department for complaints of numbness and tingling. The patient has a recent visit to the emergency department on 09/18 for the same complaints. At that time her family members states that she seemed to be slightly altered as well and kept repeating herself and seeming confused. Her presentation today is the same as previously. It was believed that her altered mental status was due to her taking her Lyrica inappropriately as she had not taken it for a week, then took a 300mg capsule with out titrating her medication back up at all. During the course of her stay in the emergency department on 09/18 she was there for approximately 9 hours and her mentation returned at that time and her symptoms of numbness and tingling resolved completely. Her does of Lyrica was changed upon discharge on 09/18 to 50mg TID. When speaking with the patient today she could not express to me how she got to the hospital, she did not remember being in the emergency department 3 days ago, and she cannot remember when she last took any of her medications. She states that she does not have anyone at home to help her with her medications. Her original complaint was numbness with tingling from her breasts down to approximately her knees, but when I spoke with her she is now complaining of pain in her lower back and numbness from her hips to her feet. She denies any chest pain, shortness of breath, fevers, recent illness, nausea and diarrhea at this time. She states that her legs will give out from her due to the numbness she is having when she walks Hospital course: Ms. Blackburn is a 46 year old female admitted for both feet and numbness tingling and altered mental status. Neurology consult was called, and MRI spine has been done. MRI result is unremarkable. Neurology recommended physical therapy and the supportive therapy. If symptoms is persisted, patient can have an EMG as outpatient. Patient has depression, psychiatry consult was called and medication has been adjusted. After treatment, patient's symptoms slightly improved. Patient has a bariatric surgery recently. She was also found low folic acid and a low Iron level, replacement treatment has been started. Saw and examined patient today, she is awake alert, oriented 3. Still complaining both feet numbness. Otherwise no further complaints. Vitals are stable. Patient is ready to transfer to [facility] for further management. - Time Spent with Patient Total time spent providing and/or coordinating discharge services: Greater than 30 minutes - Constitutional Vitals: Temp Pulse Resp BP Pulse Ox 98.3 F 100 17 127/90 94 L 10/12/16 07:46 10/12/16 07:46 10/12/16 07:46 10/12/16 07:46 10/12/16 07:46 General appearance: Present: A&O X 3, morbidly obese, no acute distress, answers questions appropriately - Head Head exam: Present: atraumatic, normocephalic - Eye Eye exam: Present: PERRL, conjuntiva pink, sclera anicteric Pupils: Present: PERRL - Neck Neck exam general surgery: Present: supple, trachea midline. Absent: lymphadenopathy - Respiratory Respiratory exam: Present: CTAB. Absent: accessory muscle use, rales, rhonchi, wheezes - Cardiovascular Cardiovascular exam: Present: RRR, +S1, +S2. Absent: diastolic murmur, gallop, rubs, systolic murmur - GI/Abdominal GI/Abdominal exam: Present: normal bowel sounds, soft, no peritoneal signs. Absent: distended, tenderness - Extremities Exam Extremities exam: Present: warm, radial pulses palpable and symetrical. Absent : calf tenderness, cyanotic, pedal edema - Neurological Exam Neurological exam: Present: CN II-XII intact, oriented X3, no focal deficits. Absent: pronater drift, facial droop, speech deficit - Skin Skin exam: Present: dry, intact
--- NOTE | 2016-10-12 11:41 | Physician Discharge Referral ---
ExtendedCare Referral Info Transfer To: [facility] Provider in Charge after Transfer: Other - Diagnosis (1) Bilateral leg paresthesia Priority: Primary Status: Acute (2) Hypokalemia Priority: Primary Status: Resolved (3) UTI (urinary tract infection) Priority: Primary Status: Resolved (4) History of pulmonary embolism Priority: Secondary Status: Acute (5) Hypothyroidism Priority: Secondary Status: Acute (6) Morbid obesity Priority: Secondary Status: Acute (7) Folic acid deficiency Priority: Primary Status: Acute (8) Iron deficiency Priority: Primary Status: Acute (9) DVT prophylaxis Priority: Secondary Status: Acute (10) Depression Status: Acute - Transfer Medications Prescriptions: Duloxetine [Cymbalta] 90 mg PO DAILY #30 capsule. Ferrous Sulfate 325 mg PO DAILY #30 tablet Folic Acid 1 mg PO DAILY #30 tablet Oxycodone HCl [Oxaydo] 5 mg PO Q6H PRN #14 tablet.orl PRN Reason: Moderate Pain Vitamin B Complex/Vit C/Vit E [Stresstab] 1 each PO DAILY #30 tablet Home Medications: Ergocalciferol (VITAMIN D2) [Vitamin D2 (50,000 UNIT)] 50,000 unit PO WE [History] Levothyroxine [Synthroid] 75 mcg PO DAILY 10/15/15 [History] Cetirizine HCl [Zyrtec] 10 mg PO DAILY PRN #7 capsule 07/17/16 [Rx] Apixaban [Eliquis] 5 mg PO BID 09/21/16 [History] Phenol/Sodium Phenolate [[facility] Sore Throat [place]] 5 spray PO Q4H PRN 09/21/16 [ History] Pregabalin [Lyrica] 300 mg PO BID 09/21/16 [History] Promethazine [Phenergan] 25 mg RC TID PRN 09/21/16 [History] Duloxetine [Cymbalta] 90 mg PO DAILY #30 capsule. 10/03/16 [Rx] Folic Acid 1 mg PO DAILY #30 tablet 10/03/16 [Rx] Oxycodone HCl [Oxaydo] 5 mg PO Q6H PRN #14 tablet.orl 10/03/16 [Rx] Vitamin B Complex/Vit C/Vit E [Stresstab] 1 each PO DAILY #30 tablet 10/03/16 [ Rx] Ferrous Sulfate 325 mg PO DAILY #30 tablet 10/07/16 [Rx] Allergies/Adverse Reactions: Allergies Erythromycin Base Adverse Reaction (Verified 09/18/16 23:41) Vomiting naproxen Adverse Reaction (Verified 09/18/16 23:41) Vomiting tramadol Adverse Reaction (Verified 09/18/16 23:41) Vomiting - Respiratory Orders Smoking Cessation: Smoking cessation has been advised. For more information, call the [place] Tobacco Quit Line at 2-252-DFDN-NOW. - Advance Directives Code Status: Full Code - Rehabiliation Orders Rehab Orders: Evaluation for Physical Therapy, Evaluation for Occupational Therapy - Diet Orders Cardiac CERTIFICATION: I certify that the transfer of the above named patient to an Extended Care Facility is necessary for the continuing treatment of the diagnosis listed. The above information is true and accurate reflection of patient's current condition. Confidential - Redisclosure prohibited without a patient's written consent.
== END 2016-10-12 12:43 ==
LOC: 3ANU 16:37 → EMEROO 16:37 → SUATTDRO 19:35 → 3ANU 20:38
PROVIDERS: ADMIT Nurse Practitioner Family; ATTEND Internal Medicine

== ENCOUNTER 2017-01-19 20:35 | Observation (INO) ==
[2017-01-19 21:33] LABS: Basophils # 0.1 K/mcL (0.0-0.2); Basophils % 0.6 %; Eosinophils # 0.1 K/mcL (0.0-0.6); Eosinophils % 1.2 %; Hematocrit 48.4 % (35.3-44.9); Hemoglobin 15.7 g/dL (11.5-15.4); Immature Granulocytes % 0.2 % (0-4); Mean Corpuscular HGB Conc 32.4 g/dL (31.6-35.5); Mean Corpuscular Hemoglobin 27.9 pg (28.0-33.3); Mean Corpuscular Volume 86.1 fL (83.0-100.0); Mean Platelet Volume 11.7 fL (9.4-12.4); Monocytes # 0.8 K/mcL (0.0-1.3); Monocytes % 8.3 %; Neutrophils # 6.4 K/mcL (1.6-8.9); Platelet Count 224 K/mcL (140-400); Red Blood Count 5.62 M/mcL (3.82-4.97); Segmented Neutrophils % 68.7 %
[2017-01-19 21:47] LABS: Alanine Aminotransferase 9 Units/L (0-55); Albumin 2.9 g/dL (3.5-5.0); Albumin/Globulin Ratio 0.7 (1.1-2.2); Alkaline Phosphatase 99 Units/L (38-126); Amylase 27 Units/L (25-125); Aspartate Amino Transferase 10 Units/L (5-34); BUN/Creatinine Ratio 5 (6-26); Bilirubin,Direct 0.3 mg/dL (0.0-0.5); Bilirubin,Indirect 0.4 mg/dL (0.0-1.2); Bilirubin,Total 0.7 mg/dL (0.2-1.2); Calcium 9.3 mg/dL (8.6-10.8); Carbon Dioxide 20 mEq/L (19-29); Chloride 97 mEq/L (98-109); Globulin 4.2 g/dL (2.4-3.5); Glucose 92 mg/dL (70-99); Lipase 30 Units/L (8-78); Osmolality,Calculated 281 (280-300); Potassium 3.2 mEq/L (3.5-4.5); Sodium 137 mEq/L (136-145); Total Protein 7.1 g/dL (6.0-8.3); eGFR For African Americans > 60 (> 60); eGFR For Non-African Americans > 60 (> 60)
[2017-01-19 21:48] LABS: Bilirubin,Urine Large (Negative); Blood,Urine Negative (Negative); Clarity,Urine Cloudy (Clear); Color,Urine Dark Yellow (Yellow); Glucose,Urine (UA) Normal (Normal); Ketones,Urine >=160 mg/dL (Negative); Leukocyte Esterase,Urine Small (Negative); Nitrite,Urine Negative (Negative); Protein,Urine 30 mg/dL (Neg-Trace); Specific Gravity,Urine 1.022 (1.010-1.025); Urobilinogen,Urine Normal (Normal)
[2017-01-19 21:48] LABS: Blood Urea Nitrogen 4 mg/dL (7-20)
[2017-01-19 21:49] LABS: Bacteria,Urine None Seen per hpf (None-Few); RBC,Urine 30-50 per hpf (0-3); Squamous Epithelial Cell,Urine Many per lpf (None-Few)
[2017-01-19 21:58] LABS: Acetaminophen < 1.0 mcg/mL (10-30); Ethanol < 10 mg/dL (0-10); Salicylate < 5.0 mg/dL (15-30)
--- NOTE | 2017-01-19 22:02 | Emergency Department Note ---
Disposition Clinical Impression: Colitis, Homicidal ideation Disposition: Admitted As Inpatient Condition: Good Time of Disposition: 00:37 Nausea/Vomiting/Diarrhea HPI - General Chief complaint: ED Nausea/Vomiting/Diarrhea Stated complaint: diarrhea Time Seen by Provider: 01/19/17 20:47 Source: patient - History of Present Illness HPI Narrative: 46 year old female with HX of cdiff for the past few weeks and has recovered from it in the past 10 days or so with antibiotic therapy. Sarah states that she is having increased diarrhea abotu 20 times a day and now associted with vomitting. in addition to these symptoms she is now stating that she has homicdial ideations with plan against an indidivual who apparantly had overdosed her with lyrica and now she has difficutly with walking due to it. She has voiced this to me, rthe nurse, the EMS crew, and family memebers at bedside. Sarah denies fevers at this time, but is feeling increasingly nausous but is not experiencing vomiting in the department. Sarah stats she also has increased abdominal pain in the suprapubic and epigastirum without radiation. Denies chest pain or shortness of breath. dairrhea and vomit are NBNB. - Related Data Home Medications Medication Instructions Recorded Confirmed Ergocalciferol (VITAMIN D2) 50,000 unit PO WE 10/15/15 01/20/17 [Vitamin D2 (50,000 UNIT)] Levothyroxine [Synthroid] 75 mcg PO DAILY 10/15/15 01/20/17 Apixaban [Eliquis] 5 mg PO BID 09/21/16 01/20/17 Phenol/Sodium Phenolate [[facility] Sore 5 spray PO Q4H PRN 09/21/16 01/20/17 Throat [place]] Pregabalin [Lyrica] 300 mg PO BID 09/21/16 01/20/17 Promethazine [Phenergan] 25 mg RC TID PRN 09/21/16 01/20/17 Percocet 5-325 mg Tablet 01/20/17 Previous Rx's Medication Instructions Recorded Cetirizine HCl [Zyrtec] 10 mg PO DAILY PRN #7 capsule 07/17/16 Duloxetine [Cymbalta] 90 mg PO DAILY #30 capsule. 10/03/16 Folic Acid 1 mg PO DAILY #30 tablet 10/03/16 Oxycodone HCl [Oxaydo] 5 mg PO Q6H PRN #14 tablet.orl 10/03/16 Vitamin B Complex/Vit C/Vit E 1 each PO DAILY #30 tablet 10/03/16 [Stresstab] Ferrous Sulfate 325 mg PO DAILY #30 tablet 10/07/16 Allergies Allergy/AdvReac Type Severity Reaction Status Date / Time Erythromycin Base AdvReac Vomiting Verified 01/04/17 18:36 naproxen AdvReac Vomiting Verified 01/04/17 18:36 tramadol AdvReac Vomiting Verified 01/04/17 18:36 Constitutional: Denies: fever, chills, weakness, weight change Eyes: Denies: eye pain, eye discharge, vision change ENT ED: Denies: ear pain, throat pain, dental pain, hearing loss, epistaxis, congestion, dysphagia Cardiovascular: Denies: chest pain, palpitations, dyspnea on exertion, edema, syncope Respiratory: Denies: cough, dyspnea, wheezes, hemoptysis, stridor Gastrointestinal: Reports: abdominal pain, nausea, vomiting, diarrhea. Denies: constipation, hematemesis, melena, hematochezia Genitourinary: Denies: dysuria, frequency, hematuria, discharge Musculoskeletal: Denies: back pain, neck pain, arthralgia, myalgia Integumentary: Denies: rash, abrasion, lesions Neurological: Denies: headache, weakness, numbness, paresthesias, confusion, abnormal gait, vertigo Psychiatric: Reports: homicidal thoughts. Denies: anxiety, depression, suicidal thoughts, auditory hallucinations, visual hallucinations Endocrine: Denies: fatigue Hematological/Lymphatic: Denies: easy bleeding, easy bruising Allergic/Immunologic: Denies: facial swelling, urticaria Past Medical History - Past Medical History Medical history: Reports: arthritis, fibromyalgia, pulmonary embolus, other Surgical history: Reports: cholecystectomy, other Psychiatric history: Reports: anxiety, depression [employer] history: Reports: bilateral tubal ligation, other - Social History Smoking Status: Current every day smoker Smokeless Tobacco Status: No Alcohol use: Reports: none Drug use: Reports: none Physical Exam - General Limitations: no limitations General appearance: alert, in no apparent distress - Head Head exam: atraumatic, normocephalic, normal inspection - Eye Eye exam: Present: normal appearance, PERRL, EOMI - Expanded Eye Exam Pupils: Left: reactive - ENT ENT exam: normal exam, normal oropharynx, mucous membranes moist - Expanded ENT Exam External ear exam: Present: normal external inspection Mouth exam: Present: normal external inspection Teeth exam: Present: normal inspection Throat exam: Present: normal inspection - Neck Neck exam: Present: normal inspection, full ROM, trachea midline - Chest Chest inspection: Present: normal inspection, symmetric chest wall rise - Respiratory Respiratory exam: Present: normal lung sounds bilaterally - Cardiovascular Cardiovascular exam: Present: regular rate, normal rhythm, normal heart sounds - Abdominal Exam Abdominal exam: Present: soft, tenderness. Absent: Non-Tender, distention, guarding, rebound, rigidity Abdominal tenderness: Present: epigastrium, suprapubic, mild - Extremities Exam Extremities exam: Present: normal inspection, full ROM. Absent: tenderness, pedal edema - Expanded Upper Extremity Exam Shoulder exam: Present: normal inspection, full ROM Arm exam: Present: normal inspection, full ROM Elbow exam: Present: normal inspection, full ROM Forearm/Wrist exam: Present: normal inspection, full ROM Hand exam: Present: normal inspection, full ROM Vascular exam: Normal: capillary refill, radial pulse - Expanded Lower Extremity Exam Hip/Pelvis exam: Present: normal inspection, full ROM Upper leg exam: Present: normal inspection, full ROM Knee exam: Present: normal inspection, full ROM Lower leg exam: Present: normal inspection, full ROM Ankle exam: Present: normal inspection, full ROM Foot/toe exam: Present: normal inspection, full ROM Neurovascular/Tendon exam: Absent: motor deficit, sensory deficit, tendon deficit - Back Exam Back exam: Present: normal inspection, full ROM. Absent: tenderness - Neurological Exam Neurological exam: Present: alert, oriented X3 - Expanded Neurological Exam Patient oriented to: Present: person, place, time Coma Scale Eye Opening: Spontaneous Coma Scale Motor Response: Obeys Commands Coma Scale Verbal Response: Oriented Coma Scale Total: 15 - Psychiatric Psychiatric exam: Present: flat affect, homicidal ideation - Skin Skin exam: Present: warm, dry, intact, normal color Course Course Narrative: we will do and abdominal pain workup ith ABCT and if she is medically cleared than we will consult 1A - Consultations Consultation #1: discused case with Dr. godinez and he accept patient for admission. Patinet and family have been updated and are agreeable to admission. Time: 00:36 Vital Signs Temperature 98.5 F 01/19/17 20:40 Pulse Rate 90 01/19/17 20:40 Respiratory Rate 18 01/19/17 20:40 Blood Pressure 130/72 01/19/17 20:40 O2 Sat by Pulse Oximetry 99 01/19/17 20:40 Temperature 98.2 F 01/20/17 01:59 Pulse Rate 100 01/20/17 01:59 Respiratory Rate 17 01/20/17 01:59 Blood Pressure 109/69 01/20/17 01:59 O2 Sat by Pulse Oximetry 94 01/20/17 01:59 Oxygen Delivery Oxygen Delivery Room Air Nausea/Vomiting/Diarrhea - Lab Data Result diagrams: 01/19/17 21:26 01/19/17 21:26 Lab Results 01/19/17 01/19/17 01/19/17 Range/Units 21:08 21:26 21:26 WBC 9.3 (4.3-11.1) K/mcL RBC 5.62 H (3.82-4.97) M/mcL Hgb 15.7 H (11.5-15.4) g/dL Hct 48.4 H (35.3-44.9) % MCV 86.1 (83.0-100.0) fL MCH 27.9 L (28.0-33.3) pg MCHC 32.4 (31.6-35.5) g/dL RDW 15.0 H (11.5-14.5) % Plt Count 224 (140-400) K/mcL MPV 11.7 (9.4-12.4) fL Immature Gran % 0.2 (0-4) % Seg Neutrophils % 68.7 % Lymphocytes % 21.0 % Monocytes % 8.3 % Eosinophils % 1.2 % Basophils % 0.6 % Neutrophils # 6.4 (1.6-8.9) K/mcL Lymphocytes # 2.0 (0.6-4.6) K/mcL Monocytes # 0.8 (0.0-1.3) K/mcL Eosinophils # 0.1 (0.0-0.6) K/mcL Basophils # 0.1 (0.0-0.2) K/mcL Sodium 137 (136-145) mEq/L Potassium 3.2 L (3.5-4.5) mEq/L Chloride 97 L (98-109) mEq/L Carbon Dioxide 20 (19-29) mEq/L BUN 4 L (7-20) mg/dL Creatinine 0.76 (0.57-1.11) mg/dL Est GFR ( Amer) > 60 (> 60) Est GFR (Non-Af Amer) > 60 (> 60) BUN/Creatinine Ratio 5 L (6-26) Glucose 92 (70-99) mg/dL Calculated Osmolality 281 (280-300) Calcium 9.3 (8.6-10.8) mg/dL Total Bilirubin 0.7 (0.2-1.2) mg/dL Direct Bilirubin 0.3 (0.0-0.5) mg/dL Indirect Bilirubin 0.4 (0.0-1.2) mg/dL AST 10 (5-34) Units/L ALT 9 (0-55) Units/L Alkaline Phosphatase 99 (38-126) Units/L Serum Total Protein 7.1 (6.0-8.3) g/dL Albumin 2.9 L (3.5-5.0) g/dL Globulin 4.2 H (2.4-3.5) g/dL Albumin/Globulin Ratio 0.7 L (1.1-2.2) Amylase 27 (25-125) Units/L Lipase 30 (8-78) Units/L Urine Color Dark Yellow (Yellow) Urine Clarity Cloudy A (Clear) Urine pH 6.0 (5.0-8.0) pH Units Ur Specific [place] 1.022 (1.010-1.025) Urine Protein 30 H (Neg-Trace) mg/dL Urine Glucose (UA) Normal (Normal) mg/dL Urine Ketones >=160 H (Negative) mg/dL Urine Blood Negative (Negative) Urine Nitrite Negative (Negative) Urine Bilirubin Large H (Negative) Urine Urobilinogen Normal (Normal) mg/dL Ur Leukocyte Esterase Small H (Negative) Urine Microscopic RBC 30-50 H (0-3) per hpf Urine Microscopic WBC 5-15 H (0-3) per hpf Ur Squamous Epith Cells Many H (None-Few) per lpf Urine Bacteria None Seen (None-Few) per hpf Hyaline Casts Moderate H (None-Few) per lpf Urine Mucus Moderate H (Few) Ur Culture Indicated? YES A (NO) Salicylates < 5.0 L (15-30) mg/dL Urine Opiates Screen (Rwojrk=353) ng/mL Acetaminophen < 1.0 L (10-30) mcg/mL Ur Barbiturates Screen (Uptxbs=986) ng/mL Ur Phencyclidine Scrn (Cutoff=25) ng/mL Ur Amphetamines Screen (Cvphcm=2939) ng/mL U Benzodiazepines Scrn (Uiaopi=410) ng/mL Urine Cocaine Screen (Cutoff= 300) ng/mL U Marijuana (THC) Screen (Cutoff = 50) ng/mL Ethyl Alcohol < 10 (0-10) mg/dL 01/19/17 Range/Units 21:34 WBC (4.3-11.1) K/mcL RBC (3.82-4.97) M/mcL Hgb (11.5-15.4) g/dL Hct (35.3-44.9) % MCV (83.0-100.0) fL MCH (28.0-33.3) pg MCHC (31.6-35.5) g/dL RDW (11.5-14.5) % Plt Count (140-400) K/mcL MPV (9.4-12.4) fL Immature Gran % (0-4) % Seg Neutrophils % % Lymphocytes % % Monocytes % % Eosinophils % % Basophils % % Neutrophils # (1.6-8.9) K/mcL Lymphocytes # (0.6-4.6) K/mcL Monocytes # (0.0-1.3) K/mcL Eosinophils # (0.0-0.6) K/mcL Basophils # (0.0-0.2) K/mcL Sodium (136-145) mEq/L Potassium (3.5-4.5) mEq/L Chloride (98-109) mEq/L Carbon Dioxide (19-29) mEq/L BUN (7-20) mg/dL Creatinine (0.57-1.11) mg/dL Est GFR ( Amer) (> 60) Est GFR (Non-Af Amer) (> 60) BUN/Creatinine Ratio (6-26) Glucose (70-99) mg/dL Calculated Osmolality (280-300) Calcium (8.6-10.8) mg/dL Total Bilirubin (0.2-1.2) mg/dL Direct Bilirubin (0.0-0.5) mg/dL Indirect Bilirubin (0.0-1.2) mg/dL AST (5-34) Units/L ALT (0-55) Units/L Alkaline Phosphatase (38-126) Units/L Serum Total Protein (6.0-8.3) g/dL Albumin (3.5-5.0) g/dL Globulin (2.4-3.5) g/dL Albumin/Globulin Ratio (1.1-2.2) Amylase (25-125) Units/L Lipase (8-78) Units/L Urine Color (Yellow) Urine Clarity (Clear) Urine pH (5.0-8.0) pH Units Ur Specific [place] (1.010-1.025) Urine Protein (Neg-Trace) mg/dL Urine Glucose (UA) (Normal) mg/dL Urine Ketones (Negative) mg/dL Urine Blood (Negative) Urine Nitrite (Negative) Urine Bilirubin (Negative) Urine Urobilinogen (Normal) mg/dL Ur Leukocyte Esterase (Negative) Urine Microscopic RBC (0-3) per hpf Urine Microscopic WBC (0-3) per hpf Ur Squamous Epith Cells (None-Few) per lpf Urine Bacteria (None-Few) per hpf Hyaline Casts (None-Few) per lpf Urine Mucus (Few) Ur Culture Indicated? (NO) Salicylates (15-30) mg/dL Urine Opiates Screen Negative (Xznyhc=183) ng/mL Acetaminophen (10-30) mcg/mL Ur Barbiturates Screen Negative (Lftpwn=884) ng/mL Ur Phencyclidine Scrn Negative (Cutoff=25) ng/mL Ur Amphetamines Screen Negative (Jhjbxh=8258) ng/mL U Benzodiazepines Scrn Negative (Sudsll=979) ng/mL Urine Cocaine Screen Negative (Cutoff= 300) ng/mL U Marijuana (THC) Screen Negative (Cutoff = 50) ng/mL Ethyl Alcohol (0-10) mg/dL Attestation Statement - Attestation Attestation: I, Garrett Valenzuela MD, personally evaluated this patient and discussed their management with the resident physician. I reviewed the resident's note and agree with the documented findings, medical decision making, and plan of care. 46-year-old female presents to the emergency department with a complaint of nausea and vomiting and not keeping fluids down. Patient has a history of C. difficile about a month ago and was treated. Over the past several days she has developed diarrhea with nausea and vomiting. No fever. Some mild crampy abdominal pain. Patient also apparently expressed some suicidal and homicidal thoughts. On examination patient is a well-developed morbidly obese female in no acute distress. She is alert and oriented 3. There is no cyanosis or diaphoresis. Breath sounds are clear and equal bilaterally. Heart regular rate and rhythm. Abdomen is soft with increased bowel sounds. Mild diffuse tenderness, worse in the left lower quadrant. Labs reviewed. CT of the abdomen and pelvis shows a localized diverticulitis in the proximal sigmoid colon as well as wall thickening consistent with colitis in the descending and transverse colon. There is also a possible kidney stone at the left UPJ. The hospitalist, Dr. Godinez, was consulted and accepted admission of the patient.
[2017-01-19 22:03] LABS: Hyaline Casts,Urine Moderate per lpf (None-Few); Mucus,Urine Moderate (Few)
[2017-01-19 22:06] LABS: Amphetamine Screen,Urine Negative ng/mL (Cutoff=1000); Barbiturate Screen,Urine Negative ng/mL (Cutoff=200); Benzodiazepines Screen,Urine Negative ng/mL (Cutoff=200); Cannabinoid Screen,Urine Negative ng/mL (Cutoff = 50); Cocaine Screen,Urine Negative ng/mL (Cutoff= 300); Opiate Screen,Urine Negative ng/mL (Cutoff=300); Phencyclidine Screen,Urine Negative ng/mL (Cutoff=25)
[2017-01-19] MEDS ORDERED: MetroNIDAZOLE 500 MG/100 ML 500 MG/100 ML BAG IVPB ONE (23:37)
[2017-01-20] MEDS ORDERED: Ondansetron 4 MG/2 ML VIAL IVP PRN (07:55)
[2017-01-20] MEDS ORDERED: *HR* Morphine 2 MG/ML SYRINGE IVP PRN (07:55)
[2017-01-20] MEDS ORDERED: Pantoprazole 40 MG VIAL IVP STA (07:55)
[2017-01-20] MEDS ORDERED: Naloxone 0.4 MG/ML INJ IVP PRN (07:55)
[2017-01-20] MEDS ORDERED: Benzonatate 100 MG CAPSULE PO PRN (08:01)
[2017-01-20] MEDS ORDERED: Chloraseptic Spray 177 ML BOTTLE PO PRN (08:05)
[2017-01-20] MEDS ORDERED: Loratadine 10 MG TABLET PO PRN (08:05)
--- NOTE | 2017-01-20 08:15 | Internal Med History&Physical ---
Date of Encounter: 01/20/17 Time of Encounter: 07:00 Assessment and Plan (1) Enterocolitis Current visit: Yes Status: Acute . (2) Acute generalized abdominal pain Current visit: Yes Status: Acute . (3) Intractable nausea and vomiting Current visit: Yes Status: Resolved . Qualifiers: Vomiting type: cyclical vomiting Qualified Code(s): G43.A1 - Cyclical vomiting, intractable (4) Diarrhea of presumed infectious origin Current visit: Yes Status: Acute . (5) Diverticulitis large intestine w/o perforation or abscess w/o bleeding Current visit: Yes Status: Acute . (6) Non-specific colitis Current visit: Yes Status: Acute . (7) Morbid obesity with BMI of 45.0-49.9, adult Current visit: Yes Status: Chronic . (8) UTI (urinary tract infection) Current visit: Yes Status: Acute . Qualifiers: Urinary tract infection type: site unspecified Hematuria presence: without hematuria Qualified Code(s): N39.0 - Urinary tract infection, site not specified Internal Medicine - H&P: HPI Chief complaint: Nausea vomiting diarrhea and abdominal pain Admitted From: Emergency Dept Plans for Post Hospital Care: Home History of present illness: Ms. Blackburn is a 46 year old female with history significant of major depression/ anxiety/bipolar dis, iron deficiency anemia, hypothyroidism, OA/OP, chr MSK pain /DDD/DJD, fibromyalgia, GERD, COPD/JOSE ANGEL, H/O PEs/chr A/C (Eliquis), morbid obesity/bariatric surgery, lumbar radiculopathy, polyneuropathy, H/O c diff colitis, nicotine dependency, etc.. The patient was admitted to [facility] via the emergency department when she presents with a chief complaint of diarrhea and reports being diagnosed with C. difficile colitis weeks ago and had recovered from it including a 10 day course of oral antibiotics. Recently she has began to experience increasing frequency of stool and chronic diarrhea which now numbers approximately 20 episodes per day now associated with nausea and vomiting. She has not noticed any blood passage in stool or in her emesis. Due to her prolonged illness began to experience increasing frustration and worry. Her abdominal symptoms have not been associated with the fevers chills or sweats. She denies chest pain shortness of air dysuria. Denies any dietary or medication indiscretions. Findings in the ED noted vital signs stable. Patient afebrile. WBC 9.3 hemoglobin 15.7 platelets 224,000. Differential normal. Comprehensive metabolic panel normal except potassium of 3.2 chloride 97. BUN 4 creatinine 0.76. Albumin 2.9-7.1. Amylase 27 lipase 30. Salicylates less than 5 acetaminophen less than 1. Urinalysis large protein large ketones large bilirubin. Small leukocyte esterase and many squamous epithelial cells. Moderate hyalin casts. 50 RBC. 15 WBC. Alcohol less than 10. Urine drug screen negative for items tested. CT abdomen and pelvis demonstrated localized inflammatory process involving the proximal sigmoid colon with a single inflamed diverticulum. She was admitted with acute diverticulitis was suspected. No drainable fluid collection or abscess. The ascending and transverse colon suggests nonspecific colitis. Cystic structure containing a small calculus in the mid left kidney. Urinary appears to extend from this structure. This may represents a left UPJ obstruction. Study recommended. Preliminary impression suggest acute abdominal pain with Tylenol illness likely associated with apparent diverticular disease exacerbation. Radiographically approximal segment of sigmoid colon associated diverticulum. Concomitant evidence for transverse and ascending most colitis suggested further investigation warranted. Patient is at risk for further clinical decline and comorbidities given her presenting concerns polypharmacy clinical findings and comorbid conditions. Workup and treatment proceed comprehensively.The patient was visited and interviewed and examined. Cumulative laboratory and radiographic data base will be considered and discussed. Pertinent ancillary medical records including ECW and PCI documentation when available was reviewed and considered. Given the patient's presenting concerns, past medical history, clinical findings and symptoms, she is admitted at this time will undergo further evaluation and disposition. Orders were written as per the computerized physician supervisor border department system.......................................................................... .................... Consultative opinions will be sought as clinical circumstances justify. Pain management needs will be addressed. Laboratory=radiographic data base will be updated as appropriate. Studies include: Cultures of blood urine sputum, GI stool profile, pt/inr, aptt, UA, UDS , cardiac injury panel, BNP, metabolic and hematologic panel, magnesium, phosphorus, ionized calcium, thyroid panel, lipid profile, A1c, C-peptide, CRP, sedimentation rate, amylase, lipase, blood gas, lactic acid, serologies, etc. Precautions: Aspiration, fall, delirium protocol/surveillance initiated. Telemetry with continuous hemodynamic monitoring and pulse oximetry initiated. Bladder scan. Postvoid residual. Empiric antibiotic coverage: Intravenous ciprofloxacin and metronidazole pending culture data. Bowel rest imposed. Clear liquid diet. Antiemetic, prokinetic, probiotic therapy initiated. Special studies: CT chest/abd-pelvis, chest x-ray, telemetry, EKG, US retroperitoneum. Pulmonary toilet: Incentive spirometry. PRN: aerosol bronchodilator, mucolytic, antitussive. Supplemental oxygen. Corticosteroid therapy PRN. CPAP/BiPAP supplemental oxygen delivery PRN. Aerosol Mucomyst therapy PRN. Fluid and electrolyte repletion efforts will proceed. Careful attention to fluid balance and renal recovery will be emphasized. Avoidance of nephrotoxic exposure and adverse drug drug interaction in the setting of impaired renal function will be monitored closely. Acute coronary syndrome protocol/surveillance initiated. DVT and PUD prophylaxis initiated: PPI therapy, intermittent pneumatic cuffs/ TEDs. Subcutaneous heparin/Lovenox. Early ambulation will be encouraged. Immunization updates recommended. Influenza and pneumococcal vaccinations as part of ongoing preventative healthcare recommendations strongly recommended. Smoking cessation counseling briefly addressed. Patient consents to nicotine substitution during this hospitalization. Advanced care directive discussion briefly addressed. Patient does not declare any healthcare restrictions at this time. Cardiovascular risk appraisal and cardiovascular risk reduction efforts will be emphasized. Physical=occupational therapy consulted to evaluate patient's functional capacity and progress mobility as her circumstances permit. Nutrition/dietary education and supplement diet counseling may be considered as circumstances justify. Outpatient medication schedules will be reviewed, confirmed and facilitated as appropriate. Reconciliation of home treatments including adjustments, substitutions and reintroduction into the treatment regimen will address necessary maintenance therapies for chronic pre-existing medical conditions. Plan of care has been reviewed and discussed in detail with the patient. Questions addressed. Hospital course dictated by clinical findings, treatment response and/or potential consultative interventions. Patient is at risk for further acute clinical decline and morbidity due to her presenting chief complaints and comorbid conditions. Condition is serious. Prognosis is guarded. CODE STATUS is full. Past Med Surg Social Fam HX - Past Medical History Source: old records reviewed Medical history: arthritis (DDD/DJD of spine. Polyneuropathy-radiculopathy/chr MSK+LB pain.), asthma, fibromyalgia, GERD, hyperlipidemia, hypertension, kidney stones, osteoporosis (Vit D def.), pulmonary embolus, renal disease, thyroid disease, other (Iron def anemia.) Psychiatric history: anxiety, depression, other - Past Surgical History Surgical History: cholecystectomy, hysterectomy, ROS/BSO, other (Bariaric surgery.), bariatric surgery - Social History Smoking Status: Current every day smoker Packs per day: 1 Smokeless Tobacco Status: No Alcohol use: none, unknown Drug use: none, unknown Occupational status: unemployed Current living situation: Home - Independent, Home Activity Level: Independent ambulation, Mostly sedentary Recent Out of Country Travel Within the Last 8 Weeks: No Exposure or Possible Exposure to Illness During Travel: No - Family History Mother Adopted: [place]: GONZALO Age: 65 Family Member Ethnicity: Non- Living Status: Still Living Hx Family Endocrine Disorder: Yes (DM) Internal Medicine - H&P: Meds Ergocalciferol (VITAMIN D2) [Vitamin D2 (50,000 UNIT)] 50,000 unit PO WE [History] Levothyroxine [Synthroid] 75 mcg PO DAILY 10/15/15 [History] Apixaban [Eliquis] 5 mg PO BID 09/21/16 [History] Allergies Erythromycin Base Adverse Reaction (Verified 01/04/17 18:36) Vomiting naproxen Adverse Reaction (Verified 01/04/17 18:36) Vomiting tramadol Adverse Reaction (Verified 01/04/17 18:36) Vomiting All Systems PM: A 10-system review of systems was performed and is negative for pertinent findings except as documented above in the HPI. - Constitutional Constitutional: as per HPI, malaise, no chills, no fever(s), no night sweats - EENT Eyes: as per HPI, no change in vision, no discharge, no pain, no photophobia Ears: as per HPI, no ear discharge, no ear pain, no tinnitus Nose, mouth and throat: as per HPI, no dysphagia, no nasal discharge, no neck pain, no sore throat - Cardiovascular Cardiovascular ROS IM: as per HPI, no chest pain, no diaphoresis, no dyspnea, no lightheadedness, no palpitations, no syncope - Respiratory Respiratory: as per HPI, no cough, no dyspnea, no wheezing, no excessive phlegm production - Gastrointestinal Gastrointestinal: as per HPI, abdominal pain, bloating, change in bowel habits, cramping, diarrhea, loose stools, nausea, vomiting, no coffee ground emesis, no hematemesis, no hematochezia, no melena - Genitourinary Genitourinary: as per HPI, no change in urinary stream, no dysuria, no flank pain, no hematuria - Musculoskeletal Musculoskeletal ROS IM: as per HPI, no numbness, no tingling - Integumentary Integumentary IM: as per HPI, no rash, no unusual bruising - Neurological Neurological ROS: as per HPI, no confusion, no convulsions, no focal weakness, no numbness, no tingling, no tremor(s) - Psychiatric Psychiatric: as per HPI - Endocrine Endocrine IM: as per HPI - Hematologic/Lymphatic Hematologic/Lymphatic: as per HPI, no easy bruising - Allergic/Immunologic Allergic/Immunologic: as per HPI - Constitutional Vitals: Temp Pulse Resp BP Pulse Ox 98.3 F 87 16 111/70 92 01/20/17 07:38 01/20/17 07:38 01/20/17 07:38 01/20/17 07:38 01/20/17 07:42 Vital Signs Temp Pulse Resp BP Pulse Ox 01/20/17 07:42 92 01/20/17 07:38 98.3 F 87 16 111/70 92 01/20/17 01:59 98.2 F 100 17 109/69 94 01/20/17 01:28 18 114/75 01/20/17 00:14 91 18 118/68 99 01/19/17 23:00 89 18 160/81 100 01/19/17 21:56 97 18 141/82 98 01/19/17 20:40 98.5 F 90 18 130/72 99 Intake and Output 01/19/17 01/20/17 01/20/17 23:59 07:59 15:59 Intake Total 300 / 300 Output Total 200 / 200 Balance 100 / 100 Intake: IV Fluids 300 / 300 Cipro 400 MG/200 ML 400 200 / 200 mg In 200 ml @ 200 mls/hr IVPB Q12HR ONE Rx#: [id number] Flagyl 500 MG/100 ML 500 100 / 100 mg In 100 ml @ 100 mls/hr IVPB ONCE ONE Rx#: [id number] Output: Urine 200 / 200 Other: Stool Size Small Stool Color Green Black Weight 136.078 kg General appearance: Present: mild distress, A&O X 3, morbidly obese, answers questions appropriately - Head Head exam: Present: atraumatic, normocephalic - Eye Eye exam: Present: EOMI, PERRL, conjuntiva pink, sclera anicteric Pupils: Present: normal accommodation, PERRL - ENT ENT exam: Present: mucous membranes moist, normal external ear exam, normal oropharynx - Neck Neck exam general surgery: Present: full ROM, supple, trachea midline. Absent: lymphadenopathy - Respiratory Respiratory exam: Present: decreased breath sounds, CTAB. Absent: accessory muscle use, rales, rhonchi, wheezes - Cardiovascular Cardiovascular exam: Present: distant heart sounds, RRR, +S1, +S2, tachycardia. Absent: diastolic murmur, gallop, rubs, systolic murmur - GI/Abdominal GI/Abdominal exam: Present: distended, normal bowel sounds, soft, tenderness, no peritoneal signs. Absent: mass - Extremities Exam Extremities exam: Present: full ROM, warm, radial pulses palpable and symetrical. Absent: calf tenderness, cyanotic, pedal edema - Neurological Exam Neurological exam: Present: alert, altered, CN II-XII intact, oriented X3, no focal deficits. Absent: pronater drift, facial droop, speech deficit - Psychiatric Psychiatric exam: Present: anxious, flat affect - Skin Skin exam: Present: dry, intact, warm. Absent: petechiae, rash, urticaria, vesicles Internal Med - H&P Results - Labs CBC & Chem 7: 01/22/17 03:08 01/24/17 13:59 Labs: Short CBC 01/19/17 Range/Units 21:26 WBC 9.3 (4.3-11.1) K/mcL Hgb 15.7 H (11.5-15.4) g/dL Hct 48.4 H (35.3-44.9) % Plt Count 224 (140-400) K/mcL Neutrophils # 6.4 (1.6-8.9) K/mcL BMP 01/19/17 Range/Units 21:26 Sodium 137 (136-145) mEq/L Potassium 3.2 L (3.5-4.5) mEq/L Chloride 97 L (98-109) mEq/L Carbon Dioxide 20 (19-29) mEq/L BUN 4 L (7-20) mg/dL Creatinine 0.76 (0.57-1.11) mg/dL Glucose 92 (70-99) mg/dL Calcium 9.3 (8.6-10.8) mg/dL Liver Function 01/19/17 Range/Units 21:26 Total Bilirubin 0.7 (0.2-1.2) mg/dL Direct Bilirubin 0.3 (0.0-0.5) mg/dL AST 10 (5-34) Units/L ALT 9 (0-55) Units/L Alkaline Phosphatase 99 (38-126) Units/L Albumin 2.9 L (3.5-5.0) g/dL Urine 01/19/17 Range/Units 21:08 Urine Color Dark Yellow (Yellow) Urine Clarity Cloudy A (Clear) Urine pH 6.0 (5.0-8.0) pH Units Ur Specific [place] 1.022 (1.010-1.025) Urine Protein 30 H (Neg-Trace) mg/dL Urine Glucose (UA) Normal (Normal) mg/dL Abnormal lab results RBC 5.62 M/mcL (3.82-4.97) H 01/19/17 21:26 Hgb 15.7 g/dL (11.5-15.4) H 01/19/17 21:26 Hct 48.4 % (35.3-44.9) H 01/19/17 21: MCH 27.9 pg (28.0-33.3) L 01/19/17 21:26 RDW 15.0 % (11.5-14.5) H 01/19/17 21:26 Potassium 3.2 mEq/L (3.5-4.5) L 01/19/17 21:26 Chloride 97 mEq/L (98-109) L 01/19/17 21:26 BUN 4 mg/dL (7-20) L 01/19/17 21:26 BUN/Creatinine Ratio 5 (6-26) L 01/19/17 21:26 Albumin 2.9 g/dL (3.5-5.0) L 01/19/17 21:26 Globulin 4.2 g/dL (2.4-3.5) H 01/19/17 21: Albumin/Globulin Ratio 0.7 (1.1-2.2) L 01/19/17 21: Urine Clarity Cloudy (Clear) A 01/19/17 21:08 Urine Protein 30 mg/dL (Neg-Trace) H 01/19/17 21:08 Urine Ketones >=160 mg/dL (Negative) H 01/19/17 21:08 Urine Bilirubin Large (Negative) H 01/19/17 21:08 Ur Leukocyte Esterase Small (Negative) H 01/19/17 21:08 Urine Microscopic RBC 30-50 per hpf (0-3) H 01/19/17 21:08 Urine Microscopic WBC 5-15 per hpf (0-3) H 01/19/17 21:08 Ur Squamous Epith Cells Many per lpf (None-Few) H 01/19/17 21:08 Hyaline Casts Moderate per lpf (None-Few) H 01/19/17 21: Urine Mucus Moderate (Few) H 01/19/17 21:08 Ur Culture Indicated? YES (NO) A 01/19/17 21:08 Salicylates < 5.0 mg/dL (15-30) L 01/19/17 21: Acetaminophen < 1.0 mcg/mL (10-30) L 01/19/17 21: Laboratory Results WBC 9.3 K/mcL (4.3-11.1) 01/19/17 21: RBC 5.62 M/mcL (3.82-4.97) H 01/19/17 21: Hgb 15.7 g/dL (11.5-15.4) H 01/19/17 21: Hct 48.4 % (35.3-44.9) H 01/19/17 21: MCV 86.1 fL (83.0-100.0) 01/19/17 21: MCH 27.9 pg (28.0-33.3) L 01/19/17 21: MCHC 32.4 g/dL (31.6-35.5) 01/19/17 21: RDW 15.0 % (11.5-14.5) H 01/19/17 21: Plt Count 224 K/mcL (140-400) 01/19/17 21:26 MPV 11.7 fL (9.4-12.4) 01/19/17 21: Immature Gran % 0.2 % (0-4) 01/19/17 21:26 Seg Neutrophils % 68.7 % 01/19/17 21: Lymphocytes % 21.0 % 01/19/17 21: Monocytes % 8.3 % 01/19/17 21: Eosinophils % 1.2 % 01/19/17 21: Basophils % 0.6 % 01/19/17 21: Neutrophils # 6.4 K/mcL (1.6-8.9) 01/19/17 21: Lymphocytes # 2.0 K/mcL (0.6-4.6) 01/19/17 21: Monocytes # 0.8 K/mcL (0.0-1.3) 01/19/17 21: Eosinophils # 0.1 K/mcL (0.0-0.6) 01/19/17 21: Basophils # 0.1 K/mcL (0.0-0.2) 01/19/17 21:26 Sodium 137 mEq/L (136-145) 01/19/17 21:26 Potassium 3.2 mEq/L (3.5-4.5) L 01/19/17 21:26 Chloride 97 mEq/L (98-109) L 01/19/17 21:26 Carbon Dioxide 20 mEq/L (19-29) 01/19/17 21:26 BUN 4 mg/dL (7-20) L 01/19/17 21:26 Creatinine 0.76 mg/dL (0.57-1.11) 01/19/17 21:26 Est GFR ( Amer) > 60 (> 60) 01/19/17 21:26 Est GFR (Non-Af Amer) > 60 (> 60) 01/19/17 21:26 BUN/Creatinine Ratio 5 (6-26) L 01/19/17 21:26 Glucose 92 mg/dL (70-99) 01/19/17 21:26 Calculated Osmolality 281 (280-300) 01/19/17 21:26 Calcium 9.3 mg/dL (8.6-10.8) 01/19/17 21:26 Total Bilirubin 0.7 mg/dL (0.2-1.2) 01/19/17 21:26 Direct Bilirubin 0.3 mg/dL (0.0-0.5) 01/19/17 21: Indirect Bilirubin 0.4 mg/dL (0.0-1.2) 01/19/17 21:26 AST 10 Units/L (5-34) 01/19/17 21: ALT 9 Units/L (0-55) 01/19/17 21:26 Alkaline Phosphatase 99 Units/L (38-126) 01/19/17 21:26 Serum Total Protein 7.1 g/dL (6.0-8.3) 01/19/17 21: Albumin 2.9 g/dL (3.5-5.0) L 01/19/17 21: Globulin 4.2 g/dL (2.4-3.5) H 01/19/17 21: Albumin/Globulin Ratio 0.7 (1.1-2.2) L 01/19/17 21: Amylase 27 Units/L (25-125) 01/19/17 21: Lipase 30 Units/L (8-78) 01/19/17 21:26 Urine Color Dark Yellow (Yellow) 01/19/17 21:08 Urine Clarity Cloudy (Clear) A 01/19/17 21:08 Urine pH 6.0 pH Units (5.0-8.0) 01/19/17 21:08 Ur Specific [place] 1.022 (1.010-1.025) 01/19/17 21:08 Urine Protein 30 mg/dL (Neg-Trace) H 01/19/17 21:08 Urine Glucose (UA) Normal mg/dL (Normal) 01/19/17 21:08 Urine Ketones >=160 mg/dL (Negative) H 01/19/17 21:08 Urine Blood Negative (Negative) 01/19/17 21:08 Urine Nitrite Negative (Negative) 01/19/17 21:08 Urine Bilirubin Large (Negative) H 01/19/17 21:08 Urine Urobilinogen Normal mg/dL (Normal) 01/19/17 21:08 Ur Leukocyte Esterase Small (Negative) H 01/19/17 21:08 Urine Microscopic RBC 30-50 per hpf (0-3) H 01/19/17 21:08 Urine Microscopic WBC 5-15 per hpf (0-3) H 01/19/17 21:08 Ur Squamous Epith Cells Many per lpf (None-Few) H 01/19/17 21:08 Urine Bacteria None Seen per hpf (None-Few) 01/19/17 21:08 Hyaline Casts Moderate per lpf (None-Few) H 01/19/17 21:08 Urine Mucus Moderate (Few) H 01/19/17 21:08 Ur Culture Indicated? YES (NO) A 01/19/17 21:08 Salicylates < 5.0 mg/dL (15-30) L 01/19/17 21:26 Urine Opiates Screen Negative ng/mL (Mrvkkt=416) 01/19/17 21:34 Acetaminophen < 1.0 mcg/mL (10-30) L 01/19/17 21:26 Ur Barbiturates Screen Negative ng/mL (Ztcixm=030) 01/19/17 21:34 Ur Phencyclidine Scrn Negative ng/mL (Cutoff=25) 01/19/17 21:34 Ur Amphetamines Screen Negative ng/mL (Bhhaaw=3630) 01/19/17 21:34 U Benzodiazepines Scrn Negative ng/mL (Effpja=860) 01/19/17 21:34 Urine Cocaine Screen Negative ng/mL (Cutoff= 300) 01/19/17 21:34 U Marijuana (THC) Screen Negative ng/mL (Cutoff = 50) 01/19/17 21:34 Ethyl Alcohol < 10 mg/dL (0-10) 01/19/17 21:26 Impressions Abdomen/Pelvis CT 01/19/17 22:19 IMPRESSION: There is a localized inflammatory process involving the proximal sigmoid colon with a single inflamed diverticulum. Short segment acute diverticulitis is suspected with no drainable fluid collection/ abscess. Mild thickening of the wall of the ascending and transverse colon suggests a nonspecific colitis. This may be inflammatory or infectious. Cystic structure containing a small calculus in the mid left kidney. The ureter appears to extend from this structure and therefore this likely represents a left UPJ obstruction. D/ / Sage Jolly MD / Sage Jolly MD Interpreting Provider: Sage Jolly MD
[2017-01-20] MEDS: Ringers Solution, Lactated 1,000 ML IVC SCH (10:25)
[2017-01-20] MEDS: Nicotine 21 MG PATCH.TD24 TD SCH (10:26)
[2017-01-20] MEDS: MetroNIDAZOLE 500 MG/100 ML 500 MG/100 ML BAG IVPB SCH ×2 (10:26→16:36)
[2017-01-20] MEDS: APIXABAN 5 MG TABLET PO SCH ×2 (10:27→21:44)
[2017-01-20] MEDS: Pregabalin 75 MG CAPSULE PO SCH ×2 (10:27→21:44)
[2017-01-20] MEDS: *HR* OxyCODONE Immed Rel 5 MG TABLET PO PRN ×2 (10:36→18:20)
--- NOTE | 2017-01-20 15:37 | Consult Note ---
Date of Encounter: 01/20/17 Time of Encounter: 14:30 Assessment & Recommendation (1) Delirium due to multiple etiologies Current visit: Yes Status: Acute Assessment & Recommendation: Patient is currently medically unstable, her medical condition have not been resolved including acute abdominal pain." patient is in a delirious state and cannot be evaluated. There is no indication in her records of any psychiatric treatments and at this time I recommend reevaluation when patient is medically stable. History of Present Illness Patient: new to practice Requesting Physician: Elena Higgins CNP Reason for consult: Suicidal and homicidal ideation History of present illness: Ms. Blackburn is a 46 year old female admitted to the hospital for treatment of multiple problems including enterocolitis, acute abdomen, nausea and vomiting, diverticulitis and morbid obesity. Psychiatric consultation was requested to evaluate suicidal and homicidal ideation. Nursing staff report the patient made comments in the emergency room. On the records there was no indication of any psychiatric history of treatment with this patient. The emergency room assessments, noted comments made by patient is angry at her sister and if she can walk she would kill her. Patient currently is being evaluated for inability to walk and also having physical therapy. On interview patient presented as a middle age woman who is anxious and angry at her sister and could not give me any history of mental health's treatment she was irritable and uncomfortable. CC: Elena Higgins CNP Past Med Surg Social Fam HX - Past Medical History Medical history: arthritis (DDD/DJD of spine. Polyneuropathy-radiculopathy/chr MSK+LB pain.), asthma, fibromyalgia, GERD, hyperlipidemia, hypertension, kidney stones, osteoporosis (Vit D def.), pulmonary embolus, renal disease, thyroid disease, other (Iron def anemia.) - Past Surgical History Surgical History: cholecystectomy, hysterectomy, ROS/BSO, other (Bariaric surgery.), bariatric surgery - Social History Smoking Status: Current every day smoker Smokeless Tobacco Status: No Alcohol use: none Drug use: none - Family History Mother Adopted: [place]: GONZALO Age: 65 Family Member Ethnicity: Non- Living Status: Still Living Hx Family Endocrine Disorder: Yes (DM) Medications & Allergies Ergocalciferol (VITAMIN D2) [Vitamin D2 (50,000 UNIT)] 50,000 unit PO WE [History] Levothyroxine [Synthroid] 75 mcg PO DAILY 10/15/15 [History] Cetirizine HCl [Zyrtec] 10 mg PO DAILY PRN #7 capsule 07/17/16 [Rx] Apixaban [Eliquis] 5 mg PO BID 09/21/16 [History] Promethazine [Phenergan] 25 mg RC TID PRN 09/21/16 [History] Duloxetine [Cymbalta] 90 mg PO DAILY #30 capsule. 10/03/16 [Rx] Folic Acid 1 mg PO DAILY #30 tablet 10/03/16 [Rx] Vitamin B Complex/Vit C/Vit E [Stresstab] 1 each PO DAILY #30 tablet 10/03/16 [ Rx] Ferrous Sulfate 325 mg PO DAILY #30 tablet 10/07/16 [Rx] Oxycodone HCl/Acetaminophen [Percocet 5-325 mg Tablet] 1 tab PO BID PRN [History] Allergies Erythromycin Base Adverse Reaction (Verified 01/04/17 18:36) Vomiting naproxen Adverse Reaction (Verified 01/04/17 18:36) Vomiting tramadol Adverse Reaction (Verified 01/04/17 18:36) Vomiting Mental Status Exam Patient orientation: Yes Person, Yes Time, Yes Place Level of alertness: Alert Patient appearance: Appropriate, Unkempt, Obese Behavior: agitated, uncooperative Psychomotor activity: Normal Eye contact: Fleeting Contact Mood description: Angry, Anxious, Irritable Affect description: labile, dysphoric Speech pattern: Disorganized, Inappropriate to situation, Rambling Speech volume: Loud Thought process: Linear, Goal Oriented, Tangential Thought content: No Suicidal ideation, No Homicidal ideation, No Overt delusions Perceptual disturbances: No Auditory hallucinations, No Visual hallucinations Attention span: Capable of Focused Attention Memory description: Grossly Intact Patient reliability: Reliable Historian Intelligence estimate: Average Judgment: Limited Insight: Partial Results - Vital Signs Vital signs: Temp Pulse Resp BP Pulse Ox 98.2 F 86 17 104/66 94 01/20/17 11:49 01/20/17 11:49 01/20/17 11:49 01/20/17 11:49 01/20/17 11:49 - Labs Labs: Laboratory Last Values WBC 9.3 K/mcL (4.3-11.1) 01/19/17 21:26 RBC 5.62 M/mcL (3.82-4.97) H 01/19/17 21:26 Hgb 15.7 g/dL (11.5-15.4) H 01/19/17 21: Hct 48.4 % (35.3-44.9) H 01/19/17 21: MCV 86.1 fL (83.0-100.0) 01/19/17 21: MCH 27.9 pg (28.0-33.3) L 01/19/17 21: MCHC 32.4 g/dL (31.6-35.5) 01/19/17 21: RDW 15.0 % (11.5-14.5) H 01/19/17 21: Plt Count 224 K/mcL (140-400) 01/19/17 21: MPV 11.7 fL (9.4-12.4) 01/19/17 21: Immature Gran % 0.2 % (0-4) 01/19/17 21: Seg Neutrophils % 68.7 % 01/19/17 21: Lymphocytes % 21.0 % 01/19/17 21: Monocytes % 8.3 % 01/19/17 21: Eosinophils % 1.2 % 01/19/17 21: Basophils % 0.6 % 01/19/17 21: Neutrophils # 6.4 K/mcL (1.6-8.9) 01/19/17 21: Lymphocytes # 2.0 K/mcL (0.6-4.6) 01/19/17 21: Monocytes # 0.8 K/mcL (0.0-1.3) 01/19/17 21:26 Eosinophils # 0.1 K/mcL (0.0-0.6) 01/19/17 21: Basophils # 0.1 K/mcL (0.0-0.2) 01/19/17 21:26 ESR 58 mm/hr (0-15) H 01/20/17 08:39 Sodium 137 mEq/L (136-145) 01/19/17 21:26 Potassium 3.2 mEq/L (3.5-4.5) L 01/19/17 21:26 Chloride 97 mEq/L (98-109) L 01/19/17 21:26 Carbon Dioxide 20 mEq/L (19-29) 01/19/17 21:26 BUN 4 mg/dL (7-20) L 01/19/17 21:26 Creatinine 0.76 mg/dL (0.57-1.11) 01/19/17 21:26 Est GFR ( Amer) > 60 (> 60) 01/19/17 21:26 Est GFR (Non-Af Amer) > 60 (> 60) 01/19/17 21:26 BUN/Creatinine Ratio 5 (6-26) L 01/19/17 21:26 Glucose 92 mg/dL (70-99) 01/19/17 21:26 Calculated Osmolality 281 (280-300) 01/19/17 21:26 Calcium 9.3 mg/dL (8.6-10.8) 01/19/17 21:26 Total Bilirubin 0.7 mg/dL (0.2-1.2) 01/19/17 21:26 Direct Bilirubin 0.3 mg/dL (0.0-0.5) 01/19/17 21: Indirect Bilirubin 0.4 mg/dL (0.0-1.2) 01/19/17 21:26 AST 10 Units/L (5-34) 01/19/17 21:26 ALT 9 Units/L (0-55) 01/19/17 21:26 Alkaline Phosphatase 99 Units/L (38-126) 01/19/17 21:26 C-Reactive Protein 54 mg/L (Less than 5) H 01/20/17 08:39 Serum Total Protein 7.1 g/dL (6.0-8.3) 01/19/17 21:26 Albumin 2.9 g/dL (3.5-5.0) L 01/19/17 21:26 Globulin 4.2 g/dL (2.4-3.5) H 01/19/17 21:26 Albumin/Globulin Ratio 0.7 (1.1-2.2) L 01/19/17 21:26 Amylase 24 Units/L (25-125) L 01/20/17 08:39 Lipase 30 Units/L (8-78) 01/19/17 21:26 Free T4 1.04 ng/dl (0.70-1.48) 01/20/17 08:39 Thyroxine (T4) 6.84 mcg/dL (4.87-11.72) 01/20/17 08:39 Urine Color Dark Yellow (Yellow) 01/19/17 21:08 Urine Clarity Cloudy (Clear) A 01/19/17 21:08 Urine pH 6.0 pH Units (5.0-8.0) 01/19/17 21:08 Ur Specific [place] 1.022 (1.010-1.025) 01/19/17 21:08 Urine Protein 30 mg/dL (Neg-Trace) H 01/19/17 21:08 Urine Glucose (UA) Normal mg/dL (Normal) 01/19/17 21:08 Urine Ketones >=160 mg/dL (Negative) H 01/19/17 21:08 Urine Blood Negative (Negative) 01/19/17 21: Urine Nitrite Negative (Negative) 01/19/17 21:08 Urine Bilirubin Large (Negative) H 01/19/17 21:08 Urine Urobilinogen Normal mg/dL (Normal) 01/19/17 21:08 Ur Leukocyte Esterase Small (Negative) H 01/19/17 21:08 Urine Microscopic RBC 30-50 per hpf (0-3) H 01/19/17 21:08 Urine Microscopic WBC 5-15 per hpf (0-3) H 01/19/17 21:08 Ur Squamous Epith Cells Many per lpf (None-Few) H 01/19/17 21:08 Urine Bacteria None Seen per hpf (None-Few) 01/19/17 21:08 Hyaline Casts Moderate per lpf (None-Few) H 01/19/17 21:08 Urine Mucus Moderate (Few) H 01/19/17 21:08 Ur Culture Indicated? YES (NO) A 01/19/17 21:08 Salicylates < 5.0 mg/dL (15-30) L 01/19/17 21:26 Urine Opiates Screen Negative ng/mL (Pfahmu=349) 01/19/17 21:34 Acetaminophen < 1.0 mcg/mL (10-30) L 01/19/17 21:26 Ur Barbiturates Screen Negative ng/mL (Yrqlls=069) 01/19/17 21:34 Ur Phencyclidine Scrn Negative ng/mL (Cutoff=25) 01/19/17 21:34 Ur Amphetamines Screen Negative ng/mL (Hwxeqt=7286) 01/19/17 21:34 U Benzodiazepines Scrn Negative ng/mL (Knwhvo=688) 01/19/17 21:34 Urine Cocaine Screen Negative ng/mL (Cutoff= 300) 01/19/17 21:34 U Marijuana (THC) Screen Negative ng/mL (Cutoff = 50) 01/19/17 21:34 Ethyl Alcohol < 10 mg/dL (0-10) 01/19/17 21:26 Consult Discharge Plan - Plan Referrals: Lavell Capps MD [Primary Care Provider] - 01/25/17 2:15 pm
[2017-01-20 16:09] LABS: Adenovirus Not Detected (Not Detect); Bordetella Pertussis Not Detected (Not Detect); Chlamydophila pneumoniae Not Detected (Not Detect); Coronavirus 229E Not Detected (Not Detect); Coronavirus HKU1 Not Detected (Not Detect); Coronavirus NL63 Not Detected (Not Detect); Coronavirus OC43 Not Detected (Not Detect); Human Metapneumovirus Not Detected (Not Detect); Human Rhinovirus/Enterovirus Not Detected (Not Detect); Influenza A Subtype 2009 H1 Not Detected (Not Detect); Influenza A Untypeable Not Detected (Not Detect); Influenza B Not Detected (Not Detect); Mycoplasma pneumoniae Not Detected (Not Detect); Parainfluenza Virus 1 Not Detected (Not Detect); Parainfluenza Virus 2 Not Detected (Not Detect); Parainfluenza Virus 3 Not Detected (Not Detect); Parainfluenza Virus 4 Not Detected (Not Detect); Respiratory Syncytial Virus Not Detected (Not Detect)
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
[2017-01-20] MEDS: Famotidine 20 MG/2 ML VIAL IVP SCH (18:15)
[2017-01-20] MEDS: Lactobacillus 1 EACH CAP.SPRINK PO SCH (21:44)
[2017-01-20] MEDS: Acetaminophen 325 MG TABLET PO PRN (22:45)
[2017-01-21] MEDS: MetroNIDAZOLE 500 MG/100 ML 500 MG/100 ML BAG IVPB SCH ×4 (01:38→23:42)
[2017-01-21] MEDS: Methyl Salicylate/Menthol 28 GM TUBE TP PRN ×3 (01:39→20:52)
[2017-01-21] MEDS: Ringers Solution, Lactated 1,000 ML IVC SCH (03:01)
[2017-01-21] MEDS: Acetaminophen 325 MG TABLET PO PRN ×2 (04:22→19:28)
[2017-01-21 04:25] LABS: Basophils # 0.1 K/mcL (0.0-0.2); Basophils % 0.8 %; Eosinophils # 0.2 K/mcL (0.0-0.6); Eosinophils % 2.9 %; Hematocrit 41.4 % (35.3-44.9); Hemoglobin 13.8 g/dL (11.5-15.4); Immature Granulocytes % 0.3 % (0-4); Lymphocytes # 1.8 K/mcL (0.6-4.6); Lymphocytes % 27.4 %; Mean Corpuscular HGB Conc 33.3 g/dL (31.6-35.5); Mean Corpuscular Hemoglobin 27.2 pg (28.0-33.3); Mean Corpuscular Volume 81.7 fL (83.0-100.0); Mean Platelet Volume 11.4 fL (9.4-12.4); Monocytes # 0.7 K/mcL (0.0-1.3); Monocytes % 10.9 %; Neutrophils # 3.7 K/mcL (1.6-8.9); Platelet Count 229 K/mcL (140-400); Red Blood Count 5.07 M/mcL (3.82-4.97); Red Cell Distribution Width 14.6 % (11.5-14.5); Segmented Neutrophils % 57.7 %
[2017-01-21 04:42] LABS: Alanine Aminotransferase 6 Units/L (0-55); Albumin 2.7 g/dL (3.5-5.0); Albumin/Globulin Ratio 0.8 (1.1-2.2); Alkaline Phosphatase 86 Units/L (38-126); Aspartate Amino Transferase 9 Units/L (5-34); BUN/Creatinine Ratio 4 (6-26); Bilirubin,Total 0.5 mg/dL (0.2-1.2); Carbon Dioxide 26 mEq/L (19-29); Chloride 99 mEq/L (98-109); Chol/HDL Ratio 5.3 (0-4.9); Cholesterol 101 mg/dL (< 200); Globulin 3.6 g/dL (2.4-3.5); Glucose 104 mg/dL (70-99); HDL Cholesterol 19 mg/dL (40-59); LDL Cholesterol,Calculated 62 mg/dL (0-99); Magnesium 1.1 mg/dL (1.6-2.6); Osmolality,Calculated 281 (280-300); Phosphorous 2.9 mg/dL (2.3-4.7); Potassium 2.8 mEq/L (3.5-4.5); Sodium 137 mEq/L (136-145); Total Protein 6.3 g/dL (6.0-8.3); Triglycerides 101 mg/dL (< 150); eGFR For African Americans > 60 (> 60); eGFR For Non-African Americans > 60 (> 60)
[2017-01-21 04:43] LABS: Hemoglobin A1C 5.1 %
[2017-01-21 04:51] LABS: Blood Urea Nitrogen 3 mg/dL (7-20)
[2017-01-21] MEDS: Famotidine 20 MG/2 ML VIAL IVP SCH ×2 (05:34→17:32)
[2017-01-21] MEDS: Pregabalin 75 MG CAPSULE PO SCH ×2 (07:53→20:54)
[2017-01-21] MEDS: Nicotine 21 MG PATCH.TD24 TD SCH (07:53)
[2017-01-21] MEDS: APIXABAN 5 MG TABLET PO SCH ×2 (07:54→20:53)
[2017-01-21] MEDS: Lactobacillus 1 EACH CAP.SPRINK PO SCH ×2 (07:54→20:54)
[2017-01-21] MEDS: 0.9 % Sodium Chloride 1,000 ML IVC SCH ×2 (07:58→20:52)
[2017-01-21] MEDS: *HR* OxyCODONE Immed Rel 5 MG TABLET PO PRN (09:08)
--- NOTE | 2017-01-21 15:14 | Internal Med Progress Note ---
Date of Encounter: 01/21/17 Time of Encounter: 09:20 - Assessment and plan (1) Intractable nausea and vomiting Current Visit: Yes Status: Acute Assessment and plan: Patient denies nausea and vomiting to me today. Continue IV antibiotics Continue Trental, Pepcid, Zofran Repeat labs in the morning Continue IV fluids I also changed her IV fluid from LR to 0.9 normal saline at 75 an hour. Qualifiers: Vomiting type: cyclical vomiting Qualified Code(s): G43.A1 - Cyclical vomiting, intractable (2) Diarrhea of presumed infectious origin Current Visit: Yes Status: Acute Assessment and plan: Patient states that she has not had diarrhea since the middle the night. She reports to primary nurse that she has not had diarrhea since yesterday morning. Her abdomen is soft, obese, and tender diffusely. Still attempting to get stool specimen. Continue IV fluids Continue IV antibiotics Culturelle Monitor labs and vital signs (3) Non-specific colitis Current Visit: Yes Status: Acute Assessment and plan: Plan as above (4) Hypothyroidism Current Visit: No Status: Chronic Assessment and plan: Chronic. Continue home medications Qualifiers: Hypothyroidism type: unspecified Qualified Code(s): E03.9 - Hypothyroidism , unspecified (5) Bilateral leg paresthesia Current Visit: No Status: Chronic Assessment and plan: Patient states that she is immobile and uses a wheelchair to get around. She does however get up and pivoted to the commode with assistance of staff. Patient is awaiting approval for bariatric at [facility] in [place]. Probably discharge on Monday. (6) Homicidal ideation Current Visit: Yes Status: Resolved Assessment and plan: Resolved. Patient was seen by psychiatrist and found to not be homicidal or suicidal. (7) Acute generalized abdominal pain Current Visit: Yes Status: Acute (8) Diverticulitis large intestine w/o perforation or abscess w/o bleeding Current Visit: Yes Status: Acute Assessment and plan: Per CT result Continue antibiotics and probiotics (9) Morbid obesity with BMI of 45.0-49.9, adult Current Visit: Yes Status: Chronic Assessment and plan: Chronic. Lifestyle changes. (10) DVT prophylaxis Current Visit: No Status: Acute Assessment and plan: YAJAIRA ocasio. Patient takes Eliquis (11) Hypokalemia Current Visit: No Status: Acute Assessment and plan: Patient was initially hypokalemic on admission. It was 3.2 and corrected with KCl 40 mEq by mouth 1. Today potassium is 2.8. I gave her 20 mEq K rider and 20 potassium by mouth daily. We will redraw labs and reassess in the morning. Patient states that she is not nauseated, she is not vomiting, and she has not had diarrhea since the middle the night. (12) Renal cyst Current Visit: Yes Status: Acute Assessment and plan: Incidental finding on abdominal CT There is a left renal parapelvic cyst, echogenic calculus along posterior margin of left renal parapelvic cyst may be intracystic or within an adjacent compressed calyx, no evidence of obstructive uropathy, normal right kidney, normal urinary bladder. - Time Spent With Patient less than 15 minutes - Subjective Interval history: Patient was seen and examined this morning at about 9:15 AM. She is sitting up in bed, watching TV and taxing on her phone. She says that she feels significantly better today and she denies any diarrhea since the middle the night. She has a clear liquid breakfast tray at bedside and says that she absolutely cannot eat that because broth and Jell-O for breakfast is not normal. Advanced her diet to full liquid for breakfast and she tolerated it well. Her abdomen remains tender however is not as tender as it was yesterday. She has bowel sounds everywhere. We will continue the antibiotics. Patient states that she wants to go to the long-term, according to social work note this cannot be done until Monday. . - Constitutional Vitals: Temp Pulse Resp BP Pulse Ox 98.1 F 80 20 117/71 90 01/21/17 11:53 01/21/17 11:53 01/21/17 11:53 01/21/17 11:53 01/21/17 11:53 General appearance: Present: A&O X 3, pleasant, obese, answers questions appropriately - Head Head exam: Present: normal inspection - Eye Eye exam: Present: normal appearance, conjuntiva pink - ENT ENT exam: Present: mucous membranes moist, normal exam, normal external ear exam - Neck Neck exam general surgery: Present: normal inspection. Absent: lymphadenopathy , tenderness - Respiratory Respiratory exam: Present: decreased breath sounds, CTAB. Absent: rhonchi, wheezes - Cardiovascular Cardiovascular exam: Present: RRR, +S1, +S2. Absent: diastolic murmur, systolic murmur - Extremities Exam Extremities exam: Present: normal capillary refill, normal inspection, pedal edema, warm, radial pulses palpable and symetrical. Absent: tenderness - Neurological Exam Neurological exam: Present: alert, oriented X3, no focal deficits. Absent: pronater drift, facial droop, speech deficit Internal Medicine: Result - Labs CBC & Chem 7: 01/21/17 03:56 01/21/17 03:56 Labs: Short CBC 01/21/17 Range/Units 03:56 WBC 6.5 (4.3-11.1) K/mcL Hgb 13.8 D (11.5-15.4) g/dL Hct 41.4 (35.3-44.9) % Plt Count 229 (140-400) K/mcL Neutrophils # 3.7 (1.6-8.9) K/mcL BMP 01/21/17 03:56 Sodium 137 Potassium 2.8 L Chloride 99 Carbon Dioxide 26 BUN 3 L Creatinine 0.70 Glucose 104 H Calcium 9.0 Liver Function 01/21/17 Range/Units 03:56 Total Bilirubin 0.5 (0.2-1.2) mg/dL AST 9 (5-34) Units/L ALT 6 (0-55) Units/L Alkaline Phosphatase 86 (38-126) Units/L Albumin 2.7 L (3.5-5.0) g/dL - Impressions Impressions Retroperitoneum Ultrasound 01/20/17 20:00 IMPRESSION: 1. Left renal parapelvic cyst. 2. Echogenic calculus along the posterior margin of the left renal parapelvic cyst may be intracystic or within an adjacent compressed calyx. 3. No evidence of obstructive uropathy. 4. Normal right kidney. 5. Normal urinary bladder. D/ / Lasha Patel MD / Lasha Patel MD Interpreting Provider: Lasha Patel MD Consult Discharge Plan - Plan Referrals: Lavell Capps MD [Primary Care Provider] - 01/25/17 2:15 pm
[2017-01-21 16:48] LABS: Magnesium 1.2 mg/dL (1.6-2.6)
[2017-01-21] MEDS ORDERED: Magnesium Sulfate 2 GM in D5% in Water 100 ML IVPB ONE (17:36)
[2017-01-22] MEDS: *HR* OxyCODONE Immed Rel 5 MG TABLET PO PRN ×4 (00:25→23:56)
[2017-01-22 03:25] LABS: Basophils # 0.1 K/mcL (0.0-0.2); Basophils % 0.9 %; Eosinophils # 0.2 K/mcL (0.0-0.6); Eosinophils % 3.3 %; Hematocrit 39.9 % (35.3-44.9); Hemoglobin 13.2 g/dL (11.5-15.4); Immature Granulocytes % 0.4 % (0-4); Lymphocytes # 1.8 K/mcL (0.6-4.6); Lymphocytes % 32.7 %; Mean Corpuscular HGB Conc 33.1 g/dL (31.6-35.5); Mean Corpuscular Hemoglobin 27.2 pg (28.0-33.3); Mean Corpuscular Volume 82.3 fL (83.0-100.0); Mean Platelet Volume 11.4 fL (9.4-12.4); Monocytes # 0.6 K/mcL (0.0-1.3); Monocytes % 10.9 %; Neutrophils # 2.8 K/mcL (1.6-8.9); Platelet Count 216 K/mcL (140-400); Red Blood Count 4.85 M/mcL (3.82-4.97); Red Cell Distribution Width 14.8 % (11.5-14.5); Segmented Neutrophils % 51.8 %
[2017-01-22 03:38] LABS: BUN/Creatinine Ratio 5 (6-26); Calcium 8.7 mg/dL (8.6-10.8); Carbon Dioxide 27 mEq/L (19-29); Chloride 105 mEq/L (98-109); Glucose 108 mg/dL (70-99); Osmolality,Calculated 287 (280-300); Potassium 3.2 mEq/L (3.5-4.5); Sodium 140 mEq/L (136-145); eGFR For African Americans > 60 (> 60); eGFR For Non-African Americans > 60 (> 60)
[2017-01-22 03:39] LABS: Blood Urea Nitrogen 3 mg/dL (7-20)
[2017-01-22] MEDS: Famotidine 20 MG/2 ML VIAL IVP SCH ×2 (06:04→17:44)
[2017-01-22] MEDS: Acetaminophen 325 MG TABLET PO PRN (06:23)
[2017-01-22] MEDS: MetroNIDAZOLE 500 MG/100 ML 500 MG/100 ML BAG IVPB SCH ×3 (08:37→23:56)
[2017-01-22] MEDS: Nicotine 21 MG PATCH.TD24 TD SCH (08:37)
[2017-01-22] MEDS: APIXABAN 5 MG TABLET PO SCH ×2 (08:38→21:09)
[2017-01-22] MEDS: Lactobacillus 1 EACH CAP.SPRINK PO SCH ×2 (08:38→21:09)
[2017-01-22] MEDS: Pregabalin 75 MG CAPSULE PO SCH ×2 (08:38→21:09)
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
[2017-01-23] MEDS: Famotidine 20 MG/2 ML VIAL IVP SCH (06:10)
[2017-01-23] MEDS: MetroNIDAZOLE 500 MG/100 ML 500 MG/100 ML BAG IVPB SCH ×2 (09:20→09:50)
[2017-01-23] MEDS: APIXABAN 5 MG TABLET PO SCH ×2 (09:21→21:33)
[2017-01-23] MEDS: Pregabalin 75 MG CAPSULE PO SCH ×2 (09:21→21:32)
[2017-01-23] MEDS: Nicotine 21 MG PATCH.TD24 TD SCH (09:21)
[2017-01-23] MEDS: Lactobacillus 1 EACH CAP.SPRINK PO SCH ×2 (09:21→21:32)
--- NOTE | 2017-01-23 13:28 | Internal Med Progress Note ---
Date of Encounter: 01/23/17 Time of Encounter: 09:35 - Assessment and plan (1) Acute generalized abdominal pain Current Visit: Yes Status: Acute Assessment and plan: This is improving. The patient continues to have diarrhea. GI consulted. (2) Bilateral leg paresthesia Current Visit: No Status: Chronic Assessment and plan: This is chronic in nature. Could be related to her prior gastric bypass. Continue outpatient follow-up and workup for this condition. No focal weakness. (3) Diarrhea of presumed infectious origin Current Visit: Yes Status: Acute Assessment and plan: On Cipro and Flagyl. Stool for WBC and blood. (4) Non-specific colitis Current Visit: Yes Status: Acute Assessment and plan: On Cipro and Flagyl. GI has been consulted. Will follow recommendations. (5) Hypokalemia Current Visit: Yes Status: Acute Assessment and plan: Potassium 3.2. We will increase oral potassium supplementation. Likely due to diarrhea. (6) Hypothyroidism Current Visit: No Status: Chronic Assessment and plan: Continue levothyroxine Qualifiers: Hypothyroidism type: unspecified Qualified Code(s): E03.9 - Hypothyroidism , unspecified (7) Intractable nausea and vomiting Current Visit: Yes Status: Resolved Assessment and plan: This has resolved Qualifiers: Vomiting type: cyclical vomiting Qualified Code(s): G43.A1 - Cyclical vomiting, intractable (8) Morbid obesity with BMI of 45.0-49.9, adult Current Visit: Yes Status: Chronic - Subjective Interval history: Patient complaining of persistent diarrhea. She had 3 episodes of diarrhea yesterday. No fever chills or night sweats. No signs of overt bleeding per rectum. Otherwise denies any new complaints. Continues to have numbness in her lower extremities. - Constitutional Vitals: Temp Pulse Resp BP Pulse Ox 98.1 F 72 17 127/84 95 01/23/17 10:37 01/23/17 10:37 01/23/17 10:37 01/23/17 10:37 01/23/17 10:37 General appearance: Present: cooperative, A&O X 3, pleasant, no acute distress, obese, answers questions appropriately - Respiratory Respiratory exam: Present: CTAB. Absent: accessory muscle use, rales, rhonchi, wheezes - Cardiovascular Cardiovascular exam: Present: RRR, +S1, +S2. Absent: diastolic murmur, gallop, rubs, systolic murmur - GI/Abdominal GI/Abdominal exam: Present: normal bowel sounds, soft, no peritoneal signs. Absent: distended, tenderness - Neurological Exam Neurological exam: Present: alert, oriented X3, no focal deficits. Absent: facial droop, speech deficit - Skin Skin exam: Present: dry, intact Internal Medicine: Result - Labs CBC & Chem 7: 01/22/17 03:08 01/22/17 03:08 - VTE Documentation of Mechanical Device: Graduated compression elastic hosiery Consult Discharge Plan - Plan Referrals: Lavell Capps MD [Primary Care Provider] - 01/25/17 2:15 pm - Attending Attestation This document has been at least partially created by [employer] recognition technology by Dr. Montes. Errors in grammar, wording or other phrases may exist. If errors are found after the documentation is signed, they will be addressed individually in the addendum section of this document when appropriate.
--- NOTE | 2017-01-23 14:42 | Gastroenterology Consult Note ---
<Artie Damico - Last Filed: 01/23/17 14:38> Date of Encounter: 01/23/17 Time of Encounter: 11:30 - Assessment and plan (1) Diarrhea Current Visit: Yes Status: Acute Assessment and plan: Pt continues to have diarrhea. Complete stool work up. Consider colonoscopy as outpatient once diverticulitis is resolved. Qualifiers: Qualified Code(s): R19.7 - Diarrhea, unspecified (2) Diverticulitis large intestine w/o perforation or abscess w/o bleeding Current Visit: Yes Status: Acute Assessment and plan: Continue Cipro and Flagyl. Plan for colonoscopy as outpatient once diverticulitis resolved. (3) Acute generalized abdominal pain Current Visit: Yes Status: Acute Assessment and plan: Resolved. - Time Spent With Patient Total time spent is greater than 50% in coordination of care (as documented) at patient's floor/unit and/or counseling patient: GI History of Present Illness - Data of Consult Patient: new to practice Consult date: 01/23/17 Requesting Physician: Patt Montes MD - Consult Narrative Reason for consult: diverticulitis, diarrhea History of present illness: Ms. Blackburn is a 46 year old female with PMHx of asthma, fibromyalgia, GERD, HLD, HTN, PE, and history of Cdiff for the past few weeks who was treated with antibiotics and recovered. She presented to the ED with c/o diarrhea 20 times per day along with nausea and vomiting. Patient has denied diarrhea for several days, on 01/21 she stated that she had diarrhea during the night. She told primary nurse on 01/21 that she had diarrhea only in the ED. Pt was unable to tell me when the last episode of diarrhea occurred. Patient is a poor historian and information was gathered from chart review. Stool sample on 01/22 was FOBT positive and Cdiff negative. 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 NSAIDs: None Anticoagulaiton: Eliquis Past Med Surg Social Fam HX - Past Medical History Medical history: arthritis (DDD/DJD of spine. Polyneuropathy-radiculopathy/chr MSK+LB pain.), asthma, fibromyalgia, GERD, hyperlipidemia, hypertension, kidney stones, osteoporosis (Vit D def.), pulmonary embolus, renal disease, thyroid disease, other (Iron def anemia.) Psychiatric history: anxiety, depression, other - Past Surgical History Surgical History: cholecystectomy, hysterectomy, ROS/BSO, other (Bariaric surgery.), bariatric surgery - Social History Smoking Status: Current every day smoker Packs per day: 1 Smokeless Tobacco Status: No Alcohol use: none Drug use: none - Family History Mother Adopted: [place]: GONZALO Age: 65 Family Member Ethnicity: Non- Living Status: Still Living Hx Family Endocrine Disorder: Yes (DM) - Gastrointestinal Gastrointestinal: Present: as per HPI - Constitutional Constitutional: as per HPI - EENT Eyes: as per HPI Ears: Present: as per HPI Nose, mouth and throat: Present: as per HPI - Cardiovascular Cardiovascular ROS: Present: as per HPI - Respiratory Respiratory IM: Present: as per HPI - Genitourinary Genitourinary: Absent: change in color, Urinary frequency - Neurological ROS Neurological GI: Present: as per HPI - Hematologic/Lymphatic Hematologic/Lymphatic pediatric: Present: as per HPI - Musculoskeletal Musculoskeletal ROS GI: Present: as per HPI - Integumentary Integumentary GI: Present: as per HPI - Psychiatric ROS Psychiatric GI: Present: as per HPI - Endocrine Endocrine IM: Present: as per HPI - Constitutional Vitals: Temp Pulse Resp BP Pulse Ox 98.1 F 72 17 127/84 95 01/23/17 10:37 01/23/17 10:37 01/23/17 10:37 01/23/17 10:37 01/23/17 10:37 General appearance: Present: cooperative, A&O X 3, no acute distress, answers questions appropriately - Head Head exam: Present: atraumatic, normocephalic - Eye Eye exam: Present: normal appearance, sclera anicteric - ENT ENT exam: Present: mucous membranes moist - Neck Neck exam general surgery: Present: normal inspection, trachea midline - Respiratory Respiratory exam: Present: CTAB. Absent: rales, rhonchi - Cardiovascular Cardiovascular exam: Present: RRR, +S1, +S2 - GI/Abdominal GI/Abdominal exam: Present: soft, no peritoneal signs. Absent: distended, firm , guarding, tenderness - Rectal Rectal exam: Present: deferred - Extremities Exam Extremities exam: Present: warm - Neurological Exam Neurological exam: Present: no focal deficits - Psychiatric Psychiatric exam: Present: normal affect, normal mood - Skin Skin exam: Present: dry, intact, normal color, warm Results - Labs CBC & Chem 7: 01/22/17 03:08 01/22/17 03:08 Labs: Last Result ESR 58 mm/hr (0-15) H 01/20/17 08:39 Calcium 8.7 mg/dL (8.6-10.8) 01/22/17 03:08 C-Reactive Protein 54 mg/L (Less than 5) H 01/20/17 08:39 Triglycerides 101 mg/dL (< 150) 01/21/17 03:56 Vitamin B12 1442 pg/mL (213-816) H 01/22/17 03:08 Stool Occult Blood Positive (Negative) A 01/22/17 13:30 Salicylates < 5.0 mg/dL (15-30) L 01/19/17 21:26 Urine Opiates Screen Negative ng/mL (Wckufa=451) 01/19/17 21:34 Entire Visit Hgb 13.2 g/dL (11.5-15.4) 01/22/17 03:08 Hct 39.9 % (35.3-44.9) 01/22/17 03:08 Total Bilirubin 0.5 mg/dL (0.2-1.2) 01/21/17 03:56 AST 9 Units/L (5-34) 01/21/17 03:56 ALT 6 Units/L (0-55) 01/21/17 03:56 Amylase 24 Units/L (25-125) L 01/20/17 08:39 Lipase 30 Units/L (8-78) 01/19/17 21:26 Acetaminophen < 1.0 mcg/mL (10-30) L 01/19/17 21:26 Consult Discharge Plan - Plan Referrals: Lavell Capps MD [Primary Care Provider] - 01/25/17 2:15 pm <Maryanne Palomares - Last Filed: 01/23/17 19:29> Date of Encounter: 01/23/17 Time of Encounter: 13:00 - Time Spent With Patient Total time spent is greater than 50% in coordination of care (as documented) at patient's floor/unit and/or counseling patient: GI History of Present Illness - Data of Consult Requesting Physician: Patt Montes MD - Consult Narrative History of present illness: Ms. Blackburn is a 46 year old female - Constitutional Vitals: Temp Pulse Resp BP Pulse Ox 98.0 F 75 15 105/68 94 01/23/17 18:54 01/23/17 18:54 01/23/17 18:54 01/23/17 18:54 01/23/17 18:54 Results - Labs CBC & Chem 7: 01/22/17 03:08 01/22/17 03:08 Labs: Last Result ESR 58 mm/hr (0-15) H 01/20/17 08:39 Calcium 8.7 mg/dL (8.6-10.8) 01/22/17 03:08 C-Reactive Protein 54 mg/L (Less than 5) H 01/20/17 08:39 Triglycerides 101 mg/dL (< 150) 01/21/17 03:56 Vitamin B12 1442 pg/mL (213-816) H 01/22/17 03:08 Stool Occult Blood Positive (Negative) A 01/22/17 13:30 Salicylates < 5.0 mg/dL (15-30) L 01/19/17 21:26 Urine Opiates Screen Negative ng/mL (Begksh=043) 01/19/17 21:34 Entire Visit Hgb 13.2 g/dL (11.5-15.4) 01/22/17 03:08 Hct 39.9 % (35.3-44.9) 01/22/17 03:08 Total Bilirubin 0.5 mg/dL (0.2-1.2) 01/21/17 03:56 AST 9 Units/L (5-34) 01/21/17 03:56 ALT 6 Units/L (0-55) 01/21/17 03:56 Amylase 24 Units/L (25-125) L 01/20/17 08:39 Lipase 30 Units/L (8-78) 01/19/17 21:26 Acetaminophen < 1.0 mcg/mL (10-30) L 01/19/17 21:26 - Attending Attestation I examined this patient and my medical decision-making was reviewed with the MIX HOUSE TENDER/PA/Advanced Practice Nurse/Resident Physician. I agree with the documented findings, disposition and treatment plan as described except to the extent set forth below.
[2017-01-23] MEDS: Famotidine 20 MG TABLET PO SCH (17:16)
[2017-01-23] MEDS: metroNIDAZOLE 500 MG TABLET PO SCH (17:16)
[2017-01-23] MEDS: Acetaminophen 325 MG TABLET PO PRN (17:22)
[2017-01-24] MEDS: metroNIDAZOLE 500 MG TABLET PO SCH ×4 (00:07→23:39)
[2017-01-24 00:29] LABS: Adenovirus F 40/41 PCR Not detected (Not detect); Astrovirus PCR Not detected (Not detect); C.difficile Toxin A/B by PCR Not detected (Not detect); Campylobacter by PCR Not detected (Not detect); Cryptosporidium by PCR Not detected (Not detect); Cyclospora cayetanensis PCR Not detected (Not detect); E. coli O157 by PCR Not detected (Not detect); Entamoeba histolytica PCR Not detected (Not detect); Enteroaggregative E.coli(EAEC) Not detected (Not detect); Enteropathogenic E.coli(EPEC) Not detected (Not detect); Enterotoxigenic E.coli (ETEC) Not detected (Not detect); Giardia lamblia PCR Not detected (Not detect); Norovirus GI/GII PCR Not detected (Not detect); Plesiomonas shigelloides PCR Not detected (Not detect); Rotavirus A PCR Not detected (Not detect); Salmonella PCR Not detected (Not detect); Sapovirus PCR Not detected (Not detect); Shig/EnteroinvasiveE coli EIEC Not detected (Not detect); Shigalike tox-prod E coli STEC Not detected (Not detect); Vibrio PCR Not detected (Not detect); Vibrio cholerae PCR Not detected (Not detect); Yersinia enterocolitica PCR Not detected (Not detect)
[2017-01-24] MEDS: Famotidine 20 MG TABLET PO SCH ×2 (06:19→17:45)
[2017-01-24] MEDS: Nicotine 21 MG PATCH.TD24 TD SCH (08:04)
[2017-01-24] MEDS: Lactobacillus 1 EACH CAP.SPRINK PO SCH ×2 (08:05→20:54)
[2017-01-24] MEDS: Pregabalin 75 MG CAPSULE PO SCH ×2 (08:06→20:54)
[2017-01-24] MEDS: APIXABAN 5 MG TABLET PO SCH ×2 (08:06→20:54)
[2017-01-24] MEDS ORDERED: Potassium Chloride Elixir 20 MEQ/15 ML UDC PO ONE ×2 (08:30→15:26)
[2017-01-24 14:36] LABS: BUN/Creatinine Ratio 12 (6-26); Blood Urea Nitrogen 8 mg/dL (7-20); Calcium 8.5 mg/dL (8.6-10.8); Carbon Dioxide 26 mEq/L (19-29); Chloride 109 mEq/L (98-109); Glucose 94 mg/dL (70-99); Osmolality,Calculated 292 (280-300); Potassium 3.3 mEq/L (3.5-4.5); Sodium 142 mEq/L (136-145); eGFR For African Americans > 60 (> 60); eGFR For Non-African Americans > 60 (> 60)
--- NOTE | 2017-01-24 14:36 | Internal Med Progress Note ---
Date of Encounter: 01/24/17 Time of Encounter: 12:00 - Assessment and plan (1) Colitis Current Visit: Yes Status: Acute Assessment and plan: Patient presented with intractable nausea, vomiting and generalized abdominal pain. CT abdomen was suggestive of nonspecific colitis. Continue oral ciprofloxacin and Flagyl to complete a 10 day course of antibiotics. GI consult appreciated, plan for outpatient colonoscopy. Patient is medically stable for discharge at this time. Physical therapy evaluation noted, recommend placement in extended care facility. [employer] on board, awaiting insurance precertification for placement, per social worker aide notes. (2) Intractable nausea and vomiting Current Visit: Yes Status: Resolved Assessment and plan: Improved with IV antibiotics, IV hydration and symptomatic therapy. Qualifiers: Vomiting type: cyclical vomiting Qualified Code(s): G43.A1 - Cyclical vomiting, intractable (3) Diverticulitis large intestine w/o perforation or abscess w/o bleeding Current Visit: Yes Status: Acute Assessment and plan: CT abdomen is suggestive of possible diverticulitis. Continue antibiotics, consulted GI, agree with current management. Recommend outpatient colonoscopy. Improved diarrhea. Stool studies show positive WBC, negative for C. difficile toxin and other stool pathogens. (4) Fibromyalgia Current Visit: Yes Status: Chronic Assessment and plan: Continue home medications. (5) Morbid obesity Current Visit: Yes Status: Chronic Qualifiers: Obesity type: due to excess calories Qualified Code(s): E66.01 - Morbid ( severe) obesity due to excess calories (6) Hypothyroidism Current Visit: Yes Status: Chronic Qualifiers: Hypothyroidism type: unspecified Qualified Code(s): E03.9 - Hypothyroidism , unspecified (7) History of pulmonary embolism Current Visit: Yes Status: Chronic Assessment and plan: Continue Eliquis for long-term anticoagulation. (8) Depression Current Visit: Yes Status: Chronic Qualifiers: Depression Type: unspecified Qualified Code(s): F32.9 - Major depressive disorder, single episode, unspecified (9) Anxiety Current Visit: Yes Status: Chronic (10) Homicidal ideation Current Visit: Yes Status: Chronic Assessment and plan: Continues to have homicidal thoughts with no specific plan, towards her boyfriend's sister. Case discussed with psychiatry, recommend no further intervention at this time. Patient is stable for discharge. - Subjective Interval history: Improved abdominal pain, nausea, diarrhea; able to tolerate diet; expresses homicidal thoughts towards her boyfriend's sister, which is not new and she claims she has no means to meet her; - Constitutional Vitals: Temp Pulse Resp BP Pulse Ox 98.0 F 69 17 94/62 95 01/24/17 11:09 01/24/17 11:09 01/24/17 11:09 01/24/17 11:09 01/24/17 11:09 General appearance: Present: A&O X 3, obese, answers questions appropriately - Respiratory Respiratory exam: Present: CTAB. Absent: accessory muscle use, rales, rhonchi, wheezes - Cardiovascular Cardiovascular exam: Present: RRR, +S1, +S2. Absent: diastolic murmur, gallop, rubs, systolic murmur - GI/Abdominal GI/Abdominal exam: Present: normal bowel sounds, soft, no peritoneal signs. Absent: distended, tenderness Internal Medicine: Result - Labs CBC & Chem 7: 01/22/17 03:08 01/24/17 13:59 - VTE Documentation of Mechanical Device: Graduated compression elastic hosiery Consult Discharge Plan - Plan Referrals: Lavell Capps MD [Primary Care Provider] - 01/25/17 2:15 pm
[2017-01-24] MEDS: *HR* OxyCODONE Immed Rel 5 MG TABLET PO PRN (20:58)
[2017-01-25 06:14] LABS: BUN/Creatinine Ratio 15 (6-26); Blood Urea Nitrogen 9 mg/dL (7-20); Calcium 8.8 mg/dL (8.6-10.8); Carbon Dioxide 27 mEq/L (19-29); Chloride 109 mEq/L (98-109); Glucose 97 mg/dL (70-99); Magnesium 1.6 mg/dL (1.6-2.6); Osmolality,Calculated 291 (280-300); Sodium 141 mEq/L (136-145); eGFR For African Americans > 60 (> 60); eGFR For Non-African Americans > 60 (> 60)
[2017-01-25] MEDS: Famotidine 20 MG TABLET PO SCH ×2 (06:24→17:08)
[2017-01-25] MEDS: Lactobacillus 1 EACH CAP.SPRINK PO SCH ×2 (07:41→19:59)
[2017-01-25] MEDS: APIXABAN 5 MG TABLET PO SCH ×2 (07:41→19:59)
[2017-01-25] MEDS: Pregabalin 75 MG CAPSULE PO SCH ×2 (07:41→19:58)
[2017-01-25] MEDS: Nicotine 21 MG PATCH.TD24 TD SCH (07:42)
[2017-01-25] MEDS: metroNIDAZOLE 500 MG TABLET PO SCH ×2 (07:42→15:09)
--- NOTE | 2017-01-25 15:32 | Internal Med Progress Note ---
Date of Encounter: 01/25/17 Time of Encounter: 11:30 - Assessment and plan (1) Colitis Current Visit: Yes Status: Acute Assessment and plan: CT abdomen was suggestive of nonspecific colitis. Continue oral ciprofloxacin and Flagyl- day 5 to complete a 10 day course of antibiotics. GI consult appreciated, plan for outpatient colonoscopy. Patient is medically stable for discharge at this time; awaiting rehabilitation placement, pending insurance authorization. (2) Intractable nausea and vomiting Current Visit: Yes Status: Resolved Qualifiers: Vomiting type: cyclical vomiting Qualified Code(s): G43.A1 - Cyclical vomiting, intractable (3) Diverticulitis large intestine w/o perforation or abscess w/o bleeding Current Visit: Yes Status: Acute Assessment and plan: CT abdomen is suggestive of possible diverticulitis. Continue antibiotics, consulted GI, agree with current management. Recommend outpatient colonoscopy. Improved diarrhea. Stool studies show positive WBC, negative for C. difficile toxin and other stool pathogens. (4) Fibromyalgia Current Visit: Yes Status: Chronic Assessment and plan: Continue home medications. (5) Morbid obesity Current Visit: Yes Status: Chronic Qualifiers: Obesity type: due to excess calories Qualified Code(s): E66.01 - Morbid ( severe) obesity due to excess calories (6) Hypothyroidism Current Visit: Yes Status: Chronic Qualifiers: Hypothyroidism type: unspecified Qualified Code(s): E03.9 - Hypothyroidism , unspecified (7) History of pulmonary embolism Current Visit: Yes Status: Chronic Assessment and plan: Continue Eliquis for long-term anticoagulation. (8) Depression Current Visit: Yes Status: Chronic Qualifiers: Depression Type: unspecified Qualified Code(s): F32.9 - Major depressive disorder, single episode, unspecified (9) Anxiety Current Visit: Yes Status: Chronic (10) Homicidal ideation Current Visit: Yes Status: Chronic Assessment and plan: Continues to have homicidal thoughts with no specific plan, towards her boyfriend's sister. Case discussed with psychiatry, recommend no further intervention at this time. Patient is stable for discharge. - Subjective Interval history: No new complaints. Improved nausea, vomiting, diarrhea and abdominal pain. Awaiting placement in rehabilitation facility. - Constitutional Vitals: Temp Pulse Resp BP Pulse Ox 98.2 F 65 16 100/67 96 01/25/17 14:50 01/25/17 14:50 01/25/17 14:50 01/25/17 14:50 01/25/17 14:50 General appearance: Present: A&O X 3, morbidly obese, answers questions appropriately - Respiratory Respiratory exam: Present: CTAB. Absent: accessory muscle use, rales, rhonchi, wheezes - Cardiovascular Cardiovascular exam: Present: RRR, +S1, +S2. Absent: diastolic murmur, gallop, rubs, systolic murmur - GI/Abdominal GI/Abdominal exam: Present: normal bowel sounds, soft, no peritoneal signs. Absent: distended, tenderness Internal Medicine: Result - Labs CBC & Chem 7: 01/22/17 03:08 01/25/17 05:33 Labs: BMP 01/25/17 05:33 Sodium 141 Potassium 4.0 Chloride 109 Carbon Dioxide 27 BUN 9 Creatinine 0.59 Glucose 97 Calcium 8.8 - VTE Documentation of Mechanical Device: Graduated compression elastic hosiery Consult Discharge Plan - Plan Referrals: Lavell Capps MD [Primary Care Provider] -
[2017-01-25] MEDS: *HR* OxyCODONE Immed Rel 5 MG TABLET PO PRN (17:12)
[2017-01-26] MEDS: metroNIDAZOLE 500 MG TABLET PO SCH ×2 (00:02→08:19)
[2017-01-26 04:31] LABS: Basophils # 0.1 K/mcL (0.0-0.2); Basophils % 0.7 %; Eosinophils # 0.2 K/mcL (0.0-0.6); Eosinophils % 2.5 %; Hematocrit 40.5 % (35.3-44.9); Hemoglobin 13.1 g/dL (11.5-15.4); Immature Granulocytes % 0.3 % (0-4); Lymphocytes # 2.3 K/mcL (0.6-4.6); Lymphocytes % 31.9 %; Mean Corpuscular HGB Conc 32.3 g/dL (31.6-35.5); Mean Corpuscular Hemoglobin 27.2 pg (28.0-33.3); Mean Corpuscular Volume 84.2 fL (83.0-100.0); Monocytes # 0.7 K/mcL (0.0-1.3); Monocytes % 9.6 %; Platelet Count 190 K/mcL (140-400); Red Blood Count 4.81 M/mcL (3.82-4.97); Red Cell Distribution Width 15.8 % (11.5-14.5)
[2017-01-26 04:54] LABS: BUN/Creatinine Ratio 17 (6-26); Blood Urea Nitrogen 10 mg/dL (7-20); Calcium 8.7 mg/dL (8.6-10.8); Carbon Dioxide 25 mEq/L (19-29); Chloride 109 mEq/L (98-109); Glucose 95 mg/dL (70-99); Magnesium 1.5 mg/dL (1.6-2.6); Osmolality,Calculated 289 (280-300); Potassium 4.2 mEq/L (3.5-4.5); Sodium 140 mEq/L (136-145); eGFR For African Americans > 60 (> 60); eGFR For Non-African Americans > 60 (> 60)
[2017-01-26] MEDS: Famotidine 20 MG TABLET PO SCH (06:32)
[2017-01-26] MEDS: Nicotine 21 MG PATCH.TD24 TD SCH (08:19)
[2017-01-26] MEDS: Lactobacillus 1 EACH CAP.SPRINK PO SCH (08:19)
[2017-01-26] MEDS: Pregabalin 75 MG CAPSULE PO SCH (08:19)
[2017-01-26] MEDS: APIXABAN 5 MG TABLET PO SCH (08:19)
[2017-01-26] MEDS: *HR* OxyCODONE Immed Rel 5 MG TABLET PO PRN (08:25)
[2017-01-26] MEDS ORDERED: Magnesium Sulfate 2 GM in D5% in Water 100 ML IVPB ONE (10:06)
--- NOTE | 2017-01-26 10:39 | Electrocardiograph Report ---
[place] [id number] Test Date: 2017-01-26 Pat Name: Kamla Blackburn Department: 113 Room: 3B Gender: F Critical Care Paramedic: ANTONINA : 1970 Requested By: Brett Greco Order Number: [id number] Reading MD: Grupo Vazquez Measurements Intervals [place] Rate: 64 P: 37 TN: 186 QRS: 22 QRSD: 93 T: 12 QT: 397 QTc: 407 Interpretive Statements SINUS RHYTHM INFERIOR ST AND T WAVE CHANGES Electronically Signed On 01-26-2017 10:37:42 EDT by Grupo Vazquez
--- NOTE | 2017-01-26 10:41 | Discharge Summary ---
Date of Encounter: 01/26/17 Time of Encounter: 10:37 - Discharge Diagnosis (1) Colitis Priority: Primary Status: Acute (2) Intractable nausea and vomiting Priority: Primary Status: Resolved Qualifiers: Vomiting type: cyclical vomiting Qualified Code(s): G43.A1 - Cyclical vomiting, intractable (3) Diverticulitis large intestine w/o perforation or abscess w/o bleeding Priority: Primary Status: Acute (4) Fibromyalgia Priority: Secondary Status: Chronic (5) Morbid obesity Priority: Secondary Status: Chronic Qualifiers: Obesity type: due to excess calories Qualified Code(s): E66.01 - Morbid ( severe) obesity due to excess calories (6) Hypothyroidism Priority: Secondary Status: Chronic Qualifiers: Hypothyroidism type: unspecified Qualified Code(s): E03.9 - Hypothyroidism , unspecified (7) History of pulmonary embolism Priority: Secondary Status: Chronic (8) Depression Priority: Secondary Status: Chronic Qualifiers: Depression Type: unspecified Qualified Code(s): F32.9 - Major depressive disorder, single episode, unspecified (9) Anxiety Priority: Secondary Status: Chronic (10) Homicidal ideation Priority: Secondary Status: Chronic - Discharge Medications Prescriptions: MetroNIDAZOLE [Flagyl] 500 mg PO Q8HR #12 tablet Ciprofloxacin [Cipro] 500 mg PO Q12HR #8 tablet Lactobacillus [Culturelle] 1 each PO BID #30 cap.sprink Home Medications: Ergocalciferol (VITAMIN D2) [Vitamin D2 (50,000 UNIT)] 50,000 unit PO WE [History] Levothyroxine [Synthroid] 75 mcg PO DAILY 10/15/15 [History] Apixaban [Eliquis] 5 mg PO BID 09/21/16 [History] Ciprofloxacin [Cipro] 500 mg PO Q12HR #8 tablet 01/26/17 [Rx] Duloxetine [Cymbalta] 90 mg PO DAILY capsule. 01/26/17 [Rx] Lactobacillus [Culturelle] 1 each PO BID #30 cap.sprink 01/26/17 [Rx] Loratadine [Claritin] 10 mg PO DAILY PRN #0 tablet 01/26/17 [Rx] MetroNIDAZOLE [Flagyl] 500 mg PO Q8HR #12 tablet 01/26/17 [Rx] Pregabalin [Lyrica] 300 mg PO BID capsule 01/26/17 [Rx] Allergies/Adverse Reactions: Allergies Erythromycin Base Adverse Reaction (Verified 01/04/17 18:36) Vomiting naproxen Adverse Reaction (Verified 01/04/17 18:36) Vomiting tramadol Adverse Reaction (Verified 01/04/17 18:36) Vomiting Procedures/tests Complete & Pending: Procedures Performed prior 72 hours Category Date Time Status EKG [ECG 12 lead ECG] [ECG] Routine Y 01/26/17 03:24 Completed Date of admission: 01/20/17 00:54 Primary care physician: Lavell Capps MD Consults: 01/20/17 10:48 Consult to Occupational Therapy [CONS] Routine Comment: Evaluate, develop and implement POC Consult to Physical Therapy [CONS] Routine Comment: Evaluate, develop and implement POC Consult to [facility] [CONS] Routine Reason for SW Consult: Pt is wanting to go to [facility]. 01/20/17 11:37 Consult to Gastroenterology [CONS] Routine Consulting Provider: Gastroenterology Eve Reason for Consult: recent c-diff with treatment, recurrent n/v/d for [address]- colitis, thickening. Time Notified: 11:38 Call Completed: Yes 01/20/17 12:24 Consult to Psychiatry [CONS] Routine Consulting Provider: Psychiatry Eve Reason for Consult: suicidal/homicidal ideas per ED consult Time Notified: 12:20 Call Completed: Yes Discharging clinician: Kelli Kwong Anticipated date of discharge: 01/26/17 - Patient Status Disposition: Home Health Service Condition: Good Functional capacity at discharge: uses cane/walker Overall status at discharge: patient is progressing back to baseline - Discharge Instructions Instructions: Fall Prevention (DC), Infectious Colitis, Conveyor Attendant (GEN) Follow Up With: Lavell Capps MD [Primary Care Provider] - 01/31/17 2:15 pm Maryanne Palomares MD [Partnered Physician] - (We have requested a follow up appointment with Dr Palomares. The office will call you at home with an appointment date and time.) Additional Instructions: F/up with [facility] in 3-4 weeks - Diet and Activity Activity: as per physical therapy Diet: low fat, low cholesterol, low salt diet Hospital course: Ms. Blackburn is a 46 year old female with the above medical problems who was initially admitted with intractable nausea, vomiting and abdominal pain. CT abdomen/pelvis done in the emergency room showed possible nonspecific colitis and diverticulitis. She has been started on IV hydration, IV antibiotics- ciprofloxacin and Flagyl and was initially kept nothing by mouth. GI was consulted who agreed with this management and recommended outpatient colonoscopy. Patient was gradually able to tolerate oral diet and oral antibiotics. Physical therapy evaluation was done and recommended placement in extended care facility for continued rehabilitation. Patient had a prolonged hospitalization, awaiting rehabilitation placement, however did not receive insurance authorization and is currently stable for discharge home with home health services; Referral has been completed. Patient was noted to have homicidal thoughts towards her boyfriend's sister for possibly overdosing her on Lyrica and causing bilateral lower extremity weakness. However these thoughts are chronic with no specific plan. Case has been discussed with psychiatry, who recommends patient is stable for discharge with outpatient follow-up. - Time Spent with Patient Total time spent providing and/or coordinating discharge services: Greater than 30 minutes (45 min) - Constitutional Vitals: Temp Pulse Resp BP Pulse Ox 98.3 F 64 16 103/66 96 01/26/17 07:20 01/26/17 07:20 01/26/17 07:20 01/26/17 07:20 01/26/17 07:20 General appearance: Present: A&O X 3, morbidly obese, answers questions appropriately - Respiratory Respiratory exam: Present: CTAB. Absent: accessory muscle use, rales, rhonchi, wheezes - Cardiovascular Cardiovascular exam: Present: RRR, +S1, +S2. Absent: diastolic murmur, gallop, rubs, systolic murmur - VTE Documentation of Mechanical Device: Graduated compression elastic hosiery
--- NOTE | 2017-01-26 10:52 | Physician Discharge Referral ---
Home Health/Hosp Referral Info Transfer to: Home Health Attending Provider: Kelli Kwong Provider in Charge Post Discharge: PCP - Diagnosis (1) Colitis Priority: Primary Status: Acute (2) Intractable nausea and vomiting Priority: Primary Status: Resolved (3) Diverticulitis large intestine w/o perforation or abscess w/o bleeding Priority: Primary Status: Acute (4) Fibromyalgia Priority: Secondary Status: Chronic (5) Morbid obesity Priority: Secondary Status: Chronic (6) Hypothyroidism Priority: Secondary Status: Chronic (7) History of pulmonary embolism Priority: Secondary Status: Chronic (8) Depression Priority: Secondary Status: Chronic (9) Anxiety Priority: Secondary Status: Chronic (10) Homicidal ideation Priority: Secondary Status: Chronic - Respiratory Orders Smoking Cessation: Smoking cessation has been advised. For more information, call the [employer] Quit Line at 7-765-NGFO-NOW. - Diet/Nutrition Diet/Nutrition Orders: Cardiac - Activity Activity Orders: Ambulate - Services Needed Following services are medically necessary services: Physical Therapy, Occupational Therapy - Transfer Medications Prescriptions: MetroNIDAZOLE [Flagyl] 500 mg PO Q8HR #12 tablet Ciprofloxacin [Cipro] 500 mg PO Q12HR #8 tablet Lactobacillus [Culturelle] 1 each PO BID #30 cap.sprink Home Medications: Ergocalciferol (VITAMIN D2) [Vitamin D2 (50,000 UNIT)] 50,000 unit PO WE [History] Levothyroxine [Synthroid] 75 mcg PO DAILY 10/15/15 [History] Apixaban [Eliquis] 5 mg PO BID 09/21/16 [History] Ciprofloxacin [Cipro] 500 mg PO Q12HR #8 tablet 01/26/17 [Rx] Duloxetine [Cymbalta] 90 mg PO DAILY capsule. 01/26/17 [Rx] Lactobacillus [Culturelle] 1 each PO BID #30 cap.sprink 01/26/17 [Rx] Loratadine [Claritin] 10 mg PO DAILY PRN #0 tablet 01/26/17 [Rx] MetroNIDAZOLE [Flagyl] 500 mg PO Q8HR #12 tablet 01/26/17 [Rx] Pregabalin [Lyrica] 300 mg PO BID capsule 01/26/17 [Rx] Allergies/Adverse Reactions: Allergies Erythromycin Base Adverse Reaction (Verified 01/04/17 18:36) Vomiting naproxen Adverse Reaction (Verified 01/04/17 18:36) Vomiting tramadol Adverse Reaction (Verified 01/04/17 18:36) Vomiting Certification: Further, I certify that my clinical findings support that this patient is homebound (i.e. absences from home require considerable and taxing effort and are for medical reasons or taoist services or infrequently or short duration when for other reasons) because: Homebound Reason: Patient requires assistance of a person or device to safely leave home, Leaving home requires considerable and taxing effort due to condition Attestation: My signature below is to certify that this patient is under my care and that I, or nurse practitioner, or a physician's gallery assistant working with me, has a face-to -face encounter with this patient.
[2017-01-26 15:36] VITALS: BP 99/67
== END 2017-01-26 17:45 | disposition home health service (06) ==
LOC: 3BNU 20:35 → EMEROO 20:35 → SUATTDRO 01-20 00:54 → 3BNU 01-20 01:29
PROVIDERS: ADMIT Internal Medicine; ATTEND Internal Medicine

== ENCOUNTER 2017-02-28 17:46 | Inpatient (IN) ==
[2017-02-28] MEDS ORDERED: *HR* Morphine 2 MG/ML SYRINGE IVP ONE (18:07)
[2017-02-28] MEDS ORDERED: Ondansetron 4 MG/2 ML VIAL IVP ONE (18:07)
[2017-02-28] MEDS ORDERED: 0.9 % Sodium Chloride 1,000 ML IVC ONE (18:07)
--- NOTE | 2017-02-28 18:20 | Emergency Department Note ---
Disposition Clinical Impression: C. difficile colitis, Hypokalemia, Oral candidiasis Disposition: Admitted As Inpatient Condition: Fair Referrals: Unassigned,Provider [Non-Partnered Physician] - Forms: ED Satisfaction Letter Nausea/Vomiting/Diarrhea HPI - General Chief complaint: ED Nausea/Vomiting/Diarrhea Stated complaint: N/V/D Time Seen by Provider: 02/28/17 17:53 Nursing Notes Reviewed: Yes Vital Signs Reviewed: Yes - History of Present Illness HPI Narrative: 46-year-old female with a history of previous gastric bypass presents to the ED with a chief complaint of epigastric pain and diarrhea. She has had months of chronic diarrhea and has had C. difficile in the past. She spent one month in the hospital around August and ended up in a nursing/rehabilitation facility for several months. Since she has been home she has had ongoing diarrhea and epigastric pain that has been worsening. She has had decreased oral intake and according to friends and family she only drinks water and has had very little caloric intake. She has had no fevers or chills. Nausea without vomiting. When she swallows she states it feels like it gets stuck in the stomach area and then comes back up. Denies any black or bloody stool. Stool is described as thin and brown without black or bloody stools. Denies any history of [place]. Denies any shortness of breath. Patient states she is generally weak and can hardly get out of bed and care for herself. - Related Data Home Medications Medication Instructions Recorded Confirmed Levothyroxine [Synthroid] 75 mcg PO DAILY 10/15/15 02/28/17 Apixaban [Eliquis] 5 mg PO BID 09/21/16 02/28/17 Buspirone HCl [Buspar] 10 mg PO BID 02/28/17 02/28/17 Cholecalciferol (Vitamin D3) 2,000 unit PO DAILY 02/28/17 02/28/17 [Vitamin D] Diclofenac Sodium [Voltaren] 1 appl TP QID PRN 02/28/17 02/28/17 Methocarbamol [Robaxin] 750 mg PO TID PRN 02/28/17 02/28/17 Sertraline [Zoloft] 50 mg PO DAILY 02/28/17 02/28/17 Vitamin B Complex 1 each PO DAILY 02/28/17 02/28/17 Previous Rx's Medication Instructions Recorded Nystatin [Nystatin Suspension] 100,000 unit PO QID 14 Days 02/25/17 Ondansetron ODT [Zofran ODT] 4 mg SL Q6HR #20 tab.barrettdis 02/25/17 Allergies Allergy/AdvReac Type Severity Reaction Status Date / Time Erythromycin Base AdvReac Vomiting Verified 02/28/17 17:47 naproxen AdvReac Vomiting Verified 02/28/17 17:47 tramadol AdvReac Vomiting Verified 02/28/17 17:47 All systems ED: reviewed and negative except as stated. Constitutional: Denies: fever Cardiovascular: Denies: chest pain Respiratory: Denies: cough Gastrointestinal: Reports: abdominal pain (Epigastric), nausea, diarrhea. Denies: vomiting, hematemesis, melena, hematochezia Genitourinary: Denies: dysuria Neurological: Denies: headache, weakness, numbness Past Medical History - Past Medical History Medical history: Reports: arthritis, asthma, fibromyalgia, GERD, hyperlipidemia , hypertension, kidney stones, osteoporosis, pulmonary embolus, renal disease, thyroid disease, other Surgical history: Reports: cholecystectomy, hysterectomy, ROS/BSO, other ( [facility] surgery.), bariatric surgery Psychiatric history: Reports: anxiety, depression, other MAT WEAVER history: Reports: bilateral tubal ligation, other - Social History Smoking Status: Current every day smoker Smokeless Tobacco Status: No Alcohol use: Reports: none, unknown Drug use: Reports: none, unknown Physical Exam General: Patient is a chronically ill-appearing female much older than her stated age Cardiovascular: Regular rate and rhythm. S1, S2. No murmurs, rubs or gallops. Respiratory: Breath sounds clear bilaterally. No wheezing, rales or rhonchi. No resp distress Abdomen: Abdomen is soft without any guarding, rebound or rigidity. She has some epigastric tenderness without a positive Montiel sign. No lower abdominal tenderness. Eyes: Conjunctiva clear without any scleral icterus, drainage or discharge HENT: She has a white plaque on her tongue and mucous membranes appear dry but no other lesions or abnormal findings. She is having no difficulty speaking, breathing or handling her secretions Neuro: Alert and oriented, no motor or sensory deficits Musculoskeletal: No lower extremity edema or swelling. No joint swelling or tenderness. Skin: No lesions. No diaphoresis. Normal turgor. Normal color. No rashes. Psych: Appropriate Course Course Narrative: Presents with worsening diarrhea over the last several weeks as well as abdominal pain. On exam her abdomen is tender but without any surgical findings. She is afebrile with stable vitals. A stool sample was sent which came back positive for C. difficile. This is apparently her second bottle and will continue IV Flagyl. She has been having difficulties tolerating oral intake. Her potassium is low at 2.6 and this has been low in the past. We will start IV potassium. A CT scan was performed with her worsening tenderness , previous gastric bypass, and difficulty tolerating oral intake. CT scan shows pancolitis but no evidence of megacolon perforation. I discussed with the on-call hospice, Dr. Hsu who accepts for admission, no further orders at this time Vital Signs Temperature 99.3 F 02/28/17 17:47 Pulse Rate 92 02/28/17 17:47 Respiratory Rate 15 02/28/17 17:47 Blood Pressure 106/68 02/28/17 17:47 O2 Sat by Pulse Oximetry 94 02/28/17 17:47 Temperature 99.3 F 02/28/17 17:47 Pulse Rate 86 02/28/17 20:44 Respiratory Rate 20 02/28/17 20:44 Blood Pressure 106/57 02/28/17 20:44 O2 Sat by Pulse Oximetry 99 02/28/17 20:44 Oxygen Delivery Oxygen Delivery Room Air Nausea/Vomiting/Diarrhea - Lab Data Result diagrams: 02/28/17 18:51 02/28/17 18:51 Lab Results 02/28/17 02/28/17 02/28/17 Range/Units 18:29 18:30 18:51 WBC 12.5 H (4.3-11.1) K/mcL RBC 5.41 H (3.82-4.97) M/mcL Hgb 15.0 (11.5-15.4) g/dL Hct 43.3 (35.3-44.9) % MCV 80.0 L (83.0-100.0) fL MCH 27.7 L (28.0-33.3) pg MCHC 34.6 (31.6-35.5) g/dL RDW 14.1 (11.5-14.5) % Plt Count 274 (140-400) K/mcL MPV 10.4 (9.4-12.4) fL Immature Gran % 0.5 (0-4) % Seg Neutrophils % 75.0 % Lymphocytes % 16.7 % Monocytes % 6.5 % Eosinophils % 0.7 % Basophils % 0.6 % Neutrophils # 9.4 H (1.6-8.9) K/mcL Lymphocytes # 2.1 (0.6-4.6) K/mcL Monocytes # 0.8 (0.0-1.3) K/mcL Eosinophils # 0.1 (0.0-0.6) K/mcL Basophils # 0.1 (0.0-0.2) K/mcL Sodium (136-145) mEq/L Potassium (3.5-4.5) mEq/L Chloride (98-109) mEq/L Carbon Dioxide (19-29) mEq/L BUN (7-20) mg/dL Creatinine (0.57-1.11) mg/dL Est GFR ( Amer) (> 60) Est GFR (Non-Af Amer) (> 60) BUN/Creatinine Ratio (6-26) Glucose (70-99) mg/dL Calculated Osmolality (280-300) Calcium (8.6-10.8) mg/dL Total Bilirubin (0.2-1.2) mg/dL AST (5-34) Units/L ALT (0-55) Units/L Alkaline Phosphatase (38-126) Units/L Troponin I (0-0.03) ng/mL Serum Total Protein (6.0-8.3) g/dL Albumin (3.5-5.0) g/dL Globulin (2.4-3.5) g/dL Albumin/Globulin Ratio (1.1-2.2) Lipase (8-78) Units/L Urine Color Dark Yellow (Yellow) Urine Clarity Cloudy A (Clear) Urine pH 7.0 (5.0-8.0) pH Units Ur Specific Keno 1.015 (1.010-1.025) Urine Protein Negative (Neg-Trace) mg/dL Urine Glucose (UA) Normal (Normal) mg/dL Urine Ketones Negative (Negative) mg/dL Urine Blood Negative (Negative) Urine Nitrite Negative (Negative) Urine Bilirubin Moderate H (Negative) Urine Urobilinogen Normal (Normal) mg/dL Ur Leukocyte Esterase Small H (Negative) Urine Microscopic RBC 3-5 H (0-3) per hpf Urine Microscopic WBC 5-15 H (0-3) per hpf Ur Squamous Epith Cells Many H (None-Few) per lpf Urine Bacteria Few (None-Few) per hpf Hyaline Casts None Seen (None-Few) per lpf Ur Culture Indicated? YES A (NO) Stl C. diff Tox B Gene Positive (Negative) 02/28/17 02/28/17 Range/Units 18:51 18:51 WBC (4.3-11.1) K/mcL RBC (3.82-4.97) M/mcL Hgb (11.5-15.4) g/dL Hct (35.3-44.9) % MCV (83.0-100.0) fL MCH (28.0-33.3) pg MCHC (31.6-35.5) g/dL RDW (11.5-14.5) % Plt Count (140-400) K/mcL MPV (9.4-12.4) fL Immature Gran % (0-4) % Seg Neutrophils % % Lymphocytes % % Monocytes % % Eosinophils % % Basophils % % Neutrophils # (1.6-8.9) K/mcL Lymphocytes # (0.6-4.6) K/mcL Monocytes # (0.0-1.3) K/mcL Eosinophils # (0.0-0.6) K/mcL Basophils # (0.0-0.2) K/mcL Sodium 134 L (136-145) mEq/L Potassium 2.6 L (3.5-4.5) mEq/L Chloride 94 L (98-109) mEq/L Carbon Dioxide 28 (19-29) mEq/L BUN 5 L (7-20) mg/dL Creatinine 0.62 (0.57-1.11) mg/dL Est GFR ( Amer) > 60 (> 60) Est GFR (Non-Af Amer) > 60 (> 60) BUN/Creatinine Ratio 8 (6-26) Glucose 109 H (70-99) mg/dL Calculated Osmolality 276 L (280-300) Calcium 8.9 (8.6-10.8) mg/dL Total Bilirubin 0.9 (0.2-1.2) mg/dL AST 6 (5-34) Units/L ALT < 6 (0-55) Units/L Alkaline Phosphatase 82 (38-126) Units/L Troponin I 0.01 (0-0.03) ng/mL Serum Total Protein 6.3 (6.0-8.3) g/dL Albumin 2.8 L (3.5-5.0) g/dL Globulin 3.5 (2.4-3.5) g/dL Albumin/Globulin Ratio 0.8 L (1.1-2.2) Lipase 46 (8-78) Units/L Urine Color (Yellow) Urine Clarity (Clear) Urine pH (5.0-8.0) pH Units Ur Specific Keno (1.010-1.025) Urine Protein (Neg-Trace) mg/dL Urine Glucose (UA) (Normal) mg/dL Urine Ketones (Negative) mg/dL Urine Blood (Negative) Urine Nitrite (Negative) Urine Bilirubin (Negative) Urine Urobilinogen (Normal) mg/dL Ur Leukocyte Esterase (Negative) Urine Microscopic RBC (0-3) per hpf Urine Microscopic WBC (0-3) per hpf Ur Squamous Epith Cells (None-Few) per lpf Urine Bacteria (None-Few) per hpf Hyaline Casts (None-Few) per lpf Ur Culture Indicated? (NO) Stl C. diff Tox B Gene (Negative) - EKG Data EKG results narrative: EKG shows sinus tachycardia with a rate of 106 bpm. There is no ischemic ST changes. No ischemic T-wave changes. Intervals within normal limits. Normal axis. Normal R-wave progression.
[2017-02-28 18:43] LABS: Bilirubin,Urine Moderate (Negative); Blood,Urine Negative (Negative); Clarity,Urine Cloudy (Clear); Color,Urine Dark Yellow (Yellow); Glucose,Urine (UA) Normal (Normal); Ketones,Urine Negative (Negative); Leukocyte Esterase,Urine Small (Negative); Nitrite,Urine Negative (Negative); Protein,Urine Negative (Neg-Trace); Specific Gravity,Urine 1.015 (1.010-1.025); Urobilinogen,Urine Normal (Normal)
[2017-02-28 18:45] LABS: Bacteria,Urine Few per hpf (None-Few); Hyaline Casts,Urine None Seen per lpf (None-Few); Squamous Epithelial Cell,Urine Many per lpf (None-Few)
[2017-02-28 19:04] LABS: Basophils # 0.1 K/mcL (0.0-0.2); Basophils % 0.6 %; Eosinophils # 0.1 K/mcL (0.0-0.6); Eosinophils % 0.7 %; Hematocrit 43.3 % (35.3-44.9); Immature Granulocytes % 0.5 % (0-4); Lymphocytes # 2.1 K/mcL (0.6-4.6); Lymphocytes % 16.7 %; Mean Corpuscular HGB Conc 34.6 g/dL (31.6-35.5); Mean Corpuscular Hemoglobin 27.7 pg (28.0-33.3); Mean Platelet Volume 10.4 fL (9.4-12.4); Monocytes # 0.8 K/mcL (0.0-1.3); Monocytes % 6.5 %; Neutrophils # 9.4 K/mcL (1.6-8.9); Platelet Count 274 K/mcL (140-400); Red Blood Count 5.41 M/mcL (3.82-4.97); Red Cell Distribution Width 14.1 % (11.5-14.5)
[2017-02-28 19:18] LABS: Albumin 2.8 g/dL (3.5-5.0); Albumin/Globulin Ratio 0.8 (1.1-2.2); Alkaline Phosphatase 82 Units/L (38-126); Aspartate Amino Transferase 6 Units/L (5-34); Bilirubin,Total 0.9 mg/dL (0.2-1.2); Calcium 8.9 mg/dL (8.6-10.8); Carbon Dioxide 28 mEq/L (19-29); Chloride 94 mEq/L (98-109); Globulin 3.5 g/dL (2.4-3.5); Glucose 109 mg/dL (70-99); Lipase 46 Units/L (8-78); Potassium 2.6 mEq/L (3.5-4.5); Sodium 134 mEq/L (136-145); Total Protein 6.3 g/dL (6.0-8.3); eGFR For African Americans > 60 (> 60); eGFR For Non-African Americans > 60 (> 60)
--- NOTE | 2017-02-28 19:25 | Emergency Department Note ---
Disposition Clinical Impression: C. difficile colitis, Hypokalemia, Oral candidiasis Disposition: Admitted As Inpatient Condition: Fair Nausea/Vomiting/Diarrhea HPI - General Chief complaint: ED Nausea/Vomiting/Diarrhea Stated complaint: N/V/D Time Seen by Provider: 02/28/17 17:53 - Related Data Home Medications Medication Instructions Recorded Confirmed Levothyroxine [Synthroid] 75 mcg PO DAILY 10/15/15 02/28/17 Apixaban [Eliquis] 5 mg PO BID 09/21/16 02/28/17 Buspirone HCl [Buspar] 10 mg PO BID 02/28/17 02/28/17 Cholecalciferol (Vitamin D3) 2,000 unit PO DAILY 02/28/17 02/28/17 [Vitamin D] Diclofenac Sodium [Voltaren] 1 appl TP QID PRN 02/28/17 02/28/17 Methocarbamol [Robaxin] 750 mg PO TID PRN 02/28/17 02/28/17 Sertraline [Zoloft] 50 mg PO DAILY 02/28/17 02/28/17 Vitamin B Complex 1 each PO DAILY 02/28/17 02/28/17 Previous Rx's Medication Instructions Recorded Nystatin [Nystatin Suspension] 100,000 unit PO QID 14 Days 02/25/17 Ondansetron ODT [Zofran ODT] 4 mg SL Q6HR #20 tab.rapdis 02/25/17 Allergies Allergy/AdvReac Type Severity Reaction Status Date / Time Erythromycin Base AdvReac Vomiting Verified 02/28/17 17:47 naproxen AdvReac Vomiting Verified 02/28/17 17:47 tramadol AdvReac Vomiting Verified 02/28/17 17:47 Constitutional: Denies: fever Cardiovascular: Denies: chest pain Respiratory: Denies: cough Gastrointestinal: Reports: abdominal pain (Epigastric), nausea, diarrhea. Denies: vomiting, hematemesis, melena, hematochezia Genitourinary: Denies: dysuria Neurological: Denies: headache, weakness, numbness Past Medical History - Past Medical History Medical history: Reports: arthritis, asthma, fibromyalgia, GERD, hyperlipidemia , hypertension, kidney stones, osteoporosis, pulmonary embolus, renal disease, thyroid disease, other Surgical history: Reports: cholecystectomy, hysterectomy, ROS/BSO, other ( Bariaric surgery.), bariatric surgery Psychiatric history: Reports: anxiety, depression, other [employer] history: Reports: bilateral tubal ligation, other - Social History Smoking Status: Current every day smoker Smokeless Tobacco Status: No Alcohol use: Reports: none, unknown Drug use: Reports: none, unknown Course - Reevaluation(s) Reevaluation #1: The patient with the resident, Dr. Garcia. Patient complains of nausea and vomiting diarrhea. Inability to eat. Just basically has become bedridden. Physical exam shows an overweight woman but otherwise unremarkable with the exception of white coating on the tong. She complains of pain with swallowing. She has a number of medical issues including her previous gastric bypass. We are going to do a workup on the patient including labs and CAT scan of the belly. If this patient is not able to care for herself at home we may need to figure out placement. Time: 19:25 Vital Signs Temperature 99.3 F 02/28/17 17:47 Pulse Rate 92 02/28/17 17:47 Respiratory Rate 15 02/28/17 17:47 Blood Pressure 106/68 02/28/17 17:47 O2 Sat by Pulse Oximetry 94 02/28/17 17:47 Temperature 99.3 F 02/28/17 17:47 Pulse Rate 86 02/28/17 20:44 Respiratory Rate 20 02/28/17 20:44 Blood Pressure 106/57 02/28/17 20:44 O2 Sat by Pulse Oximetry 99 02/28/17 20:44 Oxygen Delivery Oxygen Delivery Room Air Nausea/Vomiting/Diarrhea - Lab Data Result diagrams: 02/28/17 18:51 02/28/17 18:51 Lab Results 02/28/17 02/28/17 02/28/17 Range/Units 18:29 18:30 18:51 WBC 12.5 H (4.3-11.1) K/mcL RBC 5.41 H (3.82-4.97) M/mcL Hgb 15.0 (11.5-15.4) g/dL Hct 43.3 (35.3-44.9) % MCV 80.0 L (83.0-100.0) fL MCH 27.7 L (28.0-33.3) pg MCHC 34.6 (31.6-35.5) g/dL RDW 14.1 (11.5-14.5) % Plt Count 274 (140-400) K/mcL MPV 10.4 (9.4-12.4) fL Immature Gran % 0.5 (0-4) % Seg Neutrophils % 75.0 % Lymphocytes % 16.7 % Monocytes % 6.5 % Eosinophils % 0.7 % Basophils % 0.6 % Neutrophils # 9.4 H (1.6-8.9) K/mcL Lymphocytes # 2.1 (0.6-4.6) K/mcL Monocytes # 0.8 (0.0-1.3) K/mcL Eosinophils # 0.1 (0.0-0.6) K/mcL Basophils # 0.1 (0.0-0.2) K/mcL Sodium (136-145) mEq/L Potassium (3.5-4.5) mEq/L Chloride (98-109) mEq/L Carbon Dioxide (19-29) mEq/L BUN (7-20) mg/dL Creatinine (0.57-1.11) mg/dL Est GFR ( Amer) (> 60) Est GFR (Non-Af Amer) (> 60) BUN/Creatinine Ratio (6-26) Glucose (70-99) mg/dL Calculated Osmolality (280-300) Calcium (8.6-10.8) mg/dL Total Bilirubin (0.2-1.2) mg/dL AST (5-34) Units/L ALT (0-55) Units/L Alkaline Phosphatase (38-126) Units/L Troponin I (0-0.03) ng/mL Serum Total Protein (6.0-8.3) g/dL Albumin (3.5-5.0) g/dL Globulin (2.4-3.5) g/dL Albumin/Globulin Ratio (1.1-2.2) Lipase (8-78) Units/L Urine Color Dark Yellow (Yellow) Urine Clarity Cloudy A (Clear) Urine pH 7.0 (5.0-8.0) pH Units Ur Specific [place] 1.015 (1.010-1.025) Urine Protein Negative (Neg-Trace) mg/dL Urine Glucose (UA) Normal (Normal) mg/dL Urine Ketones Negative (Negative) mg/dL Urine Blood Negative (Negative) Urine Nitrite Negative (Negative) Urine Bilirubin Moderate H (Negative) Urine Urobilinogen Normal (Normal) mg/dL Ur Leukocyte Esterase Small H (Negative) Urine Microscopic RBC 3-5 H (0-3) per hpf Urine Microscopic WBC 5-15 H (0-3) per hpf Ur Squamous Epith Cells Many H (None-Few) per lpf Urine Bacteria Few (None-Few) per hpf Hyaline Casts None Seen (None-Few) per lpf Ur Culture Indicated? YES A (NO) Stl C. diff Tox B Gene Positive (Negative) 02/28/17 02/28/17 Range/Units 18:51 18:51 WBC (4.3-11.1) K/mcL RBC (3.82-4.97) M/mcL Hgb (11.5-15.4) g/dL Hct (35.3-44.9) % MCV (83.0-100.0) fL MCH (28.0-33.3) pg MCHC (31.6-35.5) g/dL RDW (11.5-14.5) % Plt Count (140-400) K/mcL MPV (9.4-12.4) fL Immature Gran % (0-4) % Seg Neutrophils % % Lymphocytes % % Monocytes % % Eosinophils % % Basophils % % Neutrophils # (1.6-8.9) K/mcL Lymphocytes # (0.6-4.6) K/mcL Monocytes # (0.0-1.3) K/mcL Eosinophils # (0.0-0.6) K/mcL Basophils # (0.0-0.2) K/mcL Sodium 134 L (136-145) mEq/L Potassium 2.6 L (3.5-4.5) mEq/L Chloride 94 L (98-109) mEq/L Carbon Dioxide 28 (19-29) mEq/L BUN 5 L (7-20) mg/dL Creatinine 0.62 (0.57-1.11) mg/dL Est GFR ( Amer) > 60 (> 60) Est GFR (Non-Af Amer) > 60 (> 60) BUN/Creatinine Ratio 8 (6-26) Glucose 109 H (70-99) mg/dL Calculated Osmolality 276 L (280-300) Calcium 8.9 (8.6-10.8) mg/dL Total Bilirubin 0.9 (0.2-1.2) mg/dL AST 6 (5-34) Units/L ALT < 6 (0-55) Units/L Alkaline Phosphatase 82 (38-126) Units/L Troponin I 0.01 (0-0.03) ng/mL Serum Total Protein 6.3 (6.0-8.3) g/dL Albumin 2.8 L (3.5-5.0) g/dL Globulin 3.5 (2.4-3.5) g/dL Albumin/Globulin Ratio 0.8 L (1.1-2.2) Lipase 46 (8-78) Units/L Urine Color (Yellow) Urine Clarity (Clear) Urine pH (5.0-8.0) pH Units Ur Specific [place] (1.010-1.025) Urine Protein (Neg-Trace) mg/dL Urine Glucose (UA) (Normal) mg/dL Urine Ketones (Negative) mg/dL Urine Blood (Negative) Urine Nitrite (Negative) Urine Bilirubin (Negative) Urine Urobilinogen (Normal) mg/dL Ur Leukocyte Esterase (Negative) Urine Microscopic RBC (0-3) per hpf Urine Microscopic WBC (0-3) per hpf Ur Squamous Epith Cells (None-Few) per lpf Urine Bacteria (None-Few) per hpf Hyaline Casts (None-Few) per lpf Ur Culture Indicated? (NO) Stl C. diff Tox B Gene (Negative) Attestation Statement - Attestation Attestation: I, Dr. Akbar, examined this patient [id number] and my medical decision- making was reviewed with Dr. Garcia, Resident Physician. I agree with the documented findings, disposition and treatment plan as described except to the extent set forth below. Please see my progress notes for details.
[2017-02-28 19:35] LABS: Alanine Aminotransferase < 6 Units/L (0-55); BUN/Creatinine Ratio 8 (6-26); Blood Urea Nitrogen 5 mg/dL (7-20); Osmolality,Calculated 276 (280-300)
[2017-02-28] MEDS ORDERED: MetroNIDAZOLE 500 MG/100 ML 500 MG/100 ML BAG IVPB ONE (19:52)
[2017-02-28] MEDS ORDERED: Potassium Chloride 40 MEQ, Lidocaine 1% 2 ML in D5% in Water 500 ML IVPB ONE (22:00)
[2017-02-28] MEDS ORDERED: Naloxone 0.4 MG/ML INJ IVP PRN (22:35)
--- NOTE | 2017-02-28 22:42 | Internal Med History&Physical ---
Date of Encounter: 02/28/17 Time of Encounter: 22:38 Assessment and Plan (1) C. difficile colitis Current visit: Yes Status: Acute Sepsis secondary to recurrent acute C. difficile colitis Start IV Flagyl and by mouth vancomycin Keep nothing by mouth, may try clear liquids in the morning. Isolation IV fluids The patient will be admitted as inpatient. Expected to stay more than 2 midnights. Full code. Time spent on this admission 40 minutes. Protonix IV for GI prophylaxis and eliquis for DVT prophylaxis (2) Hypothyroidism Current visit: No Status: Chronic Continue Synthroid Qualifiers: Hypothyroidism type: unspecified Qualified Code(s): E03.9 - Hypothyroidism , unspecified (3) History of pulmonary embolism Current visit: No Status: Chronic Continue eliquis (4) Fibromyalgia Current visit: No Status: Chronic (5) Dehydration Current visit: No Status: Acute Secondary to C. difficile colitis (6) Hypokalemia Current visit: Yes Status: Acute Replete as needed, add potassium to the IV fluids (7) Morbid obesity Current visit: No Status: Chronic Qualifiers: Obesity type: due to excess calories Qualified Code(s): E66.01 - Morbid ( severe) obesity due to excess calories Internal Medicine - H&P: HPI Chief complaint: Abdominal pain Admitted From: Emergency Dept History of present illness: Ms. Blackburn is a 46 year old female with history of recurrent C. difficile colitis , hypertension, hyperlipidemia, tobacco use, pulmonary emboli diagnosed in June 2016 currently on Eliquis. Came to the emergency room after having worsening abdominal pain and diarrhea. She was hospitalized and discharged on 01/26/2017 with colitis, was given ciprofloxacin and Flagyl. The patient describes 9 out of 10 type of pain, cramps 10 episodes of watery diarrhea with no blood. Blood cell count is 12.5, heart rate is 92, sodium is [address] of the abdomen shows pancolitis. She was C. difficile positive. Has not been able to keep anything down, is very dehydrated and weak. Past Med Surg Social Fam HX - Past Medical History Medical history: arthritis, asthma, fibromyalgia, GERD, hyperlipidemia, hypertension, kidney stones, osteoporosis, pulmonary embolus (on Eliquis), renal disease, thyroid disease, other (Significant colitis recurrent, bipolar disorder, fibromyalgia, hypothyroidism) Psychiatric history: anxiety, depression, other - Past Surgical History Surgical History: cholecystectomy, hysterectomy, ROS/BSO, other (Bariaric surgery. Tubal ligation), bariatric surgery - Social History Smoking Status: Current every day smoker Packs per day: One pack per day Smokeless Tobacco Status: No Alcohol use: none, unknown Drug use: none, unknown - Family History Mother Adopted: No Family Member Ethnicity: Non- Living Status: Still Living Hx Family Endocrine Disorder: Yes (DM) - Additional Family History Additional family history: Mother with diabetes, maternal grandmother with ovarian cancer Internal Medicine - H&P: Meds Levothyroxine [Synthroid] 75 mcg PO DAILY 10/15/15 [History] Apixaban [Eliquis] 5 mg PO BID 09/21/16 [History] Nystatin [Nystatin Suspension] 100,000 unit PO QID 14 Days 02/25/17 [Rx] Ondansetron ODT [Zofran ODT] 4 mg SL Q6HR #20 tab.rapdis 02/25/17 [Rx] Buspirone HCl [Buspar] 10 mg PO BID 02/28/17 [History] Cholecalciferol (Vitamin D3) [Vitamin D] 2,000 unit PO DAILY 02/28/17 [History] Diclofenac Sodium [Voltaren] 1 appl TP QID PRN 02/28/17 [History] Methocarbamol [Robaxin] 750 mg PO TID PRN 02/28/17 [History] Sertraline [Zoloft] 50 mg PO DAILY 02/28/17 [History] Vitamin B Complex 1 each PO DAILY 02/28/17 [History] Allergies Erythromycin Base Adverse Reaction (Verified 02/28/17 17:47) Vomiting naproxen Adverse Reaction (Verified 02/28/17 17:47) Vomiting tramadol Adverse Reaction (Verified 02/28/17 17:47) Vomiting All Systems PM: A 10-system review of systems was performed and is negative for pertinent findings except as documented above in the HPI. Review of systems: Weakness, constant diarrhea and nausea. Other systems out of the 10 reviewed were negative - Constitutional Vitals: Temp Pulse Resp BP Pulse Ox 99.3 F 86 16 100/60 99 02/28/17 17:47 02/28/17 20:44 02/28/17 22:17 02/28/17 22:17 02/28/17 20:44 General appearance: Present: A&O X 3 - Head Head exam: Present: atraumatic, normocephalic - Eye Eye exam: Present: PERRL, conjuntiva pink, sclera anicteric Pupils: Present: PERRL - Neck Neck exam general surgery: Present: supple, trachea midline. Absent: lymphadenopathy - Respiratory Respiratory exam: Present: CTAB. Absent: accessory muscle use, rales, rhonchi, wheezes - Cardiovascular Cardiovascular exam: Present: RRR, +S1, +S2. Absent: diastolic murmur, gallop, rubs, systolic murmur - GI/Abdominal GI/Abdominal exam: Present: distended, normal bowel sounds, soft, tenderness ( Diffuse tenderness, no rebound), no peritoneal signs - Extremities Exam Extremities exam: Present: warm, radial pulses palpable and symetrical. Absent : calf tenderness, cyanotic, pedal edema - Neurological Exam Neurological exam: Present: CN II-XII intact, oriented X3, no focal deficits. Absent: pronater drift, facial droop, speech deficit - Skin Skin exam: Present: dry, intact Internal Med - H&P Results - Labs CBC & Chem 7: 02/28/17 18:51 02/28/17 18:51
[2017-02-28] MEDS: *HR* Morphine 2 MG/ML SYRINGE IVP PRN (23:08)
[2017-02-28] MEDS: Ondansetron 4 MG/2 ML VIAL IVP PRN (23:08)
[2017-02-28] MEDS: Nicotine 21 MG PATCH.TD24 TD SCH (23:14)
[2017-02-28] MEDS: Pantoprazole 40 MG VIAL IVP SCH (23:15)
[2017-02-28] MEDS: Vancomycin Oral Soln 250 MG/2.5 ML UDC PO SCH (23:15)
[2017-02-28] MEDS: MetroNIDAZOLE 500 MG/100 ML 500 MG/100 ML BAG IVPB SCH (23:39)
[2017-03-01 06:22] LABS: Hematocrit 39.1 % (35.3-44.9); Hemoglobin 13.5 g/dL (11.5-15.4); Mean Corpuscular HGB Conc 34.5 g/dL (31.6-35.5); Mean Corpuscular Hemoglobin 28.3 pg (28.0-33.3); Mean Platelet Volume 10.9 fL (9.4-12.4); Platelet Count 222 K/mcL (140-400); Red Blood Count 4.77 M/mcL (3.82-4.97); Red Cell Distribution Width 14.3 % (11.5-14.5)
[2017-03-01 07:00] LABS: BUN/Creatinine Ratio 6 (6-26); Calcium 8.2 mg/dL (8.6-10.8); Carbon Dioxide 25 mEq/L (19-29); Chloride 100 mEq/L (98-109); Glucose 84 mg/dL (70-99); Osmolality,Calculated 278 (280-300); Potassium 3.1 mEq/L (3.5-4.5); Sodium 136 mEq/L (136-145); eGFR For African Americans > 60 (> 60); eGFR For Non-African Americans > 60 (> 60)
[2017-03-01 07:02] LABS: Blood Urea Nitrogen 3 mg/dL (7-20)
[2017-03-01] MEDS: APIXABAN 5 MG TABLET PO SCH ×2 (07:40→20:21)
[2017-03-01] MEDS: Vancomycin Oral Soln 250 MG/2.5 ML UDC PO SCH ×4 (07:40→20:22)
[2017-03-01] MEDS: Pantoprazole 40 MG VIAL IVP SCH (07:40)
[2017-03-01] MEDS: MetroNIDAZOLE 500 MG/100 ML 500 MG/100 ML BAG IVPB SCH ×3 (07:41→23:41)
[2017-03-01] MEDS: Nicotine 21 MG PATCH.TD24 TD SCH (07:41)
--- NOTE | 2017-03-01 11:25 | Electrocardiograph Report ---
[place] [id number] Test Date: 2017-02-28 Pat Name: Kamla Blackburn Department: 104 Room: 3A12 Gender: F Campaign Coordinator: : 1970 Requested By: Eder Garcia Order Number: [id number] Reading MD: Klaus Rashid MD Measurements Intervals [place] Rate: 106 P: 56 MD: 170 QRS: 23 QRSD: 96 T: 50 QT: 353 QTc: 415 Interpretive Statements SINUS TACHYCARDIA Electronically Signed On 03-01-2017 11:23:48 EDT by Klaus Rashid MD
--- NOTE | 2017-03-01 13:15 | Internal Med Progress Note ---
Date of Encounter: 03/01/17 Time of Encounter: 13:12 - Assessment and plan (1) C. difficile colitis Current Visit: Yes Status: Acute Assessment and plan: Sepsis secondary to recurrent acute C. difficile colitis continue IV Flagyl and by mouth vancomycin try clear liquids , Isolation IV fluids (2) Hypothyroidism Current Visit: No Status: Chronic Assessment and plan: Continue Synthroid. Qualifiers: Hypothyroidism type: unspecified Qualified Code(s): E03.9 - Hypothyroidism , unspecified (3) History of pulmonary embolism Current Visit: No Status: Chronic Assessment and plan: We will continue ellliquis. (4) Fibromyalgia Current Visit: No Status: Chronic (5) Hypokalemia Current Visit: No Status: Acute Assessment and plan: Repeat Chem-7 still shows potassium of 3.1. Will continue IV fluids with the potassium for today, given persistent diarrhea. Repeat Chem-7 tomorrow, (6) Morbid obesity Current Visit: No Status: Chronic Qualifiers: Obesity type: due to excess calories Qualified Code(s): E66.01 - Morbid ( severe) obesity due to excess calories - Subjective Interval history: Patient admitted for C. difficile colitis, complaints of mild abdominal pain. Denies any nausea or vomiting, persistent diarrhea. Very poor historian, most of the answers to my question is I do not know. She says she had a very bad memory, she reports she could not walk since last August. Denies any weakness but she says she cannot stand due to some balance problems. - Constitutional Vitals: Temp Pulse Resp BP Pulse Ox 98.4 F 90 16 108/67 95 03/01/17 11:30 03/01/17 11:30 03/01/17 11:30 03/01/17 11:30 03/01/17 11:30 General appearance: Present: A&O X 3 Exam: - Head Head exam: Present: atraumatic, normocephalic - Eye Eye exam: Present: PERRL, conjuntiva pink, sclera anicteric Pupils: Present: PERRL - Neck Neck exam general surgery: Present: supple, trachea midline. Absent: lymphadenopathy - Respiratory Respiratory exam: Present: CTAB. Absent: accessory muscle use, rales, rhonchi, wheezes - Cardiovascular Cardiovascular exam: Present: RRR, +S1, +S2. Absent: diastolic murmur, gallop, rubs, systolic murmur - GI/Abdominal GI/Abdominal exam: Present: distended, normal bowel sounds, soft, non tender, no peritoneal signs - Extremities Exam Extremities exam: Present: warm, radial pulses palpable and symetrical. Absent : calf tenderness, cyanotic, pedal edema - Neurological Exam Neurological exam: Present: CN II-XII intact, oriented X3, no focal deficits. Absent: pronater drift, facial droop, speech deficit - Skin Skin exam: Present: dry, intact Internal Medicine: Result - Labs CBC & Chem 7: 03/01/17 05:11 03/01/17 05:11 Labs: Short CBC 03/01/17 Range/Units 05:11 WBC 12.1 H (4.3-11.1) K/mcL Hgb 13.5 D (11.5-15.4) g/dL Hct 39.1 (35.3-44.9) % Plt Count 222 (140-400) K/mcL [facility] 03/01/17 05:11 Sodium 136 Potassium 3.1 L Chloride 100 Carbon Dioxide 25 BUN 3 L Creatinine 0.52 L Glucose 84 Calcium 8.2 L Consult Discharge Plan - Plan Referrals: Lavell Capsp MD [Primary Care Provider] -
[2017-03-01] MEDS: Acetaminophen 325 MG TABLET PO PRN (16:22)
[2017-03-01] MEDS: *HR* Morphine 2 MG/ML SYRINGE IVP PRN (20:26)
[2017-03-02] MEDS: Pantoprazole 40 MG VIAL IVP SCH (07:54)
[2017-03-02] MEDS: APIXABAN 5 MG TABLET PO SCH ×2 (07:54→20:02)
[2017-03-02] MEDS: Vancomycin Oral Soln 250 MG/2.5 ML UDC PO SCH ×4 (07:55→20:02)
[2017-03-02] MEDS: Ondansetron 4 MG/2 ML VIAL IVP PRN ×3 (08:01→20:04)
[2017-03-02] MEDS: Nicotine 21 MG PATCH.TD24 TD SCH (08:03)
[2017-03-02] MEDS: MetroNIDAZOLE 500 MG/100 ML 500 MG/100 ML BAG IVPB SCH ×3 (08:43→23:36)
[2017-03-02 08:48] LABS: Basophils # 0.1 K/mcL (0.0-0.2); Basophils % 0.8 %; Eosinophils # 0.1 K/mcL (0.0-0.6); Eosinophils % 1.3 %; Hematocrit 37.2 % (35.3-44.9); Hemoglobin 12.4 g/dL (11.5-15.4); Immature Granulocytes % 0.5 % (0-4); Lymphocytes # 2.2 K/mcL (0.6-4.6); Lymphocytes % 26.5 %; Mean Corpuscular HGB Conc 33.3 g/dL (31.6-35.5); Mean Corpuscular Hemoglobin 27.7 pg (28.0-33.3); Mean Platelet Volume 10.2 fL (9.4-12.4); Monocytes # 0.5 K/mcL (0.0-1.3); Monocytes % 6.6 %; Neutrophils # 5.3 K/mcL (1.6-8.9); Platelet Count 190 K/mcL (140-400); Red Blood Count 4.48 M/mcL (3.82-4.97); Red Cell Distribution Width 14.6 % (11.5-14.5); Segmented Neutrophils % 64.3 %
[2017-03-02] MEDS: Acetaminophen 325 MG TABLET PO PRN (08:48)
[2017-03-02 09:01] LABS: BUN/Creatinine Ratio 6 (6-26); Calcium 7.9 mg/dL (8.6-10.8); Carbon Dioxide 24 mEq/L (19-29); Chloride 105 mEq/L (98-109); Glucose 107 mg/dL (70-99); Osmolality,Calculated 279 (280-300); Potassium 2.9 mEq/L (3.5-4.5); Sodium 136 mEq/L (136-145); eGFR For African Americans > 60 (> 60); eGFR For Non-African Americans > 60 (> 60)
[2017-03-02 09:07] LABS: Blood Urea Nitrogen 3 mg/dL (7-20)
[2017-03-02] MEDS ORDERED: 0.9 % Sodium Chloride 1,000 ML IVC SCH (10:45)
[2017-03-02] MEDS ORDERED: Ondansetron 4 MG/2 ML VIAL IVP ONE (13:17)
[2017-03-02] MEDS: Potassium Chloride 40 MEQ, Lidocaine 1% 2 ML in D5% in Water 500 ML IVPB SCH ×2 (13:27→20:07)
--- NOTE | 2017-03-02 13:38 | Internal Med Progress Note ---
Date of Encounter: 03/02/17 Time of Encounter: 13:36 - Assessment and plan (1) C. difficile colitis Current Visit: Yes Status: Acute Assessment and plan: Sepsis secondary to recurrent acute C. difficile colitis continue IV Flagyl and by mouth vancomycin She vomited after diet was advanced to soft, we will keep her on full liquids for today. Continue IV antiemetics, IV fluids (2) Hypothyroidism Current Visit: No Status: Chronic Assessment and plan: Continue Synthroid. Qualifiers: Hypothyroidism type: unspecified Qualified Code(s): E03.9 - Hypothyroidism , unspecified (3) History of pulmonary embolism Current Visit: No Status: Chronic Assessment and plan: We will continue ellliquis. (4) Fibromyalgia Current Visit: No Status: Chronic (5) Hypokalemia Current Visit: No Status: Acute Assessment and plan: Repeat Chem-7 still shows potassium of 2.9 today Will continue IV potassium supplementation. Repeat Chem-7 tomorrow, (6) Morbid obesity Current Visit: No Status: Chronic Qualifiers: Obesity type: due to excess calories Qualified Code(s): E66.01 - Morbid ( severe) obesity due to excess calories - Subjective Interval history: Patient admitted for C. difficile colitis, seen at the bedside this morning, in no acute distress. Was reported by the nurse that she vomited once in the morning, also has persistent diarrhea. Very poor historian, most of the answers to my question is I do not know. She says she had a very bad memory, she reports she could not walk since last August. Was seen by PT OT and bedside, recommending inpatient rehabilitation - Constitutional Vitals: Temp Pulse Resp BP Pulse Ox 98 F 75 16 109/65 96 03/02/17 12:01 03/02/17 12:01 03/02/17 12:01 03/02/17 12:01 03/02/17 12:01 General appearance: Present: A&O X 3 Exam: - Head Head exam: Present: atraumatic, normocephalic - Eye Eye exam: Present: PERRL, conjuntiva pink, sclera anicteric Pupils: Present: PERRL - Neck Neck exam general surgery: Present: supple, trachea midline. Absent: lymphadenopathy - Respiratory Respiratory exam: Present: CTAB. Absent: accessory muscle use, rales, rhonchi, wheezes - Cardiovascular Cardiovascular exam: Present: RRR, +S1, +S2. Absent: diastolic murmur, gallop, rubs, systolic murmur - GI/Abdominal GI/Abdominal exam: Present: distended, normal bowel sounds, soft, non tender, no peritoneal signs - Extremities Exam Extremities exam: Present: warm, radial pulses palpable and symetrical. Absent : calf tenderness, cyanotic, pedal edema - Neurological Exam Neurological exam: Present: CN II-XII intact, oriented X3, no focal deficits. Absent: pronater drift, facial droop, speech deficit - Skin Skin exam: Present: dry, intact Internal Medicine: Result - Labs CBC & Chem 7: 03/02/17 08:39 03/02/17 08:39 Labs: Short CBC 03/02/17 Range/Units 08:39 WBC 8.2 (4.3-11.1) K/mcL Hgb 12.4 (11.5-15.4) g/dL Hct 37.2 (35.3-44.9) % Plt Count 190 (140-400) K/mcL Neutrophils # 5.3 (1.6-8.9) K/mcL BMP 03/02/17 08:39 Sodium 136 Potassium 2.9 L Chloride 105 Carbon Dioxide 24 BUN 3 L Creatinine 0.52 L Glucose 107 H Calcium 7.9 L Consult Discharge Plan - Plan Referrals: Lavell Capps MD [Primary Care Provider] -
[2017-03-02] MEDS: *HR* Morphine 2 MG/ML SYRINGE IVP PRN ×2 (15:10→20:05)
[2017-03-02] MEDS: 0.9 % Sodium Chloride 1,000 ML IVC SCH ×2 (22:19→22:20)
[2017-03-03] MEDS: Ondansetron 4 MG/2 ML VIAL IVP PRN ×3 (05:38→20:38)
[2017-03-03] MEDS: 0.9 % Sodium Chloride 1,000 ML IVC SCH ×2 (06:38→16:53)
[2017-03-03] MEDS: *HR* Morphine 2 MG/ML SYRINGE IVP PRN ×2 (08:33→20:39)
[2017-03-03 09:12] LABS: Basophils # 0.1 K/mcL (0.0-0.2); Basophils % 1.1 %; Eosinophils # 0.1 K/mcL (0.0-0.6); Hematocrit 35.2 % (35.3-44.9); Hemoglobin 11.8 g/dL (11.5-15.4); Immature Granulocytes % 0.6 % (0-4); Lymphocytes # 2.4 K/mcL (0.6-4.6); Lymphocytes % 37.3 %; Mean Corpuscular HGB Conc 33.5 g/dL (31.6-35.5); Mean Corpuscular Volume 83.4 fL (83.0-100.0); Mean Platelet Volume 10.1 fL (9.4-12.4); Monocytes # 0.6 K/mcL (0.0-1.3); Monocytes % 8.9 %; Neutrophils # 3.2 K/mcL (1.6-8.9); Platelet Count 200 K/mcL (140-400); Red Blood Count 4.22 M/mcL (3.82-4.97); Red Cell Distribution Width 14.9 % (11.5-14.5); Segmented Neutrophils % 50.1 %
[2017-03-03 09:22] LABS: BUN/Creatinine Ratio 6 (6-26); Blood Urea Nitrogen 3 mg/dL (7-20); Calcium 7.7 mg/dL (8.6-10.8); Carbon Dioxide 22 mEq/L (19-29); Chloride 109 mEq/L (98-109); Glucose 87 mg/dL (70-99); Osmolality,Calculated 282 (280-300); Potassium 3.4 mEq/L (3.5-4.5); Sodium 138 mEq/L (136-145); eGFR For African Americans > 60 (> 60); eGFR For Non-African Americans > 60 (> 60)
[2017-03-03] MEDS: APIXABAN 5 MG TABLET PO SCH ×2 (09:37→20:37)
[2017-03-03] MEDS: MetroNIDAZOLE 500 MG/100 ML 500 MG/100 ML BAG IVPB SCH ×2 (09:37→16:46)
[2017-03-03] MEDS: Nicotine 21 MG PATCH.TD24 TD SCH (09:38)
[2017-03-03] MEDS: Vancomycin Oral Soln 250 MG/2.5 ML UDC PO SCH (11:33)
--- NOTE | 2017-03-03 11:46 | Internal Med Progress Note ---
Date of Encounter: 03/03/17 Time of Encounter: 11:44 - Assessment and plan (1) C. difficile colitis Current Visit: Yes Status: Acute Assessment and plan: first relapse of c. diff colitis, she has h/o c.diff colitis, poor historian. she had mild leucocytosis at presentation which has resolved now, no fever , age <65, alb>2.8, does not qualify for severe disease. will stop vanco, will continue IV flagyl for now. will keep her on full liquids for now. Continue IV antiemetics, IV fluids (2) Hypothyroidism Current Visit: No Status: Chronic Assessment and plan: Continue Synthroid. Qualifiers: Hypothyroidism type: unspecified Qualified Code(s): E03.9 - Hypothyroidism , unspecified (3) History of pulmonary embolism Current Visit: No Status: Chronic Assessment and plan: We will continue ellliquis. (4) Fibromyalgia Current Visit: No Status: Chronic (5) Hypokalemia Current Visit: No Status: Acute Assessment and plan: most likely 2/2 diarrhea. Repeat Chem-7 today shows K of 3.4 will stop IV and start oral supplementation. Repeat Chem-7 tomorrow, (6) Morbid obesity Current Visit: No Status: Chronic Qualifiers: Obesity type: due to excess calories Qualified Code(s): E66.01 - Morbid ( severe) obesity due to excess calories - Subjective Interval history: Patient admitted for C. difficile colitis, seen at the bedside this morning, had one episode of diarrhea documented, c/o burning micturition. Was reported by the nurse that she has nausea. Very poor historian, most of the answers to my question is I do not know. She says she had a very bad memory, she reports she could not walk since last August. Was seen by PT OT and bedside, recommending inpatient rehabilitation, awaiting social work for placement. - Constitutional Vitals: Temp Pulse Resp BP Pulse Ox 97.8 F 75 16 100/63 95 03/03/17 07:30 03/03/17 07:30 03/03/17 07:30 03/03/17 07:30 03/03/17 07:30 General appearance: Present: A&O X 3 Exam: - Head Head exam: Present: atraumatic, normocephalic - Eye Eye exam: Present: PERRL, conjuntiva pink, sclera anicteric Pupils: Present: PERRL - Neck Neck exam general surgery: Present: supple, trachea midline. Absent: lymphadenopathy - Respiratory Respiratory exam: Present: CTAB. Absent: accessory muscle use, rales, rhonchi, wheezes - Cardiovascular Cardiovascular exam: Present: RRR, +S1, +S2. Absent: diastolic murmur, gallop, rubs, systolic murmur - GI/Abdominal GI/Abdominal exam: Present: normal bowel sounds, soft, non tender, no peritoneal signs - Extremities Exam Extremities exam: Present: warm, radial pulses palpable and symetrical. Absent : calf tenderness, cyanotic, pedal edema - Neurological Exam Neurological exam: Present: CN II-XII intact, oriented X3, no focal deficits. Absent: pronater drift, facial droop, speech deficit - Skin Skin exam: Present: dry, intact Internal Medicine: Result - Labs CBC & Chem 7: 03/03/17 08:59 03/03/17 08:59 Labs: Short CBC 03/03/17 Range/Units 08:59 WBC 6.4 (4.3-11.1) K/mcL Hgb 11.8 (11.5-15.4) g/dL Hct 35.2 L (35.3-44.9) % Plt Count 200 (140-400) K/mcL Neutrophils # 3.2 (1.6-8.9) K/mcL BMP 03/03/17 08:59 Sodium 138 Potassium 3.4 L Chloride 109 Carbon Dioxide 22 BUN 3 L Creatinine 0.49 L Glucose 87 Calcium 7.7 L Consult Discharge Plan - Plan Referrals: Lavell Capps MD [Primary Care Provider] -
[2017-03-03 17:45] LABS: Bilirubin,Urine Moderate (Negative); Blood,Urine Large (Negative); Clarity,Urine Cloudy (Clear); Color,Urine Orange (Yellow); Glucose,Urine (UA) Normal (Normal); Ketones,Urine Trace mg/dL (Negative); Leukocyte Esterase,Urine Small (Negative); Nitrite,Urine Positive (Negative); Protein,Urine Trace mg/dL (Neg-Trace); Specific Gravity,Urine 1.021 (1.010-1.025); Urobilinogen,Urine Normal (Normal)
[2017-03-03 17:47] LABS: Bacteria,Urine None Seen per hpf (None-Few); Squamous Epithelial Cell,Urine Many per lpf (None-Few)
[2017-03-03 18:03] LABS: Hyaline Casts,Urine Few per lpf (None-Few); RBC,Urine 30-50 per hpf (0-3)
[2017-03-04] MEDS: MetroNIDAZOLE 500 MG/100 ML 500 MG/100 ML BAG IVPB SCH ×4 (00:07→23:15)
[2017-03-04] MEDS: 0.9 % Sodium Chloride 1,000 ML IVC SCH ×5 (00:10→21:50)
[2017-03-04] MEDS: APIXABAN 5 MG TABLET PO SCH ×2 (07:59→21:46)
[2017-03-04] MEDS: Nicotine 21 MG PATCH.TD24 TD SCH (07:59)
[2017-03-04] MEDS: Acetaminophen 325 MG TABLET PO PRN ×2 (08:05→21:46)
[2017-03-04 08:42] LABS: BUN/Creatinine Ratio 4 (6-26); Calcium 7.5 mg/dL (8.6-10.8); Carbon Dioxide 20 mEq/L (19-29); Chloride 110 mEq/L (98-109); Glucose 82 mg/dL (70-99); Osmolality,Calculated 279 (280-300); Potassium 3.6 mEq/L (3.5-4.5); Sodium 137 mEq/L (136-145); eGFR For African Americans > 60 (> 60); eGFR For Non-African Americans > 60 (> 60)
[2017-03-04 08:43] LABS: Blood Urea Nitrogen 2 mg/dL (7-20)
--- NOTE | 2017-03-04 11:49 | Internal Med Progress Note ---
Date of Encounter: 03/04/17 Time of Encounter: 11:39 - Assessment and plan (1) C. difficile colitis Current Visit: Yes Status: Acute Assessment and plan: first relapse of c. diff colitis, she has h/o c.diff colitis, poor historian. she had mild leucocytosis at presentation which has resolved now, no fever , age <65, alb>2.8, does not qualify for severe disease. will change IV flagyl to po flagyl. will advance diet to soft. clinically better today (2) Hypothyroidism Current Visit: No Status: Chronic Assessment and plan: Continue Synthroid. Qualifiers: Hypothyroidism type: unspecified Qualified Code(s): E03.9 - Hypothyroidism , unspecified (3) History of pulmonary embolism Current Visit: No Status: Chronic Assessment and plan: We will continue ellliquis. (4) Fibromyalgia Current Visit: No Status: Chronic (5) Hypokalemia Current Visit: No Status: Acute Assessment and plan: most likely 2/2 diarrhea. K of 3.5 today will continue oral supplementation. (6) Morbid obesity Current Visit: No Status: Chronic Qualifiers: Obesity type: due to excess calories Qualified Code(s): E66.01 - Morbid ( severe) obesity due to excess calories - Subjective Interval history: Patient admitted for C. difficile colitis, seen at the bedside this morning,2 episodes of diarrhea documented yesterday. denies nausea or vomiting today. Very poor historian, most of the answers to my question is I do not know. She says she had a very bad memory, she reports she could not walk since last August. Was seen by PT OT and bedside, recommending inpatient rehabilitation, awaiting social work for placement. - Constitutional Vitals: Temp Pulse Resp BP Pulse Ox 98.3 F 74 17 100/61 95 03/04/17 11:18 03/04/17 11:18 03/04/17 11:18 03/04/17 11:18 03/04/17 11:18 General appearance: Present: A&O X 3 Exam: - Head Head exam: Present: atraumatic, normocephalic - Eye Eye exam: Present: PERRL, conjuntiva pink, sclera anicteric Pupils: Present: PERRL - Neck Neck exam general surgery: Present: supple, trachea midline. Absent: lymphadenopathy - Respiratory Respiratory exam: Present: CTAB. Absent: accessory muscle use, rales, rhonchi, wheezes - Cardiovascular Cardiovascular exam: Present: RRR, +S1, +S2. Absent: diastolic murmur, gallop, rubs, systolic murmur - GI/Abdominal GI/Abdominal exam: Present: normal bowel sounds, soft, non tender, no peritoneal signs - Extremities Exam Extremities exam: Present: warm, radial pulses palpable and symetrical. Absent : calf tenderness, cyanotic, pedal edema - Neurological Exam Neurological exam: Present: CN II-XII intact, oriented X3, no focal deficits. Absent: pronater drift, facial droop, speech deficit - Skin Skin exam: Present: dry, intact Internal Medicine: Result - Labs CBC & Chem 7: 03/03/17 08:59 03/04/17 08:11 Labs: BMP 03/04/17 08:11 Sodium 137 Potassium 3.6 Chloride 110 H Carbon Dioxide 20 BUN 2 L Creatinine 0.49 L Glucose 82 Calcium 7.5 L Urine 03/03/17 Range/Units 17:36 Urine Color [place] A (Yellow) Urine Clarity Cloudy A (Clear) Urine pH 6.0 (5.0-8.0) pH Units Ur Specific [place] 1.021 (1.010-1.025) Urine Protein Trace (Neg-Trace) mg/dL Urine Glucose (UA) Normal (Normal) mg/dL Consult Discharge Plan - Plan Referrals: Lavell Capps MD [Primary Care Provider] -
[2017-03-04] MEDS: Sulfamethoxazole/Trimeth DS 1 EACH TABLET PO SCH ×3 (12:39→21:46)
[2017-03-04] MEDS: Ondansetron 4 MG/2 ML VIAL IVP PRN (21:47)
[2017-03-04] MEDS: *HR* Morphine 2 MG/ML SYRINGE IVP PRN (23:15)
[2017-03-05] MEDS: 0.9 % Sodium Chloride 1,000 ML IVC SCH ×2 (05:52→13:23)
[2017-03-05] MEDS: Sulfamethoxazole/Trimeth DS 1 EACH TABLET PO SCH ×2 (08:22→21:31)
[2017-03-05] MEDS: MetroNIDAZOLE 500 MG/100 ML 500 MG/100 ML BAG IVPB SCH (08:23)
[2017-03-05] MEDS: APIXABAN 5 MG TABLET PO SCH ×2 (08:23→21:31)
[2017-03-05] MEDS: Nicotine 21 MG PATCH.TD24 TD SCH (08:24)
[2017-03-05] MEDS: Ondansetron 4 MG/2 ML VIAL IVP PRN ×2 (08:40→14:53)
[2017-03-05] MEDS: *HR* Morphine 2 MG/ML SYRINGE IVP PRN ×2 (08:40→13:31)
--- NOTE | 2017-03-05 10:42 | Internal Med Progress Note ---
Date of Encounter: 03/05/17 Time of Encounter: 10:40 - Assessment and plan (1) C. difficile colitis Current Visit: Yes Status: Acute Assessment and plan: first relapse of c. diff colitis, she has h/o c.diff colitis, poor historian. she had mild leucocytosis at presentation which has resolved now, no fever , age <65, alb>2.8, does not qualify for severe disease. will change IV flagyl to po flagyl. continue soft diet clinically better (2) Hypothyroidism Current Visit: No Status: Chronic Assessment and plan: Continue Synthroid. Qualifiers: Hypothyroidism type: unspecified Qualified Code(s): E03.9 - Hypothyroidism , unspecified (3) History of pulmonary embolism Current Visit: No Status: Chronic Assessment and plan: We will continue ellliquis. (4) Fibromyalgia Current Visit: No Status: Chronic (5) Hypokalemia Current Visit: No Status: Inactive Assessment and plan: most likely 2/2 diarrhea and vomiting will continue oral supplementation for now (6) Morbid obesity Current Visit: No Status: Chronic Qualifiers: Obesity type: due to excess calories Qualified Code(s): E66.01 - Morbid ( severe) obesity due to excess calories (7) UTI (urinary tract infection) Current Visit: No Status: Acute Assessment and plan: possible from contamination from stool. she uses bed edward and ua is positive for LE and nitrites. also c/o burning micturition. have started bactrim yesterday, will continue 7 day course. reports clinically feel better Qualifiers: Urinary tract infection type: site unspecified Hematuria presence: without hematuria Qualified Code(s): N39.0 - Urinary tract infection, site not specified - Subjective Interval history: Patient admitted for C. difficile colitis, seen at the bedside this morning,2 episodes of diarrhea documented yesterday. has mild nausea this morning. Very poor historian, most of the answers to my question is I do not know. She says she had a very bad memory, she reports she could not walk since last August. Was seen by PT OT and bedside, recommending inpatient rehabilitation, awaiting social work for placement. - Constitutional Vitals: Temp Pulse Resp BP Pulse Ox 98.3 F 70 17 111/59 96 03/05/17 07:18 03/05/17 07:18 03/05/17 07:18 03/05/17 07:18 03/05/17 07:18 General appearance: Present: A&O X 3 Exam: - Head Head exam: Present: atraumatic, normocephalic - Eye Eye exam: Present: PERRL, conjuntiva pink, sclera anicteric Pupils: Present: PERRL - Neck Neck exam general surgery: Present: supple, trachea midline. Absent: lymphadenopathy - Respiratory Respiratory exam: Present: CTAB. Absent: accessory muscle use, rales, rhonchi, wheezes - Cardiovascular Cardiovascular exam: Present: RRR, +S1, +S2. Absent: diastolic murmur, gallop, rubs, systolic murmur - GI/Abdominal GI/Abdominal exam: Present: normal bowel sounds, soft, non tender, no peritoneal signs - Extremities Exam Extremities exam: Present: warm, radial pulses palpable and symetrical. Absent : calf tenderness, cyanotic, pedal edema - Neurological Exam Neurological exam: Present: CN II-XII intact, oriented X3, no focal deficits. Absent: pronater drift, facial droop, speech deficit - Skin Skin exam: Present: dry, intact Internal Medicine: Result - Labs CBC & Chem 7: 03/03/17 08:59 03/04/17 08:11 Consult Discharge Plan - Plan Referrals: Lavell Capps MD [Primary Care Provider] -
[2017-03-05 11:21] LABS: Basophils # 0.1 K/mcL (0.0-0.2); Eosinophils # 0.1 K/mcL (0.0-0.6); Eosinophils % 1.7 %; Hematocrit 34.8 % (35.3-44.9); Hemoglobin 11.5 g/dL (11.5-15.4); Immature Granulocytes % 0.8 % (0-4); Lymphocytes # 2.1 K/mcL (0.6-4.6); Lymphocytes % 40.4 %; Mean Corpuscular Hemoglobin 27.6 pg (28.0-33.3); Mean Corpuscular Volume 83.5 fL (83.0-100.0); Mean Platelet Volume 9.5 fL (9.4-12.4); Monocytes # 0.6 K/mcL (0.0-1.3); Monocytes % 11.8 %; Neutrophils # 2.3 K/mcL (1.6-8.9); Platelet Count 188 K/mcL (140-400); Red Blood Count 4.17 M/mcL (3.82-4.97); Red Cell Distribution Width 14.9 % (11.5-14.5); Segmented Neutrophils % 44.3 %
[2017-03-05 11:34] LABS: BUN/Creatinine Ratio 6 (6-26); Calcium 7.6 mg/dL (8.6-10.8); Carbon Dioxide 20 mEq/L (19-29); Chloride 111 mEq/L (98-109); Glucose 82 mg/dL (70-99); Osmolality,Calculated 280 (280-300); Potassium 3.7 mEq/L (3.5-4.5); Sodium 137 mEq/L (136-145); eGFR For African Americans > 60 (> 60); eGFR For Non-African Americans > 60 (> 60)
[2017-03-05 11:35] LABS: Blood Urea Nitrogen 3 mg/dL (7-20)
[2017-03-05] MEDS: metroNIDAZOLE 500 MG TABLET PO SCH ×2 (14:52→21:31)
[2017-03-05] MEDS: *HR* OxyCODONE Immed Rel 5 MG TABLET PO PRN (21:32)
[2017-03-06] MEDS: *HR* OxyCODONE Immed Rel 5 MG TABLET PO PRN ×3 (02:00→20:19)
[2017-03-06] MEDS: 0.9 % Sodium Chloride 1,000 ML IVC SCH ×2 (02:00→14:28)
[2017-03-06] MEDS: Sulfamethoxazole/Trimeth DS 1 EACH TABLET PO SCH ×2 (08:21→20:19)
[2017-03-06] MEDS: metroNIDAZOLE 500 MG TABLET PO SCH ×3 (08:21→20:19)
[2017-03-06] MEDS: APIXABAN 5 MG TABLET PO SCH ×2 (08:21→20:19)
[2017-03-06] MEDS: Nicotine 21 MG PATCH.TD24 TD SCH (08:22)
[2017-03-06] MEDS: Ondansetron 4 MG/2 ML VIAL IVP PRN (08:30)
--- NOTE | 2017-03-06 14:39 | Internal Med Progress Note ---
Date of Encounter: 03/06/17 Time of Encounter: 14:37 - Assessment and plan (1) C. difficile colitis Current Visit: Yes Status: Acute Assessment and plan: first relapse of c. diff colitis, she has h/o c.diff colitis, poor historian. she had mild leucocytosis at presentation which has resolved now, no fever , age <65, alb>2.8, does not qualify for severe disease. will continue po flagyl for 14 days(day 7 today) continue soft diet clinically better (2) Hypothyroidism Current Visit: No Status: Chronic Assessment and plan: Continue Synthroid. Qualifiers: Hypothyroidism type: unspecified Qualified Code(s): E03.9 - Hypothyroidism , unspecified (3) History of pulmonary embolism Current Visit: No Status: Chronic Assessment and plan: We will continue ellliquis. (4) Fibromyalgia Current Visit: No Status: Chronic (5) Hypokalemia Current Visit: No Status: Inactive Assessment and plan: most likely 2/2 diarrhea and vomiting will continue oral supplementation for now (6) Morbid obesity Current Visit: No Status: Chronic Qualifiers: Obesity type: due to excess calories Qualified Code(s): E66.01 - Morbid ( severe) obesity due to excess calories (7) UTI (urinary tract infection) Current Visit: No Status: Acute Assessment and plan: possible from contamination from stool. she uses bed edward and ua is positive for LE and nitrites. also c/o burning micturition. have started bactrim , will continue 5 day course, today is day 3. reports clinically feel better Qualifiers: Urinary tract infection type: site unspecified Hematuria presence: without hematuria Qualified Code(s): N39.0 - Urinary tract infection, site not specified - Subjective Interval history: Patient admitted for C. difficile colitis, seen at the bedside this morning,2 episodes of diarrhea documented today, none yesterday Very poor historian, most of the answers to my question is I do not know. She says she had a very bad memory, she reports she could not walk since last August. Was seen by PT OT and bedside, recommending inpatient rehabilitation, awaiting social work for placement. - Constitutional Vitals: Temp Pulse Resp BP Pulse Ox 98.3 F 70 14 113/67 97 03/06/17 14:30 03/06/17 14:30 03/06/17 14:30 03/06/17 14:30 03/06/17 14:30 General appearance: Present: A&O X 3 Exam: - Head Head exam: Present: atraumatic, normocephalic - Eye Eye exam: Present: PERRL, conjuntiva pink, sclera anicteric Pupils: Present: PERRL - Neck Neck exam general surgery: Present: supple, trachea midline. Absent: lymphadenopathy - Respiratory Respiratory exam: Present: CTAB. Absent: accessory muscle use, rales, rhonchi, wheezes - Cardiovascular Cardiovascular exam: Present: RRR, +S1, +S2. Absent: diastolic murmur, gallop, rubs, systolic murmur - GI/Abdominal GI/Abdominal exam: Present: normal bowel sounds, soft, non tender, no peritoneal signs - Extremities Exam Extremities exam: Present: warm, radial pulses palpable and symetrical. Absent : calf tenderness, cyanotic, pedal edema - Neurological Exam Neurological exam: Present: CN II-XII intact, oriented X3, no focal deficits. Absent: pronater drift, facial droop, speech deficit - Skin Skin exam: Present: dry, intact Internal Medicine: Result - Labs CBC & Chem 7: 03/05/17 11:10 03/05/17 11:10 Consult Discharge Plan - Plan Referrals: Lavell Capps MD [Primary Care Provider] -
[2017-03-07] MEDS: *HR* OxyCODONE Immed Rel 5 MG TABLET PO PRN ×3 (02:49→14:56)
[2017-03-07] MEDS: 0.9 % Sodium Chloride 1,000 ML IVC SCH (02:50)
--- NOTE | 2017-03-07 08:03 | Discharge Summary ---
Date of Encounter: 03/07/17 Time of Encounter: 13:07 - Discharge Diagnosis (1) Hypothyroidism Priority: Secondary Status: Chronic Comments: Stable at this time Qualifiers: Hypothyroidism type: unspecified Qualified Code(s): E03.9 - Hypothyroidism , unspecified (2) History of pulmonary embolism Priority: Secondary Status: Chronic Comments: History of PE in the past but at this time is stable and no further concerns. (3) UTI (urinary tract infection) Priority: Secondary Status: Acute Comments: Patient seems to be doing well on antibiotic and can complete the full course. Qualifiers: Urinary tract infection type: site unspecified Hematuria presence: without hematuria Qualified Code(s): N39.0 - Urinary tract infection, site not specified (4) Hypokalemia Priority: Secondary Status: Acute Comments: Perhaps related to diarrhea and has been resolved (5) C. difficile colitis Priority: Primary Status: Acute Comments: Patient diagnosed with C. difficile colitis and has been treated successfully. No diarrhea or abdominal pain at this time. She is tolerating full diet and having regular bowel movement. - Discharge Medications Prescriptions: metroNIDAZOLE [Flagyl] 500 mg PO BID #14 tablet Home Medications: Levothyroxine [Synthroid] 75 mcg PO DAILY 10/15/15 [History] Apixaban [Eliquis] 5 mg PO BID 09/21/16 [History] Nystatin [Nystatin Suspension] 100,000 unit PO QID 14 Days 02/25/17 [Rx] Ondansetron ODT [Zofran ODT] 4 mg SL Q6HR #20 tab.rapdis 02/25/17 [Rx] Buspirone HCl [Buspar] 10 mg PO BID 02/28/17 [History] Cholecalciferol (Vitamin D3) [Vitamin D3] 2,000 unit PO DAILY 02/28/17 [History] Diclofenac Sodium [Voltaren] 1 appl TP QID PRN 02/28/17 [History] Sertraline [Zoloft] 50 mg PO DAILY 02/28/17 [History] Vitamin B Complex 1 each PO DAILY 02/28/17 [History] Acetaminophen [Tylenol] 650 mg PO Q6HR PRN #0 tablet 03/07/17 [Rx] Nicotine Patch [Nicoderm] 21 mg TD DAILY patch.td24 03/07/17 [Rx] metroNIDAZOLE [Flagyl] 500 mg PO BID #14 tablet 03/07/17 [Rx] Allergies/Adverse Reactions: Allergies Erythromycin Base Adverse Reaction (Verified 02/28/17 17:47) Vomiting naproxen Adverse Reaction (Verified 02/28/17 17:47) Vomiting tramadol Adverse Reaction (Verified 02/28/17 17:47) Vomiting Date of admission: 02/28/17 22:35 Primary care physician: Lavell Capps MD Consults: 03/01/17 00:10 Consult to International Sales Representative [CONS] Routine Reason for SW Consult: Pt requests need for consult 03/01/17 09:36 Consult to Occupational Therapy [CONS] Routine Comment: Evaluate, develop and implement POC Reason for Consult: evaluate for discharge planning Consult to Physical Therapy [CONS] Routine Comment: Evaluate, develop and implement POC Reason for Consult: evaluate for discharge planning Discharging clinician: Shavon Donato Anticipated date of discharge: 03/07/17 - Patient Status Disposition: Home, Self-Care Condition: Fair - Discharge Instructions Follow Up With: Lavell Capps MD [Primary Care Provider] - Hospital course: Ms. Blackburn is a 46 year old female Patient was admitted for C. difficile colitis. She had an episode before. She was successfully treated with Flagyl. She plans to be discharged home. Please refer to imaging studies. At this time she is tolerating full diet and diarrhea has not stopped. - Time Spent with Patient Total time spent providing and/or coordinating discharge services: Greater than 30 minutes - Constitutional Vitals: Temp Pulse Resp BP Pulse Ox 98.5 F 71 12 112/74 97 03/07/17 07:10 03/07/17 07:10 03/07/17 07:10 03/07/17 07:10 03/07/17 07:10 General appearance: Present: A&O X 3, obese, answers questions appropriately - Head Head exam: Present: atraumatic, normocephalic - Eye Eye exam: Present: PERRL, conjuntiva pink, sclera anicteric Pupils: Present: PERRL - Neck Neck exam general surgery: Present: supple, trachea midline. Absent: lymphadenopathy - Respiratory Respiratory exam: Present: CTAB. Absent: accessory muscle use, rales, rhonchi, wheezes - Cardiovascular Cardiovascular exam: Present: RRR, +S1, +S2. Absent: diastolic murmur, gallop, rubs, systolic murmur - GI/Abdominal GI/Abdominal exam: Present: normal bowel sounds, soft, no peritoneal signs. Absent: distended, tenderness - Extremities Exam Extremities exam: Present: warm, radial pulses palpable and symetrical. Absent : calf tenderness, cyanotic, pedal edema - Neurological Exam Neurological exam: Present: CN II-XII intact, oriented X3, no focal deficits. Absent: pronater drift, facial droop, speech deficit - Skin Skin exam: Present: dry, intact
[2017-03-07] MEDS: Sulfamethoxazole/Trimeth DS 1 EACH TABLET PO SCH (08:42)
[2017-03-07] MEDS: APIXABAN 5 MG TABLET PO SCH (08:43)
[2017-03-07] MEDS: Nicotine 21 MG PATCH.TD24 TD SCH ×2 (08:44→08:46)
[2017-03-07] MEDS: metroNIDAZOLE 500 MG TABLET PO SCH ×2 (08:44→14:56)
[2017-03-07 12:39] VITALS: BP 105/74
[2017-03-07] MEDS: Ondansetron 4 MG/2 ML VIAL IVP PRN (14:56)
--- NOTE | 2017-03-07 15:20 | Physician Discharge Referral ---
ExtendedCare Referral Info Transfer To: [facility] Provider in Charge: julio césar Provider in Charge after Transfer: PCP, Senior Clerk Institutional Level of Care: Skilled - Diagnosis (1) Hypothyroidism Status: Chronic (2) History of pulmonary embolism Status: Chronic (3) UTI (urinary tract infection) Status: Acute (4) Hypokalemia Status: Acute (5) C. difficile colitis Status: Acute - Transfer Medications Prescriptions: metroNIDAZOLE [Flagyl] 500 mg PO BID #14 tablet Home Medications: Levothyroxine [Synthroid] 75 mcg PO DAILY 10/15/15 [History] Apixaban [Eliquis] 5 mg PO BID 09/21/16 [History] Nystatin [Nystatin Suspension] 100,000 unit PO QID 14 Days 02/25/17 [Rx] Ondansetron ODT [Zofran ODT] 4 mg SL Q6HR #20 tab.rapdis 02/25/17 [Rx] Buspirone HCl [Buspar] 10 mg PO BID 02/28/17 [History] Cholecalciferol (Vitamin D3) [Vitamin D3] 2,000 unit PO DAILY 02/28/17 [History] Diclofenac Sodium [Voltaren] 1 appl TP QID PRN 02/28/17 [History] Sertraline [Zoloft] 50 mg PO DAILY 02/28/17 [History] Vitamin B Complex 1 each PO DAILY 02/28/17 [History] Acetaminophen [Tylenol] 650 mg PO Q6HR PRN #0 tablet 03/07/17 [Rx] Nicotine Patch [Nicoderm] 21 mg TD DAILY patch.td24 03/07/17 [Rx] metroNIDAZOLE [Flagyl] 500 mg PO BID #14 tablet 03/07/17 [Rx] Allergies/Adverse Reactions: Allergies Erythromycin Base Adverse Reaction (Verified 02/28/17 17:47) Vomiting naproxen Adverse Reaction (Verified 02/28/17 17:47) Vomiting tramadol Adverse Reaction (Verified 02/28/17 17:47) Vomiting - Respiratory Orders Smoking Cessation: Smoking cessation has been advised. For more information, call the [place] Tobacco Quit Line at 0-112-NOEA-NOW. CERTIFICATION: I certify that the transfer of the above named patient to an Extended Care Facility is necessary for the continuing treatment of the diagnosis listed. The above information is true and accurate reflection of patient's current condition. Confidential - Redisclosure prohibited without a patient's written consent.
== END 2017-03-07 16:54 | DRG 720 ==
LOC: 3ANU 17:46 → EMEROO 17:46 → 3ANU 22:42
PROVIDERS: ADMIT Internal Medicine Sleep Medicine; ATTEND Internal Medicine Endocrinology, Diabetes & Metabolism

== ENCOUNTER 2021-10-26 13:36 | Observation (INO) ==
[2021-10-26] MEDS ORDERED: Nitroglycerin 0.4 MG TAB.SUBL SL PRN (14:31)
[2021-10-26 15:10] LABS: Basophils # 0.1 K/mcL (0.0-0.2); Basophils % 0.9 %; Eosinophils # 0.1 K/mcL (0.0-0.6); Eosinophils % 1.4 %; Hematocrit 39.9 % (35.3-44.9); Hemoglobin 12.6 g/dL (11.5-15.4); Immature Granulocytes % 0.2 % (0-4); Lymphocytes # 1.9 K/mcL (0.6-4.6); Lymphocytes % 29.8 %; Mean Corpuscular HGB Conc 31.6 g/dL (31.6-35.5); Mean Corpuscular Volume 91.7 fL (83.0-100.0); Mean Platelet Volume 10.3 fL (9.4-12.4); Monocytes # 0.4 K/mcL (0.0-1.3); Monocytes % 6.5 %; Neutrophils # 3.9 K/mcL (1.6-8.9); Platelet Count 241 K/mcL (140-400); Red Blood Count 4.35 M/mcL (3.82-4.97); Segmented Neutrophils % 61.2 %; White Blood Count 6.4 K/mcL (4.3-11.1)
[2021-10-26 16:02] LABS: BUN/Creatinine Ratio 22 (6-26); Blood Urea Nitrogen 14 mg/dL (6-20); Calcium 9.4 mg/dL (8.6-10.3); Carbon Dioxide 23 mEq/L (23-29); Chloride 105 mEq/L (98-107); Glucose 96 mg/dL (70-105); Lipase 55 Units/L (11-82); Osmolality,Calculated 288 (280-300); Potassium 4.1 mEq/L (3.5-5.1); Sodium 139 mEq/L (136-145); Troponin I < 0.03 ng/mL (< 0.04); eGFR For African Americans > 60 (> 60); eGFR For Non-African Americans > 60 (> 60)
[2021-10-26] MEDS ORDERED: Aspirin 325 MG TABLET PO ONE (16:49)
[2021-10-26] MEDS ORDERED: Ondansetron 4 MG/2 ML VIAL IVP PRN (17:05)
[2021-10-26] MEDS ORDERED: Perflutren Lipid Microsphere 1.3 ML in 0.9 % Sodium Chloride 8.7 ML IVP PRN (17:05)
[2021-10-26] MEDS: Nicotine 21 MG PATCH.TD24 TD SCH (18:30)
[2021-10-26] MEDS: *HR* Heparin 5,000 UNIT/ML VIAL SQ SCH (20:46)
[2021-10-27] MEDS: *HR* Heparin 5,000 UNIT/ML VIAL SQ SCH ×2 (05:30→13:06)
[2021-10-27] MEDS ORDERED: Regadenoson 0.4 MG/5 ML SYRINGE IVP ONE (05:51)
[2021-10-27 06:02] LABS: Basophils # 0.1 K/mcL (0.0-0.2); Basophils % 1.2 %; Eosinophils # 0.2 K/mcL (0.0-0.6); Eosinophils % 2.3 %; Hematocrit 37.2 % (35.3-44.9); Hemoglobin 13.4 g/dL (11.5-15.4); Immature Granulocytes % 0.2 % (0-4); Lymphocytes # 2.7 K/mcL (0.6-4.6); Mean Corpuscular Volume 91.6 fL (83.0-100.0); Mean Platelet Volume 10.5 fL (9.4-12.4); Monocytes # 0.5 K/mcL (0.0-1.3); Monocytes % 6.9 %; Neutrophils # 3.2 K/mcL (1.6-8.9); Platelet Count 267 K/mcL (140-400); Red Blood Count 4.06 M/mcL (3.82-4.97); Red Cell Distribution Width 14.3 % (11.5-14.5); Segmented Neutrophils % 48.4 %; White Blood Count 6.5 K/mcL (4.3-11.1)
[2021-10-27 06:06] LABS: INR 1.1; Prothrombin Time 12.2 Seconds (9.4-12.1)
[2021-10-27 06:21] LABS: Alanine Aminotransferase 9 Units/L (7-52); Albumin 3.7 g/dL (3.5-5.7); Albumin/Globulin Ratio 1.4 (1.1-2.2); Alkaline Phosphatase 57 Units/L (34-104); Aspartate Amino Transferase 15 Units/L (13-39); BUN/Creatinine Ratio 24 (6-26); Bilirubin,Total 0.6 mg/dL (0.3-1.0); Blood Urea Nitrogen 14 mg/dL (6-20); Carbon Dioxide 25 mEq/L (23-29); Chloride 109 mEq/L (98-107); Chol/HDL Ratio 2.5 (0-4.9); Cholesterol 109 mg/dL (< 200); Globulin 2.7 g/dL (2.4-3.5); Glucose 85 mg/dL (70-105); HDL Cholesterol 43 mg/dL (40-59); LDL Cholesterol,Calculated 54 mg/dL (< 100); Magnesium 1.9 mg/dL (1.6-2.6); Osmolality,Calculated 288 (280-300); Potassium 4.1 mEq/L (3.5-5.1); Sodium 139 mEq/L (136-145); Total Protein 6.4 g/dL (6.4-8.9); Triglycerides 59 mg/dL (< 150); eGFR For African Americans > 60 (> 60); eGFR For Non-African Americans > 60 (> 60)
[2021-10-27 07:11] VITALS: PULSE 67
[2021-10-27] MEDS: Nicotine 21 MG PATCH.TD24 TD SCH (07:31)
[2021-10-27] MEDS ORDERED: Metoprolol XL (24 HR) Succ 25 MG TAB.ER.24H PO SCH (09:00)
[2021-10-27 09:23] LABS: Estimated Average Glucose 117 mg/dl; Hemoglobin A1C 5.7 %
[2021-10-27 11:15] VITALS: BP 113/71; TEMP 98.1; O2SAT 97
== END 2021-10-27 15:16 | disposition home or self-care (01) ==
LOC: 3BNU 13:36 → EMEROOARM 13:36 → 3BNU 19:56
PROVIDERS: ADMIT Student in an Organized Health Care Education/Training Program; ATTEND Student in an Organized Health Care Education/Training Program